=== PATIENT | male | born 1960 | race Caucasian/White ===

== ENCOUNTER 2016-06-30 19:16 | Inpatient (IN) | payer OTHER ==
[~2016-06-30] VITALS: Ht 172.7 cm; Wt 70.5 kg
[~2016-06-30 19:16] MED LIST: FRS/40 PO; HYDR4TAB78 PO; OMEP20TA PO; OXYC-59 PO; SPIR100T PO; [UNRECOGNIZED DRUG - OTHER]
[2016-06-30] MEDS ORDERED: ONDANSETRON INJ 2 MG/ML 2 ML VIAL IV PRN (20:30)
[2016-06-30] MEDS ORDERED: ACETAMINOPHEN 325 MG TAB PO PRN (20:30)
[2016-06-30] MEDS ORDERED: OXYCODONE/ACETAMINOPHEN 10/325MG TAB PO PRN (21:15)
[2016-06-30] MEDS ORDERED: ALBUTEROL HFA 8 GM INHALER INH PRN (21:15)
[2016-06-30] MEDS ORDERED: CYCLOBENZAPRINE HCL 10 MG TAB PO PRN (21:15)
[2016-06-30] MEDS ORDERED: CYCL10TA6 PO (21:21)
[2016-06-30] MEDS ORDERED: SPIR50TA2 PO (21:21)
[2016-06-30] MEDS ORDERED: LSX20 PO (21:21)
[2016-06-30 21:39] LABS: HEMATOCRIT 22.8 % (42-52); MEAN CELL VOLUME 97.9 fL (80-100); MEAN CORPUSCULAR HEMOGLOBIN 36.5 pg (25-34); MEAN CORPUSCULAR HGB CONC 37.3 g/dl (32-36); RED BLOOD COUNT 2.33 M/uL (4.7-6.1); WHITE BLOOD COUNT 8.13 K/uL (4.8-10.8)
[2016-06-30 21:53] LABS: MEAN PLATELET VOLUME 9.7 fL (7.4-10.4); PLATELET COUNT 86 K/uL (130-400)
[2016-06-30 21:57] LABS: BLOOD UREA NITROGEN 28 mg/dl (7-18); BUN/CREATININE RATIO 17.4 (10-20); CALCIUM 8.5 mg/dl (8.5-10.1); CARBON DIOXIDE 28 mmol/L (21-32); CHLORIDE 90 mmol/L (98-107); GLUCOSE 131 mg/dl (70-99); MAGNESIUM 1.8 mg/dl (1.8-2.4); POTASSIUM 4.7 mmol/L (3.5-5.1); SODIUM 127 mmol/L (136-145)
[2016-06-30 22:08] VITALS: Ht 172.7 cm; Wt 70.5 kg
[2016-06-30] MEDS ORDERED: NICOTINE 21 MG/24 HR TDSY TD ONE (22:31)
[2016-07-01] VITALS (15 sets, daily range): BP systolic 111–154; BP diastolic 64–82; PULSE 86–97; TEMP 36.3–36.8; O2SAT 94–100
--- NOTE | 2016-07-01 00:24 | History and Physical ---
History & Physical Date & Time of Service: Jun 30, 2016 at 21:21 Chief Complaint: Acute Renal Failure, Hyponatremia Primary Care Physician: Yazan Ayala M.D. History of Present Illness Source: patient, clinic records This is a 55 year old male with PMH of cirrhosis due to alcohol abuse and HCV complicated by ascites, portal HTN, varices, who presents as a direct admission from [facility] for hyponatremia, anemia, and ANJEL. Patient recently had paracentsis on 07/25/15 and states he had severe abd pain that night and the next day. Pain is now less severe. His home pain regimen (which he takes for his neck) controls the abd pain. He c/o distension and weight increase from 145 lb after paracentesis to 153 today. HHe has intermittent nausea but has been eating normally on low sodium diet. He reports drinking 7 or more cups of liquid per day. He c/o dry mouth. He reports chronically feeling cold. He admits to jaundice for past 1 mo. He is also c/o cramping of the hands and feet. Denies fevers, chest pain, SOB, LE edema, vomiting, diarrhea, hematemesis , coffee ground emesis, hematochezia, melena, dysuria. Pt's nadolol recently held and furosemide and spironolactone decreased. Past Medical/Surgical History Medical Problems: (1) Ascites Status: Chronic (2) Chronic pain syndrome Permanent Comment: cervical spine Status: Chronic (3) Cirrhosis of liver Status: Chronic (4) GERD (gastroesophageal reflux disease) Status: Chronic (5) Hepatitis C, chronic Status: Chronic (6) Intermittent asthma Status: Chronic (7) Portal hypertension Permanent Comment: esophageal varices noted on EGD Feb 2016 Status: Chronic (8) Thrombocytopenia Status: Chronic Surgical Problems: (1) History of tonsillectomy Status: Chronic (2) S/P cervical spinal fusion Permanent Comment: 2004 and 2007 Status: Chronic (3) Status post insertion of intrathecal pump Permanent Comment: [facility] hydromorphone Status: Chronic Family History Unobtainable family history due to adoption Social History Smoking Status: Current Every Day Smoker (1 ppd) Alcohol Use: none (last drink 6 mo ago) Drug Use: marijuana Marital Status: in relationship Housing status: lives with family (with son) Immunizations History of Influenza Vaccine: Yes History of Tetanus Vaccine?: YES,< 10 YRS History of Pneumococcal: No History of Hepatitis B Vaccine: Unknown Multi-Drug Resistant Organisms History of MDRO: No Allergies Coded Allergies: Morphine (Verified Adverse Reaction, Unknown, INABILITY TO URINATE, ) Home Medications Scheduled Ascorbic Acid (Vitamin C Gummie 120 mg), 1 TAB PO DAILY Furosemide (Furosemide), 20 MG PO BID Multiple Vitamin (Multivitamin), 1 TAB PO QAM Omeprazole (Omeprazole), 20 TAB PO DAILY Spironolactone (Aldactone), 50 MG PO BID Scheduled PRN Albuterol (Proair Hfa), 2 PUFFS INH Q4 PRN for SOB/Wheezing Cyclobenzaprine Hcl (Flexeril), 1 TAB PO HS PRN for Muscle Spasms Hydromorphone Hcl (Dilaudid), 4 MG PO Q6H PRN for Pain Oxycodone/Acetaminophen 10MG/325MG (Percocet 10MG/325MG), 1 TAB PO Q4H PRN for Pain Miscellaneous Medications [Dilaudid intrathecal], 0 Review of Systems Ten point review of systems performed with pertinent positive and negatives per HPI. All other systems negative. Physical Exam General Appearance: WD/WN, no apparent distress Head: normocephalic, atraumatic Eyes: + pertinent finding (scleral icterus) ENT: hearing grossly normal, pharynx normal Neck: supple, trachea midline Respiratory/Chest: lungs clear, normal breath sounds, no respiratory distress Cardiovascular: regular rate, rhythm, no murmur Abdomen/GI: normal bowel sounds, non tender, + pertinent finding (mildly distended but soft, pain pump present) Extremities/Musculoskelatal: normal inspection, no calf tenderness, normal capillary refill, no pedal edema Neurologic/Psych: alert, normal mood/affect, oriented x 3, + pertinent finding (grossly nonfocal) Skin: warm/dry, + jaundice Diagnostics Laboratory Results Results Past 24 Hours Test 06/30/16 20:36 Range/Units Impression Assessment and Plan ANJEL Cr increased from 1.2-> 1.5 earlier today -> 1.6 tonight, was running 0.9 before that May have hepatorenal syndrome Hold diuretics Consult nephrology HYPONATREMIA Na 124 earlier today -> 127 Hold diuretics Regular diet and fluid restriction 1500 mL Consult nephrology ANEMIA Hg 8.9 earlier today -> 8.5 ( was 10's in May 2016) Denies overt GI bleeding symptoms Prior EGD 02/2016 showed esophageal varices, portal hypertensive gastropathy, duodenal ulcer Has declined colonoscopy in the past Not indicated for transfusion Monitor H/H CIRRHOSIS Due to alcohol abuse and HCV Complicated by ascites, varices, portal hypertensive gastropathy S/p paracentesis on 06/24/16 Continue to hold nadolol Consult GI for further recommendations CHRONIC NECK PAIN Continue home pain regimen TOBACCO ABUSE nicotine patch ordered DVT PROPHYLAXIS SCD's due to anemia Patient seen in collaboration with Dr. Craig. Please see his addendum. ADDENDUM: This is a 55 year old male with PMH of alcohol use/HCV leading to ascites secondary to liver cirrhosis - likely hepatorenal syndrome - was sent over by GI due to elevation in creat, decreased sodium no acute distress +distention of abdomen no edema of LE AAO x3 Plan is for nephro consultation for further evaluation of hepatorenal syndrome - will likely need albumin - hold diuretics and continue with fluid restriction. Consult GI for worsening anemia, with Hgb down to 8.9 - possibly related to fluid overload VTE Prophylaxis VTE Risk Assessment Done? Y/N: Yes Risk Level: Moderate
[2016-07-01] MEDS: HYDROmorphone HCL 2 MG TAB PO PRN (00:49)
[2016-07-01] MEDS: MULTIVITAMIN TAB PO SCH (07:44)
[2016-07-01] MEDS: PANTOprazole SOD 40 MG TAB PO SCH (07:44)
[2016-07-01] MEDS: ASCORBIC ACID 500 MG TAB PO SCH (07:44)
[2016-07-01] MEDS: NICOTINE 21 MG/24 HR TDSY TD SCH (07:45)
[2016-07-01 08:16] LABS: HEMATOCRIT 22.4 % (42-52); MEAN CELL VOLUME 96.6 fL (80-100); MEAN CORPUSCULAR HEMOGLOBIN 36.6 pg (25-34); MEAN CORPUSCULAR HGB CONC 37.9 g/dl (32-36); RED BLOOD COUNT 2.32 M/uL (4.7-6.1); WHITE BLOOD COUNT 6.16 K/uL (4.8-10.8)
[2016-07-01 08:17] LABS: MEAN PLATELET VOLUME 9.7 fL (7.4-10.4); PLATELET COUNT 81 K/uL (130-400)
[2016-07-01 09:25] LABS: BUN/CREATININE RATIO 19.1 (10-20); CALCIUM 8.8 mg/dl (8.5-10.1); CREATININE 1.3 mg/dl (0.60-1.40); MAGNESIUM 1.9 mg/dl (1.8-2.4); POTASSIUM 4.8 mmol/L (3.5-5.1)
--- NOTE | 2016-07-01 10:32 | Gastrointestinal Consultation ---
Gastrointestinal Consultation Date of Consultation: Jul 01, 2016 Consulting Physician: Dr. Hernandez Reason for Consultation: HRS History of Present Illness Patient is a 55 year old male with PMH significant for ETOH abuse, prior IV drug abuse, HCV, portal HTN, varices, asthma and chronic neck/back pain who was directly admitted for suspicion of HRS with worsening renal function, anemia, hyponatremia following a followup appointment with María Murphy.Today he is reporting abdominal distention and discomfort. He states his previous paracentesis was on 06/24/16 and they got about 4L of fluid off. He said he felt ok following the procedure then began experiencing abdominal pain throughout the night. He states that he feels like he needs a repeat paracentesis at this time. He reports weight gain of about 10 lbs following his paracentesis on 06/14/16. He reports he has been following a strict reduced sodium diet, and that he calculates the amount of salt that is in his diet. He also reports two episodes of emesis early AM and into the morning. He reports he felt nauseated and full of fluid. He reports throwing up at that time. The bile was clear/yellow in color without any blood or coffee ground appearance. He denies any more episodes of vomiting. He states he has been nauseous for months now and that this feeling is unchanged from his baseline nausea. The nausea comes in waves, this is the first time he had an episode of vomiting. He denies chest pain, SOB, black/bloody stools/emesis. EGD 03/17/16 : Non-bleeding grade I esophageal varices. Z-line regular, 40 cm from the incisors. Portal hypertensive gastropathy. One healing duodenal ulcer with no stigmata of bleeding. Normal 2nd part of the duodenum. Recommended to use omeprazole 20 mg PO daily and repeat the upper endoscopy in 1 year NA 127 -> 124 -> creat 0.8 -> 1.2 -> 1.5 HGB 8.5 INR 1.4 PT 15.7 Past Medical/Surgical History Medical Problems: (1) Cervical radiculopathy Status: Acute (2) Cholecystitis Status: Acute (3) Cirrhosis Status: Acute (4) Diffuse abdominal pain Status: Acute (5) Dog bite Status: Acute (6) Edema Status: Acute (7) Epigastric abdominal pain Status: Acute (8) Hematoma Status: Acute (9) Hyperbilirubinemia Status: Acute (10) Neck pain Status: Acute (11) Tension headache Status: Acute Family History Unobtainable family history due to adoption Social History Smoking Status: Current Every Day Smoker (1 ppd) Alcohol Use: none Drug Use: marijuana Marital Status: in relationship Housing Status: lives with significant other Allergies Coded Allergies: Morphine (Verified Adverse Reaction, Unknown, INABILITY TO URINATE, ) Current Medications Home Meds and Scripts Medications Dose Route/Sig Max Daily Dose Days Date Category Dose Instructions Aldactone (Spironolactone) 50 Mg Tab 50 Mg PO BID 06/30/16 Reported Flexeril (Cyclobenzaprine Hcl) 10 Mg Tab 1 Tab PO HS PRN 30 06/30/16 Reported Furosemide 20 Mg Tab 20 Mg PO BID 06/30/16 Reported Vitamin C Gummie 120 mg (Ascorbic Acid) 1 Chw Chw 1 Tab PO DAILY 06/30/16 Reported [Dilaudid intrathecal] 0 04/11/16 Reported hydromorphone intrathecal pump UP Percocet 10MG/325MG (Oxycodone/Acetaminophen 10MG/325MG) 1 Tab Tab 1 Tab PO Q4H PRN 04/11/16 Reported Omeprazole 20 Mg Tab 20 Tab PO DAILY 04/11/16 Reported Dilaudid (Hydromorphone Hcl) 4 Mg Tab 4 Mg PO Q6H PRN 04/06/16 Reported Proair Hfa (Albuterol) Aers 2 Puffs INH Q4 PRN 03/16/16 Reported Multivitamin (Multiple Vitamin) 1 Tab Tab 1 Tab PO QAM 03/16/16 Reported Skelaxin (Metaxalone) 800 Mg Tab 800 Mg PO QID 10/14/09 Reported Fentanyl Patch (Fentanyl) 25 Mcg Tdsy 25 Mcg TOP 10/14/09 Reported Lioresal (Baclofen) 10 Mg Tab 10 Mg PO 10/14/09 Reported Percocet 5MG/325MG (Oxycodone/Acetaminophen) Tab 1 Tablet PO Q6HR PRN 10/14/09 Reported PAIN Review of Systems Constitutional: No chills, No fever ENT: No hearing loss Respiratory: No shortness of breath Cardiac: No chest pain Abdomen: + nausea (states this is his baseline nausea that has been persistent for about the past few months, has not taken any medications for nasuea yet), + pain (generalized abd tenderness, states his abd feels distended and full), + vomiting (one episdoe of vomitting over night, emesis was all fluid without blood or coffee ground appearance), No GI bleeding, No constipation, No diarrhea Skin: + jaundice, No itch, No rash Physical Exam Date Time Temp Pulse Resp B/P Pulse Ox O2 Delivery O2 Flow Rate FiO2 07/01/16 08:19 36.4 90 18 149/70 95 Room Air 07/01/16 08:00 Room Air 07/01/16 00:43 36.7 92 20 140/71 94 Room Air 07/01/16 00:00 Room Air 06/30/16 22:08 Room Air General Appearance: no apparent distress Eyes: PERRL ENT: hearing grossly normal Neck: supple, trachea midline Respiratory/Chest: chest non-tender, lungs clear, normal breath sounds, no respiratory distress, no accessory muscle use Cardiovascular: regular rate, rhythm, no edema, no gallop, no JVD, no murmur Abdomen: normal bowel sounds, no organomegaly, no pulsatile mass, + distended, + tenderness, + pertinent finding (pain pump located LLQ) Neurologic/Psych: alert, normal mood/affect, oriented x 3 Skin: warm/dry, no rash, + jaundice Laboratory Results Last 24 Hours Test 06/30/16 21:17 07/01/16 07:49 White Blood Count 8.13 K/uL 6.16 K/uL Red Blood Count 2.33 M/uL 2.32 M/uL Hemoglobin 8.5 g/dL 8.5 g/dL Hematocrit 22.8 % 22.4 % Mean Corpuscular Volume 97.9 fL 96.6 fL Mean Corpuscular Hemoglobin 36.5 pg 36.6 pg Mean Corpuscular Hemoglobin Concent 37.3 g/dl 37.9 g/dl RDW Standard Deviation 53.1 fL 52.5 fL RDW Coefficient of Variation 15.0 % 15.1 % Platelet Count 86 K/uL 81 K/uL Mean Platelet Volume 9.7 fL 9.7 fL Sodium Level 127 mmol/L 128 mmol/L Potassium Level 4.7 mmol/L 4.8 mmol/L Chloride Level 90 mmol/L 92 mmol/L Carbon Dioxide Level 28 mmol/L 27 mmol/L Anion Gap 9.0 mmol/L 9.0 mmol/L Blood Urea Nitrogen 28 mg/dl 25 mg/dl Creatinine 1.60 mg/dl 1.30 mg/dl Estimated GFR () 56.2 72.2 Estimated GFR (Non- 48.5 62.3 BUN/Creatinine Ratio 17.4 19.1 Random Glucose 131 mg/dl 106 mg/dl Calcium Level 8.5 mg/dl 8.8 mg/dl Magnesium Level 1.8 mg/dl 1.9 mg/dl Est Creatinine Clear Calc Drug Dose 63.6 ml/min Total Bilirubin 5.4 mg/dl Direct Bilirubin 2.9 mg/dl Aspartate Amino Transf (AST/SGOT) 117 U/L Alanine Aminotransferase (ALT/SGPT) 57 U/L Alkaline Phosphatase 120 U/L Total Protein 5.7 gm/dl Albumin 3.0 gm/dl Impression Patient is a 55 year old male with ETOH/HEPC cirrhosis with worsening renal function. Differentials include HRS, ANJEL Plan albumin 25gm TID IV ABD US for evaluation of ascites continue with salt restriction diet will hold on lasix/spironolactone dosing until seen by coach tour driver will defer treatment with octreotide/midodrine until seen by coach tour driver MELD score: 10 Maddrey score: 17.3 GI will follow and evaluate for need of paracentesis pending US Attg addendum: I interviewed and examined pt, reviewed chart and labs. Pt with HCV alcohol cirrhosis, admit with ascites, hypoNA, and renal insuff. On exam, he appears comfortable. Abd is distended with fluid wave. Will plan paracentesis and albumin infusion; r/o SBP; uls for HCC and r/o PVT.
[2016-07-01 11:36] LABS: INR 1.4 (0.9-1.1); PROTHROMBIN TIME (PATIENT) 15.7 SECONDS (9.0-12.0)
--- NOTE | 2016-07-01 11:38 | DIAGNOSTIC IMAGING REPORT ---
ASCITES-ABDOMEN LIMITED ULTRASOUND CLINICAL HISTORY: Abdominal distention, ascites COMPARISON STUDY: Abdominal ultrasound 04/11/2016. FINDINGS: Moderate ascites seen throughout the abdomen. This is similar to the prior study. IMPRESSION: Moderate abdominal/pelvic ascites which appears similar to the prior study. Electronically signed by: Dangelo Morales M.D. 07/01/2016 11:36 AM
[2016-07-01] MEDS: ALBUMIN HUMAN 25% 12.5 GM/50 ML VIAL IV SCH ×4 (12:10→21:20)
[2016-07-01] MEDS: HYDROmorphone INJ 1 MG/ML SYR IV PRN ×2 (12:25→18:49)
--- NOTE | 2016-07-01 12:25 | Progress Note ---
Medicine Progress Note Date & Time of Visit: Jul 01, 2016 at 12:09. (Elham Bashir PA-C) Subjective Patient seen and examined. 55 year old male with PMHx of cirrhosis secondary to alcohol abuse and HCV admitted yesterday for anemia, ARF, and hyponatremia is seen and examined in room 275-2. Patient reports he has been feeling nauseated since around 2:00am. He denies associated vomiting, but states some liquid comes into his mouth. States abdominal pain is slightly worse as well. State his pain meds for chronic back pain are not controlling this. Reports he was seen by GI this AM and had US. He is still waiting to see nephrology. He denies fevers, chills, chest pain, SOB, diarrhea, dysuria, calf pain and edema. (Elham Bashir PA-C) Objective Last 8 Hrs Date Time Temp Pulse Resp B/P Pulse Ox O2 Delivery O2 Flow Rate FiO2 07/01/16 12:09 36.5 92 16 149/78 100 07/01/16 08:19 36.4 90 18 149/70 95 Room Air 07/01/16 08:00 Room Air Physical Exam: General-WD/WN 55 year old male lying in bed in NAD Eyes-slight scleral icterus ENT-mucosa moist Neck-supple no JVD Lungs-CTA BL, no wheezes, rhonchi or rales Heart-RRR no murmurs gallops or rubs Abdomen-normactive BS, distended but soft, mild diffuse tenderness to palpation , pain pump in place Extremities-distal pulses intact, no edema, no calf tenderess Neuro-A&Ox3, no focal deficits noted on gross exam Skin- Jaundice Laboratory Results: Last 24 Hours Test 06/30/16 21:17 07/01/16 07:49 07/01/16 10:35 07/01/16 11:00 White Blood Count 8.13 K/uL 6.16 K/uL Red Blood Count 2.33 M/uL 2.32 M/uL Hemoglobin 8.5 g/dL 8.5 g/dL Hematocrit 22.8 % 22.4 % Mean Corpuscular Volume 97.9 fL 96.6 fL Mean Corpuscular Hemoglobin 36.5 pg 36.6 pg Mean Corpuscular Hemoglobin Concent 37.3 g/dl 37.9 g/dl RDW Standard Deviation 53.1 fL 52.5 fL RDW Coefficient of Variation 15.0 % 15.1 % Platelet Count 86 K/uL 81 K/uL Mean Platelet Volume 9.7 fL 9.7 fL Sodium Level 127 mmol/L 128 mmol/L Potassium Level 4.7 mmol/L 4.8 mmol/L Chloride Level 90 mmol/L 92 mmol/L Carbon Dioxide Level 28 mmol/L 27 mmol/L Anion Gap 9.0 mmol/L 9.0 mmol/L Blood Urea Nitrogen 28 mg/dl 25 mg/dl Creatinine 1.60 mg/dl 1.30 mg/dl Estimated GFR () 56.2 72.2 Estimated GFR (Non- 48.5 62.3 BUN/Creatinine Ratio 17.4 19.1 Random Glucose 131 mg/dl 106 mg/dl Calcium Level 8.5 mg/dl 8.8 mg/dl Magnesium Level 1.8 mg/dl 1.9 mg/dl Est Creatinine Clear Calc Drug Dose 63.6 ml/min Total Bilirubin 5.4 mg/dl Direct Bilirubin 2.9 mg/dl Aspartate Amino Transf (AST/SGOT) 117 U/L Alanine Aminotransferase (ALT/SGPT) 57 U/L Alkaline Phosphatase 120 U/L Total Protein 5.7 gm/dl Albumin 3.0 gm/dl Urine Osmolality 565 mOms/kg Prothrombin Time 15.7 SECONDS Prothromb Time International Ratio 1.4 (Elham Bashir, PA-C) Assessment & Plan ACUTE RENAL FAILURE -Cr increased from 1.2-> 1.5 -> 1.6 ->1.3 today -baseline 0.9 -possibly hepatorenal syndrome -hold diuretics, nephrotoxins -nephrology consulted awaiting recommendations -follow PRP HYPONATREMIA Na 124 -> 127 -> 128 -diuretics on hold -fluid restriction of 1500mL -nephrology consult placed -serial PRP ANEMIA -8.5 yesterday and today -no signs of active bleeding -Prior EGD 02/2016 showed esophageal varices, portal hypertensive gastropathy, duodenal ulcer -previously declined colonoscopy -continue to monitor H/H, no indication for transfusion at this time THROMBOCYTOPENIA -platelet count 81 -no signs of active bleeding -avoid anticoagulation/antiplatelets as able -follow daily CIRRHOSIS -Due to alcohol abuse and HCV -Complicated by ascites, varices, portal hypertensive gastropathy -S/p paracentesis on 06/24/16 -Continue to hold nadolol -GI consulted, input appreciated - Abdominal US ordered, Albumin 25mg IV TID -follow up US results -add Dilaudid IV prn abdominal pain -Zofran prn nausea CHRONIC NECK PAIN -Continue home pain regimen TOBACCO ABUSE -continue nicotine patch DVT PROPHYLAXIS: SCDs RE: Anemia, thrombocytopenia Patient seen in collaboration with Dr. Coronel Current Inpatient Medications: Current Inpatient Medications Medications (Trade) Dose Ordered Sig/Perla Route Start Time Stop Time Status Last Admin Dose Admin Acetaminophen (Tylenol Tab) 650 mg Q4H PRN PO 06/30/16 20:30 07/30/16 20:29 Ondansetron HCl (Zofran Inj) 4 mg Q6H PRN IV 06/30/16 20:30 07/30/16 20:29 07/01/16 10:26 4 MG Nicotine (Nicoderm Cq 21MG Patch) 1 patch QAM TD 07/01/16 09:00 07/31/16 08:59 07/01/16 07:45 1 PATCH Miscellaneous (Remove Nicoderm Patch) 1 ea HS N/A 07/01/16 21:00 07/31/16 20:59 Albuterol (Ventolin Hfa Inhaler) 2 puffs Q4 PRN INH 06/30/16 21:15 07/30/16 21:14 Cyclobenzaprine HCl (Flexeril Tab) 10 mg HS PRN PO 06/30/16 21:15 07/30/16 21:14 Hydromorphone HCl (Dilaudid Tab) 4 mg Q6H PRN PO 06/30/16 21:15 07/14/16 21:14 07/01/16 00:49 4 MG Multivitamins (Multivitamin Tab) 1 tab QAM PO 07/01/16 09:00 07/31/16 08:59 07/01/16 07:44 1 TAB Oxycodone/ Acetaminophen (Percocet 10-325MG Tab) 1 tab Q4H PRN PO 06/30/16 21:15 07/14/16 21:14 Ascorbic Acid (Vitamin C Tab) 125 mg DAILY PO 07/01/16 09:00 07/31/16 08:59 07/01/16 07:44 125 MG Pantoprazole Sodium (Protonix Tab) 40 mg QAM PO 07/01/16 09:00 07/31/16 08:59 07/01/16 07:44 40 MG Albumin Human (Albumin 25%) 12.5 gm Q8H IV 07/01/16 12:00 07/04/16 11:59 Albumin Human (Albumin 25%) 12.5 gm Q8H IV 07/01/16 12:30 07/04/16 12:29 Hydromorphone HCl (Dilaudid Inj) 0.5 mg Q6H PRN IV 07/01/16 12:15 07/15/16 12:14 UNV (Elham Bashir, ELKIN) ATTENDING ADDENDUM care coordinated with BERNADINE Bashir please refer to her notes for full details, I agree with her notes patient seen and examined, records reviewed by myself as well on exam, patient reports moderate lower abdominal pain, no nausea no dyspnea, chest pain, dizziness sitting up in bed, alert, conversant no other symptoms VS noted and reviewed oriented x 3, not in distress, speaks in sentences with no effort nor accessory muscle use normal rate, regular rhythm, no murmurs clear breath sounds bilaterally mildly distended, soft, nontender trace bipedal edema, erythema, warmth no neuro deficits Na 128 crea 1.3 ASSESSMENT/PLAN> POSSIBLE HEPATORENAL SYNDROME fluid restriction, diuretics held albumin IV ordered monitor crea HYPONATREMIA 128 today management of fluids as noted above ANEMIA hg still at ~8 other diagnoses and plan of care as per BERNADINE Bashir's notes Jose Coronel MD (Jose Coronel MD)
--- NOTE | 2016-07-01 15:50 | DIAGNOSTIC IMAGING REPORT ---
ULTRASOUND GUIDED DIAGNOSTIC AND THERAPEUTIC PARACENTESIS CLINICAL HISTORY: Ascites. PROCEDURE: The risks, benefits, and alternatives to the procedure were discussed with the patient including the risk of bleeding, infection and injury to adjacent structures. The patient agreed to the procedure and informed written consent was obtained. Following real-time ultrasound localization, the skin of the right lower quadrant was prepped and draped. Following local anesthesia with Xylocaine, the sheath paracentesis needle was inserted and approximately 3 liters of serosanguineous fluid was removed by vacuum suction. One bottle was sent to the laboratory for analysis. The patient tolerated the procedure well and no immediate complications were evident. IMPRESSION: Ultrasound-guided diagnostic and therapeutic paracentesis with removal of 3 liters of serosanguineous ascites. Electronically signed by: Alvaro Bond M.D. 07/01/2016 3:48 PM Dictated Date/Time: 07/01/2016 3:46 PM
--- NOTE | 2016-07-01 15:53 | DIAGNOSTIC IMAGING REPORT ---
Right upper quadrant ultrasound (LIVER) ABDOMEN LIMITED CLINICAL HISTORY: HCC screening, ETOH/HEP C cirrhosis hepatitis C TECHNIQUE: Real-time ultrasound Findings: Mild hepatic heterogeneity. Several gallstones and sludge within the gallbladder lumen. Common bile duct 7 mm. Poor visualization of pancreas. Right kidney is negative for hydronephrosis. Minimal to mild ascites. IMPRESSION: Nonspecific hepatic in homogeneity. Otherwise negative study. Electronically signed by: Arthur Arellano M.D. 07/01/2016 3:51 PM Dictated Date/Time: 07/01/2016 3:46 PM
--- NOTE | 2016-07-01 15:54 | DIAGNOSTIC IMAGING REPORT ---
Abdominal Doppler DUPLEX PORTAL HEPATIC VEINS CLINICAL HISTORY: ETOH cirrhosis, hept cirrhosis, nausea cirrhosis TECHNIQUE: Doppler ultrasound COMPARISON STUDY: 07/01/2016 FINDINGS: Normal vascular flow throughout the hepatic and portal venous structures. Splenic veins are patent. IMPRESSION: Normal study Electronically signed by: Arthur Arellano M.D. 07/01/2016 3:53 PM Dictated Date/Time: 07/01/2016 3:52 PM
[2016-07-01 16:38] LABS: PERIT FL WBC 306 /uL (0-300); PERITONEAL FLUID RBC 160000 /uL
[2016-07-01] MEDS ORDERED: NURSING VERBAL MED ORDER ONE (21:00)
[2016-07-02] VITALS (21 sets, daily range): BP systolic 107–147; BP diastolic 55–87; PULSE 79–98; TEMP 36.5–37.2; O2SAT 91–100
--- NOTE | 2016-07-02 02:10 | NEPHROLOGY CONSULTATION ---
DATE OF CONSULTATION: 07/01/2016 REASON FOR CONSULTATION: ANJEL and hyponatremia. HISTORY OF PRESENT ILLNESS: This is a 55-year-old male with history of alcoholic cirrhosis as well as hepatitis C, who has ascites and portal hypertension, who gets periodic paracenteses and recently had one last week and developed abdominal pain for the next 2 days which has improved. The patient does state that he has a significant dry mouth and does not restrict his fluids and his abdominal distention did worsen quite quickly after the paracentesis. The patient has not restarted any alcohol drinking, comes in with a creatinine of 1.6 with a sodium level of 127 and this morning creatinine is down to 1.3 with a sodium level of 128 and albumin of 3, urine osmolality of 565 with a urine random sodium of 9. The patient is undergoing paracentesis at this time with albumin administration. PAST MEDICAL HISTORY: Alcoholic cirrhosis with hepatitis C, portal hypertension, thrombocytopenia. PAST SURGICAL HISTORY: C-spine fusion, intrathecal pump, tonsillectomy. FAMILY HISTORY: The patient is adopted. SOCIAL HISTORY: Positive smoker, a pack per day. No alcohol for the past 6 months. Does smoke marijuana. Lives with son. CURRENT MEDICATIONS: Nicoderm patch, albumin 25 grams IV q. 8, multivitamin daily, vitamin C 125 mg daily, Protonix 40 mg daily. REVIEW OF SYSTEMS: Positive abdominal pain which is improving. No fevers or chills. No chest pain or shortness of breath. Appetite is good. Does have dry mouth and does not restrict his fluids. No rash or itching. All other review of systems otherwise negative. PHYSICAL EXAMINATION: VITAL SIGNS: Temperature 36.3, pulse 97, respiratory rate is 20, blood pressure 154/78, satting 97% on room air. GENERAL: Awake, alert, oriented x3. EYES: No scleral icterus. NECK: Supple. PULMONARY: Clear to auscultation. CARDIAC: Regular rate and rhythm. ABDOMEN: Distended with some mild tenderness. EXTREMITIES: Mild edema. NEUROLOGICALLY: Nonfocal. DERMATOLOGIC: Does have jaundice appearance. LABORATORIES: Sodium level is 128, potassium is 4.8, chloride 92, bicarbonate is 27, BUN is 25, creatinine is 1.3, glucose is 106, calcium is 8.8, mag is 1.9. T-bili is 5.4, albumin is 3. Urine random sodium is 9. Urinalysis osmolality is 565. White count 6.1, H\T\H 8.5 and 22.4, platelet count is 81. Peritoneal fluid is pending. IMPRESSION AND PLAN: 1. Hyponatremia in the setting of liver cirrhosis with a patient who does not restrict his fluids. I agree with fluid restriction and holding of diuretics at this time. We will follow sodium levels periodically. No role for 3% saline at this time. Difficult to ascertain. Patient is fluid overloaded given his significant ascites, but may have an element of intravascular volume depletion given the fact that his kidney function was worse on presentation. For now, we would not give normal saline and tentatively hold diuretics for another 24 hours while we screen for spontaneous bacterial peritonitis and make sure creatinine continues to improve, and hopefully sodium levels improve through restriction of free water. 2. Acute kidney injury. Creatinine was 1.6 and we do have a urine sodium of less than 10; however, creatinine is improving and was down to 1.3 this morning. I feel that patient may not necessarily be hepatorenal at this time and may benefit from albumin alone, patient is on albumin q. 8 hours, and we would like to hold on octreotide and midodrine for now and just give the albumin to see if the albumin will help mobilize the third spacing of fluid and improve perfusion to the kidneys, while the free water restriction may help raise the total body sodium. Once the sodium levels have improved and the creatinine has improved back down to baseline, we would recommend reinitiation of diuretics. For now hold octreotide and midodrine unless creatinine starts to worsen, treat with albumin and continue the free water restriction. Discussed case with Shannen Hernandez of GI who is in agreement with plan. MTDD
[2016-07-02] MEDS: ALBUMIN HUMAN 25% 12.5 GM/50 ML VIAL IV SCH ×6 (03:27→21:42)
--- NOTE | 2016-07-02 07:11 | Nephrology Progress Note ---
Nephrology Progress Note Date of Service: Jul 02, 2016. Subjective 55 yo male with liver cirrhosis who gets intermittent paracentesis and presented with abdominal pain and hyponatremia and anjel. creatinine improved from 1.6 to 1.3 yesterday and is on a free water restriction and albumin. pt underwent paracentesis yesterday and continues to have bilateral lower quadrant abdominal pain. Objective Date Time Temp Pulse Resp B/P Pulse Ox O2 Delivery O2 Flow Rate FiO2 07/02/16 05:07 36.9 95 16 107/58 94 Room Air 07/02/16 04:55 36.9 95 16 135/74 96 Room Air 07/02/16 03:52 37.0 93 16 112/55 94 Room Air 07/02/16 03:30 37.0 98 16 135/60 91 Room Air 07/02/16 00:15 36.7 96 18 119/56 93 Room Air 07/02/16 00:00 Room Air 07/01/16 21:35 36.6 94 20 146/82 96 Room Air 07/01/16 21:19 36.6 88 20 111/64 96 Room Air 07/01/16 20:35 36.8 86 20 118/68 97 Room Air 07/01/16 20:14 36.6 91 20 116/71 94 Room Air 07/01/16 17:40 36.8 90 20 150/79 98 Room Air 07/01/16 17:10 36.7 95 20 116/68 94 Room Air 07/01/16 16:40 36.8 90 20 119/68 98 Room Air 07/01/16 16:11 36.6 90 20 126/68 99 Room Air 07/01/16 16:00 97 Room Air 07/01/16 13:32 36.3 97 20 154/78 07/01/16 12:59 36.5 93 16 122/73 97 07/01/16 12:28 36.7 89 16 124/80 97 07/01/16 12:09 36.5 92 16 149/78 100 07/01/16 08:19 36.4 90 18 149/70 95 Room Air 07/01/16 08:00 Room Air Physical Exam: General-aaox3, jaundiced Eyes-no scleral icterus ENT-mmm Neck-supple Lungs-+end expiratory wheeze Heart-rrr Abdomen-bs+, tender lower quadrant, distended with ascites but improved compared to yesterday Extremities-no c/c/e Neuro-nonfocal Current Inpatient Medications Medications (Trade) Dose Ordered Sig/Perla Route Start Time Stop Time Status Last Admin Dose Admin Ondansetron HCl (Zofran Inj) 4 mg Q6H PRN IV 06/30/16 20:30 07/30/16 20:29 07/01/16 10:26 4 MG Nicotine (Nicoderm Cq 21MG Patch) 1 patch QAM TD 07/01/16 09:00 07/31/16 08:59 07/01/16 07:45 1 PATCH Albuterol (Ventolin Hfa Inhaler) 2 puffs Q4 PRN INH 06/30/16 21:15 07/30/16 21:14 Cyclobenzaprine HCl (Flexeril Tab) 10 mg HS PRN PO 06/30/16 21:15 07/30/16 21:14 Hydromorphone HCl (Dilaudid Tab) 4 mg Q6H PRN PO 06/30/16 21:15 07/14/16 21:14 07/01/16 00:49 4 MG Multivitamins (Multivitamin Tab) 1 tab QAM PO 07/01/16 09:00 07/31/16 08:59 07/01/16 07:44 1 TAB Oxycodone/ Acetaminophen (Percocet 10-325MG Tab) 1 tab Q4H PRN PO 06/30/16 21:15 07/14/16 21:14 Ascorbic Acid (Vitamin C Tab) 125 mg DAILY PO 07/01/16 09:00 07/31/16 08:59 07/01/16 07:44 125 MG Pantoprazole Sodium (Protonix Tab) 40 mg QAM PO 07/01/16 09:00 07/31/16 08:59 07/01/16 07:44 40 MG Albumin Human (Albumin 25%) 12.5 gm Q8H IV 07/01/16 12:00 07/04/16 11:59 07/02/16 03:27 12.5 GM Albumin Human (Albumin 25%) 12.5 gm Q8H IV 07/01/16 12:30 07/04/16 12:29 07/02/16 04:48 12.5 GM Hydromorphone HCl (Dilaudid Inj) 0.5 mg Q6H PRN IV 07/01/16 12:15 07/15/16 12:14 07/01/16 18:49 0.5 MG Miscellaneous (Remove Nicoderm Patch) 1 ea DAILY@0859 N/A 07/02/16 08:59 08/01/16 08:58 Last 24 Hours Test 07/01/16 07:49 07/01/16 10:35 07/01/16 11:00 07/02/16 04:44 White Blood Count 6.16 K/uL Red Blood Count 2.32 M/uL Hemoglobin 8.5 g/dL Hematocrit 22.4 % Mean Corpuscular Volume 96.6 fL Mean Corpuscular Hemoglobin 36.6 pg Mean Corpuscular Hemoglobin Concent 37.9 g/dl RDW Standard Deviation 52.5 fL RDW Coefficient of Variation 15.1 % Platelet Count 81 K/uL Mean Platelet Volume 9.7 fL Sodium Level 128 mmol/L Potassium Level 4.8 mmol/L Chloride Level 92 mmol/L Carbon Dioxide Level 27 mmol/L Anion Gap 9.0 mmol/L Blood Urea Nitrogen 25 mg/dl Creatinine 1.30 mg/dl Est Creatinine Clear Calc Drug Dose 63.6 ml/min Estimated GFR () 72.2 Estimated GFR (Non- 62.3 BUN/Creatinine Ratio 19.1 Random Glucose 106 mg/dl Calcium Level 8.8 mg/dl Magnesium Level 1.9 mg/dl Total Bilirubin 5.4 mg/dl Direct Bilirubin 2.9 mg/dl Aspartate Amino Transf (AST/SGOT) 117 U/L Alanine Aminotransferase (ALT/SGPT) 57 U/L Alkaline Phosphatase 120 U/L Total Protein 5.7 gm/dl Albumin 3.0 gm/dl Urine Osmolality 565 mOms/kg Prothrombin Time 15.7 SECONDS Prothromb Time International Ratio 1.4 Assessment & Plan ANJEL-creatinine went from 1.6 to 1.3. currently on albumin. urine sodium was less than 10 but held on octreotide and midodrine for now since pt appeared to be clinically improving. today's labs pending. for now treating with albumin only. hyponatremia-sodium levels are low but should improve with continued fluid restriction. no role for 3% normal saline. will await today's labs.
[2016-07-02 07:43] LABS: HEMATOCRIT 19.6 % (42-52); MEAN CORPUSCULAR HEMOGLOBIN 35.6 pg (25-34); MEAN CORPUSCULAR HGB CONC 36.7 g/dl (32-36); MEAN PLATELET VOLUME 9.3 fL (7.4-10.4); PLATELET COUNT 70 K/uL (130-400); RED BLOOD COUNT 2.02 M/uL (4.7-6.1); WHITE BLOOD COUNT 6.27 K/uL (4.8-10.8)
[2016-07-02 08:06] LABS: BUN/CREATININE RATIO 17.8 (10-20); CALCIUM 8.4 mg/dl (8.5-10.1); MAGNESIUM 1.9 mg/dl (1.8-2.4); POTASSIUM 4.5 mmol/L (3.5-5.1)
[2016-07-02 08:22] LABS: ALB/GLOB RATIO 1.6 (0.9-2); THYROID STIMULATING HORMONE 3.01 uIu/ml (0.300-4.500)
[2016-07-02] MEDS: ASCORBIC ACID 500 MG TAB PO SCH (08:29)
[2016-07-02] MEDS: MULTIVITAMIN TAB PO SCH (08:30)
[2016-07-02] MEDS: NICOTINE 21 MG/24 HR TDSY TD SCH (08:30)
[2016-07-02] MEDS: PANTOprazole SOD 40 MG TAB PO SCH (08:30)
[2016-07-02] MEDS: HYDROmorphone INJ 1 MG/ML SYR IV PRN (08:36)
--- NOTE | 2016-07-02 11:12 | Gastroenterology Progress Note ---
Progress Note Date of Service: Jul 02, 2016 Subjective Pt evaluation today including: conversation w/ patient, physical exam, chart review Patient is seen ambulating in his room. He states he feels well but that his abdominal pain is still unchanged. He got a paracentesis yesterday with 1000 CC removed without any malignant cells seen. Peritoneal WBC are 306. Polynuclear WBC 12.8% PNM is 36. SBP not likely. He reports that abdominal pain is constant , cramping and present in all four quadrants. The pain is neither relieved nor aggravated by BM. The pain does not radiate. He denies any chest pain, SOB, black/bloody stools or emesis. He states that he has not a BM. He is getting Dilaudid q6 PRN for pain without any medications for bowel movements. He denies using miralax at home. Will try miralax today, can reassess need for a dose Relistor. BUN 18, Creatinine 1 RUQ US 07/02/16: Mild hepatic heterogeneity. Several gallstones and sludge within the gallbladder lumen. Common bile duct 7 mm. Poor visualization of pancreas. Right kidney is negative for hydronephrosis. Minimal to mild ascites. Liver Duplex 07/02/16: Normal vascular flow throughout the hepatic and portal venous structures. Splenic veins are patent. Review of Systems Constitutional: No chills, No fever Respiratory: No cough, No shortness of breath Cardiac: No chest pain, No edema Abdomen: + constipation, + pain (generalized, worse in epigastric and bilateral lower quadrants. cramping and constant ), No GI bleeding, No diarrhea , No nausea, No vomiting Skin: No itch, No rash Medications Current Inpatient Medications Medications (Trade) Dose Ordered Sig/Perla Route Start Time Stop Time Status Last Admin Dose Admin Ondansetron HCl (Zofran Inj) 4 mg Q6H PRN IV 06/30/16 20:30 07/30/16 20:29 07/01/16 10:26 4 MG Nicotine (Nicoderm Cq 21MG Patch) 1 patch QAM TD 07/01/16 09:00 07/31/16 08:59 07/02/16 08:30 1 PATCH Albuterol (Ventolin Hfa Inhaler) 2 puffs Q4 PRN INH 06/30/16 21:15 07/30/16 21:14 Cyclobenzaprine HCl (Flexeril Tab) 10 mg HS PRN PO 06/30/16 21:15 07/30/16 21:14 Hydromorphone HCl (Dilaudid Tab) 4 mg Q6H PRN PO 06/30/16 21:15 07/14/16 21:14 07/01/16 00:49 4 MG Multivitamins (Multivitamin Tab) 1 tab QAM PO 07/01/16 09:00 07/31/16 08:59 07/02/16 08:30 1 TAB Oxycodone/ Acetaminophen (Percocet 10-325MG Tab) 1 tab Q4H PRN PO 06/30/16 21:15 07/14/16 21:14 Ascorbic Acid (Vitamin C Tab) 125 mg DAILY PO 07/01/16 09:00 07/31/16 08:59 07/02/16 08:29 125 MG Pantoprazole Sodium (Protonix Tab) 40 mg QAM PO 07/01/16 09:00 07/31/16 08:59 07/02/16 08:30 40 MG Albumin Human (Albumin 25%) 12.5 gm Q8H IV 07/01/16 12:00 07/04/16 11:59 07/02/16 03:27 12.5 GM Albumin Human (Albumin 25%) 12.5 gm Q8H IV 07/01/16 12:30 07/04/16 12:29 07/02/16 04:48 12.5 GM Hydromorphone HCl (Dilaudid Inj) 0.5 mg Q6H PRN IV 07/01/16 12:15 07/15/16 12:14 07/02/16 08:36 0.5 MG Miscellaneous (Remove Nicoderm Patch) 1 ea DAILY@0859 N/A 07/02/16 08:59 08/01/16 08:58 07/02/16 08:37 1 EA Objective Vital Signs Date Time Temp Pulse Resp B/P Pulse Ox O2 Delivery O2 Flow Rate FiO2 07/02/16 08:00 Room Air 07/02/16 07:26 37.2 94 18 129/66 93 Room Air 07/02/16 05:07 36.9 95 16 107/58 94 Room Air 07/02/16 04:55 36.9 95 16 135/74 96 Room Air 07/02/16 03:52 37.0 93 16 112/55 94 Room Air 07/02/16 03:30 37.0 98 16 135/60 91 Room Air 07/02/16 00:15 36.7 96 18 119/56 93 Room Air 07/02/16 00:00 Room Air 07/01/16 21:35 36.6 94 20 146/82 96 Room Air 07/01/16 21:19 36.6 88 20 111/64 96 Room Air 07/01/16 20:35 36.8 86 20 118/68 97 Room Air 07/01/16 20:14 36.6 91 20 116/71 94 Room Air 07/01/16 17:40 36.8 90 20 150/79 98 Room Air 07/01/16 17:10 36.7 95 20 116/68 94 Room Air 07/01/16 16:40 36.8 90 20 119/68 98 Room Air 07/01/16 16:11 36.6 90 20 126/68 99 Room Air 07/01/16 16:00 97 Room Air 07/01/16 13:32 36.3 97 20 154/78 07/01/16 12:59 36.5 93 16 122/73 97 07/01/16 12:28 36.7 89 16 124/80 97 07/01/16 12:09 36.5 92 16 149/78 100 Physical Exam General Appearance: no apparent distress (patient is standing at bedside, states he is going to ambulate the halls in a few minutes) Eyes: PERRL ENT: hearing grossly normal Neck: supple, trachea midline Respiratory/Chest: lungs clear, normal breath sounds, no respiratory distress, no accessory muscle use Cardiovascular: regular rate, rhythm, no edema, no gallop, no JVD, no murmur Abdomen: normal bowel sounds, soft, no organomegaly, no pulsatile mass, + tenderness (epigastric and bilateral lower quadrant) Neurologic/Psych: alert, normal mood/affect, oriented x 3 Skin: normal color, warm/dry, no rash Laboratory Results Last 24 Hours Test 07/01/16 11:00 07/02/16 06:56 Prothrombin Time 15.7 SECONDS Prothromb Time International Ratio 1.4 White Blood Count 6.27 K/uL Red Blood Count 2.02 M/uL Hemoglobin 7.2 g/dL Hematocrit 19.6 % Mean Corpuscular Volume 97.0 fL Mean Corpuscular Hemoglobin 35.6 pg Mean Corpuscular Hemoglobin Concent 36.7 g/dl RDW Standard Deviation 54.6 fL RDW Coefficient of Variation 15.5 % Platelet Count 70 K/uL Mean Platelet Volume 9.3 fL Sodium Level 132 mmol/L Potassium Level 4.5 mmol/L Chloride Level 95 mmol/L Carbon Dioxide Level 29 mmol/L Anion Gap 8.0 mmol/L Blood Urea Nitrogen 18 mg/dl Creatinine 1.00 mg/dl Est Creatinine Clear Calc Drug Dose 82.6 ml/min Estimated GFR () 99.2 Estimated GFR (Non- 85.5 BUN/Creatinine Ratio 17.8 Random Glucose 86 mg/dl Calcium Level 8.4 mg/dl Magnesium Level 1.9 mg/dl Total Bilirubin 5.5 mg/dl Aspartate Amino Transf (AST/SGOT) 88 U/L Alanine Aminotransferase (ALT/SGPT) 44 U/L Alkaline Phosphatase 90 U/L Total Protein 5.0 gm/dl Albumin 3.1 gm/dl Globulin 1.9 gm/dl Albumin/Globulin Ratio 1.6 Thyroid Stimulating Hormone (TSH) 3.010 uIu/ml Assessment and Plan Patient is a 55 year old male with ETOH/HEPC cirrhosis with worsening renal function, ascites and hyponatremia. Plan albumin 25gm TID IV continue with salt restriction diet encourage ambulation MELD score: 10 Maddrey score: 17.3 PMN < 200, no SBP will not treat US abd + duplex unremarkable miralax Attg addendum: I interviewed and examined pt, reviewed chart and labs. He reports mild abd pain, that is improved after 3 liter tap. He does not have SBP. His creat is improving. He is receiving blood. He is ok for d/c tomorrow. Please d/c on aldactone 200 and lasix 40 BID; he will need labs and GI clin f/u in 1 week.
[2016-07-02] MEDS ORDERED: POLYETHYLENE (MIRALAX) 17 GM PACK PO PRN (11:15)
--- NOTE | 2016-07-02 14:55 | Progress Note ---
Medicine Progress Note Date & Time of Visit: Jul 02, 2016 at 14:55. Subjective seen resting in bed, sitting up comfortable abdominal pain improving no nausea no dizziness, chest pain, dyspnea denies other symptoms Objective Last 8 Hrs Date Time Temp Pulse Resp B/P Pulse Ox O2 Delivery O2 Flow Rate FiO2 07/02/16 13:20 36.9 86 20 131/71 07/02/16 13:05 86 117/67 07/02/16 08:00 Room Air 07/02/16 07:26 37.2 94 18 129/66 93 Room Air Physical Exam: General-oriented x 3, not in distress, speaks in sentences with no effort Eyes- anicteric ENT- oropharynx clear Neck- supple, no JVD Lungs- clear to auscultation bilaterally Heart- regular rhythm; no murmurs Abdomen- mild distention, normal bowel sounds, soft, nontender Extremities- no pretibial edema, no calf tenderness Neuro- alert, oriented x 3; no gross focal deficits Skin- warm & dry Laboratory Results: Last 24 Hours Test 07/02/16 06:56 White Blood Count 6.27 K/uL Red Blood Count 2.02 M/uL Hemoglobin 7.2 g/dL Hematocrit 19.6 % Mean Corpuscular Volume 97.0 fL Mean Corpuscular Hemoglobin 35.6 pg Mean Corpuscular Hemoglobin Concent 36.7 g/dl RDW Standard Deviation 54.6 fL RDW Coefficient of Variation 15.5 % Platelet Count 70 K/uL Mean Platelet Volume 9.3 fL Sodium Level 132 mmol/L Potassium Level 4.5 mmol/L Chloride Level 95 mmol/L Carbon Dioxide Level 29 mmol/L Anion Gap 8.0 mmol/L Blood Urea Nitrogen 18 mg/dl Creatinine 1.00 mg/dl Est Creatinine Clear Calc Drug Dose 82.6 ml/min Estimated GFR () 99.2 Estimated GFR (Non- 85.5 BUN/Creatinine Ratio 17.8 Random Glucose 86 mg/dl Calcium Level 8.4 mg/dl Magnesium Level 1.9 mg/dl Total Bilirubin 5.5 mg/dl Aspartate Amino Transf (AST/SGOT) 88 U/L Alanine Aminotransferase (ALT/SGPT) 44 U/L Alkaline Phosphatase 90 U/L Total Protein 5.0 gm/dl Albumin 3.1 gm/dl Globulin 1.9 gm/dl Albumin/Globulin Ratio 1.6 Thyroid Stimulating Hormone (TSH) 3.010 uIu/ml Assessment & Plan ACUTE RENAL FAILURE -Cr improved to 1.00 -baseline 0.9 -possibly hepatorenal syndrome -hold diuretics, nephrotoxins -- continue albumin HYPONATREMIA Na 124 to 132 -diuretics on hold -fluid restriction of 1500mL ANEMIA Hg decreased to 7.2 -no signs of active bleeding -Prior EGD 02/2016 showed esophageal varices, portal hypertensive gastropathy, duodenal ulcer -previously declined colonoscopy -- 1 unit pRBC ordered THROMBOCYTOPENIA -platelet count 81--> 70 -no signs of active bleeding -avoid anticoagulation/antiplatelets as able -follow daily CIRRHOSIS -Due to alcohol abuse and HCV -Complicated by ascites, varices, portal hypertensive gastropathy -S/p paracentesis on 06/24/16 -Continue to hold nadolol -- s/p paracentesis 3L 07/01/16 CHRONIC NECK PAIN -Continue home pain regimen TOBACCO ABUSE -continue nicotine patch DVT PROPHYLAXIS: SCDs RE: Anemia, thrombocytopenia Disposition pending Current Inpatient Medications: Current Inpatient Medications Medications (Trade) Dose Ordered Sig/Perla Route Start Time Stop Time Status Last Admin Dose Admin Ondansetron HCl (Zofran Inj) 4 mg Q6H PRN IV 06/30/16 20:30 07/30/16 20:29 07/01/16 10:26 4 MG Nicotine (Nicoderm Cq 21MG Patch) 1 patch QAM TD 07/01/16 09:00 07/31/16 08:59 07/02/16 08:30 1 PATCH Albuterol (Ventolin Hfa Inhaler) 2 puffs Q4 PRN INH 06/30/16 21:15 07/30/16 21:14 Cyclobenzaprine HCl (Flexeril Tab) 10 mg HS PRN PO 06/30/16 21:15 07/30/16 21:14 Hydromorphone HCl (Dilaudid Tab) 4 mg Q6H PRN PO 06/30/16 21:15 07/14/16 21:14 07/01/16 00:49 4 MG Multivitamins (Multivitamin Tab) 1 tab QAM PO 07/01/16 09:00 07/31/16 08:59 07/02/16 08:30 1 TAB Oxycodone/ Acetaminophen (Percocet 10-325MG Tab) 1 tab Q4H PRN PO 06/30/16 21:15 07/14/16 21:14 Ascorbic Acid (Vitamin C Tab) 125 mg DAILY PO 07/01/16 09:00 07/31/16 08:59 07/02/16 08:29 125 MG Pantoprazole Sodium (Protonix Tab) 40 mg QAM PO 07/01/16 09:00 07/31/16 08:59 07/02/16 08:30 40 MG Albumin Human (Albumin 25%) 12.5 gm Q8H IV 07/01/16 12:00 07/04/16 11:59 07/02/16 12:59 12.5 GM Albumin Human (Albumin 25%) 12.5 gm Q8H IV 07/01/16 12:30 07/04/16 12:29 07/02/16 13:43 12.5 GM Hydromorphone HCl (Dilaudid Inj) 0.5 mg Q6H PRN IV 07/01/16 12:15 07/15/16 12:14 07/02/16 08:36 0.5 MG Miscellaneous (Remove Nicoderm Patch) 1 ea DAILY@0859 N/A 07/02/16 08:59 08/01/16 08:58 07/02/16 08:37 1 EA Polyethylene (Miralax Powder Packet) 17 gm DAILY PRN PO 07/02/16 11:15 08/01/16 11:14
[2016-07-02] MEDS: HYDROmorphone HCL 2 MG TAB PO PRN (19:33)
[2016-07-02] MEDS ORDERED: TRAMADOL HCL 50 MG TAB PO STA (22:54)
[2016-07-03 01:07] VITALS: BP 136/74; PULSE 87; TEMP 36.9; O2SAT 96
[2016-07-03] MEDS: ALBUMIN HUMAN 25% 12.5 GM/50 ML VIAL IV SCH ×4 (05:23→12:30)
[2016-07-03] MEDS: HYDROmorphone INJ 1 MG/ML SYR IV PRN (06:06)
[2016-07-03 06:12] LABS: HEMATOCRIT 22.3 % (42-52); MEAN CELL VOLUME 95.3 fL (80-100); MEAN CORPUSCULAR HEMOGLOBIN 34.6 pg (25-34); MEAN CORPUSCULAR HGB CONC 36.3 g/dl (32-36); RED BLOOD COUNT 2.34 M/uL (4.7-6.1); WHITE BLOOD COUNT 5.57 K/uL (4.8-10.8)
[2016-07-03 06:17] LABS: MEAN PLATELET VOLUME 9.5 fL (7.4-10.4); PLATELET COUNT 63 K/uL (130-400)
[2016-07-03 06:22] LABS: INR 1.6 (0.9-1.1); PROTHROMBIN TIME (PATIENT) 16.9 SECONDS (9.0-12.0)
[2016-07-03 06:41] LABS: ANISOCYTOSIS PRESENT; BASO % 0.4 %; BASO ABS # 0.02 K/uL (0-0.2); COMPLETE YES; EOS % 2.9 %; IG% 0.5 %; LYMPH % 38.4 %; LYMPH ABS # 2.14 K/uL (1.2-3.4); MONO % 13.8 %
[2016-07-03 07:42] VITALS: BP 125/76; PULSE 90; TEMP 36.8; O2SAT 94
[2016-07-03] MEDS: MULTIVITAMIN TAB PO SCH (09:00)
[2016-07-03] MEDS: NICOTINE 21 MG/24 HR TDSY TD SCH (09:15)
[2016-07-03] MEDS: ASCORBIC ACID 500 MG TAB PO SCH (09:17)
[2016-07-03] MEDS: PANTOprazole SOD 40 MG TAB PO SCH (09:18)
[2016-07-03 11:55] LABS: BLOOD UREA NITROGEN 13 mg/dl (7-18); CALCIUM 8.3 mg/dl (8.5-10.1); CHLORIDE 96 mmol/L (98-107); CREATININE 0.93 mg/dl (0.60-1.40); GLUCOSE 133 mg/dl (70-99); POTASSIUM 4.2 mmol/L (3.5-5.1); SODIUM 131 mmol/L (136-145)
--- NOTE | 2016-07-03 12:47 | Progress Note ---
Medicine Progress Note Date & Time of Visit: Jul 03, 2016 at 12:41. Subjective states he feels better overall denies abdominal pain, nausea no dyspnea, chest pain,cough umbilicus somewhat swollen, but no pain/redness no other symptoms states he is ready and would like to be discharged today Objective Last 8 Hrs Date Time Temp Pulse Resp B/P Pulse Ox O2 Delivery O2 Flow Rate FiO2 07/03/16 07:42 36.8 90 16 125/76 94 Room Air 07/03/16 07:30 Room Air Physical Exam: General-oriented x 3, not in distress, speaks in sentences with no effort Eyes- anicteric Neck- no JVD Lungs- clear to auscultation bilaterally Heart- regular rhythm; no murmurs Abdomen- mild distention, normal bowel sounds, soft, nontender; small umbilical hernia, reducible, no pain/discoloration Extremities- no pretibial edema, no calf tenderness Neuro- alert, oriented x 3; no gross focal deficits Skin- warm & dry Laboratory Results: Last 24 Hours Test 07/03/16 05:51 White Blood Count 5.57 K/uL Red Blood Count 2.34 M/uL Hemoglobin 8.1 g/dL Hematocrit 22.3 % Mean Corpuscular Volume 95.3 fL Mean Corpuscular Hemoglobin 34.6 pg Mean Corpuscular Hemoglobin Concent 36.3 g/dl Platelet Count 63 K/uL Mean Platelet Volume 9.5 fL Neutrophils (%) (Auto) 44.0 % Lymphocytes (%) (Auto) 38.4 % Monocytes (%) (Auto) 13.8 % Eosinophils (%) (Auto) 2.9 % Basophils (%) (Auto) 0.4 % Neutrophils # (Auto) 2.45 K/uL Lymphocytes # (Auto) 2.14 K/uL Monocytes # (Auto) 0.77 K/uL Eosinophils # (Auto) 0.16 K/uL Basophils # (Auto) 0.02 K/uL RDW Standard Deviation 62.4 fL RDW Coefficient of Variation 18.0 % Immature Granulocyte % (Auto) 0.5 % Immature Granulocyte # (Auto) 0.03 K/uL Anisocytosis PRESENT Prothrombin Time 16.9 SECONDS Prothromb Time International Ratio 1.6 Sodium Level 131 mmol/L Potassium Level 4.2 mmol/L Chloride Level 96 mmol/L Carbon Dioxide Level mmol/L Anion Gap mmol/L Blood Urea Nitrogen 13 mg/dl Creatinine 0.93 mg/dl Est Creatinine Clear Calc Drug Dose 88.8 ml/min Estimated GFR () 108.2 Estimated GFR (Non- 93.4 BUN/Creatinine Ratio 14.0 Random Glucose 133 mg/dl Calcium Level 8.3 mg/dl Total Bilirubin 6.1 mg/dl Direct Bilirubin 2.3 mg/dl Aspartate Amino Transf (AST/SGOT) 75 U/L Alanine Aminotransferase (ALT/SGPT) 42 U/L Alkaline Phosphatase 86 U/L Total Protein 5.1 gm/dl Albumin 3.4 gm/dl Assessment & Plan ACUTE RENAL FAILURE LIKE HEPATORENAL SYNDROME - received IV albumin diuretics held, fluid restricted -Cr improved from 1.6 to 0.9 - GI recommending to increase Aldactone to 200mg daily and Lasix 40mg BID repeat labs next week ff up with GI in 1 week HYPONATREMIA improved with above management Na 124 to 132 CIRRHOSIS -- Due to alcohol abuse and HCV -Complicated by ascites, varices, portal hypertensive gastropathy -- s/p paracentesis 3L 07/01/16 diuretic dose increased, received IV albumin ANEMIA Hg decreased to 7.2 -no signs of active bleeding -Prior EGD 02/2016 showed esophageal varices, portal hypertensive gastropathy, duodenal ulcer -previously declined colonoscopy -- 1 unit pRBC given 07/02/16 -- Hg improved to 8.1 asymptomatic monitor CBC THROMBOCYTOPENIA -platelet count 81--> 70 -no signs of active bleeding -avoid anticoagulation/antiplatelets as able - monitor CHRONIC NECK PAIN -Continue home pain regimen TOBACCO ABUSE -nicotine patch Disposition d/c home today ff up with PCP in 3-5 days ff up with GI in 1 week Current Inpatient Medications: Current Inpatient Medications Medications (Trade) Dose Ordered Sig/Perla Route Start Time Stop Time Status Last Admin Dose Admin Ondansetron HCl (Zofran Inj) 4 mg Q6H PRN IV 06/30/16 20:30 07/30/16 20:29 07/01/16 10:26 4 MG Nicotine (Nicoderm Cq 21MG Patch) 1 patch QAM TD 07/01/16 09:00 07/31/16 08:59 07/03/16 09:15 1 PATCH Albuterol (Ventolin Hfa Inhaler) 2 puffs Q4 PRN INH 06/30/16 21:15 2/3/17 21:14 Cyclobenzaprine HCl (Flexeril Tab) 10 mg HS PRN PO 06/30/16 21:15 07/30/16 21:14 Hydromorphone HCl (Dilaudid Tab) 4 mg Q6H PRN PO 06/30/16 21:15 07/14/16 21:14 07/02/16 19:33 4 MG Multivitamins (Multivitamin Tab) 1 tab QAM PO 07/01/16 09:00 07/31/16 08:59 07/02/16 08:30 1 TAB Oxycodone/ Acetaminophen (Percocet 10-325MG Tab) 1 tab Q4H PRN PO 06/30/16 21:15 07/14/16 21:14 Ascorbic Acid (Vitamin C Tab) 125 mg DAILY PO 07/01/16 09:00 07/31/16 08:59 07/03/16 09:17 125 MG Pantoprazole Sodium (Protonix Tab) 40 mg QAM PO 07/01/16 09:00 07/31/16 08:59 07/03/16 09:18 40 MG Albumin Human (Albumin 25%) 12.5 gm Q8H IV 07/01/16 12:00 07/04/16 11:59 07/03/16 05:23 12.5 GM Albumin Human (Albumin 25%) 12.5 gm Q8H IV 07/01/16 12:30 07/04/16 12:29 07/03/16 06:05 12.5 GM Hydromorphone HCl (Dilaudid Inj) 0.5 mg Q6H PRN IV 07/01/16 12:15 07/15/16 12:14 07/03/16 06:06 0.5 MG Miscellaneous (Remove Nicoderm Patch) 1 ea DAILY@0859 N/A 07/02/16 08:59 08/01/16 08:58 07/03/16 09:15 1 EA Polyethylene (Miralax Powder Packet) 17 gm DAILY PRN PO 07/02/16 11:15 08/01/16 11:14
[2016-07-03] MEDS ORDERED: FRS/40 PO (12:53)
[2016-07-03] MEDS ORDERED: SPR/100 PO (12:53)
[2016-07-03] MEDS ORDERED: PRT40 PO (12:53)
--- NOTE | 2016-07-03 13:06 | Discharge Instructions ---
Discharge Instructions Admission Reason for Admission: Acute Renal Failure, Hyponatremia Discharge Discharge Diagnosis / Problem: Acute Renal Failure, Hepatorenal Syndrome Discharge Goals Goal(s): Diagnostic testing, Therapeutic intervention Activity Recommendations Activity Limitations: as noted below (no heavy exertion until seen by Primary Care Physician) . Instructions / Follow-Up Instructions / Follow-Up PLEASE FOLLOW FLUID AND DIETARY RESTRICTIONS. REVIEW YOUR NEW MEDICATION LIST AND FOLLOW INSTRUCTIONS CAREFULLY. CALL PRIMARY CARE PHYSICIAN OR RETURN TO ER IMMEDIATELY IF WITH RECURRENCE OF SYMPTOMS, INCREASING ABDOMINAL PAIN OR GIRTH. NAUSEA, FEVER/CHILLS, BLACK OR BLOODY STOOLS. FOLLOW UP WITH PRIMARY CARE PHYSICIAN IN 3-5 DAYS (CLINIC TO CALL PATIENT WITH APPOINTMENT). FOLLOW UP WITH WOOD MILLING MACHINE OPERATOR IN 1 WEEK. Current Hospital Diet Patient's current hospital diet: Regular Diet Discharge Diet Recommended Diet: AHA Diet (Heart Healthy) Fluid Restriction: 2000 ml (8 cups) Procedures Procedures Performed: PARACENTESIS, 1 UNIT PRBC TRANSFUSION Pending Studies Studies pending at discharge: yes (CBC,) List of pending studies: CBC, PRP Medical Emergencies . Who to Call and When: Medical Emergencies: If at any time you feel your situation is an emergency, please call 911 immediately. . Non-Emergent Contact Non-Emergency issues call your: Primary Care Provider Call Non-Emergent contact if: you have a fever, your pain is not controlled, your pain is worsening, your pain is unusual for you . Past History Medical & Surgical History: (1) Anemia (2) Ascites (3) Hyponatremia (4) Cirrhosis of liver (5) GERD (gastroesophageal reflux disease) (6) Intermittent asthma (7) Thrombocytopenia (8) Portal hypertension (9) Chronic pain syndrome (10) Hepatitis C, chronic (11) Liver failure (12) S/P cervical spinal fusion (13) History of tonsillectomy (14) Status post insertion of intrathecal pump . "Provider Documentation" section prepared by Jose Coornel. VTE Core Measure Inpt VTE Proph given/why not?: Contraindicated
[2016-07-03 13:10] VITALS: BP 125/76; PULSE 90; TEMP 36.8; O2SAT 94
--- NOTE | 2016-07-03 13:13 | Discharge Summary ---
Discharge Summary Admission Date: Jun 30, 2016 at 19:43 Discharge Date: Jul 03, 2016 Discharge Disposition: Home Principal Diagnosis: ACUTE RENAL FAILURE LIKELY HEPATORENAL SYNDROME Secondary Diagnoses/Problems: PLEASE REFER TO HOSPITAL COURSE BELOW. Procedures: S/P PARACENTESIS, 1 UNIT PRBC TRANSFUSION Consultations: GI- DR. EVANGELISTA Pending Studies/Follow-Up: Please repeat CBC and PRP; Further details as noted below. Medication Reconciliation New Medications: Furosemide (Lasix) 40 Mg Tab 40 MG PO BID for 30 Days, #60 TAB 2 Refills Spironolactone (Aldactone) 100 Mg Tab 2 TABS PO DAILY for 30 Days, #60 TAB 2 Refills Pantoprazole (Pantoprazole Sodium) 40 Mg Tab 40 MG PO QAM for 30 Days, #30 TAB 2 Refills Continued Medications: Albuterol (Proair Hfa) Aers 2 PUFFS INH Q4 PRN for SOB/Wheezing Ascorbic Acid (Vitamin C Gummie 120 mg) 1 Chw Chw 1 TAB PO DAILY Cyclobenzaprine Hcl (Flexeril) 10 Mg Tab 1 TAB PO HS PRN for Muscle Spasms for 30 Days, #30 TAB Hydromorphone Hcl (Dilaudid) 4 Mg Tab 4 MG PO Q6H PRN for Pain, TAB Multiple Vitamin (Multivitamin) 1 Tab Tab 1 TAB PO QAM [Dilaudid intrathecal] () 0 hydromorphone intrathecal pump [facility] Discontinued Medications: Furosemide (Furosemide) 20 Mg Tab 20 MG PO BID Omeprazole (Omeprazole) 20 Mg Tab 20 TAB PO DAILY, TAB Oxycodone/Acetaminophen 10MG/325MG (Percocet 10MG/325MG) 1 Tab Tab 1 TAB PO Q4H PRN for Pain, TAB Spironolactone (Aldactone) 50 Mg Tab 50 MG PO BID, TAB Admission Information HPI (per Admitting provider): This is a 55 year old male with PMH of cirrhosis due to alcohol abuse and HCV complicated by ascites, portal HTN, varices, who presents as a direct admission from [facility] for hyponatremia, anemia, and ANJEL. Patient recently had paracentsis on 07/25/15 and states he had severe abd pain that night and the next day. Pain is now less severe. His home pain regimen (which he takes for his neck) controls the abd pain. He c/o distension and weight increase from 145 lb after paracentesis to 153 today. HHherbert has intermittent nausea but has been eating normally on low sodium diet. He reports drinking 7 or more cups of liquid per day. He c/o dry mouth. He reports chronically feeling cold. He admits to jaundice for past 1 mo. He is also c/o cramping of the hands and feet. Denies fevers, chest pain, SOB, LE edema, vomiting, diarrhea, hematemesis , coffee ground emesis, hematochezia, melena, dysuria. Pt's nadolol recently held and furosemide and spironolactone decreased. Physical Exam (per Admitting): General Appearance: WD/WN, no apparent distress Head: normocephalic, atraumatic Eyes: + pertinent finding (scleral icterus) ENT: hearing grossly normal, pharynx normal Neck: supple, trachea midline Respiratory/Chest: lungs clear, normal breath sounds, no respiratory distress Cardiovascular: regular rate, rhythm, no murmur Abdomen/GI: normal bowel sounds, non tender, + pertinent finding (mildly distended but soft, pain pump present) Extremities/Musculoskelatal: normal inspection, no calf tenderness, normal capillary refill, no pedal edema Neurologic/Psych: alert, normal mood/affect, oriented x 3, + pertinent finding (grossly nonfocal) Skin: warm/dry, + jaundice Hospital Course ACUTE RENAL FAILURE LIKELY HEPATORENAL SYNDROME - received IV albumin diuretics held, fluid restricted -Cr improved from 1.6 to 0.9 - GI recommending to increase Aldactone to 200mg daily and Lasix 40mg BID repeat labs next week ff up with GI in 1 week HYPONATREMIA improved with above management Na 124 to 132 CIRRHOSIS -- Due to alcohol abuse and HCV -Complicated by ascites, varices, portal hypertensive gastropathy -- s/p paracentesis 3L 07/01/16 diuretic dose increased, received IV albumin ANEMIA Hg decreased to 7.2 -no signs of active bleeding -Prior EGD 02/2016 showed esophageal varices, portal hypertensive gastropathy, duodenal ulcer -previously declined colonoscopy -- 1 unit pRBC given 07/02/16 -- Hg improved to 8.1 asymptomatic monitor CBC THROMBOCYTOPENIA -platelet count 81--> 70 -no signs of active bleeding -avoid anticoagulation/antiplatelets as able - monitor CHRONIC NECK PAIN -Continue home pain regimen TOBACCO ABUSE -nicotine patch Disposition d/c home today ff up with PCP in 3-5 days ff up with GI in 1 week Total time spent on discharge = 35 minutes This includes examination of the patient, discharge planning, medication reconciliation, and communication with other providers. Discharge Instructions Discharge Instructions Admission Reason for Admission: Acute Renal Failure, Hyponatremia Discharge Discharge Diagnosis / Problem: Acute Renal Failure, Hepatorenal Syndrome Discharge Goals Goal(s): Diagnostic testing, Therapeutic intervention Activity Recommendations Activity Limitations: as noted below (no heavy exertion until seen by Primary Care Physician) . Instructions / Follow-Up Instructions / Follow-Up PLEASE FOLLOW FLUID AND DIETARY RESTRICTIONS. REVIEW YOUR NEW MEDICATION LIST AND FOLLOW INSTRUCTIONS CAREFULLY. CALL PRIMARY CARE PHYSICIAN OR RETURN TO ER IMMEDIATELY IF WITH RECURRENCE OF SYMPTOMS, INCREASING ABDOMINAL PAIN OR GIRTH. NAUSEA, FEVER/CHILLS, BLACK OR BLOODY STOOLS. FOLLOW UP WITH PRIMARY CARE PHYSICIAN IN 3-5 DAYS (CLINIC TO CALL PATIENT WITH APPOINTMENT). FOLLOW UP WITH DUSTER TENDER IN 1 WEEK. Current Hospital Diet Patient's current hospital diet: Regular Diet Discharge Diet Recommended Diet: AHA Diet (Heart Healthy) Fluid Restriction: 2000 ml (8 cups) Procedures Procedures Performed: PARACENTESIS, 1 UNIT PRBC TRANSFUSION Pending Studies Studies pending at discharge: yes (CBC,) List of pending studies: CBC, PRP Medical Emergencies . Who to Call and When: Medical Emergencies: If at any time you feel your situation is an emergency, please call 911 immediately. . Non-Emergent Contact Non-Emergency issues call your: Primary Care Provider Call Non-Emergent contact if: you have a fever, your pain is not controlled, your pain is worsening, your pain is unusual for you . Past History Medical & Surgical History: (1) Anemia (2) Ascites (3) Hyponatremia (4) Cirrhosis of liver (5) GERD (gastroesophageal reflux disease) (6) Intermittent asthma (7) Thrombocytopenia (8) Portal hypertension (9) Chronic pain syndrome (10) Hepatitis C, chronic (11) Liver failure (12) S/P cervical spinal fusion (13) History of tonsillectomy (14) Status post insertion of intrathecal pump . "Provider Documentation" section prepared by Jose Coronel. VTE Core Measure Inpt VTE Proph given/why not?: Contraindicated
[2016-07-06] MEDS ORDERED: ALBU1AER9 INH (08:05)
[2016-07-10] MEDS ORDERED: LSX20 PO (12:43)
[2016-07-10] MEDS ORDERED: LCTL45 PO (12:43)
[2016-07-10] MEDS ORDERED: LEVO-18 PO (12:43)
[2016-07-10] MEDS ORDERED: SPR25 PO (12:43)
[2016-07-10] MEDS ORDERED: VLT500 PO (12:43)
[2016-08-09] MEDS ORDERED: MULTTAB58 PO (08:02)
[2016-08-09] MEDS ORDERED: OXYC-106 PO (16:25)
[2016-08-09] MEDS ORDERED: CYCL10TA7 PO (16:25)
[2016-08-09] MEDS ORDERED: HYDR4TAB2 PO (16:25)
[2016-08-09] MEDS ORDERED: PRT/40 PO (16:25)
[2016-08-09] MEDS ORDERED: CRG/20 PO (16:25)
[2016-08-09] MEDS ORDERED: Dilaudid Pain Pump INJ (16:29)
[2016-08-17] MEDS ORDERED: CPR500 PO (10:23)
[2016-08-17] MEDS ORDERED: MRLP17X PO (10:23)
[2016-08-17] MEDS ORDERED: LSX20 PO (10:23)
[2016-08-17] MEDS ORDERED: XFX550 PO (10:23)
[2016-08-17] MEDS ORDERED: SPR25 PO (10:23)
== END 2016-07-03 13:24 | disposition home or self-care (01) | DRG 442 ==
LOC: C.MS2W 19:43 → C.MED 07-01 05:14
PROVIDERS: ADMIT Internal Medicine; ATTEND Internal Medicine
PROC: 0W9G3ZX Drainage of Peritoneal Cavity, Percutaneous Approach, Diagnostic (ICD-10-PCS; principal; 2016-07-01)
DX: K76.7 Hepatorenal syndrome (principal); N17.9 Acute kidney failure, unspecified; E87.1 Hypo-osmolality and hyponatremia; I85.10 Secondary esophageal varices without bleeding; D64.9 Anemia, unspecified; D69.6 Thrombocytopenia, unspecified; K70.31 Alcoholic cirrhosis of liver with ascites; B18.2 Chronic viral hepatitis C; K31.89 Other diseases of stomach and duodenum; G89.29 Other chronic pain; M54.2 Cervicalgia; J45.909 Unspecified asthma, uncomplicated; F17.200 Nicotine dependence, unspecified, uncomplicated; Z98.1 Arthrodesis status; Z79.899 Other long term (current) drug therapy; Z88.5 Allergy status to narcotic agent

== ENCOUNTER 2016-07-06 15:49 | Inpatient (IN) | payer OTHER ==
[~2016-07-06] VITALS: Ht 172.7 cm; Wt 69.9 kg
[~2016-07-06 15:49] MED LIST changes: +ALBU1AER9 INH; +CYCL10TA6 PO; -OMEP20TA PO; -OXYC-59 PO; +PRT40 PO; -SPIR100T PO; +SPR/100 PO
[2016-07-06] MEDS ORDERED: HYDROmorphone INJ 0.5 MG/0.5 ML SYR IV STA (16:12)
[2016-07-06] MEDS ORDERED: ONDANSETRON INJ 2 MG/ML 2 ML VIAL IV STA (16:12)
[2016-07-06] MEDS ORDERED: SODIUM CHLORIDE 0.9% 1000ML 1,000 ML IV STA (16:12)
[2016-07-06] MEDS ORDERED: LSX40 PO (16:25)
[2016-07-06] MEDS ORDERED: SPRN100 PO (16:25)
[2016-07-06 16:53] LABS: MEAN CELL VOLUME 97.2 fL (80-100); MEAN CORPUSCULAR HEMOGLOBIN 35.5 pg (25-34); MEAN CORPUSCULAR HGB CONC 36.5 g/dl (32-36); MEAN PLATELET VOLUME 10.8 fL (7.4-10.4); PLATELET COUNT 94 K/uL (130-400); RED BLOOD COUNT 2.14 M/uL (4.7-6.1)
[2016-07-06 16:54] LABS: HEMATOCRIT 20.8 % (42-52)
[2016-07-06 17:06] LABS: INR 1.6 (0.9-1.1); PARTIAL THROMBOPLASTIN RATIO 1.2
[2016-07-06 17:07] LABS: ALT/SGPT 49 U/L (12-78); BLOOD UREA NITROGEN 36 mg/dl (7-18); BUN/CREATININE RATIO 16.1 (10-20); CALCIUM 9.9 mg/dl (8.5-10.1); CARBON DIOXIDE 20 mmol/L (21-32); CHLORIDE 89 mmol/L (98-107); GLUCOSE 156 mg/dl (70-99); POTASSIUM 4.6 mmol/L (3.5-5.1); SODIUM 126 mmol/L (136-145)
[2016-07-06 17:10] LABS: ALKALINE PHOSPHATASE 84 U/L (45-117); AST/SGOT 82 U/L (15-37)
[2016-07-06 17:19] LABS: ACANTHOCYTES 1+; BASO % 0.1 %; BASO ABS # 0.01 K/uL (0-0.2); COMPLETE YES; EOS % 0.4 %; IG% 0.7 %; LYMPH % 13.3 %; LYMPH ABS # 1.13 K/uL (1.2-3.4); MONO % 11.8 %; NEUT % 73.7 %; POLYCHROMASIA 1+
--- NOTE | 2016-07-06 17:38 | DIAGNOSTIC IMAGING REPORT ---
PA CHEST RADIOGRAPH AND UPRIGHT AND SUPINE AP RADIOGRAPHS OF THE ABDOMEN CLINICAL HISTORY: Abdominal pain. Left shoulder pain. COMPARISON STUDY: Chest radiograph April 11, 2016 and abdominal series April 06, 2016. FINDINGS: Lung volumes are normal. No pneumothorax or pleural effusion is present. There is no evidence of pulmonary edema. Cardiac size is normal. Mediastinal contours are normal. An anterior cervical spine fusion is incidentally noted. An intrathecal catheter is present. There is no free air. Bowel gas pattern is normal. There is suspected avascular necrosis of both femoral heads. IMPRESSION: 1. No free air or evidence of bowel obstruction. 2. No acute cardiomegaly findings. 3. Avascular necrosis of both femoral heads. Electronically signed by: Alvaro Bond M.D. 07/06/2016 5:36 PM Dictated Date/Time: 07/06/2016 5:34 PM
--- NOTE | 2016-07-06 17:40 | EMERGENCY ROOM VISIT NOTE ---
ED Visit Note First contact with patient: 15:58 Patient was seen by our PA/LINE PATROLMAN. I was involved in the patient's care and did evaluate the patient myself. I was involved in the care throughout the ER stay. The patient is in acute renal failure, he is dehydrated. He appears jaundiced. He just left the hospital. Admission/observation is warranted. He will receive IV fluids, pain control. He may require something to control his heart rate if the fluids are not making headway.
[2016-07-06 17:44] LABS: MAGNESIUM 1.8 mg/dl (1.8-2.4); PHOSPHORUS 2.3 mg/dl (2.5-4.9)
--- NOTE | 2016-07-06 18:07 | DIAGNOSTIC IMAGING REPORT ---
LEFT SHOULDER MIN 2 VIEWS ROUTINE CLINICAL HISTORY: Left shoulder pain. COMPARISON: Left shoulder radiographs October 24, 2008 and MRI of the left shoulder October 28, 2008 FINDINGS: Alignment of left shoulder is anatomic. A 6 mm calcific density along the greater tuberosity suggest calcific tendinitis. There is mild AC joint arthritis. There is mild glenohumeral joint arthritis. There is no acute fracture. IMPRESSION: 1. No acute fracture or dislocation of the left shoulder. 2. Findings suggestive of calcific tendinitis of the left rotator cuff. 3. Mild arthritis of the left shoulder. Electronically signed by: Alvaro Bond M.D. 07/06/2016 6:05 PM Dictated Date/Time: 07/06/2016 6:04 PM
[2016-07-06] MEDS ORDERED: ONDANSETRON INJ 2 MG/ML 2 ML VIAL IV PRN (18:30)
[2016-07-06] MEDS ORDERED: OXYCODONE/ACETAMINOPHEN 10/325MG TAB PO PRN (18:45)
[2016-07-06] MEDS ORDERED: HYDROMORPHONE FOR PAIN PUMP ITR SCH (18:45)
--- NOTE | 2016-07-06 19:32 | History and Physical ---
History & Physical Date & Time of Service: Jul 06, 2016 at 18:41 Chief Complaint: Left Shoulder Pain, Constipation Primary Care Physician: Yazan Ayala M.D. History of Present Illness 55 year old male who presents to the ER with left shoulder pain and constipation. 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 He was recently admitted to [facility] 06/30 - 07/03 for ANJEL, hyponatremia, anemia and worsening ascites. During that admission, patient underwent a 3L paracentesis. Initially patient's diuretics were held, he was placed on a fluid restriction, and he was given albumin. He also received PRBC transfusion. At the time of discharge, patient's Aldactone and furosemide were increased. Patient reports feeling poorly since being home. He reports he feels generally weak. He has not had a bowel movement since being home. He reports abdominal fullness and gaining one pound per day. He denies abdominal pain, nausea, or vomiting. This morning he woke up with severe left shoulder pain that radiates down his arm. Pain is made worse with movement. Last night he had episode of left lower chest stabbing pain. He reports this pain lasted for a few hours and resolved on its own. No shortness of breath. He denies lightheadedness, dizziness, diaphoresis, and syncope. He reports chills but denies fever. He feels like his urine output is down. He denies dysuria. In the ER, patient's creat is found to be 2.2 (was 0.9 on discharge), Na+ 126 (131 on discharge), hgb 7.6 (8.1 on discharge). Left shoulder XR is showing calcified tendonitis of the left rotator cuff. HR was in the 140s on arrival and improved to the low 100s after IVF. Past Medical/Surgical History Medical Problems: (1) Ascites Status: Chronic (2) Chronic pain syndrome Permanent Comment: cervical spine Status: Chronic (3) Cirrhosis of liver Status: Chronic (4) GERD (gastroesophageal reflux disease) Status: Chronic (5) Hepatitis C, chronic Status: Chronic (6) Intermittent asthma Status: Chronic (7) Portal hypertension Permanent Comment: esophageal varices noted on EGD Feb 2016 Status: Chronic (8) Thrombocytopenia Status: Chronic Surgical Problems: (1) History of tonsillectomy Status: Chronic (2) S/P cervical spinal fusion Permanent Comment: 2004 and 2007 Status: Chronic (3) Status post insertion of intrathecal pump Permanent Comment: [facility] hydromorphone Status: Chronic Family History Unobtainable family history due to adoption Social History Smoking Status: Current Every Day Smoker Alcohol Use: former ETOH abuse Immunizations History of Influenza Vaccine: Yes Influenza Vaccine Date: Apr 23, 2016 History of Tetanus Vaccine?: Yes (YES,< 10 YRS) Tetanus Immunization Date: Feb 19, 2015 History of Pneumococcal: Yes Pneumococcal Date: Apr 14, 2010 History of Hepatitis B Vaccine: Yes Hepatitis Immunization Date: Apr 16, 2016 Multi-Drug Resistant Organisms History of MDRO: No Allergies Coded Allergies: Morphine (Verified Adverse Reaction, Unknown, INABILITY TO URINATE, ) Home Medications Scheduled Ascorbic Acid (Vitamin C Gummie 120 mg), 240 MG PO DAILY Furosemide (Furosemide), 40 MG PO BID Multiple Vitamin (Multivitamin), 1 TAB PO QAM Nadolol (Corgard), 20 MG PO DAILY Pantoprazole (Pantoprazole Sodium), 40 MG PO DAILY Spironolactone (Spironolactone), 100 MG PO BID [Dilaudid Pain Pump], 1 DOSE XXX UD Scheduled PRN Albuterol (Proair Hfa), 2 PUFFS INH Q4H PRN for SOB/Wheezing Cyclobenzaprine HCl (Cyclobenzaprine HCl), 10 MG PO DAILY PRN for Muscle Spasm Hydromorphone Hcl (Dilaudid), 4 MG PO Q6H PRN for Pain Oxycodone/Acetaminophen 10MG/325MG (Percocet 10MG/325MG), 1 TAB PO UD PRN for Pain Review of Systems 10 point review of systems was completed with the pertinent positives and negatives noted per the HPI Physical Exam Vital Signs Date Time Temp Pulse Resp B/P Pulse Ox O2 Delivery O2 Flow Rate FiO2 07/06/16 18:01 112 07/06/16 17:45 117 20 122/65 95 07/06/16 15:50 37.0 142 22 160/91 97 Room Air General Appearance: + mild distress (weak appearing, appears to be in pain) Head: normocephalic Eyes: + abnormal sclerae exam (icteric) ENT: hearing grossly normal Neck: supple, no JVD Respiratory/Chest: lungs clear, normal breath sounds, no respiratory distress Cardiovascular: no edema, + tachycardia (regular rhythm) Abdomen/GI: non tender, + distended (firm), + pertinent finding (ascites) Extremities/Musculoskelatal: normal inspection, no calf tenderness Neurologic/Psych: no motor/sensory deficits, alert, normal mood/affect, oriented x 3 Skin: warm/dry, + jaundice Diagnostics Laboratory Results Results Past 24 Hours Test 07/06/16 16:30 Range/Units White Blood Count 8.50 4.8-10.8 K/uL Red Blood Count 2.14 4.7-6.1 M/uL Hemoglobin 7.6 14.0-18.0 g/dL Hematocrit 20.8 42-52 % Mean Corpuscular Volume 97.2 80-100 fL Mean Corpuscular Hemoglobin 35.5 25-34 pg Mean Corpuscular Hemoglobin Concent 36.5 32-36 g/dl Platelet Count 94 130-400 K/uL Mean Platelet Volume 10.8 7.4-10.4 fL Neutrophils (%) (Auto) 73.7 % Lymphocytes (%) (Auto) 13.3 % Monocytes (%) (Auto) 11.8 % Eosinophils (%) (Auto) 0.4 % Basophils (%) (Auto) 0.1 % Neutrophils # (Auto) 6.27 1.4-6.5 K/uL Lymphocytes # (Auto) 1.13 1.2-3.4 K/uL Monocytes # (Auto) 1.00 0.11-0.59 K/uL Eosinophils # (Auto) 0.03 0-0.5 K/uL Basophils # (Auto) 0.01 0-0.2 K/uL RDW Standard Deviation 64.3 36.4-46.3 fL RDW Coefficient of Variation 18.3 11.5-14.5 % Immature Granulocyte % (Auto) 0.7 % Immature Granulocyte # (Auto) 0.06 0.00-0.02 K/uL Polychromasia 1+ Macrocytosis PRESENT Acanthocytes 1+ Prothrombin Time 18.0 9.0-12.0 SECONDS Prothromb Time International Ratio 1.6 0.9-1.1 Activated Partial Thromboplast Time 32.1 21.0-31.0 SECONDS Partial Thromboplastin Ratio 1.2 D-Dimer 39314 0-500 ug/L FEU Sodium Level 126 136-145 mmol/L Potassium Level 4.6 3.5-5.1 mmol/L Chloride Level 89 98-107 mmol/L Carbon Dioxide Level 20 21-32 mmol/L Anion Gap 17.0 3-11 mmol/L Blood Urea Nitrogen 36 7-18 mg/dl Creatinine 2.20 0.60-1.40 mg/dl Est Creatinine Clear Calc Drug Dose 37.4 ml/min Estimated GFR () 38.2 Estimated GFR (Non- 33.0 BUN/Creatinine Ratio 16.1 10-20 Random Glucose 156 70-99 mg/dl Calcium Level 9.9 8.5-10.1 mg/dl Phosphorus Level 2.3 2.5-4.9 mg/dl Magnesium Level 1.8 1.8-2.4 mg/dl Total Bilirubin 7.9 0.2-1 mg/dl Direct Bilirubin 3.8 0-0.2 mg/dl Aspartate Amino Transf (AST/SGOT) 82 15-37 U/L Alanine Aminotransferase (ALT/SGPT) 49 12-78 U/L Alkaline Phosphatase 84 45-117 U/L Ammonia 34.0 11-32 umol/L Total Creatine Kinase 68 39-308 U/L Troponin I < 0.015 0-0.045 ng/ml Total Protein 6.2 6.4-8.2 gm/dl Albumin 4.0 3.4-5.0 gm/dl Lipase 388 73-393 U/L Diagnostic Radiology CHEST/ABD XR IMPRESSION: 1. No free air or evidence of bowel obstruction. 2. No acute cardiomegaly findings. 3. Avascular necrosis of both femoral heads. LEFT SHOULDER XR IMPRESSION: 1. No acute fracture or dislocation of the left shoulder. 2. Findings suggestive of calcific tendinitis of the left rotator cuff. 3. Mild arthritis of the left shoulder. Impression Assessment and Plan ANJEL, HYPONATREMIA, HX CIRRHOSIS DUE TO HCV AND ETOH ABUSE - admit to tele - recent admission for ANJEL, likely hepatorenal syndrome - s/p 3L paracentesis on 07/01, initially diuretics were held and patient was given IV albumin and placed on fluid restriction - creat at discharge 0.9 - > 2.2 today, Na+ at discharge 131 -> 126 today - at discharge Aldactone and Lasix doses were increased - likely cause of ANJEL currently - s/p 500ML NSS bolus in ED with improvement in HR - will continue with gentle fluids - NSS @ 80mls/hr; need to monitor volume status closely - case discussed with Dr. Sarah Grajeda, nephrology - GI consult ANEMIA, THROMBOCYTOPENIA - due to underlying liver disease - no signs of bleeding - s/p 1 unit PRBC transfusion 07/02 - hgb 8.1 at discharge -> 7.6 today - hold on transfusion at this time, however hgb may drop further once patient is hydrated TACHYCARDIA - likely due to volume depletion - improving with IVF - however due to elevated D. Dimer and episode of chest pain, need to rule out PE - unable to do CTA due to renal function, will check BLLE dopplers for now and get CTA in AM if renal function improves EPISODE OF CHEST PAIN - low suspicion for cardiac source - EKG without acute ST changes, initial troponin negative - continue to cycle cardiac enzymes - PE work up as above LEFT SHOULDER PAIN - XR showing calcified tendonitis - unable to use NSAIDs due to renal function - will apply heat - ortho consult for possible injection CONSTIPATION - abd XR without signs of obstruction or free air - likely due to chronic narcotic use - will start bowel regimen DVT PROPHYLAXIS - SCDs due to anemia/thrombocytopenia DISPO - In my clinical judgment this beneficiary meets acute admission criteria, established by [facility], that includes being hospitalized through two midnights. ATTENDING NOTE Patient seen & examined at bedside. Reviewed the History /Physical and confirmed all the findings in person. Patient has known history of Liver cirrhosis which is gradually worsening. He is c/o intermittent chest discomfort and left shoulder pain for the past 1-2 days. Denies any trauma/injury. Reviewed the work up. He has Hyponatremia and ANJEL with some drop in H/H as compared to his baseline. Admit to Telemetry. Reluctant to give any NSAID and if needed, will give intra-articular steroid which will be the safest option. DVT Prophylaxis: SCDs. Patient will be followed by Dr. Bautista in AM. Noé Garcia MD Level of Care Telemetry VTE Prophylaxis VTE Risk Assessment Done? Y/N: Yes Risk Level: Moderate Given or contraindicated: SCD's
[2016-07-06 19:43] LABS: URINE APPEARANCE CLOUDY (CLEAR); URINE BILIRUBIN NEG (NEG); URINE COLOR DK YELLOW; URINE NITRITE NEG (NEG); URINE SPECIFIC GRAVITY 1.009 (1.000-1.030); UROBILINOGEN NEG (NEG)
[2016-07-06 19:47] LABS: MANUAL MICROSCOPIC REQUIRED? NO; REVIEW REQ? YES
[2016-07-06 19:54] LABS: URINE PATH CASTS 0-3 GRANULAR CASTS /lpf (0)
--- NOTE | 2016-07-06 20:07 | DIAGNOSTIC IMAGING REPORT ---
BILATERAL LOWER EXTREMITY VENOUS DOPPLER CLINICAL HISTORY: Elevated d-dimer. COMPARISON STUDY: Bilateral lower extremity venous Doppler February 18, 2016. TECHNIQUE: Sonography of the deep venous system of the bilateral lower extremities was performed. Compression and augmentation were evaluated. FINDINGS: The bilateral common femoral, superficial femoral and popliteal veins were compressible. Augmentation was normal. Flow was shown within the deep calf vessels. IMPRESSION: No evidence of deep venous thrombus within the bilateral lower extremities. Electronically signed by: Alavro Bond M.D. 07/06/2016 8:06 PM Dictated Date/Time: 07/06/2016 8:05 PM
[2016-07-06] MEDS ORDERED: PATIENT'S ALLERGY INFO NEEDS ENTERED SCH (20:45)
[2016-07-06] MEDS ORDERED: SODIUM CHLORIDE 0.9% 1000ML 1,000 ML IV SCH (21:00)
[2016-07-06] MEDS ORDERED: NURSING VERBAL MED ORDER ONE ×2 (21:00→21:45)
[2016-07-06 21:01] VITALS: BP 108/72; PULSE 116; TEMP 37.7; O2SAT 98; Ht 172.7 cm; Wt 69.9 kg
[2016-07-06] MEDS: DOCUSATE SODIUM 100 MG CAP PO SCH (21:28)
[2016-07-06] MEDS: POLYETHYLENE (MIRALAX) 17 GM PACK PO SCH (21:28)
[2016-07-06] MEDS ORDERED: COUGH DROP (SUGAR FREE) LOZ 24 LOZ/1 BOX PO PRN (21:30)
[2016-07-06] MEDS ORDERED: CHLORASEPTIC 1.4% SOLN 180 ML BTL MT PRN (22:00)
[2016-07-06] MEDS: HYDROmorphone INJ 1 MG/ML SYR IV PRN (22:01)
[2016-07-07] VITALS (22 sets, daily range): BP systolic 91–139; BP diastolic 40–89; PULSE 65–109; TEMP 36.5–36.9; O2SAT 90–96
--- NOTE | 2016-07-07 00:20 | EMERGENCY ROOM VISIT NOTE ---
History First contact with patient: 15:58 Chief Complaint: ARM PAIN Stated Complaint: LEFT ARM WON'T MOVE, RECENT DCR FROM HOSPITAL History of Present Illness The patient is a 55 year old male who presents to the Emergency Room with complaints of left shoulder pain and left upper abdominal pain. The patient reports that he was just discharged from the hospital for renal failure and anemia. The patient reports a prior history of chronic neck pain, but does not feel that his shoulder pain is radiating from his neck. He usually has pain in the right upper extremity with his neck pain. He denies any known injury to the left shoulder. He denies any chest pain or shortness of breath. He rates his discomfort a 10 out of 10. Review of Systems HEENT: Denies dizziness, visual problems, hearing loss, tinnitus. Denies difficulty swallowing or oral lesions. PULMONARY: Denies cough, shortness of breath, sputum production or hemoptysis. CARDIOVASCULAR: Denies chest pain, palpitations, dyspnea on exertion, orthopnea or peripheral edema. GASTROINTESTINAL: Denies diarrhea, constipation, nausea or vomiting. The patient otherwise complains of abdominal pain and distention. GENITOURINARY: Denies dysuria, frequency, urgency or nocturia. NEUROLOGIC: Denies history of epilepsy, CVA, TIA or chronic headaches. MUSCULOSKELETAL: Denies history of joint tenderness/swelling. SKIN: Denies rashes or lesions. PSYCHIATRIC: Denies history of depression or mental illness. ENDOCRINE: Denies history of diabetes or thyroid disorders. Past Medical/Surgical History Medical Problems: (1) ANJEL (acute kidney injury) (2) Anemia (3) Ascites (4) Chronic pain syndrome (5) Cirrhosis of liver (6) GERD (gastroesophageal reflux disease) (7) Hepatitis C, chronic (8) Hyponatremia (9) Intermittent asthma (10) Portal hypertension (11) Thrombocytopenia Surgical Problems: (1) History of tonsillectomy (2) S/P cervical spinal fusion (3) Status post insertion of intrathecal pump Family History Unobtainable family history due to adoption Social History Smoking Status: Current Every Day Smoker Alcohol Use: none Drug Use: heroin, marijuana, other Marital Status: in relationship Housing Status: lives with significant other Occupation Status: unemployed Current/Historical Medications Scheduled Ascorbic Acid (Vitamin C Gummie 120 mg), 240 MG PO DAILY Furosemide (Furosemide), 40 MG PO BID Multiple Vitamin (Multivitamin), 1 TAB PO QAM Nadolol (Corgard), 20 MG PO DAILY Pantoprazole (Pantoprazole Sodium), 40 MG PO DAILY Spironolactone (Spironolactone), 100 MG PO BID [Dilaudid Pain Pump], 1 DOSE XXX UD Scheduled PRN Albuterol (Proair Hfa), 2 PUFFS INH Q4H PRN for SOB/Wheezing Cyclobenzaprine HCl (Cyclobenzaprine HCl), 10 MG PO DAILY PRN for Muscle Spasm Hydromorphone Hcl (Dilaudid), 4 MG PO Q6H PRN for Pain Oxycodone/Acetaminophen 10MG/325MG (Percocet 10MG/325MG), 1 TAB PO UD PRN for Pain Allergies Coded Allergies: Morphine (Verified Adverse Reaction, Unknown, INABILITY TO URINATE, ) Physical Exam Vital Signs Date Time Temp Pulse Resp B/P Pulse Ox O2 Delivery O2 Flow Rate FiO2 07/06/16 18:01 112 07/06/16 17:45 117 20 122/65 95 07/06/16 15:50 37.0 142 22 160/91 97 Room Air Physical Exam CONSTITUTIONAL: Healthy and well nourished. Alert and oriented X 3 with positive affect. Patient appears in moderate severe discomfort from pain. HEENT: Normocephalic, atraumatic. Pupils equal, round and reactive. Ears and nares are clear. OROPHARYNX: Minimal posterior pharyngeal erythema without tonsillar hypertrophy or exudates. No evidence for Gautam's angina or retropharyngeal abscess. Mucous membranes are dry. NECK: Full active range of motion without discomfort. No nuchal rigidity, JVD or carotid bruits. RESPIRATORY: Clear to auscultation bilaterally with no wheezing, crackles, rhonchi or stridor. CARDIOVASCULAR: Regular rate and rhythm of 96 bpm on my exam. No murmurs, rubs or gallops. GASTROINTESTINAL: Bowel sounds present in all quadrants. Abdomen is protuberant with ballottement and fluid wave. Negative McBurney's point tenderness. Negative CVA tenderness. MUSCULOSKELETAL: Examination shows discomfort with range of motion of the left shoulder. No soft tissue edema or erythema noted. Distal pulses are intact. INTEGUMENTARY: The patient has profound jaundice with scleral icterus. HEMATOLOGIC: No ecchymosis or petechiae noted. NEUROLOGIC: Cranial nerves II-XII grossly intact. No focal neurologic deficits noted. Medical Decision & Procedures ER Provider Diagnostic Interpretation: My interpretation of an ECG shows a sinus tachycardia of [address] elevation or ischemic changes noted. My interpretation of an abdomen x-ray with a PA chest x-ray does not show any obstructive pattern or lung consolidations. Radiologist report is as follows: PA CHEST RADIOGRAPH AND UPRIGHT AND SUPINE AP RADIOGRAPHS OF THE ABDOMEN CLINICAL HISTORY: Abdominal pain. Left shoulder pain. COMPARISON STUDY: Chest radiograph April 11, 2016 and abdominal series April 06, 2016. FINDINGS: Lung volumes are normal. No pneumothorax or pleural effusion is present. There is no evidence of pulmonary edema. Cardiac size is normal. Mediastinal contours are normal. An anterior cervical spine fusion is incidentally noted. An intrathecal catheter is present. There is no free air. Bowel gas pattern is normal. There is suspected avascular necrosis of both femoral heads. IMPRESSION: 1. No free air or evidence of bowel obstruction. 2. No acute cardiomegaly findings. 3. Avascular necrosis of both femoral heads. My interpretation of left shoulder x-rays does not show any acute fractures or dislocations. Calcific tendinitis is noted. Radiologist report is as follows: LEFT SHOULDER MIN 2 VIEWS ROUTINE CLINICAL HISTORY: Left shoulder pain. COMPARISON: Left shoulder radiographs October 24, 2008 and MRI of the left shoulder October 28, 2008 FINDINGS: Alignment of left shoulder is anatomic. A 6 mm calcific density along the greater tuberosity suggest calcific tendinitis. There is mild AC joint arthritis. There is mild glenohumeral joint arthritis. There is no acute fracture. IMPRESSION: 1. No acute fracture or dislocation of the left shoulder. 2. Findings suggestive of calcific tendinitis of the left rotator cuff. 3. Mild arthritis of the left shoulder. Laboratory Results 07/06/16 16:30 Red Blood Count 2.14, Mean Corpuscular Volume 97.2, Mean Corpuscular Hemoglobin 35.5, Mean Corpuscular Hemoglobin Concent 36.5, Mean Platelet Volume 10.8, Neutrophils (%) (Auto) 73.7, Lymphocytes (%) (Auto) 13.3, Monocytes (%) (Auto) 11.8, Eosinophils (%) (Auto) 0.4, Basophils (%) (Auto) 0.1, Neutrophils # (Auto ) 6.27, Lymphocytes # (Auto) 1.13, Monocytes # (Auto) 1.00, Eosinophils # (Auto ) 0.03, Basophils # (Auto) 0.01 07/06/16 16:30 Test 07/06/16 00:00 07/06/16 16:30 Urine Color DK YELLOW Urine Appearance CLOUDY (CLEAR) Urine pH 5.0 (4.5-7.5) Urine Specific Kite 1.009 (1.000-1.030) Urine Protein NEG (NEG) Urine Glucose (UA) NEG (NEG) Urine Ketones NEG (NEG) Urine Occult Blood NEG (NEG) Urine Nitrite NEG (NEG) Urine Bilirubin NEG (NEG) Urine Urobilinogen NEG (NEG) Urine Leukocyte Esterase TRACE (NEG) Urine WBC (Auto) 1-5 /hpf (0-5) Urine RBC (Auto) 0-4 /hpf (0-4) Urine Hyaline Casts (Auto) 10-30 /lpf (0-5) Urine Epithelial Cells (Auto) 5-10 /lpf (0-5) Urine Bacteria (Auto) NEG (NEG) Urine Pathogenic Casts 0-3 GRANULAR CASTS /lpf (0) White Blood Count 8.50 K/uL (4.8-10.8) Red Blood Count 2.14 M/uL (4.7-6.1) Hemoglobin 7.6 g/dL (14.0-18.0) Hematocrit 20.8 % (42-52) Mean Corpuscular Volume 97.2 fL (80-100) Mean Corpuscular Hemoglobin 35.5 pg (25-34) Mean Corpuscular Hemoglobin Concent 36.5 g/dl (32-36) Platelet Count 94 K/uL (130-400) Mean Platelet Volume 10.8 fL (7.4-10.4) Neutrophils (%) (Auto) 73.7 % Lymphocytes (%) (Auto) 13.3 % Monocytes (%) (Auto) 11.8 % Eosinophils (%) (Auto) 0.4 % Basophils (%) (Auto) 0.1 % Neutrophils # (Auto) 6.27 K/uL (1.4-6.5) Lymphocytes # (Auto) 1.13 K/uL (1.2-3.4) Monocytes # (Auto) 1.00 K/uL (0.11-0.59) Eosinophils # (Auto) 0.03 K/uL (0-0.5) Basophils # (Auto) 0.01 K/uL (0-0.2) RDW Standard Deviation 64.3 fL (36.4-46.3) RDW Coefficient of Variation 18.3 % (11.5-14.5) Immature Granulocyte % (Auto) 0.7 % Immature Granulocyte # (Auto) 0.06 K/uL (0.00-0.02) Polychromasia 1+ Macrocytosis PRESENT Acanthocytes 1+ Prothrombin Time 18.0 SECONDS (9.0-12.0) Prothromb Time International Ratio 1.6 (0.9-1.1) Activated Partial Thromboplast Time 32.1 SECONDS (21.0-31.0) Partial Thromboplastin Ratio 1.2 D-Dimer 63646 ug/L FEU (0-500) Anion Gap 17.0 mmol/L (3-11) Est Creatinine Clear Calc Drug Dose 37.4 ml/min Estimated GFR () 38.2 Estimated GFR (Non- 33.0 BUN/Creatinine Ratio 16.1 (10-20) Calcium Level 9.9 mg/dl (8.5-10.1) Phosphorus Level 2.3 mg/dl (2.5-4.9) Magnesium Level 1.8 mg/dl (1.8-2.4) Total Bilirubin 7.9 mg/dl (0.2-1) Direct Bilirubin 3.8 mg/dl (0-0.2) Aspartate Amino Transf (AST/SGOT) 82 U/L (15-37) Alanine Aminotransferase (ALT/SGPT) 49 U/L (12-78) Alkaline Phosphatase 84 U/L (45-117) Ammonia 34.0 umol/L (11-32) Total Creatine Kinase 68 U/L (39-308) Total Protein 6.2 gm/dl (6.4-8.2) Albumin 4.0 gm/dl (3.4-5.0) Lipase 388 U/L (73-393) The above labs were reviewed. The patient has no leukocytosis. Partial renal profile shows significant changes including hyponatremia and elevated creatinine. Hemoglobin is 7.6 with a hematocrit of 20.8. Phosphorus is 2.3 with a normal magnesium. Total and direct bilirubin are 7.9 and 3.8, respectively. Ammonia is 34. Lipase is normal. D-dimer is markedly elevated at over 34,000. Medications Administered Medications (Trade) Dose Ordered Sig/Perla Route Start Time Stop Time Status Last Admin Dose Admin Sodium Chloride (Nss 1000ml) 1,000 ml @ 999 mls/hr Q1H1M STAT IV 07/06/16 16:12 07/06/16 17:12 DC 07/06/16 16:47 999 MLS/HR Ondansetron HCl (Zofran Inj) 4 mg NOW STAT IV 07/06/16 16:12 07/06/16 16:17 DC 07/06/16 16:47 4 MG Hydromorphone HCl (Dilaudid Inj) 0.5 mg NOW STAT IV 07/06/16 16:12 07/06/16 16:17 DC 07/06/16 16:47 0.5 MG ED Course Patient history and physical exam were performed. Nurse's notes were reviewed. Vital signs were reviewed. The patient's pulse rate was 142 in triage, with a blood pressure 160/91. The patient is afebrile, and O2 saturation is 97% on room air. I did review the patient's last admission records. The patient was admitted on 06/30/16, and discharged 3 days later. The patient was admitted for acute renal failure, likely hepatorenal syndrome. The patient was hyponatremic and thrombocytopenic on admission. He was also anemic with a hemoglobin of 7.2 while in the hospital, and given a unit of packed red blood cells on 07/02/16. The patient has a known history of chronic hepatitis C with liver failure and cirrhosis with ascites. I also reviewed the [place] Prescription Drug Monitoring Program, showing that the patient receives monthly prescriptions for Dilaudid 4 mg and Endocet 10/[address] Phipps in [place]. The patient appears in significant discomfort, and is significantly jaundiced. The patient does not know if he appears more jaundiced than when he was discharged from our facility. IV access was established, and labs were drawn. The patient was hydrated with a liter normal saline, and received IV Dilaudid and Zofran for pain. An ECG showed a sinus tachycardia of 122 bpm. Review of labs shows significant abnormalities, including acute renal failure, hyponatremia, hypophosphatemia, an elevated d-dimer of unknown etiology. Abdomen x-ray with a PA chest x-ray did not show any obstructive pattern or lung consolidations. Left shoulder x-ray was normal except for possible calcific tendinitis. It is noted that the patient has bilateral femoral head avascular necrosis. The patient received a 500 mL saline bolus without any change in his heart rate. The patient was also seen and examined by Dr. Fine, who suggested an additional 500 mL bolus. The patient also was administered additional Dilaudid for pain. At this point, consultation was placed with the [facility] service for further admission and management. Please see their dictation for further treatment and final disposition. Medical Decision Patient presents to the emergency Department with primary complaint of left shoulder and left upper quadrant abdominal pain. The patient was discharged from our facility 3 days ago with similar findings, including acute renal failure, hyponatremia and anemia requiring blood transfusion. He also had a 3 L paracentesis performed. The patient's diuretics were increased at the time of discharge. I suspect that the patient is over diuresed and dehydrated at this point. He does have acute renal failure with a creatinine of 2.2. His hemoglobin is also low and may require a blood transfusion once rehydrated. The patient will likely require further workup for possible pulmonary embolus, however CT studies cannot be perform right now because of his creatinine level. His tachycardia in the emergency department was likely from dehydration. His troponin is normal, an ECG does not show evidence for myocardial infarction. Impression Primary Impression: Acute renal failure Additional Impressions: Anemia Hepatorenal syndrome Dehydration Tachycardia Calcific tendinitis of left shoulder Thrombocytopenia Departure Information Referrals Yazan Ayala M.D. (PCP) Patient Instructions A Signature Page, My [facility] Problem Qualifiers Primary Impression: Acute renal failure Acute renal failure type: unspecified Qualified Codes: N17.9 - Acute kidney failure, unspecified Additional Impressions: Anemia Anemia type: other cause Other causes of anemia: other cause, not classified Qualified Codes: D64.89 - Other specified anemias
[2016-07-07] MEDS: HYDROmorphone INJ 1 MG/ML SYR IV PRN ×3 (04:35→19:55)
[2016-07-07 04:45] LABS: HEMATOCRIT 16.6 % (42-52); MEAN CELL VOLUME 97.6 fL (80-100); MEAN CORPUSCULAR HEMOGLOBIN 35.3 pg (25-34); MEAN CORPUSCULAR HGB CONC 36.1 g/dl (32-36); MEAN PLATELET VOLUME 9.2 fL (7.4-10.4); PLATELET COUNT 56 K/uL (130-400); WHITE BLOOD COUNT 9.72 K/uL (4.8-10.8)
[2016-07-07 05:04] LABS: ALT/SGPT 37 U/L (12-78); AST/SGOT 62 U/L (15-37); BLOOD UREA NITROGEN 32 mg/dl (7-18); BUN/CREATININE RATIO 18.8 (10-20); CALCIUM 8.4 mg/dl (8.5-10.1); CARBON DIOXIDE 25 mmol/L (21-32); CHLORIDE 94 mmol/L (98-107); GLUCOSE 113 mg/dl (70-99); POTASSIUM 4.8 mmol/L (3.5-5.1); SODIUM 128 mmol/L (136-145)
[2016-07-07 05:11] LABS: ALKALINE PHOSPHATASE 63 U/L (45-117)
--- NOTE | 2016-07-07 07:17 | Clinical Documentation Query ---
CLINICAL DOCUMENTATION QUERY Dr. MESA, In your clinical opinion is this patient being managed for: ( ) Hepatorenal syndrome ( x ) Other explanation of clinical findings -ANJEL 2/2 prerenal azotemia, responsive to IVF ( ) Unable to determine (Please Define) ( ) Need to Discuss ( ) Not Agree The medical record reflects the following clinical findings, treatment, and risk factors. Clinical Indicators: 55 yo male presenting with acute renal failure. Pt presented with ascites-gaining 1 lb per day per report, jaundice, dark yellow urine and reported decreased urine output. Ammonia level 34 Treatment:IV fluids, pending nephrology consult, avoid NSAIDS, repeat PRP Risk Factors: cirrhosis Hepatorenal Syndrome is a condition in which there is progressive kidney failure in a person with cirrhosis of the liver. It is a serious and often life-threatening complication of cirrhosis. Causes: Hepatorenal syndrome occurs when there is a decrease in kidney function in a person with severe liver disease. Because less urine is removed from the body, nitrogen containing waste products build up in the blood. The disorder occurs in 1:10 patients who are hospitalized with liver failure; hepatorenal syndrome leads to acute renal failure. Symptoms of hepatorenal syndrome include: ascites, confusion/delirium, course muscle movement, dark colored urine, oliguria, N/V, weight gain, jaundice, abnormal PT, increased ammonia levels, low albumin level. Treatment is generally focused at correcting any associated renal failure and may include: discontinuation of some medications, such as NSAIDS and diuretics, emergent HD. Complications concomitant to hepatorenal syndrome: DIC, ERSD, acute congestive heart failure, pulmonary edema, hepatic coma. Please clarify and document your clinical opinion in the progress notes and discharge summary. Terms such as "probable", "suspected", "likely", "questionable", "possible", or "still to be ruled out" are acceptable. IF IN AGREEMENT, YOU MUST DOCUMENT ABOVE DIAGNOSTIC STATEMENT IN DAILY PROGRESS NOTES AND DISCHARGE SUMMARY. This document is not part of the patient's record. Thank You, Arlene Vieira, RN [phone]
[2016-07-07] MEDS: DOCUSATE SODIUM 100 MG CAP PO SCH ×2 (08:46→19:55)
[2016-07-07] MEDS: PANTOprazole SOD 40 MG TAB PO SCH (08:46)
[2016-07-07] MEDS: MULTIVITAMIN TAB PO SCH (08:47)
[2016-07-07] MEDS: NADOLOL 40 MG TAB PO SCH (08:47)
[2016-07-07] MEDS: POLYETHYLENE (MIRALAX) 17 GM PACK PO SCH (08:47)
[2016-07-07] MEDS ORDERED: ASCORBIC ACID PO SCH (09:00)
[2016-07-07] MEDS ORDERED: NICOTINE 14 MG/24 HR TDSY TD SCH (09:00)
--- NOTE | 2016-07-07 09:16 | Gastrointestinal Consultation ---
Gastrointestinal Consultation Date of Consultation: Jul 07, 2016 Consulting Physician: Dr. Patrick Reason for Consultation: anemia, ETOH/HEPC cirrhosis History of Present Illness Patient is a 55 year old male with PMH significant for ETOH abuse, prior IV drug abuse, HCV, portal HTN, varices, asthma and chronic neck/back pain who sought medical attention for new onset left arm pain and neck pain. GI is consulted for anemia, worsening renal function and end stage liver disease. He was recently admitted with suspected HRS - he was worked up and treated appropriately and discharged last week. Today he is reporting worsening abdominal distention and discomfort. He reports that since discharge he has been gaining a lb a day. He states that he was not following any fluid restriction or low-salt diet after discharge. His most recent paracentesis was during previous admission on 07/03/15 when they got about 3L of fluid off, no SBP. He states that he feels like he needs a repeat paracentesis at this time. He states he has been nauseous for months if not years - this is not changed from his "baseline". He reports not having a BM in a few days. He states that he has not ate or drank much since previous discharge to produce much stool. He has had a BM since previous discharge. He denies chest pain, SOB, black/bloody stools/emesis, lightheadedness, dizziness. He denies any easy bruising or bleeding. Denies bleeding gums. Patient is adamant that he has not consumed any alcohol since previous discharge and he is unsure of the last time he consumed any alcohol at all. EGD 03/17/16 : Non-bleeding grade I esophageal varices. Z-line regular, 40 cm from the incisors. Portal hypertensive gastropathy. One healing duodenal ulcer with no stigmata of bleeding. Normal 2nd part of the duodenum. Recommended to use omeprazole 20 mg PO daily and repeat the upper endoscopy in 1 year BUN 32 creat 1.7 HGB 6 - blood was hanging during assessment INR 1.6 PT 18 AST 62 ALT 37 alk p 63 d-dimer >30,000 Past Medical/Surgical History Medical Problems: (1) Acute renal failure Status: Acute (2) Calcific tendinitis of left shoulder Status: Acute (3) Cervical radiculopathy Status: Acute (4) Cholecystitis Status: Acute (5) Cirrhosis Status: Acute (6) Dehydration Status: Acute (7) Diffuse abdominal pain Status: Acute (8) Dog bite Status: Acute (9) Edema Status: Acute (10) Epigastric abdominal pain Status: Acute (11) Hematoma Status: Acute (12) Hepatorenal syndrome Status: Acute (13) Hyperbilirubinemia Status: Acute (14) Neck pain Status: Acute (15) Tachycardia Status: Acute (16) Tension headache Status: Acute (17) Thrombocytopenia Status: Chronic Family History Unobtainable family history due to adoption Social History Smoking Status: Current Every Day Smoker Alcohol Use: none Drug Use: heroin, marijuana, other Marital Status: in relationship Housing Status: lives with significant other Occupation Status: unemployed Allergies Coded Allergies: Morphine (Verified Adverse Reaction, Unknown, INABILITY TO URINATE, ) Current Medications Home Meds and Scripts Medications Dose Route/Sig Max Daily Dose Days Date Category Dose Instructions [Dilaudid Pain Pump] 1 Dose XXX UD 07/06/16 Reported Corgard (Nadolol) 20 Mg Tab 20 Mg PO DAILY 07/06/16 Reported Cyclobenzaprine HCl 10 Mg Tab 10 Mg PO DAILY PRN 07/06/16 Reported Percocet 10MG/325MG (Oxycodone/Acetaminophen) Tab 1 Tab PO UD PRN 07/06/16 Reported Dilaudid (Hydromorphone Hcl) 4 Mg Tab 4 Mg PO Q6H PRN 07/06/16 Reported Pantoprazole Sodium (Pantoprazole) 40 Mg Tab 40 Mg PO DAILY 07/06/16 Reported Spironolactone 100 Mg Tab 100 Mg PO BID 07/06/16 Reported Furosemide 40 Mg Tab 40 Mg PO BID 07/06/16 Reported Vitamin C Gummie 120 mg (Ascorbic Acid) 1 Chw Chw 240 Mg PO DAILY 06/30/16 Reported Proair Hfa (Albuterol) Aers 2 Puffs INH Q4H PRN 03/16/16 Reported Multivitamin (Multiple Vitamin) 1 Tab Tab 1 Tab PO QAM 03/16/16 Reported Skelaxin (Metaxalone) 800 Mg Tab 800 Mg PO QID 10/14/09 Reported Fentanyl Patch (Fentanyl) 25 Mcg Tdsy 25 Mcg TOP 10/14/09 Reported Lioresal (Baclofen) 10 Mg Tab 10 Mg PO 10/14/09 Reported Percocet 5MG/325MG (Oxycodone/Acetaminophen) Tab 1 Tablet PO Q6HR PRN 10/14/09 Reported PAIN Review of Systems Constitutional: No chills, No fever Respiratory: No cough, No shortness of breath Cardiac: No chest pain, No edema Abdomen: + nausea, + pain, No GI bleeding, No diarrhea, No vomiting Skin: + jaundice, No rash Physical Exam Date Time Temp Pulse Resp B/P Pulse Ox O2 Delivery O2 Flow Rate FiO2 07/07/16 08:55 36.5 92 18 123/70 07/07/16 08:35 36.5 94 18 96/59 07/07/16 07:53 Room Air 07/07/16 07:22 36.6 93 20 93/46 90 Room Air 07/07/16 04:57 36.8 109 20 113/64 94 Room Air 07/07/16 04:00 Room Air 07/07/16 00:08 36.8 105 20 105/60 96 Room Air 07/07/16 00:00 Room Air 07/06/16 21:01 37.7 116 20 108/72 98 Room Air 07/06/16 18:52 113 20 121/68 97 Room Air 07/06/16 18:01 112 07/06/16 17:45 117 20 122/65 95 07/06/16 15:50 37.0 142 22 160/91 97 Room Air General Appearance: no apparent distress Eyes: PERRL ENT: hearing grossly normal Neck: supple, trachea midline Respiratory/Chest: lungs clear, normal breath sounds, no respiratory distress, no accessory muscle use Cardiovascular: regular rate, rhythm, no edema, no gallop, no JVD, no murmur Abdomen: normal bowel sounds, no pulsatile mass, + distended, + tenderness, + pertinent finding (pain pump present left quadrant, prominent as abdomin is very distended) Neurologic/Psych: alert, normal mood/affect, oriented x 3 Skin: warm/dry, no rash, + jaundice Laboratory Results Last 24 Hours Test 07/06/16 16:30 07/06/16 22:00 07/06/16 22:07 07/07/16 04:00 White Blood Count 8.50 K/uL Red Blood Count 2.14 M/uL Hemoglobin 7.6 g/dL Hematocrit 20.8 % Mean Corpuscular Volume 97.2 fL Mean Corpuscular Hemoglobin 35.5 pg Mean Corpuscular Hemoglobin Concent 36.5 g/dl Platelet Count 94 K/uL Mean Platelet Volume 10.8 fL Neutrophils (%) (Auto) 73.7 % Lymphocytes (%) (Auto) 13.3 % Monocytes (%) (Auto) 11.8 % Eosinophils (%) (Auto) 0.4 % Basophils (%) (Auto) 0.1 % Neutrophils # (Auto) 6.27 K/uL Lymphocytes # (Auto) 1.13 K/uL Monocytes # (Auto) 1.00 K/uL Eosinophils # (Auto) 0.03 K/uL Basophils # (Auto) 0.01 K/uL RDW Standard Deviation 64.3 fL RDW Coefficient of Variation 18.3 % Immature Granulocyte % (Auto) 0.7 % Immature Granulocyte # (Auto) 0.06 K/uL Polychromasia 1+ Macrocytosis PRESENT Acanthocytes 1+ Prothrombin Time 18.0 SECONDS Prothromb Time International Ratio 1.6 Activated Partial Thromboplast Time 32.1 SECONDS Partial Thromboplastin Ratio 1.2 D-Dimer 74890 ug/L FEU Sodium Level 126 mmol/L Potassium Level 4.6 mmol/L Chloride Level 89 mmol/L Carbon Dioxide Level 20 mmol/L Anion Gap 17.0 mmol/L Blood Urea Nitrogen 36 mg/dl Creatinine 2.20 mg/dl Est Creatinine Clear Calc Drug Dose 37.4 ml/min Estimated GFR () 38.2 Estimated GFR (Non- 33.0 BUN/Creatinine Ratio 16.1 Random Glucose 156 mg/dl Calcium Level 9.9 mg/dl Phosphorus Level 2.3 mg/dl Magnesium Level 1.8 mg/dl Total Bilirubin 7.9 mg/dl Direct Bilirubin 3.8 mg/dl Aspartate Amino Transf (AST/SGOT) 82 U/L Alanine Aminotransferase (ALT/SGPT) 49 U/L Alkaline Phosphatase 84 U/L Ammonia 34.0 umol/L Total Creatine Kinase 68 U/L Troponin I < 0.015 ng/ml 0.035 ng/ml Total Protein 6.2 gm/dl Albumin 4.0 gm/dl Lipase 388 U/L Creatine Kinase MB Ratio Creatine Kinase MB 2.0 ng/ml Test 07/07/16 04:15 White Blood Count 9.72 K/uL Red Blood Count 1.70 M/uL Hemoglobin 6.0 g/dL Hematocrit 16.6 % Mean Corpuscular Volume 97.6 fL Mean Corpuscular Hemoglobin 35.3 pg Mean Corpuscular Hemoglobin Concent 36.1 g/dl RDW Standard Deviation 65.2 fL RDW Coefficient of Variation 18.6 % Platelet Count 56 K/uL Mean Platelet Volume 9.2 fL Sodium Level 128 mmol/L Potassium Level 4.8 mmol/L Chloride Level 94 mmol/L Carbon Dioxide Level 25 mmol/L Anion Gap 9.0 mmol/L Blood Urea Nitrogen 32 mg/dl Creatinine 1.70 mg/dl Est Creatinine Clear Calc Drug Dose 16.2 ml/min Estimated GFR () 52.2 Estimated GFR (Non- 45.0 BUN/Creatinine Ratio 18.8 Random Glucose 113 mg/dl Calcium Level 8.4 mg/dl Total Bilirubin 7.1 mg/dl Direct Bilirubin 3.5 mg/dl Aspartate Amino Transf (AST/SGOT) 62 U/L Alanine Aminotransferase (ALT/SGPT) 37 U/L Alkaline Phosphatase 63 U/L Creatine Kinase MB 1.5 ng/ml Troponin I 0.026 ng/ml Total Protein 4.7 gm/dl Albumin 3.0 gm/dl Impression Patient is a 55 year old male with anemia, end-stage liver disease and acute kidney injury. Differentials include HRS, acute kidney injury, dehydration, end- stage liver disease Plan monitor for signs/symptoms of GI bleed transfuse PRN miralax daily urine sodium/urine potassium albumin 25gm TID IV ABD US for evaluation of ascites - US canceled US guided diagnostic paracentesis ordered in replacement fluid restriction diet consult nephrology - appreciate input will hold on lasix/spironolactone dosing until seen by coke handling supervisor will defer treatment with octreotide/midodrine until seen by coke handling supervisor complete abstain from ETOH, liver toxic medications Current Admission: MELD score: 20 Maddrey score: 28 Previous Admission: MELD score: 10 Maddrey score: 17.3 ATTESTATION: I have performed a history and physical examination of this patient and reviewed the electronic record. Specifically, on physical examination there is abdominal distention with tenderness. I have discussed the case with LONI Murphy. The above note reflects my findings, conclusions, and recommendations. Sawyer Patrick MD
--- NOTE | 2016-07-07 09:26 | Nephrology Consultation ---
Nephrology Consultation Date of Consultation: Jul 07, 2016. Attending Physician: Dr. Bautista Requesting Physician: Dr. Garcia Reason for Consultation: acute renal failure History of Present Illness 55 year old male readmitted yesterday acute renal failure and tachycardia after presenting to ED for eval of L shoulder pain. He was admitted here 06/30-07/03 for ANJEL, hyponatremia, vol OL in the setting of alcholic/ HCV (prior IVDU) liver cirrhosis. His admission creatinine at that stay was 1.6; d/c home was 0.9; some hyponatremia w/ sNa in high 120s that admission as well and 131 at d/c. he did have 3L paracentesis on 07/01. His oral diuretics were intensified at hospital d/c from lasix 20 bid to 40 bid and spironolactone 50mg bid to 200 mg daily. On presentation yesterday, creatinine was 2.2, K 4.6, Na 126. Other PMH includes C spine fusion, intrathecal pump, chronic pain, active tobacco abuse, tonsillectomy; liver failure c/b varices, portal HTN, duodenal ulcer, chronic thrombocytopenia. Past Medical/Surgical History Medical Problems: (1) Acute renal failure Status: Acute (2) Calcific tendinitis of left shoulder Status: Acute (3) Cervical radiculopathy Status: Acute (4) Cholecystitis Status: Acute (5) Cirrhosis Status: Acute (6) Dehydration Status: Acute (7) Diffuse abdominal pain Status: Acute (8) Dog bite Status: Acute (9) Edema Status: Acute (10) Epigastric abdominal pain Status: Acute (11) Hematoma Status: Acute (12) Hepatorenal syndrome Status: Acute (13) Hyperbilirubinemia Status: Acute (14) Neck pain Status: Acute (15) Tachycardia Status: Acute (16) Tension headache Status: Acute (17) Thrombocytopenia Status: Chronic Family History Unobtainable family history due to adoption Social History Smoking Status: Current Every Day Smoker Alcohol Use: none Drug Use: heroin, marijuana, other Marital Status: in relationship Housing Status: lives with significant other Occupation Status: unemployed Allergies Coded Allergies: Morphine (Verified Adverse Reaction, Unknown, INABILITY TO URINATE, ) Medications Current Inpatient Medications Medications (Trade) Dose Ordered Sig/Perla Route Start Time Stop Time Status Last Admin Dose Admin Ondansetron HCl 4 mg 4 mg Q6H PRN IV 07/06/16 18:30 08/05/16 18:29 Sodium Chloride (Nss 1000ml) 1,000 ml @ 80 mls/hr [id number] IV 07/06/16 21:00 08/05/16 20:59 07/06/16 21:28 80 MLS/HR Multivitamins (Multivitamin Tab) 1 tab QAM PO 07/07/16 09:00 08/06/16 08:59 07/07/16 08:47 1 TAB Nadolol (Corgard Tab) 20 mg DAILY PO 07/07/16 09:00 08/06/16 08:59 07/07/16 08:47 20 MG Oxycodone/ Acetaminophen (Percocet 10-325MG Tab) 1 tab DAILY PRN PO 07/06/16 18:45 07/20/16 18:44 Pantoprazole Sodium (Protonix Tab) 40 mg DAILY PO 07/07/16 09:00 08/06/16 08:59 07/07/16 08:46 40 MG Hydromorphone HCl (Dilaudid Pain Pump) 1 mg UD ITR 07/06/16 18:45 08/05/16 18:44 Hydromorphone HCl (Dilaudid Inj) 0.25 mg Q6H PRN IV 07/06/16 18:45 07/20/16 18:44 07/07/16 04:35 0.25 MG Polyethylene (Miralax Powder Packet) 17 gm DAILY PO 07/06/16 21:30 08/05/16 21:29 07/07/16 08:47 17 GM Docusate Sodium (coLACE CAP) 100 mg BID PO 07/06/16 21:00 08/05/16 20:59 07/07/16 08:46 100 MG Menthol (Nice Juanis) 1 juanis PRN PRN PO 07/06/16 21:30 08/05/16 21:29 07/06/16 21:24 1 JUANIS Nicotine (Nicoderm Cq 14MG Patch) 1 patch QAM TD 07/07/16 09:00 08/06/16 08:59 07/06/16 23:36 1 PATCH Miscellaneous (Remove Nicoderm Patch) 1 ea HS N/A 07/07/16 21:00 08/06/16 20:59 Phenol (Chloraseptic 1.4% Okay) 1 sprays PRN PRN MT 07/06/16 22:00 08/05/16 21:59 07/06/16 23:37 1 SPRAYS Home Meds and Scripts Medications Dose Route/Sig Max Daily Dose Days Date Category Dose Instructions [Dilaudid Pain Pump] 1 Dose XXX UD 07/06/16 Reported Corgard (Nadolol) 20 Mg Tab 20 Mg PO DAILY 07/06/16 Reported Cyclobenzaprine HCl 10 Mg Tab 10 Mg PO DAILY PRN 07/06/16 Reported Percocet 10MG/325MG (Oxycodone/Acetaminophen) Tab 1 Tab PO UD PRN 07/06/16 Reported Dilaudid (Hydromorphone Hcl) 4 Mg Tab 4 Mg PO Q6H PRN 07/06/16 Reported Pantoprazole Sodium (Pantoprazole) 40 Mg Tab 40 Mg PO DAILY 07/06/16 Reported Spironolactone 100 Mg Tab 100 Mg PO BID 07/06/16 Reported Furosemide 40 Mg Tab 40 Mg PO BID 07/06/16 Reported Vitamin C Gummie 120 mg (Ascorbic Acid) 1 Chw Chw 240 Mg PO DAILY 06/30/16 Reported Proair Hfa (Albuterol) Aers 2 Puffs INH Q4H PRN 03/16/16 Reported Multivitamin (Multiple Vitamin) 1 Tab Tab 1 Tab PO QAM 03/16/16 Reported Skelaxin (Metaxalone) 800 Mg Tab 800 Mg PO QID 10/14/09 Reported Fentanyl Patch (Fentanyl) 25 Mcg Tdsy 25 Mcg TOP 10/14/09 Reported Lioresal (Baclofen) 10 Mg Tab 10 Mg PO 10/14/09 Reported Percocet 5MG/325MG (Oxycodone/Acetaminophen) Tab 1 Tablet PO Q6HR PRN 10/14/09 Reported PAIN Review of Systems Constitutional: + fatigue, + weakness, No chills, No fever Eyes: No worsening of vision ENT: No hearing loss Respiratory: + dyspnea on exertion (prior to admission; no sob now), No cough Cardiac: + chest pain (endorses exertional cp prior to admission), + palpitations (prior to admission; none currently), No edema Abdomen: + constipation, No nausea, No pain, No vomiting Musculoskeletal: + joint pain, + see HPI, No muscle pain Male : + problem reported (endorses "orange" urine), No dysuria, No incontinence, No urinary frequency Psych: No anxiety, No depression symptoms Heme: No abnormal bleeding/bruising Endo: + fatigue Skin: No rash Physical Exam Date Time Temp Pulse Resp B/P Pulse Ox O2 Delivery O2 Flow Rate FiO2 07/07/16 08:55 36.5 92 18 123/70 07/07/16 08:35 36.5 94 18 96/59 07/07/16 07:53 Room Air 07/07/16 07:22 36.6 93 20 93/46 90 Room Air 07/07/16 04:57 36.8 109 20 113/64 94 Room Air 07/07/16 04:00 Room Air 07/07/16 00:08 36.8 105 20 105/60 96 Room Air 07/07/16 00:00 Room Air 07/06/16 21:01 37.7 116 20 108/72 98 Room Air 07/06/16 18:52 113 20 121/68 97 Room Air 07/06/16 18:01 112 07/06/16 17:45 117 20 122/65 95 07/06/16 15:50 37.0 142 22 160/91 97 Room Air 24-Hour Column 07/07/16 08:00 Intake Total 863 ml Output Total 450 ml Balance 413 ml General Appearance: no apparent distress, + cachetic, + pertinent finding ( lying flat on RA) Eyes: PERRL (sclerae icteric), EOMI ENT: hearing grossly normal Neck: supple Respiratory/Chest: no respiratory distress, no accessory muscle use, + decreased breath sounds Cardiovascular: + tachycardia (90s, regular) Abdomen: soft, + distended (epigastric tenderness w/o guarding/ rebound), + tenderness Extremities: non-tender, normal inspection, no pedal edema Neurologic/Psych: alert, normal mood/affect, oriented x 3 Skin: warm/dry, no rash, + jaundice Diagnostics Last 24 Hours Test 07/06/16 16:30 07/06/16 22:00 07/06/16 22:07 07/07/16 04:00 White Blood Count 8.50 K/uL Red Blood Count 2.14 M/uL Hemoglobin 7.6 g/dL Hematocrit 20.8 % Mean Corpuscular Volume 97.2 fL Mean Corpuscular Hemoglobin 35.5 pg Mean Corpuscular Hemoglobin Concent 36.5 g/dl Platelet Count 94 K/uL Mean Platelet Volume 10.8 fL Neutrophils (%) (Auto) 73.7 % Lymphocytes (%) (Auto) 13.3 % Monocytes (%) (Auto) 11.8 % Eosinophils (%) (Auto) 0.4 % Basophils (%) (Auto) 0.1 % Neutrophils # (Auto) 6.27 K/uL Lymphocytes # (Auto) 1.13 K/uL Monocytes # (Auto) 1.00 K/uL Eosinophils # (Auto) 0.03 K/uL Basophils # (Auto) 0.01 K/uL RDW Standard Deviation 64.3 fL RDW Coefficient of Variation 18.3 % Immature Granulocyte % (Auto) 0.7 % Immature Granulocyte # (Auto) 0.06 K/uL Polychromasia 1+ Macrocytosis PRESENT Acanthocytes 1+ Prothrombin Time 18.0 SECONDS Prothromb Time International Ratio 1.6 Activated Partial Thromboplast Time 32.1 SECONDS Partial Thromboplastin Ratio 1.2 D-Dimer 13859 ug/L FEU Sodium Level 126 mmol/L Potassium Level 4.6 mmol/L Chloride Level 89 mmol/L Carbon Dioxide Level 20 mmol/L Anion Gap 17.0 mmol/L Blood Urea Nitrogen 36 mg/dl Creatinine 2.20 mg/dl Est Creatinine Clear Calc Drug Dose 37.4 ml/min Estimated GFR () 38.2 Estimated GFR (Non- 33.0 BUN/Creatinine Ratio 16.1 Random Glucose 156 mg/dl Calcium Level 9.9 mg/dl Phosphorus Level 2.3 mg/dl Magnesium Level 1.8 mg/dl Total Bilirubin 7.9 mg/dl Direct Bilirubin 3.8 mg/dl Aspartate Amino Transf (AST/SGOT) 82 U/L Alanine Aminotransferase (ALT/SGPT) 49 U/L Alkaline Phosphatase 84 U/L Ammonia 34.0 umol/L Total Creatine Kinase 68 U/L Troponin I < 0.015 ng/ml 0.035 ng/ml Total Protein 6.2 gm/dl Albumin 4.0 gm/dl Lipase 388 U/L Creatine Kinase MB Ratio Creatine Kinase MB 2.0 ng/ml Test 07/07/16 04:15 White Blood Count 9.72 K/uL Red Blood Count 1.70 M/uL Hemoglobin 6.0 g/dL Hematocrit 16.6 % Mean Corpuscular Volume 97.6 fL Mean Corpuscular Hemoglobin 35.3 pg Mean Corpuscular Hemoglobin Concent 36.1 g/dl RDW Standard Deviation 65.2 fL RDW Coefficient of Variation 18.6 % Platelet Count 56 K/uL Mean Platelet Volume 9.2 fL Sodium Level 128 mmol/L Potassium Level 4.8 mmol/L Chloride Level 94 mmol/L Carbon Dioxide Level 25 mmol/L Anion Gap 9.0 mmol/L Blood Urea Nitrogen 32 mg/dl Creatinine 1.70 mg/dl Est Creatinine Clear Calc Drug Dose 16.2 ml/min Estimated GFR () 52.2 Estimated GFR (Non- 45.0 BUN/Creatinine Ratio 18.8 Random Glucose 113 mg/dl Calcium Level 8.4 mg/dl Total Bilirubin 7.1 mg/dl Direct Bilirubin 3.5 mg/dl Aspartate Amino Transf (AST/SGOT) 62 U/L Alanine Aminotransferase (ALT/SGPT) 37 U/L Alkaline Phosphatase 63 U/L Creatine Kinase MB 1.5 ng/ml Troponin I 0.026 ng/ml Total Protein 4.7 gm/dl Albumin 3.0 gm/dl Diagnostic Radiology: AAS -no bowel obstruction or acute cardiopulm process -BL femoral head AVN L shoulder XR -calcific rotator cuff tendinitis; no acute fracture/dislocation EKG: ecg > ST 122 bpm EGD 03/17/16 : Non-bleeding grade I esophageal varices. Portal hypertensive gastropathy. One healing duodenal ulcer with no stigmata of bleeding. Assessment & Plan 55 y/o M w/ advanced liver disease EtOH/HCV, chronic pain, chronic hyponatremia readmitted after recent hosp d/c recurrent ANJEL (presenting creatinine 2.2 and recent d/c creat 0.9) with tachycardia and L shoulder pain. This AM his hgb is 6.0. No evidence of cardiac etiology for shoulder pain. Prerenal ANJEL > progressing to early ATN in the setting of advanced liver disease , recent intensification of diuretics urine sediment dilute; reflects early ATN w/ granular casts; HR improving, BP acceptable in liver pt. This is not hepatorenal syndrome as he is responding to gentle fluid resuscitation >> no indication for octreotide/midodrine -had NS at 80 mL hourly overnight on my advice; for pRBC today and will stop NS ; recommend lasix between pRBC units if more than one given -changed limit po fluids to 1.2 L daily > despite effective intravascular dehydration which is improving his underlying disease process promotes fluid overload -continue 2 gm/day Na limit -continue to hold diuretics for now -electrolytes apart from Na acceptable Hyponatremia -on presentation reflects dehydration based on hx/response to therapy; no further work up needed at this time as it is improving -no need to recheck before AM Acute on chronic anemia -for pRBC Appreciate consult; will follow with you. Care coordinated w/ Dr. Bautista.
[2016-07-07] MEDS ORDERED: ETHYL CHLORIDE AER SPR 100 ML CAN EXT ONE (09:40)
[2016-07-07] MEDS ORDERED: BUPIVACAINE/EPINEPHRINE 0.5% MPF 1:200,000 30 ML VIAL INFIL ONE (09:45)
[2016-07-07] MEDS ORDERED: METHYLPREDNISOLONE ACETATE 80 MG/ML VIAL IA ONE (09:45)
[2016-07-07] MEDS ORDERED: FUROSEMIDE INJ 40 MG in SYRINGE 0 ML IV ONE (10:15)
--- NOTE | 2016-07-07 13:58 | Psychiatric Consultation ---
Consultation Identifying Data 55y/o male with history of alcohol and IV heroin abuse, hep C and cirrhosis who was admitted medically with left shoulder pain and constipation. Psychiatry consulted for depression. Chief Complaint "I'm not really depressed, just frustrated". History of Present Illness Patient has a history of cirrhosis due to HCV and alcohol abuse, has a remote history of IV heroin use, and was recently admitted to [facility] 06/30 - 07/03 for ANJEL, hyponatremia, anemia and worsening ascites. During that admission, patient underwent paracentesis and PRBC transfusion. He re-presented several days after discharge, reporting feeling poorly since returning home, with generalized weakness, constipation, abdominal fullness and weight gain. He woke up with severe left shoulder pain, and in the ER, his creatinine was 2.2 (was 0.9 on discharge), Na+ 126 (131 on discharge), hgb 7.6 (8.1 on discharge), and HR was in the 140s on arrival. He is being seen by nephrology and GI and is receiving transfusion. He denies feeling depressed, and says he is "frustrated" with his poor health and having to be hospitalized, and regrets his previous decisions that led to his current state. He says he had a bad drug habit," but has been clean for over 20 years, which he is proud of. He says he has "overcome worse than this" ( his medical problems), as he grew up in [place] and "did a lot of bad things to people." He now has motivation to take care of his health, as he has sole custody of his 13 year old son, whom he is very proud of. He says he has good support from his girlfriend of 22 years, and is not interested in psychiatric treatment or therapy. He denies feeling depressed, tearfulness, problems with concentration or sleep, irritability, anhedonia, and SI. He says he would never hurt himself due to his son, "he needs me." He admits to decreased appetite and weight gain which he attributes to liver disease and constipation. He denies symptoms of helene, psychosis, SI and HI. Past Psychiatric History Current OP Treatment: no current treatment Prior OP Treatment: no prior treatment No h/o suicidal attempts or hospitalizations. No previous psychiatric treatment. Past Medical/Surgical History History of Obesity: No Problem List: (1) Ascites (2) Hyponatremia (3) Cirrhosis of liver (4) ANJEL (acute kidney injury) (5) Dehydration (6) Acute renal failure (7) Anemia (8) GERD (gastroesophageal reflux disease) (9) Hepatitis C, chronic (10) Liver failure Allergies Allergies: Coded Allergies: Morphine (Verified Adverse Reaction, Unknown, INABILITY TO URINATE, ) Home Medications Scheduled Ascorbic Acid (Vitamin C Gummie 120 mg), 240 MG PO DAILY Furosemide (Furosemide), 40 MG PO BID Multiple Vitamin (Multivitamin), 1 TAB PO QAM Nadolol (Corgard), 20 MG PO DAILY Pantoprazole (Pantoprazole Sodium), 40 MG PO DAILY Spironolactone (Spironolactone), 100 MG PO BID [Dilaudid Pain Pump], 1 DOSE XXX UD Scheduled PRN Albuterol (Proair Hfa), 2 PUFFS INH Q4H PRN for SOB/Wheezing Cyclobenzaprine HCl (Cyclobenzaprine HCl), 10 MG PO DAILY PRN for Muscle Spasm Hydromorphone Hcl (Dilaudid), 4 MG PO Q6H PRN for Pain Oxycodone/Acetaminophen 10MG/325MG (Percocet 10MG/325MG), 1 TAB PO UD PRN for Pain Family History Unobtainable family history due to adoption Alcohol Use Alcohol Use In Past 12 Months: No Remote history of alcohol abuse Substance History Remote history of IV heroin use; clean > 20 years Personal History Children: 13 y/o son Additional Comments: Lives in [place] with termination clerk girlfriend and 13 year old son. Originally from [place], but came here >20 years ago to work at the [employer]. Now unemployed on disability. Review of Systems Negative for SI, HI, AVH, PTSD, panic, OCD Examination Vital Signs Vital Signs Past 12 Hours Date Time Temp Pulse Resp B/P Pulse Ox O2 Delivery O2 Flow Rate FiO2 07/07/16 13:00 36.5 76 18 101/56 07/07/16 12:30 36.9 101 16 139/82 07/07/16 12:15 36.6 81 18 115/63 07/07/16 12:00 36.6 79 18 103/54 07/07/16 11:14 36.6 79 18 91/51 07/07/16 10:51 36.5 79 16 108/53 92 Room Air 07/07/16 09:50 36.5 79 16 97/58 95 Room Air 07/07/16 09:10 36.8 97 16 122/70 07/07/16 08:55 36.5 92 18 123/70 07/07/16 08:35 36.5 94 18 96/59 07/07/16 07:53 Room Air 07/07/16 07:22 36.6 93 20 93/46 90 Room Air 07/07/16 04:57 36.8 109 20 113/64 94 Room Air 07/07/16 04:00 Room Air Laboratory Results Last 24 Hours Test 07/06/16 16:30 07/06/16 22:00 07/06/16 22:07 07/07/16 04:00 White Blood Count 8.50 K/uL Red Blood Count 2.14 M/uL Hemoglobin 7.6 g/dL Hematocrit 20.8 % Mean Corpuscular Volume 97.2 fL Mean Corpuscular Hemoglobin 35.5 pg Mean Corpuscular Hemoglobin Concent 36.5 g/dl Platelet Count 94 K/uL Mean Platelet Volume 10.8 fL Neutrophils (%) (Auto) 73.7 % Lymphocytes (%) (Auto) 13.3 % Monocytes (%) (Auto) 11.8 % Eosinophils (%) (Auto) 0.4 % Basophils (%) (Auto) 0.1 % Neutrophils # (Auto) 6.27 K/uL Lymphocytes # (Auto) 1.13 K/uL Monocytes # (Auto) 1.00 K/uL Eosinophils # (Auto) 0.03 K/uL Basophils # (Auto) 0.01 K/uL RDW Standard Deviation 64.3 fL RDW Coefficient of Variation 18.3 % Immature Granulocyte % (Auto) 0.7 % Immature Granulocyte # (Auto) 0.06 K/uL Polychromasia 1+ Macrocytosis PRESENT Acanthocytes 1+ Prothrombin Time 18.0 SECONDS Prothromb Time International Ratio 1.6 Activated Partial Thromboplast Time 32.1 SECONDS Partial Thromboplastin Ratio 1.2 D-Dimer 89618 ug/L FEU Sodium Level 126 mmol/L Potassium Level 4.6 mmol/L Chloride Level 89 mmol/L Carbon Dioxide Level 20 mmol/L Anion Gap 17.0 mmol/L Blood Urea Nitrogen 36 mg/dl Creatinine 2.20 mg/dl Est Creatinine Clear Calc Drug Dose 37.4 ml/min Estimated GFR () 38.2 Estimated GFR (Non- 33.0 BUN/Creatinine Ratio 16.1 Random Glucose 156 mg/dl Calcium Level 9.9 mg/dl Phosphorus Level 2.3 mg/dl Magnesium Level 1.8 mg/dl Total Bilirubin 7.9 mg/dl Direct Bilirubin 3.8 mg/dl Aspartate Amino Transf (AST/SGOT) 82 U/L Alanine Aminotransferase (ALT/SGPT) 49 U/L Alkaline Phosphatase 84 U/L Ammonia 34.0 umol/L Total Creatine Kinase 68 U/L Troponin I < 0.015 ng/ml 0.035 ng/ml Total Protein 6.2 gm/dl Albumin 4.0 gm/dl Lipase 388 U/L Creatine Kinase MB Ratio Creatine Kinase MB 2.0 ng/ml Test 07/07/16 04:15 07/07/16 10:45 White Blood Count 9.72 K/uL Red Blood Count 1.70 M/uL Hemoglobin 6.0 g/dL Hematocrit 16.6 % Mean Corpuscular Volume 97.6 fL Mean Corpuscular Hemoglobin 35.3 pg Mean Corpuscular Hemoglobin Concent 36.1 g/dl RDW Standard Deviation 65.2 fL RDW Coefficient of Variation 18.6 % Platelet Count 56 K/uL Mean Platelet Volume 9.2 fL Sodium Level 128 mmol/L Potassium Level 4.8 mmol/L Chloride Level 94 mmol/L Carbon Dioxide Level 25 mmol/L Anion Gap 9.0 mmol/L Blood Urea Nitrogen 32 mg/dl Creatinine 1.70 mg/dl Est Creatinine Clear Calc Drug Dose 16.2 ml/min Estimated GFR () 52.2 Estimated GFR (Non- 45.0 BUN/Creatinine Ratio 18.8 Random Glucose 113 mg/dl Calcium Level 8.4 mg/dl Total Bilirubin 7.1 mg/dl Direct Bilirubin 3.5 mg/dl Aspartate Amino Transf (AST/SGOT) 62 U/L Alanine Aminotransferase (ALT/SGPT) 37 U/L Alkaline Phosphatase 63 U/L Creatine Kinase MB 1.5 ng/ml Troponin I 0.026 ng/ml Total Protein 4.7 gm/dl Albumin 3.0 gm/dl Urine Random Sodium 8 mEq/L Urine Random Potassium 31.7 mEq/L Mental Examination During interview pt is: alert and oriented, cooperative Appearance: other (jaundiced) Eye contact is: poor Motor behavior is: no abnormal motor movements Speech: normal in rate, rhythm & volume Affect: mood congruent, other (appropriate, reactive) Mood is: other ("frustrated") Thought process: goal directed Thought content: reality based without delusions Suicidal thought are: denied Homicidal thoughts are: denied Hallucinations: denies auditory, denies visual Cognition: memory grossly intact, attention grossly intact, language grossly intact Intelligence estimated to be: average Insight: fair Judgement: fair Impression / Recommendations Impression Patient denies feeling depressed, but does report frustration with his health problems and multiple recent hospitalizations. He does not wish to pursue mental health treatment including medications or therapy. He reports good support from his girlfriend and denies SI. Risk Factors Assessment Male: Yes : Yes /single/: No Higher / Fall in social status: No Health problems: Yes Mental Health Diagnoses: No Substance use disorders: Yes Previous attempt: No Previous psychiatric stay: No Hopelessness: No Protective Factors Assessment Responsible for young children: Yes Employed: No Stable relationships: Yes Supportive family: Yes Recommendations Patient denies symptoms of clinical depression, and is not interested in medication or therapy. He states awareness of how to find local providers if he changes his mind and would like treatment. He does not appear severely depressed , denies SI, and reports good support and coping skills, and doesn't meet criteria for psychiatric hospitalization or commitment.
[2016-07-07] MEDS: ALBUMIN HUMAN 25% 12.5 GM/50 ML VIAL IV SCH ×2 (14:26→21:23)
--- NOTE | 2016-07-07 15:48 | DIAGNOSTIC IMAGING REPORT ---
ULTRASOUND GUIDED DIAGNOSTIC PARACENTESIS CLINICAL HISTORY: Ascites COMPARISON STUDY: No previous studies for comparison. PROCEDURE: The risks, benefits, and alternatives to the procedure were discussed with the patient including the risk of bleeding, infection and injury to adjacent structures. The patient agreed to the procedure and informed written consent was obtained. Following real-time ultrasound localization, the skin of the right lower quadrant was prepped and draped. Following local anesthesia with Xylocaine, the sheath paracentesis needle was inserted and 100 cc of serosanguineous ascites was removed by vacuum suction. This fluid was sent to laboratory as ordered. The patient tolerated the procedure well and no immediate complications were evident. IMPRESSION: Ultrasound-guided diagnostic paracentesis with removal of 100 cc of serosanguineous ascites which was sent to laboratory as ordered. Electronically signed by: Alvaro Bond M.D. 07/07/2016 3:46 PM Dictated Date/Time: 07/07/2016 3:45 PM
[2016-07-07 16:22] LABS: HEMATOCRIT 23.5 % (42-52)
[2016-07-07 17:46] LABS: PERIT FL WBC 733 /uL (0-300); PERITONEAL FLUID RBC 537000 /uL
--- NOTE | 2016-07-07 19:13 | Progress Note ---
Medicine Progress Note Date & Time of Visit: Jul 07, 2016 at 0930. 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 There was some concern on admission with possible PE, however, there is currently no chest pain, no shortness of breath and his tachycardia improved with IVF administration. His L shoulder pain has somewhat improved overnight, and he takes Dilaudid Po at home for pain as needed. Xray reveals OA in the shoulder joint as well as calcific tendonitis of the rotator cuff. Ortho was consulted and is considering a steroid injection , which the patient has undergone multiple times in the past for other joints. I spoke with Nephrology who stopped his IVF as he is getting blood this morning. This is not HRS in her opinion, as the patient is IVF-responsive at this time and appears clinically dry. Will reassess fluid status again after blood products given. He is on Albumin 25% TID. Discussed his case with GI who is evaluating him for ascites. Recent paracentesis was within the last 2 weeks and 2 L of fluid was pulled off. Diuretics were also increased at recent discharge approx 1 week ago. Pt also admits to some upper abdominal pain that is sharp and radiating down over his abdomen. This has been a chronic problem for him. He denies fevers. Objective Last 8 Hrs Date Time Temp Pulse Resp B/P Pulse Ox O2 Delivery O2 Flow Rate FiO2 07/07/16 15:59 Room Air 07/07/16 15:39 36.6 65 16 110/63 95 Room Air 07/07/16 14:42 82 96/40 07/07/16 14:28 74 18 99/46 07/07/16 14:02 36.7 74 16 101/59 92 07/07/16 14:00 36.7 72 101/59 07/07/16 13:00 36.5 76 18 101/56 07/07/16 12:30 36.9 101 16 139/82 07/07/16 12:15 36.6 81 18 115/63 07/07/16 12:00 36.6 79 18 103/54 07/07/16 11:14 36.6 79 18 91/51 07/07/16 10:51 36.5 79 16 108/53 92 Room Air Physical Exam: GEN: WNWD, in no acute distress, alert and appropriate HEENT: NC/AT, +icteric sclerae CARDIO: reg rate, S1/2 heard without m/g/r LUNGS: CTA bilaterally, no crackles, rales or wheezes, good diaphragmatic excursion ABD: soft, non-tender, protuberant, +BS EXTREMITY: RP and DP palpable 2+ bilat, no LE swelling or edema, extremities are warm and well-perfused NEURO: CN 2-12 grossly intact, sensation intact throughout MUSC: 5/5 strength throughout, no gross focal deficits SKIN: warm and dry, jaundiced Laboratory Results: Last 24 Hours Test 07/06/16 22:00 07/06/16 22:07 07/07/16 04:00 07/07/16 04:15 Creatine Kinase MB Ratio Creatine Kinase MB 2.0 ng/ml 1.5 ng/ml Troponin I 0.035 ng/ml 0.026 ng/ml White Blood Count 9.72 K/uL Red Blood Count 1.70 M/uL Hemoglobin 6.0 g/dL Hematocrit 16.6 % Mean Corpuscular Volume 97.6 fL Mean Corpuscular Hemoglobin 35.3 pg Mean Corpuscular Hemoglobin Concent 36.1 g/dl RDW Standard Deviation 65.2 fL RDW Coefficient of Variation 18.6 % Platelet Count 56 K/uL Mean Platelet Volume 9.2 fL Sodium Level 128 mmol/L Potassium Level 4.8 mmol/L Chloride Level 94 mmol/L Carbon Dioxide Level 25 mmol/L Anion Gap 9.0 mmol/L Blood Urea Nitrogen 32 mg/dl Creatinine 1.70 mg/dl Est Creatinine Clear Calc Drug Dose 16.2 ml/min Estimated GFR () 52.2 Estimated GFR (Non- 45.0 BUN/Creatinine Ratio 18.8 Random Glucose 113 mg/dl Calcium Level 8.4 mg/dl Total Bilirubin 7.1 mg/dl Direct Bilirubin 3.5 mg/dl Aspartate Amino Transf (AST/SGOT) 62 U/L Alanine Aminotransferase (ALT/SGPT) 37 U/L Alkaline Phosphatase 63 U/L Total Protein 4.7 gm/dl Albumin 3.0 gm/dl Test 07/07/16 10:45 07/07/16 13:43 07/07/16 16:10 Urine Random Sodium 8 mEq/L Urine Random Potassium 31.7 mEq/L Peritoneal Fluid Color RED Peritoneal Fluid Appearance BLOODY Peritoneal Fluid WBC 733 /uL Peritoneal Fluid RBC [id number] /uL Peritoneal Fld Mononuclear WBCs (%) 64.5 % Peritoneal Fld Polynuclear WBCs (%) 35.5 % Peritoneal Fluid Albumin 1.0 g/dl Hemoglobin 8.4 g/dL Hematocrit 23.5 % Date/Time Source Procedure Growth Status 07/07/16 13:43 Ascities Fluid Acid Fast Stain Pending Received 07/07/16 13:43 Ascities Fluid Mycobacterial Culture Pending Received 07/07/16 13:43 Ascities Fluid Gram Stain Pending Received 07/07/16 13:43 Ascities Fluid Bacterial Culture Pending Received Assessment & Plan ANJEL 2/2 prerenal azotemia-s/p 3L paracentesis on 07/01, creat at discharge (07/03) was 0.9, admitted (07/06) after increase in diuretics at discharge and creat jumped to 2.2. Overnight IVF were helpful to improve the tachycardia and creat to 1.7. Holding IVF at this time as he is getting two units of blood. Will reassess vol status in am and work with GI team with diuretics. Hyponatremia-presumed hypotonic, hypovolemic consistent with dry intravascularly. Responded somewhat to IVF administration. Similar to values during recent admission in last two weeks. Poor PO intake. Trend in am. 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 Appreciate GI recs and assistance with ascites management. Abdominal pain 2/2 distension, less likely peritonitis with no guarding on exam. Poss 2/2 constipation. AXR without signs of bowel obstruction or free air. Anemia-receiving 2 Units pRBCs this morning. H/H post-transfusion was appropriate. INR 1.6. Pt denies any bleeding anywhere. CBC in am. Thrombocytopenia-2/2 cirrhosis Tachycardia-resolved Atypical chest pain-denies, serial cardiac enzymes were negative overnight. EKG on admission revealed [address] changes. Pt was tachycardic initially with an elevated D-dimer and atypical chest pain reported. He states that he didn't have chest pain, it was just in his shoulder and radiating down his arm. He denies any shortness of breath, and tachycardia resolved with IVF administration. His D-dimer can be explained by his underlying chronic inflammation and his doppler ultrasounds of the legs were negative. No PE study needed at this time. L shoulder pain 2/2 calcific tendonitis and OA-consulted Ortho, appreciate recs and consideration of steroid injection for comfort. Constipation-2/2 chronic narcotic use. Pt is not on consistent Lactulose. Miralax this am, enema offerred but patient declined. Concern for prolonged constipation and buildup of ammonia. Pt says he doesn't feel "sharp." Defer to GI to start Lactulose AVN of both femoral heads-asymptomatic DVT PROPHYLAXIS - SCDs due to anemia/thrombocytopenia Diya Bautista DO [facility] Hospitalist Current Inpatient Medications: Current Inpatient Medications Medications (Trade) Dose Ordered Sig/Perla Route Start Time Stop Time Status Last Admin Dose Admin Ondansetron HCl (Zofran Inj) 4 mg Q6H PRN IV 07/06/16 18:30 08/05/16 18:29 Multivitamins (Multivitamin Tab) 1 tab QAM PO 07/07/16 09:00 08/06/16 08:59 07/07/16 08:47 1 TAB Nadolol (Corgard Tab) 20 mg DAILY PO 07/07/16 09:00 08/06/16 08:59 07/07/16 08:47 20 MG Oxycodone/ Acetaminophen (Percocet 10-325MG Tab) 1 tab DAILY PRN PO 07/06/16 18:45 07/20/16 18:44 Pantoprazole Sodium (Protonix Tab) 40 mg DAILY PO 07/07/16 09:00 08/06/16 08:59 07/07/16 08:46 40 MG Hydromorphone HCl (Dilaudid Pain Pump) 1 mg UD ITR 07/06/16 18:45 08/05/16 18:44 Hydromorphone HCl (Dilaudid Inj) 0.25 mg Q6H PRN IV 07/06/16 18:45 07/20/16 18:44 07/07/16 10:28 0.25 MG Polyethylene (Miralax Powder Packet) 17 gm DAILY PO 07/06/16 21:30 08/05/16 21:29 07/07/16 08:47 17 GM Docusate Sodium (coLACE CAP) 100 mg BID PO 07/06/16 21:00 08/05/16 20:59 07/07/16 08:46 100 MG Menthol (Nice Juanis) 1 juanis PRN PRN PO 07/06/16 21:30 08/05/16 21:29 07/06/16 21:24 1 JUANIS Nicotine (Nicoderm Cq 14MG Patch) 1 patch QAM TD 07/07/16 09:00 08/06/16 08:59 07/06/16 23:36 1 PATCH Miscellaneous (Remove Nicoderm Patch) 1 ea HS N/A 07/07/16 21:00 08/06/16 20:59 Phenol (Chloraseptic 1.4% [place]) 1 sprays PRN PRN MT 07/06/16 22:00 08/05/16 21:59 07/06/16 23:37 1 SPRAYS Albumin Human (Albumin 25%) 25 gm TID IV 07/07/16 14:00 07/10/16 13:59 07/07/16 14:26 25 GM
--- NOTE | 2016-07-07 19:26 | ORTHOPEDIC CONSULTATION ---
DATE OF CONSULTATION: 07/07/2016 HISTORY OF PRESENT ILLNESS: The patient is a 55-year-old male who presents with left shoulder pain. He has had some history of shoulder pain in the past. He has also had tennis elbow pain. 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 He has developed cirrhosis of liver, GERD. He has had some hepatitis C history and has a history of asthma and thrombocytopenia. He does have chronic pain syndrome, has a pain pump with Dilaudid. OTHER MEDICATIONS: Include Protonix, nadolol, multivitamin, Lasix, vitamin C, spironolactone. PAST SURGICAL HISTORY: He also had surgeries including tonsillectomy, C-spine fusion. No shoulder surgery. His main problem is left shoulder pain. PHYSICAL EXAMINATION: GENERAL: Demonstrates a thin individual. EXTREMITIES: His right shoulder is pain free with some ligamentous laxity. His left shoulder, he has about 170 degrees of forward elevation and 140 of abduction, external rotation about 70, internal rotation about 80. He has smooth range of motion. He has just a little bit of ligamentous laxity, but no major instability. He has pain with passive and active range of motion. There is no swelling. There are no signs of any bruising or injury. There is no evidence of any infection. His radiographs demonstrate that he has a slightly downsloping acromion process, does not have an outlet view to look at. He does have a well-defined calcium deposit in the rotator cuff, consistent with calcific tendinitis. ASSESSMENT: Left shoulder calcific tendinitis. He did relate to me he did have a history of some dislocations in both the shoulders. So he could have some other pathology as well. At this point, I am pursuing nonoperative management. His subacromial space was injected today with 3 mL of bupivacaine and 1 mL of Depo-Medrol. He tolerated the procedure satisfactorily.
[2016-07-07] MEDS ORDERED: NURSING VERBAL MED ORDER ONE (20:00)
[2016-07-07] MEDS: NICOTINE 14 MG/24 HR TDSY TD SCH (21:23)
[2016-07-08] VITALS (7 sets, daily range): BP systolic 94–118; BP diastolic 49–74; PULSE 72–79; TEMP 36.4–36.7; O2SAT 91–95
[2016-07-08 07:52] LABS: HEMATOCRIT 24.9 % (42-52); MEAN CELL VOLUME 94.7 fL (80-100); MEAN CORPUSCULAR HEMOGLOBIN 34.6 pg (25-34); MEAN CORPUSCULAR HGB CONC 36.5 g/dl (32-36); RED BLOOD COUNT 2.63 M/uL (4.7-6.1); WHITE BLOOD COUNT 6.18 K/uL (4.8-10.8)
[2016-07-08 08:04] LABS: INR 1.7 (0.9-1.1); PROTHROMBIN TIME (PATIENT) 18.7 SECONDS (9.0-12.0)
[2016-07-08 08:14] LABS: MEAN PLATELET VOLUME 9.3 fL (7.4-10.4); PLATELET COUNT 61 K/uL (130-400)
[2016-07-08] MEDS: HYDROmorphone INJ 1 MG/ML SYR IV PRN ×3 (08:26→22:02)
[2016-07-08] MEDS: POLYETHYLENE (MIRALAX) 17 GM PACK PO SCH (08:27)
[2016-07-08 08:30] LABS: BUN/CREATININE RATIO 22.8 (10-20); CALCIUM 9.3 mg/dl (8.5-10.1); CREATININE 1.2 mg/dl (0.60-1.40); POTASSIUM 4.4 mmol/L (3.5-5.1)
[2016-07-08] MEDS: NADOLOL 40 MG TAB PO SCH (08:35)
[2016-07-08] MEDS: PANTOprazole SOD 40 MG TAB PO SCH (08:35)
[2016-07-08] MEDS: MULTIVITAMIN TAB PO SCH (08:35)
[2016-07-08] MEDS: DOCUSATE SODIUM 100 MG CAP PO SCH ×2 (08:35→19:27)
[2016-07-08] MEDS: ALBUMIN HUMAN 25% 12.5 GM/50 ML VIAL IV SCH ×2 (08:51→09:56)
[2016-07-08] MEDS ORDERED: HYDROmorphone INJ 1 MG/ML SYR IV ONE (09:15)
--- NOTE | 2016-07-08 09:20 | Gastroenterology Progress Note ---
Progress Note Date of Service: Jul 08, 2016 Subjective Pt evaluation today including: conversation w/ patient, physical exam, chart review, lab review Patient was seen and examined this morning. He states that he is very frustrated at his medical condition. He states that all he wants to do is go home and be with his son. Despite feeling frustrated he is denying any anxiety, depression, or wishes to self harm. He states that he met with Dr. Askew yesterday to discuss his mental health. He states that he is very thirsty and he is unsure how he is going to stay hydrated with the recommended decrease in fluid consumption from nephrology. He denies any chest pain, SOB, fever, chills , N/V/D. He reports that his abdominal pain is unchanged. He reports that it is intermittent, sharp stabbing and radiates from the right upper quadrant down to the right lower quadrant. He has been worked up for this abdominal pain in the past from María Murphy his GI provider. He received two units of blood yesterday for a HGB of 6. Today HGB is 9. Peritoneal WBC 733 polynuclear 35.5% PMN 260 Review of Systems Constitutional: No chills, No fever Respiratory: No cough, No shortness of breath Cardiac: No chest pain, No edema Abdomen: + pain (as noted in HPI), No GI bleeding, No constipation, No diarrhea , No nausea, No vomiting Medications Current Inpatient Medications Medications (Trade) Dose Ordered Sig/Perla Route Start Time Stop Time Status Last Admin Dose Admin Ondansetron HCl (Zofran Inj) 4 mg Q6H PRN IV 07/06/16 18:30 08/05/16 18:29 Multivitamins (Multivitamin Tab) 1 tab QAM PO 07/07/16 09:00 08/06/16 08:59 07/08/16 08:35 1 TAB Nadolol (Corgard Tab) 20 mg DAILY PO 07/07/16 09:00 08/06/16 08:59 07/08/16 08:35 20 MG Oxycodone/ Acetaminophen (Percocet 10-325MG Tab) 1 tab DAILY PRN PO 07/06/16 18:45 07/20/16 18:44 Pantoprazole Sodium (Protonix Tab) 40 mg DAILY PO 07/07/16 09:00 08/06/16 08:59 07/08/16 08:35 40 MG Hydromorphone HCl (Dilaudid Pain Pump) 1 mg UD ITR 07/06/16 18:45 08/05/16 18:44 Hydromorphone HCl (Dilaudid Inj) 0.25 mg Q6H PRN IV 07/06/16 18:45 07/20/16 18:44 07/08/16 08:26 0.25 MG Polyethylene (Miralax Powder Packet) 17 gm DAILY PO 07/06/16 21:30 08/05/16 21:29 07/08/16 08:27 17 GM Docusate Sodium (coLACE CAP) 100 mg BID PO 07/06/16 21:00 08/05/16 20:59 07/08/16 08:35 100 MG Menthol (Nice Juanis) 1 juanis PRN PRN PO 07/06/16 21:30 08/05/16 21:29 07/06/16 21:24 1 JUANIS Miscellaneous (Remove Nicoderm Patch) 1 ea HS N/A 07/07/16 21:00 08/06/16 20:59 Future hold 07/07/16 19:55 1 EA Phenol (Chloraseptic 1.4% [place]) 1 sprays PRN PRN MT 07/06/16 22:00 08/05/16 21:59 07/06/16 23:37 1 SPRAYS Albumin Human (Albumin 25%) 25 gm TID IV 07/07/16 14:00 07/10/16 13:59 07/08/16 08:51 12.5 GM Nicotine (Nicoderm Cq 14MG Patch) 1 patch HS TD 07/07/16 21:00 08/06/16 20:59 07/07/16 21:23 1 PATCH Hydromorphone HCl (Dilaudid Inj) 0.25 mg NOW ONCE IV 07/08/16 09:15 07/08/16 09:16 07/08/16 09:13 0.25 MG Objective Vital Signs Date Time Temp Pulse Resp B/P Pulse Ox O2 Delivery O2 Flow Rate FiO2 07/08/16 07:52 Room Air 07/08/16 07:23 36.6 72 16 94/49 93 Room Air 07/08/16 05:26 36.7 76 18 108/55 91 Room Air 07/08/16 00:05 Room Air 07/07/16 22:30 36.7 84 18 102/40 91 Room Air 07/07/16 22:11 36.9 81 18 109/58 95 Room Air 07/07/16 21:51 36.6 86 16 102/89 93 Room Air 07/07/16 20:00 Room Air 07/07/16 19:45 36.7 78 19 112/64 93 Room Air 07/07/16 15:59 Room Air 07/07/16 15:39 36.6 65 16 110/63 95 Room Air 07/07/16 14:42 82 96/40 07/07/16 14:28 74 18 99/46 07/07/16 14:02 36.7 74 16 101/59 92 07/07/16 14:00 36.7 72 101/59 07/07/16 13:00 36.5 76 18 101/56 07/07/16 12:30 36.9 101 16 139/82 07/07/16 12:15 36.6 81 18 115/63 07/07/16 12:00 36.6 79 18 103/54 07/07/16 11:14 36.6 79 18 91/51 07/07/16 10:51 36.5 79 16 108/53 92 Room Air 07/07/16 09:50 36.5 79 16 97/58 95 Room Air Physical Exam General Appearance: no apparent distress Eyes: PERRL ENT: hearing grossly normal Neck: supple, trachea midline Respiratory/Chest: chest non-tender, no respiratory distress, no accessory muscle use, + wheezing (bilateral expiratory wheeze) Cardiovascular: regular rate, rhythm, no edema, no gallop, no JVD, no murmur Abdomen: normal bowel sounds Neurologic/Psych: alert, normal mood/affect, oriented x 3 Skin: normal color, no jaundice, warm/dry, no rash Laboratory Results Last 24 Hours Test 07/07/16 10:45 07/07/16 13:43 07/07/16 16:10 07/08/16 07:35 Urine Random Sodium 8 mEq/L Urine Random Potassium 31.7 mEq/L Peritoneal Fluid Color RED Peritoneal Fluid Appearance BLOODY Peritoneal Fluid WBC 733 /uL Peritoneal Fluid RBC 787398 /uL Peritoneal Fld Mononuclear WBCs (%) 64.5 % Peritoneal Fld Polynuclear WBCs (%) 35.5 % Peritoneal Fluid Albumin 1.0 g/dl Hemoglobin 8.4 g/dL 9.1 g/dL Hematocrit 23.5 % 24.9 % White Blood Count 6.18 K/uL Red Blood Count 2.63 M/uL Mean Corpuscular Volume 94.7 fL Mean Corpuscular Hemoglobin 34.6 pg Mean Corpuscular Hemoglobin Concent 36.5 g/dl RDW Standard Deviation 63.5 fL RDW Coefficient of Variation 19.3 % Platelet Count 61 K/uL Mean Platelet Volume 9.3 fL Prothrombin Time 18.7 SECONDS Prothromb Time International Ratio 1.7 Sodium Level 133 mmol/L Potassium Level 4.4 mmol/L Chloride Level 98 mmol/L Carbon Dioxide Level 24 mmol/L Anion Gap 11.0 mmol/L Blood Urea Nitrogen 27 mg/dl Creatinine 1.20 mg/dl Est Creatinine Clear Calc Drug Dose 68.9 ml/min Estimated GFR () 79.5 Estimated GFR (Non- 68.6 BUN/Creatinine Ratio 22.8 Random Glucose 110 mg/dl Calcium Level 9.3 mg/dl Total Bilirubin 8.2 mg/dl Direct Bilirubin 4.2 mg/dl Aspartate Amino Transf (AST/SGOT) 59 U/L Alanine Aminotransferase (ALT/SGPT) 34 U/L Alkaline Phosphatase 66 U/L Total Protein 5.0 gm/dl Albumin 3.4 gm/dl Assessment and Plan Patient is a 55 year old male with anemia, end-stage liver disease and acute kidney injury. PMN of 260 differentials include SBP PMN 260 - 1 gram IV ceftriaxone daily x 5 days (or until patient is discharged ) continue outpatient treatment for SBP with 500mg cipro BID x 5 days monitor for signs/symptoms of GI bleed transfuse PRN miralax daily d/c albumin 25gm TID IV fluid restriction diet - 1200 cc low sodium 2g diet will hold on lasix/spironolactone - appreciate nephrology input on suggested dosage after discharge defer treatment with octreotide/midodrine - not HRS per Dr. Powell's note, patient is responding to IVF completely abstain from ETOH, liver toxic medications soap suds enema 30gm lactulose BID 07/09/16: MELD score: 16 Maddrey score: 32.7 07/08/16: MELD score: 20 Maddrey score: 28 Previous Admission: MELD score: 10 Maddrey score: 17.3 ATTESTATION: I have performed a history and physical examination of this patient and reviewed the electronic record. Specifically, on physical examination abdomen is without significant tenderness. I have discussed the case with LONI Murphy. The above note reflects my findings, conclusions, and recommendations. Sawyer Patrick MD
--- NOTE | 2016-07-08 10:07 | Nephrology Progress Note ---
Nephrology Progress Note Date of Service: Jul 08, 2016. Subjective tolerated transfusion well; no bleeding source and hgb steady; has not moved bowels since admission but + flatus; had pRBC 2 unts yesterday and started on albumin; had low volume /dx paracentesis w/ fluid studies concerning for possible sbp - GI contemplating empiric abtx Objective Date Time Temp Pulse Resp B/P Pulse Ox O2 Delivery O2 Flow Rate FiO2 07/08/16 07:52 Room Air 07/08/16 07:23 36.6 72 16 94/49 93 Room Air 07/08/16 05:26 36.7 76 18 108/55 91 Room Air 07/08/16 00:05 Room Air 07/07/16 22:30 36.7 84 18 102/40 91 Room Air 07/07/16 22:11 36.9 81 18 109/58 95 Room Air 07/07/16 21:51 36.6 86 16 102/89 93 Room Air 07/07/16 20:00 Room Air 07/07/16 19:45 36.7 78 19 112/64 93 Room Air 07/07/16 15:59 Room Air 07/07/16 15:39 36.6 65 16 110/63 95 Room Air 07/07/16 14:42 82 96/40 07/07/16 14:28 74 18 99/46 07/07/16 14:02 36.7 74 16 101/59 92 07/07/16 14:00 36.7 72 101/59 07/07/16 13:00 36.5 76 18 101/56 07/07/16 12:30 36.9 101 16 139/82 07/07/16 12:15 36.6 81 18 115/63 07/07/16 12:00 36.6 79 18 103/54 07/07/16 11:14 36.6 79 18 91/51 07/07/16 10:51 36.5 79 16 108/53 92 Room Air 07/07/16 09:50 36.5 79 16 97/58 95 Room Air Physical Exam: General Appearance: no apparent distress, + cachetic, + pertinent finding ( lying flat on RA) but maneuvers readily / independently for exam Eyes: PERRL (sclerae icteric), EOMI ENT: hearing grossly normal Neck: supple Respiratory/Chest: no respiratory distress, no accessory muscle use, inspiratory rhonchi bilaterally and occasional cough Cardiovascular: RRR II/ SM Abdomen: soft, + distended (epigastric tenderness w/o guarding/ rebound, more distension today), + tenderness Extremities: non-tender, normal inspection, 1+ BL ankle edema Neurologic/Psych: alert, normal mood/affect, oriented x 3 Skin: warm/dry, no rash, + jaundice Current Inpatient Medications Medications (Trade) Dose Ordered Sig/Perla Route Start Time Stop Time Status Last Admin Dose Admin Ondansetron HCl (Zofran Inj) 4 mg Q6H PRN IV 07/06/16 18:30 08/05/16 18:29 Multivitamins (Multivitamin Tab) 1 tab QAM PO 07/07/16 09:00 08/06/16 08:59 07/08/16 08:35 1 TAB Nadolol (Corgard Tab) 20 mg DAILY PO 07/07/16 09:00 08/06/16 08:59 07/08/16 08:35 20 MG Oxycodone/ Acetaminophen (Percocet 10-325MG Tab) 1 tab DAILY PRN PO 07/06/16 18:45 07/20/16 18:44 Pantoprazole Sodium (Protonix Tab) 40 mg DAILY PO 07/07/16 09:00 08/06/16 08:59 07/08/16 08:35 40 MG Hydromorphone HCl (Dilaudid Pain Pump) 1 mg UD ITR 07/06/16 18:45 08/05/16 18:44 Hydromorphone HCl (Dilaudid Inj) 0.25 mg Q6H PRN IV 07/06/16 18:45 07/20/16 18:44 07/08/16 08:26 0.25 MG Polyethylene (Miralax Powder Packet) 17 gm DAILY PO 07/06/16 21:30 08/05/16 21:29 07/08/16 08:27 17 GM Docusate Sodium (coLACE CAP) 100 mg BID PO 07/06/16 21:00 08/05/16 20:59 07/08/16 08:35 100 MG Menthol (Nice Juanis) 1 juanis PRN PRN PO 07/06/16 21:30 08/05/16 21:29 07/06/16 21:24 1 JUANIS Miscellaneous (Remove Nicoderm Patch) 1 ea HS N/A 07/07/16 21:00 08/06/16 20:59 Future hold 07/07/16 19:55 1 EA Phenol (Chloraseptic 1.4% [place]) 1 sprays PRN PRN MT 07/06/16 22:00 08/05/16 21:59 07/06/16 23:37 1 SPRAYS Albumin Human (Albumin 25%) 25 gm TID IV 07/07/16 14:00 07/10/16 13:59 07/08/16 08:51 12.5 GM Nicotine (Nicoderm Cq 14MG Patch) 1 patch HS TD 07/07/16 21:00 08/06/16 20:59 07/07/16 21:23 1 PATCH Last 24 Hours Test 07/07/16 10:45 07/07/16 13:43 07/07/16 16:10 07/08/16 07:35 Urine Random Sodium 8 mEq/L Urine Random Potassium 31.7 mEq/L Peritoneal Fluid Color RED Peritoneal Fluid Appearance BLOODY Peritoneal Fluid WBC 733 /uL Peritoneal Fluid RBC 625420 /uL Peritoneal Fld Mononuclear WBCs (%) 64.5 % Peritoneal Fld Polynuclear WBCs (%) 35.5 % Peritoneal Fluid Albumin 1.0 g/dl Hemoglobin 8.4 g/dL 9.1 g/dL Hematocrit 23.5 % 24.9 % White Blood Count 6.18 K/uL Red Blood Count 2.63 M/uL Mean Corpuscular Volume 94.7 fL Mean Corpuscular Hemoglobin 34.6 pg Mean Corpuscular Hemoglobin Concent 36.5 g/dl RDW Standard Deviation 63.5 fL RDW Coefficient of Variation 19.3 % Platelet Count 61 K/uL Mean Platelet Volume 9.3 fL Prothrombin Time 18.7 SECONDS Prothromb Time International Ratio 1.7 Sodium Level 133 mmol/L Potassium Level 4.4 mmol/L Chloride Level 98 mmol/L Carbon Dioxide Level 24 mmol/L Anion Gap 11.0 mmol/L Blood Urea Nitrogen 27 mg/dl Creatinine 1.20 mg/dl Est Creatinine Clear Calc Drug Dose 68.9 ml/min Estimated GFR () 79.5 Estimated GFR (Non- 68.6 BUN/Creatinine Ratio 22.8 Random Glucose 110 mg/dl Calcium Level 9.3 mg/dl Total Bilirubin 8.2 mg/dl Direct Bilirubin 4.2 mg/dl Aspartate Amino Transf (AST/SGOT) 59 U/L Alanine Aminotransferase (ALT/SGPT) 34 U/L Alkaline Phosphatase 66 U/L Total Protein 5.0 gm/dl Albumin 3.4 gm/dl Date/Time Source Procedure Growth Status 07/07/16 13:43 Ascities Fluid Acid Fast Stain Pending Received 07/07/16 13:43 Ascities Fluid Mycobacterial Culture Pending Received 07/07/16 13:43 Ascities Fluid Gram Stain - Final Resulted 07/07/16 13:43 Ascities Fluid Bacterial Culture Pending Resulted Assessment & Plan 55 y/o M w/ advanced liver disease EtOH/HCV, chronic pain, chronic hyponatremia readmitted after recent hosp d/c recurrent ANJEL (presenting creatinine 2.2 and recent d/c creat 0.9) with tachycardia and L shoulder pain. This AM his hgb is 6.0. No evidence of cardiac etiology for shoulder pain. Prerenal ANJEL > progressing to early ATN in the setting of advanced liver disease , recent intensification of diuretics >> acceptable improvement and more overloaded from volume standpoint today urine sediment dilute; reflects early ATN w/ granular casts; HR improving, BP acceptable in liver pt. This is not hepatorenal syndrome as he is responding to gentle fluid resuscitation >> no indication for octreotide/midodrine -would stop albumin > his total body overload is worse today -consider CXR given new rhonchi, edema, increased distension >> if concern for volume overload, recommend lasix IV 20 mg twice daily to start -cont to limit po fluids to 1.2 L daily > despite effective intravascular dehydration which is improving his underlying disease process promotes fluid overload -continue 2 gm/day Na limit -continue to hold diuretics for now unless XR concerning as above > look to resume possibly in am tomorrow or day after -electrolytes apart from Na acceptable Hyponatremia, hypovolemic, improving -on presentation reflects dehydration based on hx/response to therapy; no further work up needed at this time as it is improving -daily chem panel >at risk to tip over to hypervolemic hyponatremia soon>low threshold to d/c albumin possible sbp given abd pain and fluid study profile>recommend po abtx if clinically appropriate to lower fluid intake Acute on chronic anemia -improved/stable; had 07/07 pRBC Appreciate consult; will follow with you. Care coordinated w/ Dr. Bautista and BERNADINE Hester.
[2016-07-08] MEDS ORDERED: SOAP SUDS ENEMA PR ONE (11:30)
--- NOTE | 2016-07-08 11:37 | DIAGNOSTIC IMAGING REPORT ---
CHEST ONE VIEW PORTABLE HISTORY: shortness of breath in cirrhotic edematous patient COMPARISON: Chest 07/06/2016. FINDINGS: There is a new patchy airspace opacity seen within the base of the right lower lobe. The left lung is essentially clear. No evidence for pulmonary edema. The heart is normal in size. There is a trace right pleural effusion. No pneumothorax. An intrathecal catheter is again noted. IMPRESSION: A new patchy airspace opacity within the right lower lobe and a trace right pleural effusion. This likely represents a pneumonia, possibly secondary to aspiration. Electronically signed by: Dangelo Morales M.D. 07/08/2016 11:35 AM Dictated Date/Time: 07/08/2016 11:34 AM
[2016-07-08] MEDS ORDERED: PIPERACILL/TAZOBAC CONSULT ACTIVE PRN (13:30)
[2016-07-08] MEDS ORDERED: PIPERACILL/TAZOBAC IV 4.5 GM in DEXTROSE 5% 100ML 100 ML IV SCH (14:00)
[2016-07-08] MEDS: CEFTRIAXONE SOD INJ 1,000 MG in DEXTROSE 5% 50ML 50 ML IV SCH (14:54)
[2016-07-08] MEDS: LACTULOSE SYRUP 30 GM/45 ML UDP PO SCH (19:25)
[2016-07-08] MEDS: NICOTINE 14 MG/24 HR TDSY TD SCH (19:25)
[2016-07-08] MEDS: PIPERACILL/TAZOBAC IV 4.5 GM in DEXTROSE 5% 100ML 100 ML IV SCH (22:02)
--- NOTE | 2016-07-08 22:44 | Progress Note ---
Medicine Progress Note Date & Time of Visit: Jul 08, 2016 at 12:48. Subjective Abdominal pain has improved Denies fevers or chills overnight Tolerating Po without difficulty -NEprho reduced fluid restriction -GI ordered abx for SBP -CXR reveals new RLL pneumonia -patient is no ill appearing, up and walking around the room after his shower -Blood cultures drawn -Beau corona completed Objective Last 8 Hrs Date Time Temp Pulse Resp B/P Pulse Ox O2 Delivery O2 Flow Rate FiO2 07/08/16 11:21 36.6 75 16 113/63 92 Room Air 07/08/16 11:16 Room Air 07/08/16 07:52 Room Air 07/08/16 07:23 36.6 72 16 94/49 93 Room Air 07/08/16 05:26 36.7 76 18 108/55 91 Room Air Physical Exam: GEN: WNWD, in no acute distress, alert and appropriate HEENT: NC/AT, +icteric sclerae CARDIO: reg rate, S1/2 heard without m/g/r LUNGS: CTA bilaterally, no crackles, rales or wheezes, good diaphragmatic excursion ABD: soft, non-tender, protuberant, +BS EXTREMITY: RP and DP palpable 2+ bilat, no LE swelling or edema, extremities are warm and well-perfused NEURO: CN 2-12 grossly intact, sensation intact throughout MUSC: 5/5 strength throughout, no gross focal deficits SKIN: warm and dry, jaundiced Laboratory Results: Last 24 Hours Test 07/07/16 13:43 07/07/16 16:10 07/08/16 07:35 Peritoneal Fluid Color RED Peritoneal Fluid Appearance BLOODY Peritoneal Fluid WBC 733 /uL Peritoneal Fluid RBC 450222 /uL Peritoneal Fld Mononuclear WBCs (%) 64.5 % Peritoneal Fld Polynuclear WBCs (%) 35.5 % Peritoneal Fluid Albumin 1.0 g/dl Hemoglobin 8.4 g/dL 9.1 g/dL Hematocrit 23.5 % 24.9 % White Blood Count 6.18 K/uL Red Blood Count 2.63 M/uL Mean Corpuscular Volume 94.7 fL Mean Corpuscular Hemoglobin 34.6 pg Mean Corpuscular Hemoglobin Concent 36.5 g/dl RDW Standard Deviation 63.5 fL RDW Coefficient of Variation 19.3 % Platelet Count 61 K/uL Mean Platelet Volume 9.3 fL Prothrombin Time 18.7 SECONDS Prothromb Time International Ratio 1.7 Sodium Level 133 mmol/L Potassium Level 4.4 mmol/L Chloride Level 98 mmol/L Carbon Dioxide Level 24 mmol/L Anion Gap 11.0 mmol/L Blood Urea Nitrogen 27 mg/dl Creatinine 1.20 mg/dl Est Creatinine Clear Calc Drug Dose 68.9 ml/min Estimated GFR () 79.5 Estimated GFR (Non- 68.6 BUN/Creatinine Ratio 22.8 Random Glucose 110 mg/dl Calcium Level 9.3 mg/dl Total Bilirubin 8.2 mg/dl Direct Bilirubin 4.2 mg/dl Aspartate Amino Transf (AST/SGOT) 59 U/L Alanine Aminotransferase (ALT/SGPT) 34 U/L Alkaline Phosphatase 66 U/L Total Protein 5.0 gm/dl Albumin 3.4 gm/dl Date/Time Source Procedure Growth Status 07/07/16 13:43 Ascities Fluid Acid Fast Stain Pending Received 07/07/16 13:43 Ascities Fluid Mycobacterial Culture Pending Received 07/07/16 13:43 Ascities Fluid Gram Stain - Final Resulted 07/07/16 13:43 Ascities Fluid Bacterial Culture - Preliminary NO GROWTH TO DATE. Resulted Assessment & Plan aspiration pneumonia-->started Zosyn, bloodu and sputum cultures, Speech eval ordered per GI, SBP trt started. Abdominal pain 2/2 SBP, started Rocephin per GI team HAP- began Zosyn for broad coverage while awaiting cultures and monitoring clinical progress. Blood cultures are pending. ANJEL 2/2 prerenal azotemia-s/p 3L paracentesis on 07/01, creat at discharge (07/03) was 0.9, admitted (07/06) after increase in diuretics at discharge and creat jumped to 2.2. Overnight IVF were helpful to improve the tachycardia and creat to 1.7. Held IV as he received two units of blood on 07/07. Appropriate response, appears less pekid today. Hold diuretics until tomorrow and cont strict fluid and sodium restriction per Nephro. Cret was down to 1.2 today. Hyponatremia-presumed hypotonic, hypovolemic consistent with dry intravascularly. Responded somewhat to IVF administration. Poor PO intake. Comt to improve to 133 today. 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 Appreciate GI recs and assistance with ascites management. Abdominal pain 2/2 distension, less likely peritonitis with no guarding on exam. Poss 2/2 constipation. AXR without signs of bowel obstruction or free air. Anemia-s/p 2 Units on 07/07. H/H post-transfusion was appropriate. INR 1.6. Pt denies any bleeding anywhere. CBC in am. Thrombocytopenia-2/2 cirrhosis Atypical chest pain-denies, serial cardiac enzymes were negative overnight. EKG on admission revealed [address] changes. Pt was tachycardic initially with an elevated D-dimer and atypical chest pain reported. He states that he didn't have chest pain, it was just in his shoulder and radiating down his arm. He denies any shortness of breath, and tachycardia resolved with IVF administration. His D-dimer can be explained by his underlying chronic inflammation and his doppler ultrasounds of the legs were negative. No PE study needed at this time. Denies chest pain issues today. L shoulder pain 2/2 calcific tendonitis and OA-consulted Ortho, s/p steroid injection for comfort with good result today. Constipation-2/2 chronic narcotic use. Pt is not on consistent Lactulose. Cont Mirlax, enema PRN. Concern for prolonged constipation and buildup of ammonia. Defer to GI to start Lactulose AVN of both femoral heads-asymptomatic DVT PROPHYLAXIS - SCDs due to anemia/thrombocytopenia Diya Bautista DO [facility] Hospitalist Current Inpatient Medications: Current Inpatient Medications Medications (Trade) Dose Ordered Sig/Perla Route Start Time Stop Time Status Last Admin Dose Admin Ondansetron HCl (Zofran Inj) 4 mg Q6H PRN IV 07/06/16 18:30 08/05/16 18:29 Multivitamins (Multivitamin Tab) 1 tab QAM PO 07/07/16 09:00 08/06/16 08:59 07/08/16 08:35 1 TAB Nadolol (Corgard Tab) 20 mg DAILY PO 07/07/16 09:00 08/06/16 08:59 07/08/16 08:35 20 MG Oxycodone/ Acetaminophen (Percocet 10-325MG Tab) 1 tab DAILY PRN PO 07/06/16 18:45 07/20/16 18:44 Pantoprazole Sodium (Protonix Tab) 40 mg DAILY PO 07/07/16 09:00 08/06/16 08:59 07/08/16 08:35 40 MG Hydromorphone HCl (Dilaudid Pain Pump) 1 mg UD ITR 07/06/16 18:45 08/05/16 18:44 Hydromorphone HCl (Dilaudid Inj) 0.25 mg Q6H PRN IV 07/06/16 18:45 07/20/16 18:44 07/08/16 08:26 0.25 MG Polyethylene (Miralax Powder Packet) 17 gm DAILY PO 07/06/16 21:30 08/05/16 21:29 07/08/16 08:27 17 GM Docusate Sodium (coLACE CAP) 100 mg BID PO 07/06/16 21:00 08/05/16 20:59 07/08/16 08:35 100 MG Menthol (Nice Juanis) 1 juanis PRN PRN PO 07/06/16 21:30 08/05/16 21:29 07/06/16 21:24 1 JUANIS Miscellaneous (Remove Nicoderm Patch) 1 ea HS N/A 07/07/16 21:00 08/06/16 20:59 Future hold 07/07/16 19:55 1 EA Phenol (Chloraseptic 1.4% [place]) 1 sprays PRN PRN MT 07/06/16 22:00 08/05/16 21:59 07/06/16 23:37 1 SPRAYS Nicotine (Nicoderm Cq 14MG Patch) 1 patch HS TD 07/07/16 21:00 08/06/16 20:59 07/07/16 21:23 1 PATCH Lactulose 30 gm 30 gm BID PO 07/08/16 21:00 08/07/16 20:59 Ceftriaxone Sodium 1000 mg/ Dextrose 60 ml @ 100 mls/hr Q24H IV 07/08/16 15:00 07/13/16 14:59 Piperacillin Sod/ Tazobactam Sod/ Dextrose (Zosyn Iv/D5 100ml) 120 ml @ 200 mls/hr Q6H IV 07/08/16 12:45 07/15/16 12:44 UNV
[2016-07-09] VITALS (11 sets, daily range): BP systolic 106–117; BP diastolic 49–69; PULSE 61–76; TEMP 36.4–36.8; O2SAT 92–97
[2016-07-09] MEDS: PIPERACILL/TAZOBAC IV 4.5 GM in DEXTROSE 5% 100ML 100 ML IV SCH ×2 (06:02→14:26)
[2016-07-09] MEDS: HYDROmorphone INJ 1 MG/ML SYR IV PRN ×3 (06:09→19:57)
[2016-07-09 06:34] LABS: HEMATOCRIT 24.3 % (42-52); MEAN CORPUSCULAR HEMOGLOBIN 35.2 pg (25-34); MEAN CORPUSCULAR HGB CONC 36.6 g/dl (32-36); RED BLOOD COUNT 2.53 M/uL (4.7-6.1); WHITE BLOOD COUNT 6.56 K/uL (4.8-10.8)
[2016-07-09 06:38] LABS: MEAN PLATELET VOLUME 9.4 fL (7.4-10.4); PLATELET COUNT 58 K/uL (130-400)
[2016-07-09 06:44] LABS: INR 1.7 (0.9-1.1); PROTHROMBIN TIME (PATIENT) 18.1 SECONDS (9.0-12.0)
[2016-07-09 07:21] LABS: BUN/CREATININE RATIO 20.4 (10-20); CALCIUM 8.8 mg/dl (8.5-10.1); CREATININE 1.1 mg/dl (0.60-1.40); POTASSIUM 4.3 mmol/L (3.5-5.1)
[2016-07-09] MEDS: LACTULOSE SYRUP 30 GM/45 ML UDP PO SCH ×2 (07:59→20:02)
[2016-07-09] MEDS: DOCUSATE SODIUM 100 MG CAP PO SCH ×2 (08:01→20:01)
[2016-07-09] MEDS: NADOLOL 40 MG TAB PO SCH (08:02)
[2016-07-09] MEDS: POLYETHYLENE (MIRALAX) 17 GM PACK PO SCH (08:02)
[2016-07-09] MEDS: PANTOprazole SOD 40 MG TAB PO SCH (08:03)
[2016-07-09] MEDS: MULTIVITAMIN TAB PO SCH (08:37)
--- NOTE | 2016-07-09 10:11 | Gastroenterology Progress Note ---
Progress Note Date of Service: Jul 09, 2016 Subjective Pt evaluation today including: conversation w/ patient, physical exam, chart review Patient was seen and examined this morning. He was ambulating the halls this morning. He states that he feels well. He was able to have 2 BMs since lactulose was added to his therapy. He reports that he is tolerating this dosing of lactulose and would consider taking the medication as an outpatient to make his bowels more regular. He was seen by HYDRAULIC ROCKBREAKER OPERATOR yesterday for evaluation of swallowing as the patient yesterday had diminished breath sounds with rhonci/ wheeze. This appears to be secondary to aspiration. HYDRAULIC ROCKBREAKER OPERATOR exam was unremarkable. He states he recalls waking up and having to clear his throat during sleep last night. He denies any other episodes of choking, difficulty swallowing or feeling as if food is getting stuck while he swallows He denies any chest pain, SOB, new abdominal pain, new ascites, black/bloody stools/emesis Review of Systems Constitutional: No chills, No fever Respiratory: No cough, No shortness of breath Cardiac: No chest pain, No edema Abdomen: No constipation, No diarrhea, No nausea, No pain, No vomiting Medications Current Inpatient Medications Medications (Trade) Dose Ordered Sig/Perla Route Start Time Stop Time Status Last Admin Dose Admin Ondansetron HCl (Zofran Inj) 4 mg Q6H PRN IV 07/06/16 18:30 08/05/16 18:29 Multivitamins (Multivitamin Tab) 1 tab QAM PO 07/07/16 09:00 08/06/16 08:59 07/09/16 08:37 1 TAB Nadolol (Corgard Tab) 20 mg DAILY PO 07/07/16 09:00 08/06/16 08:59 07/09/16 08:02 20 MG Oxycodone/ Acetaminophen (Percocet 10-325MG Tab) 1 tab DAILY PRN PO 07/06/16 18:45 07/20/16 18:44 Pantoprazole Sodium (Protonix Tab) 40 mg DAILY PO 07/07/16 09:00 08/06/16 08:59 07/09/16 08:03 40 MG Hydromorphone HCl (Dilaudid Pain Pump) 1 mg UD ITR 07/06/16 18:45 08/05/16 18:44 Hydromorphone HCl (Dilaudid Inj) 0.25 mg Q6H PRN IV 07/06/16 18:45 07/20/16 18:44 07/09/16 06:09 0.25 MG Polyethylene (Miralax Powder Packet) 17 gm DAILY PO 07/06/16 21:30 08/05/16 21:29 07/09/16 08:02 17 GM Docusate Sodium (coLACE CAP) 100 mg BID PO 07/06/16 21:00 08/05/16 20:59 07/09/16 08:01 100 MG Menthol (Nice Juanis) 1 juanis PRN PRN PO 07/06/16 21:30 08/05/16 21:29 07/06/16 21:24 1 JUANIS Miscellaneous (Remove Nicoderm Patch) 1 ea HS N/A 07/07/16 21:00 08/06/16 20:59 Future hold 07/08/16 19:25 1 EA Phenol (Chloraseptic 1.4% [place]) 1 sprays PRN PRN MT 07/06/16 22:00 08/05/16 21:59 07/06/16 23:37 1 SPRAYS Nicotine (Nicoderm Cq 14MG Patch) 1 patch HS TD 07/07/16 21:00 08/06/16 20:59 07/08/16 19:25 1 PATCH Lactulose 30 gm 30 gm BID PO 07/08/16 21:00 08/07/16 20:59 07/09/16 07:59 30 GM Ceftriaxone Sodium 1000 mg/ Dextrose 60 ml @ 100 mls/hr Q24H IV 07/08/16 15:00 07/13/16 14:59 07/08/16 14:54 100 MLS/HR Piperacillin Sod/ Tazobactam Sod/ Dextrose (Zosyn Iv/D5 100ml) 120 ml @ 30 mls/hr Q8H IV 07/08/16 22:00 07/15/16 21:59 07/09/16 06:02 30 MLS/HR Piperacillin Sod/ Tazobactam Sod (Consult) 1 ea UD PRN N/A 07/08/16 13:30 08/07/16 13:29 Objective Vital Signs Date Time Temp Pulse Resp B/P Pulse Ox O2 Delivery O2 Flow Rate FiO2 07/09/16 08:00 95 Room Air 1/13/17 07:30 36.6 61 18 106/49 95 Room Air 07/09/16 04:29 36.8 67 18 107/55 92 Room Air 07/09/16 04:00 95 Room Air 07/09/16 00:06 36.6 72 18 114/58 93 Room Air 07/09/16 00:02 95 Room Air 07/08/16 20:00 95 Room Air 07/08/16 19:43 36.6 79 18 118/74 94 Room Air 07/08/16 16:00 95 Room Air 07/08/16 15:27 36.4 74 18 97/60 95 Room Air 07/08/16 11:21 36.6 75 16 113/63 92 Room Air 07/08/16 11:16 Room Air Physical Exam General Appearance: no apparent distress Eyes: PERRL ENT: hearing grossly normal Neck: supple, trachea midline Respiratory/Chest: chest non-tender, no respiratory distress, no accessory muscle use, + decreased breath sounds, + rhonchi Cardiovascular: regular rate, rhythm, no edema, no gallop, no JVD, no murmur Abdomen: normal bowel sounds, non tender, no organomegaly, no pulsatile mass, + distended Neurologic/Psych: alert, normal mood/affect, oriented x 3 Skin: warm/dry, no rash, + jaundice Laboratory Results Last 24 Hours Test 07/09/16 06:23 White Blood Count 6.56 K/uL Red Blood Count 2.53 M/uL Hemoglobin 8.9 g/dL Hematocrit 24.3 % Mean Corpuscular Volume 96.0 fL Mean Corpuscular Hemoglobin 35.2 pg Mean Corpuscular Hemoglobin Concent 36.6 g/dl RDW Standard Deviation 65.4 fL RDW Coefficient of Variation 19.3 % Platelet Count 58 K/uL Mean Platelet Volume 9.4 fL Prothrombin Time 18.1 SECONDS Prothromb Time International Ratio 1.7 Sodium Level 134 mmol/L Potassium Level 4.3 mmol/L Chloride Level 100 mmol/L Carbon Dioxide Level 24 mmol/L Anion Gap 10.0 mmol/L Blood Urea Nitrogen 22 mg/dl Creatinine 1.10 mg/dl Est Creatinine Clear Calc Drug Dose 75.1 ml/min Estimated GFR () 88.4 Estimated GFR (Non- 76.2 BUN/Creatinine Ratio 20.4 Random Glucose 112 mg/dl Calcium Level 8.8 mg/dl Total Bilirubin 6.3 mg/dl Direct Bilirubin 3.7 mg/dl Aspartate Amino Transf (AST/SGOT) 49 U/L Alanine Aminotransferase (ALT/SGPT) 33 U/L Alkaline Phosphatase 84 U/L Total Protein 5.1 gm/dl Albumin 3.4 gm/dl Assessment and Plan Patient is a 55 year old male with anemia, end-stage liver disease and acute kidney injury. PMN of 260 differentials include SBP Continue 1 gram IV ceftriaxone daily x5 days, or until patient is discharged. Once discharged, continue treatment for SBP with 500mg cipro BID. Total course of treatment to be 5 days monitor for signs/symptoms of GI bleed, transfuse PRN miralax daily, lactulose 30gm BID fluid restriction diet - 1200 cc low sodium 2g diet will hold on lasix/spironolactone - appreciate outpatient dose suggestion from nephrology completely abstain from ETOH, liver toxic medications 07/09/16: MELD score: 16 Maddrey score: 32.7 07/08/16: MELD score: 20 Maddrey score: 28 Previous Admission: MELD score: 10 Maddrey score: 17.3 Keep current dosing of medication: Lasix 20mg, Spironolactone 50mg, lactulose 30gm BID at discharge, cipro 500mg BID x completion of 5 days, nadolol 20mg. GI to sign off. Please keep your follow-up appointment as scheduled, or call with any conflicts. ATTESTATION: I have performed a history and physical examination of this patient and reviewed the electronic record. Specifically, on physical examination there is moderated abdominal distention. I have discussed the case with LONI Murphy. The above note reflects my findings, conclusions, and recommendations. Sawyer Patrick MD
[2016-07-09] MEDS ORDERED: FUROSEMIDE 20 MG TAB PO ONE (10:25)
[2016-07-09] MEDS ORDERED: SPIRONOLACTONE 25 MG TAB PO ONE (10:25)
--- NOTE | 2016-07-09 10:32 | Nephrology Progress Note ---
Nephrology Progress Note Date of Service: Jul 09, 2016. Subjective +BM; breathing better; paracentesis cxs remain negative but on empiric abtx; still some epigastric discomfort Objective Date Time Temp Pulse Resp B/P Pulse Ox O2 Delivery O2 Flow Rate FiO2 07/09/16 08:00 95 Room Air 07/09/16 07:30 36.6 61 18 106/49 95 Room Air 07/09/16 04:29 36.8 67 18 107/55 92 Room Air 07/09/16 04:00 95 Room Air 07/09/16 00:06 36.6 72 18 114/58 93 Room Air 07/09/16 00:02 95 Room Air 07/08/16 20:00 95 Room Air 07/08/16 19:43 36.6 79 18 118/74 94 Room Air 07/08/16 16:00 95 Room Air 07/08/16 15:27 36.4 74 18 97/60 95 Room Air 07/08/16 11:21 36.6 75 16 113/63 92 Room Air 07/08/16 11:16 Room Air Physical Exam: General Appearance: no apparent distress, + cachetic, + pertinent finding ( lying flat on RA) but maneuvers readily / independently for exam Eyes: PERRL (sclerae icteric), EOMI ENT: hearing grossly normal Neck: supple Respiratory/Chest: no respiratory distress, no accessory muscle use, diminished air entry but clear and occasional cough Cardiovascular: RRR II/ SM Abdomen: soft, + distended (epigastric tenderness w/o guarding/ rebound, ? less distension today) Extremities: non-tender, normal inspection, 1-2+ BL ankle edema Neurologic/Psych: alert, normal mood/affect, oriented x 3 Skin: warm/dry, no rash, + jaundice Current Inpatient Medications Medications (Trade) Dose Ordered Sig/Perla Route Start Time Stop Time Status Last Admin Dose Admin Ondansetron HCl (Zofran Inj) 4 mg Q6H PRN IV 07/06/16 18:30 08/05/16 18:29 Multivitamins (Multivitamin Tab) 1 tab QAM PO 07/07/16 09:00 08/06/16 08:59 07/09/16 08:37 1 TAB Nadolol (Corgard Tab) 20 mg DAILY PO 07/07/16 09:00 08/06/16 08:59 07/09/16 08:02 20 MG Oxycodone/ Acetaminophen (Percocet 10-325MG Tab) 1 tab DAILY PRN PO 07/06/16 18:45 07/20/16 18:44 Pantoprazole Sodium (Protonix Tab) 40 mg DAILY PO 07/07/16 09:00 08/06/16 08:59 07/09/16 08:03 40 MG Hydromorphone HCl (Dilaudid Pain Pump) 1 mg UD ITR 07/06/16 18:45 08/05/16 18:44 Hydromorphone HCl (Dilaudid Inj) 0.25 mg Q6H PRN IV 07/06/16 18:45 07/20/16 18:44 07/09/16 06:09 0.25 MG Polyethylene (Miralax Powder Packet) 17 gm DAILY PO 07/06/16 21:30 08/05/16 21:29 07/09/16 08:02 17 GM Docusate Sodium (coLACE CAP) 100 mg BID PO 07/06/16 21:00 08/05/16 20:59 07/09/16 08:01 100 MG Menthol (Nice Juanis) 1 juanis PRN PRN PO 07/06/16 21:30 08/05/16 21:29 07/06/16 21:24 1 JUANIS Miscellaneous (Remove Nicoderm Patch) 1 ea HS N/A 07/07/16 21:00 08/06/16 20:59 Future hold 07/08/16 19:25 1 EA Phenol (Chloraseptic 1.4% [place]) 1 sprays PRN PRN MT 07/06/16 22:00 08/05/16 21:59 07/06/16 23:37 1 SPRAYS Nicotine (Nicoderm Cq 14MG Patch) 1 patch HS TD 07/07/16 21:00 08/06/16 20:59 07/08/16 19:25 1 PATCH Lactulose 30 gm 30 gm BID PO 07/08/16 21:00 08/07/16 20:59 07/09/16 07:59 30 GM Ceftriaxone Sodium 1000 mg/ Dextrose 60 ml @ 100 mls/hr Q24H IV 07/08/16 15:00 07/13/16 14:59 07/08/16 14:54 100 MLS/HR Piperacillin Sod/ Tazobactam Sod/ Dextrose (Zosyn Iv/D5 100ml) 120 ml @ 30 mls/hr Q8H IV 07/08/16 22:00 07/15/16 21:59 07/09/16 06:02 30 MLS/HR Piperacillin Sod/ Tazobactam Sod (Consult) 1 ea UD PRN N/A 07/08/16 13:30 08/07/16 13:29 Last 24 Hours Test 07/09/16 06:23 White Blood Count 6.56 K/uL Red Blood Count 2.53 M/uL Hemoglobin 8.9 g/dL Hematocrit 24.3 % Mean Corpuscular Volume 96.0 fL Mean Corpuscular Hemoglobin 35.2 pg Mean Corpuscular Hemoglobin Concent 36.6 g/dl RDW Standard Deviation 65.4 fL RDW Coefficient of Variation 19.3 % Platelet Count 58 K/uL Mean Platelet Volume 9.4 fL Prothrombin Time 18.1 SECONDS Prothromb Time International Ratio 1.7 Sodium Level 134 mmol/L Potassium Level 4.3 mmol/L Chloride Level 100 mmol/L Carbon Dioxide Level 24 mmol/L Anion Gap 10.0 mmol/L Blood Urea Nitrogen 22 mg/dl Creatinine 1.10 mg/dl Est Creatinine Clear Calc Drug Dose 75.1 ml/min Estimated GFR () 88.4 Estimated GFR (Non- 76.2 BUN/Creatinine Ratio 20.4 Random Glucose 112 mg/dl Calcium Level 8.8 mg/dl Total Bilirubin 6.3 mg/dl Direct Bilirubin 3.7 mg/dl Aspartate Amino Transf (AST/SGOT) 49 U/L Alanine Aminotransferase (ALT/SGPT) 33 U/L Alkaline Phosphatase 84 U/L Total Protein 5.1 gm/dl Albumin 3.4 gm/dl Date/Time Source Procedure Growth Status 07/08/16 13:20 Blood Blood Culture Pending Received 07/08/16 13:12 Blood Blood Culture Pending Received Assessment & Plan 55 y/o M w/ advanced liver disease EtOH/HCV, chronic pain, chronic hyponatremia readmitted after recent hosp d/c recurrent ANJEL (presenting creatinine 2.2 and recent d/c creat 0.9) with tachycardia and L shoulder pain. No evidence of cardiac etiology for shoulder pain. CXR w/ ? PNA Prerenal ANJEL > progressing to early ATN in the setting of advanced liver disease , recent intensification of diuretics >> ANJEL acceptably resolved now volume overloaded >>>started lasix 20 mg po bid and spironolactone 50 mg daily this AM >> monitor daily bmp w/ this urine sediment dilute; reflects early ATN w/ granular casts; HR improving, BP acceptable in liver pt. This is not hepatorenal syndrome as he is responding to gentle fluid resuscitation -cont to limit po fluids to 1.2 L daily > despite effective intravascular dehydration which is improving his underlying disease process promotes fluid overload -continue 2 gm/day Na limit ->>>daily chem panel possible sbp given abd pain and fluid study profile>recommend po abtx if clinically appropriate to lower fluid intake possible PNA -on ceftriaxone + zosyn >> ? indication for both and will d/w hospitalist Acute on chronic anemia -improved/stable; had 07/07 pRBC Appreciate consult; will follow with you. will coordinated w/ dr yates
[2016-07-09] MEDS: CEFTRIAXONE SOD INJ 1,000 MG in DEXTROSE 5% 50ML 50 ML IV SCH (15:44)
[2016-07-09] MEDS: FUROSEMIDE 20 MG TAB PO SCH (16:32)
[2016-07-09] MEDS: AMOXICILLIN/CLAVULANATE TAB 875 MG TAB PO SCH (16:53)
--- NOTE | 2016-07-09 18:39 | Progress Note ---
Medicine Progress Note Date & Time of Visit: Jul 09, 2016 at 1400. Subjective Pt feels fine today States that his abdominal pain has improved. Has not had any fevers or chills, nausea or vomiting. No BM, so GI ordered lactulose BID. Pt tells me that he gets genital herpes outbreaks any time he is on antibiotics. No recent outbreaks. States that he wants to do home tomorrow. Objective Last 8 Hrs Date Time Temp Pulse Resp B/P Pulse Ox O2 Delivery O2 Flow Rate FiO2 07/09/16 16:00 97 Room Air 07/09/16 15:04 36.4 65 20 107/66 97 Room Air 07/09/16 12:00 95 Room Air 07/09/16 11:48 36.5 64 16 117/63 97 Room Air Physical Exam: GEN: WNWD, in no acute distress, alert and appropriate, ambulatory HEENT: NC/AT, +icteric sclerae CARDIO: reg rate, S1/2 heard without m/g/r LUNGS: CTA bilaterally, no crackles, rales or wheezes, good diaphragmatic excursion ABD: soft, non-tender, protuberant, +BS, appears unchanged from yesterday. There is a pain stimulator that is under a skin pocket on the abdomen EXTREMITY: RP and DP palpable 2+ bilat, no LE swelling or edema, extremities are warm and well-perfused NEURO: CN 2-12 grossly intact, sensation intact throughout MUSC: 5/5 strength throughout, no gross focal deficits, ambulatory SKIN: warm and dry, jaundiced Laboratory Results: Last 24 Hours Test 07/09/16 06:23 White Blood Count 6.56 K/uL Red Blood Count 2.53 M/uL Hemoglobin 8.9 g/dL Hematocrit 24.3 % Mean Corpuscular Volume 96.0 fL Mean Corpuscular Hemoglobin 35.2 pg Mean Corpuscular Hemoglobin Concent 36.6 g/dl RDW Standard Deviation 65.4 fL RDW Coefficient of Variation 19.3 % Platelet Count 58 K/uL Mean Platelet Volume 9.4 fL Prothrombin Time 18.1 SECONDS Prothromb Time International Ratio 1.7 Sodium Level 134 mmol/L Potassium Level 4.3 mmol/L Chloride Level 100 mmol/L Carbon Dioxide Level 24 mmol/L Anion Gap 10.0 mmol/L Blood Urea Nitrogen 22 mg/dl Creatinine 1.10 mg/dl Est Creatinine Clear Calc Drug Dose 75.1 ml/min Estimated GFR () 88.4 Estimated GFR (Non- 76.2 BUN/Creatinine Ratio 20.4 Random Glucose 112 mg/dl Calcium Level 8.8 mg/dl Total Bilirubin 6.3 mg/dl Direct Bilirubin 3.7 mg/dl Aspartate Amino Transf (AST/SGOT) 49 U/L Alanine Aminotransferase (ALT/SGPT) 33 U/L Alkaline Phosphatase 84 U/L Total Protein 5.1 gm/dl Albumin 3.4 gm/dl Assessment & Plan 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 -55 yo cirrhotic with end-stage liver disease presented with worsening abdominal pain with swelling. IVF were given and patient was found to be anemic requiring a blood transfusion of 2 units. Diagnostic paracentesis on revealed borderline evidence of SBP and Rocephin was started. CXR was performed out of concern for volume overload, and revealed a RLL infiltrate, Zosyn was started for anaerobe coverage for a new possible aspiration pneumonia that was hospital-acquired. He remained without coughs, fevers, chills, or shortness of breath and this was switched to Augmentin BID on 07/09. His diuretics were restarted cautiously by Nephrology on 07/09 and after one more night to determine stability on these, he will likely be dc in am on Augmentin and Cipro. 1. 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 Restarting diuretics today. furosemide 20 BID/spironolactone 50 QD per nephro 2. Abdominal pain 2/2 SBP-cont Rocephin per GI for total 5 days. 3. HAP- sputum culture negative and clinically stable for the last 24 hours. Zosyn switched to Augmentin, per Speech no swallow study needed at this time. 4. ANJEL 2/2 prerenal azotemia-s/p 3L paracentesis on 07/01, creat at discharge (07/03) was 0.9, admitted (07/06) after increase in diuretics at discharge and creat jumped to 2.2. Overnight IVF were helpful to improve the tachycardia and creat to 1.7. Held IV as he received two units of blood on 07/07. Appropriate response to blood. Continued to hold diuretics, which were restarted today per Nephro. Cont fluid and sodium restriction. Creat this morning was 1.10. 5. Hyponatremia-resolved, 134 today. 6. Anemia-s/p 2 Units on 07/07. H/H post-transfusion was appropriate. INR 1.7. Pt denies any bleeding anywhere. H/H stable at 9/24. CBC in am. 7. Thrombocytopenia-2/2 cirrhosis 8. L shoulder pain 2/2 calcific tendonitis and OA-consulted Ortho, s/p steroid injection for comfort with good result on 07/07. 9. Constipation-2/2 chronic narcotic use. Pt is not on consistent Lactulose at home. Cont Mirlax, enema PRN. Lactulose BID per GI team. Concern for prolonged constipation and buildup of ammonia. 10. AVN of both femoral heads-asymptomatic 11. HSV2 (genital): started Valtrax 1000mg PO daily while on antibiotics for suppression DVT PROPHYLAXIS - SCDs due to anemia/thrombocytopenia Diya Bautista DO [facility] Hospitalist Current Inpatient Medications: Current Inpatient Medications Medications (Trade) Dose Ordered Sig/Perla Route Start Time Stop Time Status Last Admin Dose Admin Ondansetron HCl (Zofran Inj) 4 mg Q6H PRN IV 07/06/16 18:30 08/05/16 18:29 Multivitamins (Multivitamin Tab) 1 tab QAM PO 07/07/16 09:00 08/06/16 08:59 07/09/16 08:37 1 TAB Nadolol (Corgard Tab) 20 mg DAILY PO 07/07/16 09:00 08/06/16 08:59 07/09/16 08:02 20 MG Oxycodone/ Acetaminophen (Percocet 10-325MG Tab) 1 tab DAILY PRN PO 07/06/16 18:45 07/20/16 18:44 Pantoprazole Sodium (Protonix Tab) 40 mg DAILY PO 07/07/16 09:00 08/06/16 08:59 07/09/16 08:03 40 MG Hydromorphone HCl (Dilaudid Pain Pump) 1 mg UD ITR 07/06/16 18:45 08/05/16 18:44 Hydromorphone HCl (Dilaudid Inj) 0.25 mg Q6H PRN IV 07/06/16 18:45 07/20/16 18:44 07/09/16 12:19 0.25 MG Polyethylene (Miralax Powder Packet) 17 gm DAILY PO 07/06/16 21:30 08/05/16 21:29 07/09/16 08:02 17 GM Docusate Sodium (coLACE CAP) 100 mg BID PO 07/06/16 21:00 08/05/16 20:59 07/09/16 08:01 100 MG Menthol (Nice Juanis) 1 juanis PRN PRN PO 07/06/16 21:30 08/05/16 21:29 07/06/16 21:24 1 JUANIS Miscellaneous (Remove Nicoderm Patch) 1 ea HS N/A 07/07/16 21:00 08/06/16 20:59 Future hold 07/08/16 19:25 1 EA Phenol (Chloraseptic 1.4% [place]) 1 sprays PRN PRN MT 07/06/16 22:00 08/05/16 21:59 07/06/16 23:37 1 SPRAYS Nicotine (Nicoderm Cq 14MG Patch) 1 patch HS TD 07/07/16 21:00 08/06/16 20:59 07/08/16 19:25 1 PATCH Lactulose (Chronulac Syrup) 30 gm BID PO 07/08/16 21:00 08/07/16 20:59 07/09/16 07:59 30 GM Furosemide (Lasix tab) 20 mg BID17 PO 07/09/16 17:00 08/08/16 16:59 07/09/16 16:32 20 MG Spironolactone (Aldactone Tab) 50 mg QAM PO 07/10/16 09:00 08/09/16 08:59 Valacyclovir HCl (Valtrex Tab) 1,000 mg DAILY PO 07/10/16 09:00 08/09/16 08:59 Amoxicillin/ Clavulanate Potassium 875 mg 875 mg BIDM PO 07/09/16 17:00 07/16/16 16:59 07/09/16 16:53 875 MG Ceftriaxone Sodium/Dextrose (Rocephin Inj/D5 50ml) 60 ml @ 100 mls/hr DAILY@1600 IV 07/10/16 16:00 07/13/16 15:59
[2016-07-09] MEDS: NICOTINE 14 MG/24 HR TDSY TD SCH (20:02)
[2016-07-10] VITALS: O2SAT 95
[2016-07-10] MEDS: HYDROmorphone INJ 1 MG/ML SYR IV PRN ×2 (03:54→09:52)
[2016-07-10 07:11] LABS: HEMATOCRIT 27.8 % (42-52); MEAN CELL VOLUME 96.9 fL (80-100); MEAN CORPUSCULAR HEMOGLOBIN 34.8 pg (25-34); RED BLOOD COUNT 2.87 M/uL (4.7-6.1); WHITE BLOOD COUNT 7.97 K/uL (4.8-10.8)
[2016-07-10 07:14] LABS: MEAN PLATELET VOLUME 9.5 fL (7.4-10.4); PLATELET COUNT 71 K/uL (130-400)
[2016-07-10 07:20] LABS: INR 1.6 (0.9-1.1)
[2016-07-10 07:21] VITALS: BP 115/71; PULSE 42; TEMP 36.8; O2SAT 97
[2016-07-10 08:00] VITALS: O2SAT 97
[2016-07-10 08:07] LABS: BUN/CREATININE RATIO 17.8 (10-20); CALCIUM 8.8 mg/dl (8.5-10.1); CREATININE 1.1 mg/dl (0.60-1.40)
[2016-07-10] MEDS: DOCUSATE SODIUM 100 MG CAP PO SCH (08:18)
[2016-07-10] MEDS: POLYETHYLENE (MIRALAX) 17 GM PACK PO SCH (08:18)
[2016-07-10] MEDS: LACTULOSE SYRUP 30 GM/45 ML UDP PO SCH (08:18)
[2016-07-10 08:19] VITALS: PULSE 70
[2016-07-10] MEDS: AMOXICILLIN/CLAVULANATE TAB 875 MG TAB PO SCH (08:22)
[2016-07-10] MEDS: PANTOprazole SOD 40 MG TAB PO SCH (08:22)
[2016-07-10] MEDS: FUROSEMIDE 20 MG TAB PO SCH (08:23)
[2016-07-10] MEDS: MULTIVITAMIN TAB PO SCH (08:23)
[2016-07-10] MEDS: NADOLOL 40 MG TAB PO SCH (08:24)
[2016-07-10] MEDS ORDERED: SPIRONOLACTONE 25 MG TAB PO SCH (09:00)
[2016-07-10] MEDS ORDERED: VLT500 PO (12:43)
[2016-07-10] MEDS ORDERED: SPR25 PO (12:43)
[2016-07-10] MEDS ORDERED: LEVO-18 PO (12:43)
[2016-07-10] MEDS ORDERED: LSX20 PO (12:43)
[2016-07-10] MEDS ORDERED: LCTL45 PO (12:43)
--- NOTE | 2016-07-10 13:01 | Discharge Instructions ---
Discharge Instructions Admission Reason for Admission: Acute Kidney Injury Discharge Discharge Diagnosis / Problem: HAP, ANJEL, Decompensated cirrhosis with SBP Discharge Goals Goal(s): Prevent Disease Progression Activity Recommendations Activity Limitations: resume your previous activity . Instructions / Follow-Up Instructions / Follow-Up Please take all medications as instructed. Please continue taking the Lactulose twice daily to ensure you have at least one bowel movement daily. Please continue on the strict sodium and fluid restrictions as follows: -no more than 1200mL of fluids daily -no more than 2 grams of sodium daily (including salt in food) Please weight yourself daily and keep a record of this to bring with you to appointments. For interest in getting Hepatitis C Virus (HCV) treatment at this point, you will need a referral to [facility]. Your primary care physician (PCP) should be able to place this referral for you. Please ensure follow-up with your primary leadite heater within the next 2- 4 weeks. I recommend a follow-up chest xray in 4-6 weeks to ensure complete resolution of your pneumonia. You have been scheduled with Dr. Ayala for follow-up of this hospitalization. That appointment is for 07/14 @ 4593. Please bring all paperwork from this hospitalization. It was a pleasure taking care of you! Call if you have any questions or problems. You can reach a [facility] hospitalist on duty at [facility] 24 hours a day by calling [phone]. Take care of yourself. Diya Bautista DO [facility] Hospitalist Current Hospital Diet Patient's current hospital diet: Low Sodium Diet (2gm Na) Discharge Diet Recommended Diet: Low Sodium Diet (2gm Na) (MOIST FOODS FOR EASE OF SWALLOWING) Fluid Restriction: 1200 ml (5 cups) Procedures Procedures Performed: L shoudler injection Pending Studies Studies pending at discharge: yes List of pending studies: Finalized Blood culture results Finalized gram stain and culture results from ascitic fluid including mycobacterium culture Fiinalized sputum culture Medical Emergencies . Who to Call and When: Medical Emergencies: If at any time you feel your situation is an emergency, please call 911 immediately. . Non-Emergent Contact Non-Emergency issues call your: Primary Care Provider, Room Service Manager . . "Provider Documentation" section prepared by Diya Bautista. VTE Core Measure Inpt VTE Proph given/why not?: SCD's
[2016-07-10 13:08] VITALS: BP 115/71; PULSE 70; TEMP 36.8; O2SAT 97
[2016-07-10] MEDS ORDERED: CEFTRIAXONE SOD INJ 1,000 MG in DEXTROSE 5% 50ML 50 ML IV SCH (16:00)
--- NOTE | 2016-07-14 11:49 | Discharge Summary ---
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 Consultations: Gastro, Ortho Medication Reconciliation New Medications: Levofloxacin (Levaquin) 750 Mg Tab 750 MG PO DAILY for 5 Days, #5 TAB Furosemide (Furosemide) 20 Mg Tab 20 MG PO BID for 30 Days, #60 TAB Lactulose (Lactulose) 30 Gm/45 Ml Syrp 30 GM PO BID PRN for Constipation for 30 Days, #500 ML 2 Refills Spironolactone (Spironolactone) 25 Mg Tab 50 MG PO QAM for 30 Days, #60 TAB Valacyclovir HCl (Valacyclovir HCl) 500 Mg Tab 1000 MG PO DAILY for 10 Days, #20 TAB Continued Medications: Albuterol (Proair Hfa) Aers 2 PUFFS INH Q4H PRN for SOB/Wheezing Ascorbic Acid (Vitamin C Gummie 120 mg) 1 Chw Chw 240 MG PO DAILY Cyclobenzaprine HCl (Cyclobenzaprine HCl) 10 Mg Tab 10 MG PO DAILY PRN for Muscle Spasm Hydromorphone Hcl (Dilaudid) 4 Mg Tab 4 MG PO Q6H PRN for Pain Multiple Vitamin (Multivitamin) 1 Tab Tab 1 TAB PO QAM Nadolol (Corgard) 20 Mg Tab 20 MG PO DAILY Oxycodone/Acetaminophen 10MG/325MG (Percocet 10MG/325MG) Tab 1 TAB PO UD PRN for Pain, TAB Pantoprazole (Pantoprazole Sodium) 40 Mg Tab 40 MG PO DAILY [Dilaudid Pain Pump] () 1 DOSE XXX UD Discontinued Medications: Furosemide (Furosemide) 40 Mg Tab 40 MG PO BID Spironolactone (Spironolactone) 100 Mg Tab 100 MG PO BID Admission Information HPI (per Admitting provider): 55 year old male who presents to the ER with left shoulder pain and constipation. 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 He was recently admitted to [facility] 06/30 - 07/03 for ANJEL, hyponatremia, anemia and worsening ascites. During that admission, patient underwent a 3L paracentesis. Initially patient's diuretics were held, he was placed on a fluid restriction, and he was given albumin. He also received PRBC transfusion. At the time of discharge, patient's Aldactone and furosemide were increased. Patient reports feeling poorly since being home. He reports he feels generally weak. He has not had a bowel movement since being home. He reports abdominal fullness and gaining one pound per day. He denies abdominal pain, nausea, or vomiting. This morning he woke up with severe left shoulder pain that radiates down his arm. Pain is made worse with movement. Last night he had episode of left lower chest stabbing pain. He reports this pain lasted for a few hours and resolved on its own. No shortness of breath. He denies lightheadedness, dizziness, diaphoresis, and syncope. He reports chills but denies fever. He feels like his urine output is down. He denies dysuria. In the ER, patient's creat is found to be 2.2 (was 0.9 on discharge), Na+ 126 (131 on discharge), hgb 7.6 (8.1 on discharge). Left shoulder XR is showing calcified tendonitis of the left rotator cuff. HR was in the 140s on arrival and improved to the low 100s after IVF. Physical Exam (per Admitting): General Appearance: + mild distress (weak appearing, appears to be in pain) Head: normocephalic Eyes: + abnormal sclerae exam (icteric) ENT: hearing grossly normal Neck: supple, no JVD Respiratory/Chest: lungs clear, normal breath sounds, no respiratory distress Cardiovascular: no edema, + tachycardia (regular rhythm) Abdomen/GI: non tender, + distended (firm), + pertinent finding (ascites) Extremities/Musculoskelatal: normal inspection, no calf tenderness Neurologic/Psych: no motor/sensory deficits, alert, normal mood/affect, oriented x 3 Skin: warm/dry, + jaundice Hospital Course -55 yo cirrhotic with end-stage liver disease presented with worsening abdominal pain with swelling. IVF were given and patient was found to be anemic the following morning (HD2) with H/H 6/16 requiring a blood transfusion of 2 units. Appropriate response was seen on H/H the following morning which was 8.4/23.5. Diagnostic paracentesis on 07/07 revealed borderline evidence of SBP and Rocephin was started. CXR was performed out of concern for volume overload, and revealed a RLL infiltrate, Zosyn was started for anaerobe coverage for a new possible aspiration pneumonia that was hospital-acquired. He remained without coughs, fevers, chills, or shortness of breath and this was switched to Augmentin BID on 07/09. His diuretics were restarted cautiously by Nephrology on 07/09 and after one more night to determine stability on these. A sputum culture returned with Strep pneumo sensitive to FQs and he was discharged on Levaquin with blessing from GI (Dr. Olivares) that this was OK from an SBP standpoint. 1. 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 Restarting diuretics today. furosemide 20 BID/spironolactone 50 QD per nephro 2. Abdominal pain 2/2 SBP-greatly improved with weight loss on albumin IV and abx; cont Rocephin per GI for total 5 days. 3. HAP- sputum culture negative and clinically stable for the last 24 hours. Zosyn switched to Augmentin, per Speech no swallow study needed at this time. 4. ANJEL 2/2 prerenal azotemia-s/p 3L paracentesis on 07/01, creat at discharge (07/03) was 0.9, admitted (07/06) after increase in diuretics at discharge and creat jumped to 2.2. Overnight IVF were helpful to improve the tachycardia and creat to 1.7. Held IV as he received two units of blood on 07/07. Appropriate response to blood. Continued to hold diuretics, which were restarted today per Nephro. Cont fluid and sodium restriction. Creat this morning was 1.10. Creat at discharge (07/10) was 1.10. 5. Hyponatremia-resolved 6. Anemia-s/p 2 Units on 07/07. H/H post-transfusion was appropriate. INR 1.7. Pt denies any bleeding anywhere. H/H stable at 9/24. CBC in am. 7. Thrombocytopenia-2/2 cirrhosis 8. L shoulder pain 2/2 calcific tendonitis and OA-consulted Ortho, s/p steroid injection for comfort with good result on 1/11. 9. Constipation-2/2 chronic narcotic use. Pt is not on consistent Lactulose at home. Cont Mirlax, enema PRN. Lactulose BID per GI team. Concern for prolonged constipation and buildup of ammonia. 10. AVN of both femoral heads-asymptomatic 11. HSV2 (genital): started Valtrax 1000mg PO daily while on antibiotics for suppression, no current outbreak per patient but he reports this has happened on abx in the past. On day of discharge he was ambulating, feeling well, tolerating regular food and afebrile and hemodynamically stable. He is interested in pursuing treatment for HCV and was told to get a referral to [facility] in [place] per guidance from Dr. Olivares for this. He verbalized understanding. He will have close followup with PCP in one week and will need follow-up with primary inshore undersea warfare officer to ensure things are going well. Total time spent on discharge = 60 minutes This includes examination of the patient, discharge planning, medication reconciliation, and communication with other providers. Discharge Instructions Discharge Instructions Admission Reason for Admission: Acute Kidney Injury Discharge Discharge Diagnosis / Problem: HAP, ANJEL, Decompensated cirrhosis with SBP Discharge Goals Goal(s): Prevent Disease Progression Activity Recommendations Activity Limitations: resume your previous activity . Instructions / Follow-Up Instructions / Follow-Up Please take all medications as instructed. Please continue taking the Lactulose twice daily to ensure you have at least one bowel movement daily. Please continue on the strict sodium and fluid restrictions as follows: -no more than 1200mL of fluids daily -no more than 2 grams of sodium daily (including salt in food) Please weight yourself daily and keep a record of this to bring with you to appointments. For interest in getting Hepatitis C Virus (HCV) treatment at this point, you will need a referral to [facility]. Your primary care physician (PCP) should be able to place this referral for you. Please ensure follow-up with your primary inshore undersea warfare officer within the next 2- 4 weeks. I recommend a follow-up chest xray in 4-6 weeks to ensure complete resolution of your pneumonia. You have been scheduled with Dr. Ayala for follow-up of this hospitalization. That appointment is for 07/14 @ 0730. Please bring all paperwork from this hospitalization. It was a pleasure taking care of you! Call if you have any questions or problems. You can reach a [facility] hospitalist on duty at [facility] 24 hours a day by calling [phone]. Take care of yourself. Diya Bautista, DO [facility] Additional Copies To Yazan Ayala M.D.
[2016-08-09] MEDS ORDERED: MULTTAB58 PO (08:02)
[2016-08-09] MEDS ORDERED: HYDR4TAB2 PO (16:25)
[2016-08-09] MEDS ORDERED: CRG/20 PO (16:25)
[2016-08-09] MEDS ORDERED: PRT/40 PO (16:25)
[2016-08-09] MEDS ORDERED: CYCL10TA7 PO (16:25)
[2016-08-09] MEDS ORDERED: OXYC-106 PO (16:25)
[2016-08-09] MEDS ORDERED: Dilaudid Pain Pump INJ (16:29)
[2016-08-17] MEDS ORDERED: LSX20 PO (10:23)
[2016-08-17] MEDS ORDERED: SPR25 PO (10:23)
[2016-08-17] MEDS ORDERED: XFX550 PO (10:23)
[2016-08-17] MEDS ORDERED: MRLP17X PO (10:23)
[2016-08-17] MEDS ORDERED: CPR500 PO (10:23)
== END 2016-07-10 13:26 | disposition home or self-care (01) | DRG 682 ==
LOC: ENRESERVDT → ENRESERVTM → C.EDB 15:50 → C.MED 18:25
PROVIDERS: ADMIT Emergency Medicine; ATTEND Hospitalist
DX: N17.9 Acute kidney failure, unspecified (principal); J69.0 Pneumonitis due to inhalation of food and vomit; E87.1 Hypo-osmolality and hyponatremia; B19.20 Unspecified viral hepatitis C without hepatic coma; D64.9 Anemia, unspecified; D69.6 Thrombocytopenia, unspecified; E66.9 Obesity, unspecified; F10.10 Alcohol abuse, uncomplicated; F11.10 Opioid abuse, uncomplicated; F17.210 Nicotine dependence, cigarettes, uncomplicated; K21.9 Gastro-esophageal reflux disease without esophagitis; K59.00 Constipation, unspecified; M75.32 Calcific tendinitis of left shoulder; R07.89 Other chest pain; K70.31 Alcoholic cirrhosis of liver with ascites

== ENCOUNTER → 2016-07-16 | Day surgery (SDC) | payer OTHER ==
[~2016-07-16] VITALS: Ht 172.7 cm; Wt 71.2 kg
[~2016-07-16] MED LIST changes: +ALBU18002 INH; +ASCO1CHW13 PO; +CEPH500C PO; +CPR500 PO; +CRG/20 PO; -CYCL10TA6 PO; +CYCL10TA7 PO; +Dilaudid Pain Pump INJ; -FRS/40 PO; +FURO-85 PO; +HYDR4TAB2 PO; -HYDR4TAB78 PO; +IBUPROFEN 200 MG TAB PO ONE; +LCTL45 PO; +LCTS240 PO; +LEDI1TAB PO; +LEVO-18 PO; +LSX20 PO; +METH16TA PO; +MRLP17X PO; +MULTTAB58 PO; +NURSING VERBAL MED ORDER ONE; +NYSS/ PO; +OMEP20TA40 PO; +OXYC-106 PO; +PRT/40 PO; -PRT40 PO; +RIBA200C13 PO; -SPR/100 PO; +SPR25 PO; +VALA500T60 PO; +VALG1TAB PO; +VLT500 PO; +XFX550 PO; -[UNRECOGNIZED DRUG - OTHER]
[2016-07-16 11:32] VITALS: BP 116/60; PULSE 64; TEMP 36.6; O2SAT 96; Ht 172.7 cm; Wt 71.2 kg
[2016-07-16] MEDS: ALBUMIN HUMAN 25% 12.5 GM/50 ML VIAL IV SCH ×6 (12:51→16:35)
--- NOTE | 2016-07-16 15:36 | Discharge Instructions ---
Discharge Instructions Procedure Procedure Date: Jul 16, 2016. Reason for visit: Alcoholic Cirrhosis Of Liver W/ Ascites *Pre/Post. Discharge Discharge Date: Jul 16, 2016. Discharge Diagnosis: cirrhosis and ascites Instructions Activity Recommendations: 1 Day-May resume regular activity, 48 Hours of decreased exertion, 1 Day with no driving/machine use Return to School/Work: limitations (light activity x 48 hours) Recommended Home Diet: Resume Previous Diet Provider Instructions: Ultrasound guided paracentesis is performed in the right lower quadrant. Approximately 6 liters of dark fluid was removed by vacuum suction. There were no immediate complications and the patient left the department in satisfactory condition. Allergies Coded Allergies: Morphine (Verified Adverse Reaction, Unknown, INABILITY TO URINATE, ) Amol Samaniego Recommendations: Call your doctor if: * Temperature above 101 degrees * Pain not relieved by pain medicine ordered * There is increased drainage or redness from any incision * You have any unanswered questions or concerns. Your Doctors Instructions noted above were prepared by provider Gary Rodrigues. Patient Signature Section: Patient Instructions Signature Page Everton Bailon Patient (or Guardian) Signature/Date: I have read and understand the instructions given to me by my caregivers. Caregiver/RN/Doctor Signature/Date: The above-named patient and/or guardian has received patient instructions on this date. + Original Patient Signature Page (only) stays with chart. Please make copy for patient.
[2016-07-16 15:40] VITALS: BP 115/54; TEMP 36.8; O2SAT 99
--- NOTE | 2016-07-16 15:47 | DIAGNOSTIC IMAGING REPORT ---
PARACENTESIS UNDER ULTRASOUND GUIDANCE CLINICAL HISTORY: Cirrhosis and ascites. PROCEDURE: The risks, benefits, and alternatives to the procedure were discussed with the patient who voiced understanding. Written informed consent was obtained. Following real-time ultrasound localization of a suitable pocket of fluid in the right lower quadrant, the abdomen was prepped and draped in the usual sterile fashion. The skin and soft tissues were anesthetized with 1% lidocaine. The sheathed paracentesis was inserted and approximately 6 liters of dark ascitic fluid was removed by vacuum suction. The procedure was well tolerated and without immediate complication. The patient left the department in satisfactory condition. IMPRESSION: Successful ultrasound-guided paracentesis with removal of approximately 6 liters of ascitic fluid. Electronically signed by: Gary Rodrigues M.D. 07/16/2016 3:45 PM Dictated Date/Time: 07/16/2016 3:45 PM
[2016-07-16 16:15] VITALS: BP 97/51; PULSE 67; O2SAT 96
[2016-07-16 16:33] VITALS: BP 105/49; PULSE 66; O2SAT 95
== END | disposition home or self-care (01) ==
LOC: C.ACU 10:45
PROVIDERS: ATTEND Internal Medicine Gastroenterology
DX: R18.8 Other ascites (principal)

== ENCOUNTER 2016-08-09 19:21 | Inpatient (IN) | payer OTHER ==
[~2016-08-09] VITALS: Ht 172.7 cm; Wt 62.4 kg
[~2016-08-09 19:21] MED LIST changes: -ALBU18002 INH; -ASCO1CHW13 PO; -CEPH500C PO; -CPR500 PO; -FURO-85 PO; -IBUPROFEN 200 MG TAB PO ONE; -LCTS240 PO; -LEDI1TAB PO; -LEVO-18 PO; -METH16TA PO; -MRLP17X PO; -NURSING VERBAL MED ORDER ONE; -NYSS/ PO; -OMEP20TA40 PO; -RIBA200C13 PO; -SPR25 PO; -VALA500T60 PO; -VALG1TAB PO; -XFX550 PO
[2016-08-09] MEDS ORDERED: SODIUM CHLORIDE 0.9% 1000ML 250 ML IV STA (20:27)
[2016-08-09] MEDS ORDERED: NYSS/ PO (20:46)
[2016-08-09] MEDS ORDERED: FURO-85 PO (20:46)
[2016-08-09] MEDS ORDERED: LCTS240 PO (20:46)
[2016-08-09] MEDS ORDERED: VALA500T60 PO (20:48)
[2016-08-09] MEDS ORDERED: METH16TA PO (20:48)
[2016-08-09] MEDS ORDERED: ALBU18002 INH (20:49)
--- NOTE | 2016-08-09 20:58 | DIAGNOSTIC IMAGING REPORT ---
SINGLE VIEW CHEST CLINICAL HISTORY: Weakness. Change in mental status. FINDINGS: An AP, portable, upright chest radiograph is compared to study dated 07/08/2016. The cardiomediastinal silhouette is unremarkable. Emphysema and chronic interstitial thickening are similar to previous. No airspace consolidation or pleural effusion is identified. No pneumothorax is seen. The skeletal structures appear osteopenic. Mild thoracic scoliosis is observed. IMPRESSION: Emphysematous change with no acute cardiopulmonary abnormality. Electronically signed by: Gary Rodrigues M.D. 08/09/2016 8:57 PM Dictated Date/Time: 08/09/2016 8:55 PM
[2016-08-09] MEDS ORDERED: ASCO1CHW13 PO (21:21)
--- NOTE | 2016-08-09 21:21 | EMERGENCY ROOM VISIT NOTE ---
History Report prepared by Harman: Cristela Johnson Under the Supervision of: Dr. Gary Fine M.D. First contact with patient: 20:22 Chief Complaint: SWELLING TO EXTREMITY Stated Complaint: FLUID IN LEGS,SORE THROAT,THRUSH History of Present Illness The patient is a 55 year old male who presents to the Emergency Room with complaints of worsening weakness over the past few days. He also complains of increased swelling in his bilateral lower extremities and decreased urination. The patient has a history of hepatitis C and alcoholic cirrhosis. Per patient's , his skin yellowing is currently baseline. The patient notes that he has had thrush over the past 2 weeks and started using a swish and swallow medication 4 days ago which has been helping some, as the white sores in his mouth have disappeared. The patient notes that he has paracentesis about weekly and is scheduled for a tap on Tuesday. Today the patient contacted his PCP's office and he was referred to the ER. He denies any recent falls or head injuries. Denies fever, vomiting, or other complaints. Source of History: patient Onset: a few days ago Position: other (global) Quality: other (weak) Timing: worsening Associated Symptoms: No fevers, No vomiting Note: Other symptoms: thrush, bilateral lower extremity swelling Review of Systems See HPI for pertinent positives & negatives. A total of 10 systems reviewed and were otherwise negative. Past Medical & Surgical Medical Problems: (1) ANJEL (acute kidney injury) (2) Anemia (3) Ascites (4) Chronic pain syndrome (5) Cirrhosis of liver (6) GERD (gastroesophageal reflux disease) (7) Hepatitis C, chronic (8) Hyponatremia (9) Intermittent asthma (10) Portal hypertension (11) Thrombocytopenia Surgical Problems: (1) History of tonsillectomy (2) S/P cervical spinal fusion (3) Status post insertion of intrathecal pump Family History Unobtainable family history due to adoption Social History Smoking Status: Current Every Day Smoker Alcohol Use: none Drug Use: heroin, marijuana, other Marital Status: in relationship Housing Status: lives with significant other Occupation Status: unemployed Current/Historical Medications Scheduled Ascorbic Acid (Vitamin C Gummie 120 mg), 240 MG PO DAILY Furosemide (Lasix), 20 MG PO BID Lactulose (Chronulac), 30 GM PO BID Methylprednisolone (Methylprednisolone), 32 MG PO QAM Multiple Vitamin (Multivitamin), 1 TAB PO QAM Nadolol (Corgard), 20 MG PO DAILY Nystatin (Nystatin Suspension), 5 ML PO QID Pantoprazole (Pantoprazole Sodium), 40 MG PO DAILY Valacyclovir (Valtrex), 500 MG PO DAILY [Dilaudid Pain Pump], 1 DOSE INJ UD Scheduled PRN Albuterol Sulfate (Proair Respiclick), 2 PUFFS INH Q4H PRN for SOB/Wheezing Cyclobenzaprine HCl (Cyclobenzaprine HCl), 10 MG PO DAILY PRN for Muscle Spasm Hydromorphone Hcl (Dilaudid), 4 MG PO Q6H PRN for Pain Oxycodone/Acetaminophen 10MG/325MG (Percocet 10MG/325MG), 1 TAB PO UD PRN for Pain Allergies Coded Allergies: Morphine (Verified Adverse Reaction, Unknown, INABILITY TO URINATE, ) Physical Exam Vital Signs Date Time Temp Pulse Resp B/P Pulse Ox O2 Delivery O2 Flow Rate FiO2 08/09/16 22:52 68 16 112/54 97 Room Air 08/09/16 21:43 67 08/09/16 19:34 36.7 73 16 125/70 99 Room Air Physical Exam GENERAL: Patient is in no acute distress. HEENT: No acute trauma, normocephalic atraumatic, mucous membranes dry, no nasal congestion. NECK: No stridor, no adenopathy, no meningismus, trachea is midline. LUNGS: Scattered wheezing, breath sounds equal, no respiratory distress. HEART: Without murmurs gallops or rubs, regular rate and rhythm. ABDOMEN: Distension noted consistent with ascites, diffusely mildly tender, bowel sounds positive, no hernias, no peritonitis. EXTREMITIES: No cyanosis, bilateral pedal edema noted worse on the left, no cellulitis, full range of motion of all the joints without pain or difficulty, no signs for acute trauma. NEUROLOGIC: Oriented x 3, no acute motor or sensory deficits, no focal weakness. SKIN: No rash, moderate jaundice, no diaphoresis. Medical Decision & Procedures ER Provider Diagnostic Interpretation: Radiology results and stated below per my review and radiologist interpretation: SINGLE VIEW CHEST CLINICAL HISTORY: Weakness. Change in mental status. FINDINGS: An AP, portable, upright chest radiograph is compared to study dated 07/08/2016. The cardiomediastinal silhouette is unremarkable. Emphysema and chronic interstitial thickening are similar to previous. No airspace consolidation or pleural effusion is identified. No pneumothorax is seen. The skeletal structures appear osteopenic. Mild thoracic scoliosis is observed. IMPRESSION: Emphysematous change with no acute cardiopulmonary abnormality. Electronically signed by: Gary Rodrigues M.D. 08/09/2016 8:57 PM Dictated Date/Time: 08/09/2016 8:55 PM Laboratory Results Test 08/09/16 21:15 08/09/16 22:28 Urine Color ORANGE Urine Appearance CLEAR (CLEAR) Urine pH (4.5-7.5) Urine Specific [place] 1.018 (1.000-1.030) Urine Protein (NEG) Urine Glucose (UA) (NEG) Urine Ketones (NEG) Urine Occult Blood (NEG) Urine Nitrite (NEG) Urine Bilirubin (NEG) Urine Urobilinogen (NEG) Urine Leukocyte Esterase (NEG) Urine RBC 0-4 /hpf (0-4) Urine WBC 1-5 /hpf (0-5) Urine Epithelial Cells 10-20 /lpf (0-5) Urine Bacteria NEG (NEG) Urine Hyaline Casts 5-10 /lpf (0-5) Prothrombin Time 17.8 SECONDS (9.0-12.0) Prothromb Time International Ratio 1.6 (0.9-1.1) Activated Partial Thromboplast Time 40.3 SECONDS (21.0-31.0) Partial Thromboplastin Ratio 1.5 Laboratory results reviewed by me. Medications Administered Medications (Trade) Dose Ordered Sig/Perla Route Start Time Stop Time Status Last Admin Dose Admin Sodium Chloride (Nss 1000ml) 250 ml @ 999 mls/hr Q16M STAT IV 08/09/16 20:27 08/09/16 20:52 DC 08/09/16 22:43 999 MLS/HR ECG Indication: weakness Rate (beats per minute): 66 Rhythm: normal sinus Findings: no acute ischemic change, no ectopy ED Course 2024: The patient was evaluated in room B4B. A complete history and physical exam was performed. 2026: Ordered NSS 250 ml @ 999 mls/hr IV. Medical Decision Differentials include worsening liver failure, renal failure, electrolyte imbalance, anemia, infection, DVT, fluid overload, cellulitis, heart failure. His INR has returned and is somewhat elevated consistent with his liver disease. Urinalysis does not show infection. Chest x-ray does not show pneumonia or CHF. EKG shows a normal sinus rhythm, no acute ischemia. His lower extremity ultrasound for DVT, his general laboratory testing is still pending. Patient was given IV saline, this was given for hydration purposes. The patient presents with weakness. The cause is unclear. He has chronic liver disease and may just be somewhat dehydrated. Infection seems less likely but we are still waiting for the laboratory testing. The patient was concerned that he may have some renal failure as his urine outputs have decreased. The patient's case will be assumed by Dr. Lal, please see his notes. Impression Primary Impression: Weakness Additional Impressions: Pedal edema Liver failure Scribe Attestation The scribe's documentation has been prepared under my direction and personally reviewed by me in its entirety. I confirm that the note above accurately reflects all work, treatment, procedures, and medical decision making performed by me. Departure Information Dispostion Still a Patient Referrals Yazan Ayala M.D. (PCP) Patient Instructions [facility] Problem Qualifiers
[2016-08-09 22:09] LABS: MANUAL MICROSCOPIC REQUIRED? YES; REVIEW REQ? NO; SULFASALICYLIC ACID NEG (NEG); URINE APPEARANCE CLEAR (CLEAR); URINE COLOR ORANGE; URINE SPECIFIC GRAVITY 1.018 (1.000-1.030)
[2016-08-09 22:19] LABS: URINE BACTERIA NEG (NEG); URINE RBC 0-4 /hpf (0-4)
[2016-08-09 22:58] LABS: INR 1.6 (0.9-1.1); PARTIAL THROMBOPLASTIN RATIO 1.5; PROTHROMBIN TIME (PATIENT) 17.8 SECONDS (9.0-12.0)
[2016-08-09] MEDS ORDERED: SODIUM CHLORIDE 0.9% 500ML 500 ML IV STA (23:02)
[2016-08-09 23:06] LABS: BUN/CREATININE RATIO 35.5 (10-20); CALCIUM 9.5 mg/dl (8.5-10.1); CREATININE 1.2 mg/dl (0.60-1.40); MAGNESIUM 2.2 mg/dl (1.8-2.4); POTASSIUM 4.5 mmol/L (3.5-5.1)
[2016-08-09 23:16] LABS: THYROID STIMULATING HORMONE 0.497 uIu/ml (0.300-4.500)
[2016-08-10] VITALS (13 sets, daily range): BP systolic 95–116; BP diastolic 46–69; PULSE 61–93; TEMP 36.3–36.7; O2SAT 91–99; Ht 172.7 cm; Wt 62.4 kg
[2016-08-10 00:08] LABS: ANISOCYTOSIS PRESENT; BASO % 0.1 %; BASO ABS # 0.01 K/uL (0-0.2); COMPLETE YES; ECHINOCYTES 1+; EOS % 0.1 %; HEMATOCRIT 27.3 % (42-52); IG% 0.5 %; LYMPH % 6.8 %; MEAN CELL VOLUME 100.4 fL (80-100); MEAN CORPUSCULAR HEMOGLOBIN 35.3 pg (25-34); MEAN CORPUSCULAR HGB CONC 35.2 g/dl (32-36); MONO % 6.3 %; NEUT % 86.2 %; PLATELET COUNT 38 K/uL (130-400); PLT ESTIMATE DECREASED; RED BLOOD COUNT 2.72 M/uL (4.7-6.1); VACUOLIZATION 1+; WHITE BLOOD COUNT 11.78 K/uL (4.8-10.8)
[2016-08-10 00:35] LABS: ZZUR CULT IF INDIC CLEAN CATCH NO
[2016-08-10] MEDS ORDERED: FUROSEMIDE INJ 40 MG in SYRINGE 0 ML IV STA (01:02)
[2016-08-10] MEDS ORDERED: ALBUT/IPRATROP 3MG/0.5MG NEB 3 ML VIAL INH STA (01:02)
[2016-08-10] MEDS ORDERED: LORAZEPAM 2 MG/ML 1 ML VIAL IV STA (01:07)
[2016-08-10] MEDS ORDERED: LEVAQUIN 750MG / 150ML D5W IV STA (01:14)
[2016-08-10] MEDS ORDERED: NICOTINE 14 MG/24 HR TDSY TD STA (01:14)
[2016-08-10] MEDS ORDERED: ALBUT/IPRATROP 3MG/0.5MG NEB 3 ML VIAL INH PRN (01:15)
[2016-08-10] MEDS ORDERED: HYDROmorphone HCL 2 MG TAB PO PRN (01:15)
[2016-08-10] MEDS ORDERED: ACETAMINOPHEN 325 MG TAB PO PRN (01:15)
[2016-08-10] MEDS ORDERED: ONDANSETRON INJ 2 MG/ML 2 ML VIAL IV PRN (01:15)
[2016-08-10] MEDS ORDERED: LEVOFLOXACIN CONSULT ACTIVE PRN (01:15)
[2016-08-10] MEDS ORDERED: FUROSEMIDE 40 MG/4 ML VIAL IV STA (01:19)
[2016-08-10] MEDS ORDERED: ALBUMIN HUMAN 25% 12.5 GM/50 ML VIAL IV ONE (03:00)
--- NOTE | 2016-08-10 03:45 | HISTORY & PHYSICAL EXAMINATION ---
DATE OF ADMISSION: 08/10/2016 PRIMARY CARE PHYSICIAN: Dr. Jamie GRAY obtained from px and records. CHIEF COMPLAINT: Abdominal distention and leg swelling. HISTORY OF PRESENT ILLNESS: Medical history significant for cirrhosis secondary to HCV, chronic anemia (baseline hemoglobin 9), ongoing tobacco abuse, chronic thrombocytopenia, alcohol abuse as per records, history of hepatorenal syndrome. Recent confinement June last month for decompensated cirrhosis, SBP. Patient seen at [facility] GI office about 2 weeks ago for follow up for chronic liver disease. New ascites as per records. Patient started on prednisolone for alcoholic hepatitis; Lasix recommended daily, spironolactone held. Last week, the patient had a therapeutic outpx ultrasound-guided paracentesis. Four liters of ascitic fluid removed. A few days later, w days, patient developed oral thrush, sore throat symptoms. Nystatin prescribed, symptoms improving. The last few days, the patient noted increasing abdominal distention and achy abdominal pain oscar on walking. No fever, no chills, no chest pain, no shortness of breath. Bilateral leg swelling noted as well. Patient compliant with home meds. Denies black bloody stools. Denies alcohol intake. MEDICAL HISTORY: As above. EGD 2016 esophageal varices, portal hypertensive gastropathy. SURGERIES: Tonsillectomy. HOME MEDICATIONS: ProAir, vitamin C, cyclobenzaprine, Dilaudid pain pump, Lasix, Dilaudid, lactulose, methylprednisolone, multivitamins, nadolol, nystatin, Percocet, Protonix, Valtrex. ALLERGIES: MORPHINE. FAMILY HISTORY: Hypertension. PERSONAL AND SOCIAL HISTORY: 3/4 pack daily. Denies recent alcohol intake. Applying for disability. REVIEW OF SYSTEMS: As per HPI, all other ROS negative. PHYSICAL EXAMINATION: VITAL SIGNS: Blood pressure noted to be 112/54, pulse rate 68, RR 16, temperature 37 sats 98% on room air. GENERAL: Noted to be somewhat sleepy. No respiratory distress. SKIN : pallor, jaundice HEENT: Pale palp conjunctivae. Dry mucosa. NECK: No JVD. Supple. CHEST: Expiratory wheezes. HEART: Regular rate and rhythm. ABDOMEN: gen abd distention and tenderness on light palpation. EXTREMITIES: Bilateral lower extremity edema, no tenderness. NEUROLOGIC: No gross focality except for some sleepiness. LABS: Hemoglobin was 9.6, hematocrit 37.3, white blood cells 11.7, platelets 238. Sodium 140 BUN 40, creatinine 1.2, glucose 150 total bili 11.9, DB 6.4 IMAGING DATA: Chest x-ray showed emphysema. LE Venous Doppler initial read no acute DVT. ASSESSMENT: 1. Decompensated cirrhosis possible recurrent spontaneous bacterial peritonitis, no overt sepsis hx HCV ? alcohol abuse (patient denies) 2. Chronic anemia, hemoglobin at baseline 3. ongoing tobacco abuse 4. hx alcoholic hepatitis currently on steroid rx 5. thrush. likely 2 to home steroid rx some improvement w/ topical rx as per px PLAN: GMF Diuretic therapy. Cultures. Levaquin, albumin for possible SBP ruled out by diagnostic and tx paracentesis in AM GI consult. RE ascites, decompensated cirrhosis. DVT prophylaxis, SCDs RE chronic thrombocytopenia. Full code. MTDD
--- NOTE | 2016-08-10 05:44 | EMERGENCY ROOM VISIT NOTE ---
ED Visit Note First contact with patient: 23:12 55 yr old male with alcoholic cirrhosis and known liver failure leading to lower body anasarca and abdominal ascites. Rapidly worsening swelling in legs/ abdomen associated with generalized weakness over the last few days. Initially evaluated by Dr Fine who signed patient out to me awaiting lab/us findings. No findings of dvt on leg ultrasounds. Patient in no distress though is very weak. Lab reveal acute worsening of liver failure with doubling of his Bili, increased INR and low plts. Will bring in to medicine for further work-up and evaluation. Discussed with Dr Zheng.
[2016-08-10] MEDS: ALBUMIN HUMAN 25% 12.5 GM/50 ML VIAL IV SCH ×3 (06:32→16:35)
[2016-08-10 06:37] LABS: MEAN CORPUSCULAR HEMOGLOBIN 36.5 pg (25-34); MEAN CORPUSCULAR HGB CONC 36.5 g/dl (32-36); WHITE BLOOD COUNT 7.27 K/uL (4.8-10.8)
[2016-08-10 07:09] LABS: BUN/CREATININE RATIO 36.8 (10-20); CREATININE 1.1 mg/dl (0.60-1.40); POTASSIUM 4.2 mmol/L (3.5-5.1)
[2016-08-10 07:10] LABS: ACANTHOCYTES 1+; ANISOCYTOSIS PRESENT; COMPLETE YES; ECHINOCYTES 1+; IG% 0.1 %; LYMPH % 9.8 %; LYMPH ABS # 0.71 K/uL (1.2-3.4); MEAN PLATELET VOLUME 11.5 fL (7.4-10.4); MONO % 4.4 %; NEUT % 85.7 %; PLATELET COUNT 31 K/uL (130-400)
[2016-08-10 07:13] LABS: ALB/GLOB RATIO 1.4 (0.9-2)
--- NOTE | 2016-08-10 07:15 | DIAGNOSTIC IMAGING REPORT ---
BILATERAL LOWER EXTREMITY VENOUS DOPPLER HISTORY: Lower extremity edema, swelling COMPARISON STUDY: Venous Doppler 07/06/2016. FINDINGS: There is normal compressibility, flow, and augmentation within the bilateral lower extremity deep venous systems. IMPRESSION: No DVT within the right or left lower extremity. Electronically signed by: Dangelo Morales M.D. 08/10/2016 7:14 AM Dictated Date/Time: 08/10/2016 7:13 AM
[2016-08-10] MEDS: PANTOprazole SOD 40 MG TAB PO SCH (08:44)
[2016-08-10] MEDS: NYSTATIN SUSP 500,000 U/5 ML UDC PO SCH ×4 (08:44→21:30)
[2016-08-10] MEDS: NADOLOL 40 MG TAB PO SCH (08:44)
[2016-08-10] MEDS: MULTIVITAMIN TAB PO SCH (08:44)
[2016-08-10] MEDS: FUROSEMIDE 20 MG TAB PO SCH ×2 (08:44→16:28)
[2016-08-10] MEDS: LACTULOSE SYRUP 30 GM/45 ML UDP PO SCH ×2 (08:45→21:30)
[2016-08-10] MEDS ORDERED: METHYLPREDNISOLONE 16 MG TAB PO SCH (09:00)
--- NOTE | 2016-08-10 10:55 | DIAGNOSTIC IMAGING REPORT ---
PARACENTESIS UNDER ULTRASOUND GUIDANCE CLINICAL HISTORY: Cirrhosis and ascites. PROCEDURE: The risks, benefits, and alternatives to the procedure were discussed with the patient who voiced understanding. Written informed consent was obtained. Following real-time ultrasound localization of a suitable pocket of fluid in the right lower quadrant, the abdomen was prepped and draped in the usual sterile fashion. The skin and soft tissues were anesthetized with 1% lidocaine. The sheathed paracentesis was inserted and approximately 5.1 liters of straw colored ascitic fluid was removed by vacuum suction. A sample was sent for laboratory analysis. The procedure was well tolerated and without immediate complication. The patient left the department in satisfactory condition. IMPRESSION: Successful ultrasound-guided paracentesis with removal of approximately 5.1 liters of ascitic fluid. Electronically signed by: Gary Rodrigues M.D. 08/10/2016 10:54 AM Dictated Date/Time: 08/10/2016 10:53 AM
[2016-08-10 11:57] LABS: PERIT FL WBC 4366 /uL (0-300); PERITONEAL FLUID RBC 8000 /uL
--- NOTE | 2016-08-10 14:07 | Progress Note ---
Internal Med Progress Note Date of Service: Aug 10, 2016. Provider Documentation: SUBJECTIVE: Patient is seen and examined at bedside. " I feel groggy and tired" Patient had paracentesis today. One BM today. Denies any nausea, vomiting, abd pain. Had paracentesis today. OBJECTIVE: Vital Signs-as noted below Physical Exam: General Appearance:Thin, chronically ill appearing, no apparent distress Head: normocephalic, Atraumatic Eyes: normal inspection, EOMI, PERRLA, + icteric Neck: supple, no JVD, Trachea midline Respiratory/Chest: Decreased breath sounds, CTA, No accessory muscle use Cardiovascular: S1, S2, No murmur Abdomen/GI:Soft, Bowel sounds present, distended. Paracentesis site in bandage. Pain Infusion pump palpable. Extremities/Musculoskelatal:normal inspection, 2+ edema Neurologic/Psych:AAOX3, grossly no focal neurological deficits Skin: normal color, warm Lab data as noted below. ASSESSMENT & PLAN: Decompensated Cirrhosis and SBP: H/O HCV and ETOH use Has not been able to see hepatology in [place] to discuss TIPS/liver transplant issues due to recurrent hospitalizations S/P Abdominal paracentesis on 08/10/16 Recurrent hospitalizations secondary to decompensation Ceftriaxone 2g Q8H started 08/10/16 No alcohol use since 6 months Continue Lasix 20mg BID Will consider nephrology consult to assist with diuretics MELD score: 23, FU daily ETOH Hepatitis: bilirubin improved initially with prednisolone and later worsened again. D/C steroids per Dr. 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 CODE STATUS: Full code. Vital Signs: Date Time Temp Pulse Resp B/P Pulse Ox O2 Delivery O2 Flow Rate FiO2 08/10/16 16:00 98 Room Air 08/10/16 15:30 36.6 70 18 116/60 98 Room Air 08/10/16 12:26 36.5 77 16 109/69 96 Room Air 08/10/16 08:36 36.3 61 105/64 08/10/16 08:25 Room Air 08/10/16 08:14 36.3 61 16 108/66 08/10/16 07:53 36.4 82 18 104/51 92 Room Air 08/10/16 06:36 36.7 84 18 95/54 93 Room Air 08/10/16 04:53 36.3 83 16 95/56 91 Room Air 08/10/16 04:18 36.4 93 16 102/58 93 08/10/16 04:06 36.4 93 16 102/62 93 Room Air 08/10/16 03:48 36.4 93 16 102/62 94 Room Air 08/10/16 02:21 36.8 73 110/59 94 08/09/16 22:52 68 16 112/54 97 Room Air 08/09/16 21:43 67 08/09/16 19:34 36.7 73 16 125/70 99 Room Air Lab Results: Results Past 24 Hours Test 08/09/16 21:15 08/09/16 22:28 08/10/16 00:00 08/10/16 01:07 Range/Units Urine Color ORANGE Urine Appearance CLEAR CLEAR Urine pH 4.5-7.5 Urine Specific [place] 1.018 1.000-1.030 Urine Protein NEG Urine Glucose (UA) NEG Urine Ketones NEG Urine Occult Blood NEG Urine Nitrite NEG Urine Bilirubin NEG Urine Urobilinogen NEG Urine Leukocyte Esterase NEG Urine RBC 0-4 0-4 /hpf Urine WBC 1-5 0-5 /hpf Urine Epithelial Cells 10-20 0-5 /lpf Urine Bacteria NEG NEG Urine Hyaline Casts 5-10 0-5 /lpf White Blood Count 11.78 4.8-10.8 K/uL Red Blood Count 2.72 4.7-6.1 M/uL Hemoglobin 9.6 14.0-18.0 g/dL Hematocrit 27.3 42-52 % Mean Corpuscular Volume 100.4 80-100 fL Mean Corpuscular Hemoglobin 35.3 25-34 pg Mean Corpuscular Hemoglobin Concent 35.2 32-36 g/dl Platelet Count 38 130-400 K/uL Neutrophils (%) (Auto) 86.2 % Lymphocytes (%) (Auto) 6.8 % Monocytes (%) (Auto) 6.3 % Eosinophils (%) (Auto) 0.1 % Basophils (%) (Auto) 0.1 % Neutrophils # (Auto) 10.16 1.4-6.5 K/uL Lymphocytes # (Auto) 0.80 1.2-3.4 K/uL Monocytes # (Auto) 0.74 0.11-0.59 K/uL Eosinophils # (Auto) 0.01 0-0.5 K/uL Basophils # (Auto) 0.01 0-0.2 K/uL RDW Standard Deviation 74.8 36.4-46.3 fL RDW Coefficient of Variation 20.4 11.5-14.5 % Immature Granulocyte % (Auto) 0.5 % Immature Granulocyte # (Auto) 0.06 0.00-0.02 K/uL Toxic Vacuolation 1+ Platelet Estimate DECREASED Anisocytosis PRESENT Echinocytes 1+ Prothrombin Time 17.8 9.0-12.0 SECONDS Prothromb Time International Ratio 1.6 0.9-1.1 Activated Partial Thromboplast Time 40.3 21.0-31.0 SECONDS Partial Thromboplastin Ratio 1.5 Sodium Level 135 136-145 mmol/L Potassium Level 4.5 3.5-5.1 mmol/L Chloride Level 95 98-107 mmol/L Carbon Dioxide Level 30 21-32 mmol/L Anion Gap 10.0 3-11 mmol/L Blood Urea Nitrogen 43 7-18 mg/dl Creatinine 1.20 0.60-1.40 mg/dl Est Creatinine Clear Calc Drug Dose 67.6 ml/min Estimated GFR () 79.5 Estimated GFR (Non- 68.6 BUN/Creatinine Ratio 35.5 10-20 Random Glucose 149 70-99 mg/dl Calcium Level 9.5 8.5-10.1 mg/dl Magnesium Level 2.2 1.8-2.4 mg/dl Total Bilirubin 11.9 0.2-1 mg/dl Direct Bilirubin 6.4 0-0.2 mg/dl Aspartate Amino Transf (AST/SGOT) 118 15-37 U/L Alanine Aminotransferase (ALT/SGPT) 90 12-78 U/L Alkaline Phosphatase 85 45-117 U/L Total Creatine Kinase 66 39-308 U/L Troponin I 0.016 0-0.045 ng/ml Total Protein 5.1 6.4-8.2 gm/dl Albumin 2.9 3.4-5.0 gm/dl Thyroid Stimulating Hormone (TSH) 0.497 0.300-4.500 uIu/ml Peritoneal Fluid Color JENNIFER Peritoneal Fluid Appearance CLOUDY Peritoneal Fluid WBC 4366 0-300 /uL Peritoneal Fluid RBC 8000 /uL Peritoneal Fld Mononuclear WBCs (%) 25.6 % Peritoneal Fld Polynuclear WBCs (%) 74.4 % Peritoneal Fluid Total Protein 0.7 g/dl Peritoneal Fluid Albumin < 0.6 g/dl Peritoneal Fluid Glucose 149 mg/dl Ammonia 17.0 11-32 umol/L Test 08/10/16 01:15 08/10/16 06:08 Range/Units Ethyl Alcohol mg/dL < 3.0 0-3 mg/dl White Blood Count 7.27 4.8-10.8 K/uL Red Blood Count 2.30 4.7-6.1 M/uL Hemoglobin 8.4 14.0-18.0 g/dL Hematocrit 23.0 42-52 % Mean Corpuscular Volume 100.0 80-100 fL Mean Corpuscular Hemoglobin 36.5 25-34 pg Mean Corpuscular Hemoglobin Concent 36.5 32-36 g/dl Platelet Count 31 130-400 K/uL Mean Platelet Volume 11.5 7.4-10.4 fL Neutrophils (%) (Auto) 85.7 % Lymphocytes (%) (Auto) 9.8 % Monocytes (%) (Auto) 4.4 % Eosinophils (%) (Auto) 0.0 % Basophils (%) (Auto) 0.0 % Neutrophils # (Auto) 6.23 1.4-6.5 K/uL Lymphocytes # (Auto) 0.71 1.2-3.4 K/uL Monocytes # (Auto) 0.32 0.11-0.59 K/uL Eosinophils # (Auto) 0.00 0-0.5 K/uL Basophils # (Auto) 0.00 0-0.2 K/uL RDW Standard Deviation 75.6 36.4-46.3 fL RDW Coefficient of Variation 20.5 11.5-14.5 % Immature Granulocyte % (Auto) 0.1 % Immature Granulocyte # (Auto) 0.01 0.00-0.02 K/uL Anisocytosis PRESENT Echinocytes 1+ Acanthocytes 1+ Sodium Level 136 136-145 mmol/L Potassium Level 4.2 3.5-5.1 mmol/L Chloride Level 97 98-107 mmol/L Carbon Dioxide Level 33 21-32 mmol/L Anion Gap 6.0 3-11 mmol/L Blood Urea Nitrogen 40 7-18 mg/dl Creatinine 1.10 0.60-1.40 mg/dl Est Creatinine Clear Calc Drug Dose 72.2 ml/min Estimated GFR () 88.4 Estimated GFR (Non- 76.2 BUN/Creatinine Ratio 36.8 10-20 Random Glucose 170 70-99 mg/dl Calcium Level 9.0 8.5-10.1 mg/dl Total Bilirubin 9.6 0.2-1 mg/dl Aspartate Amino Transf (AST/SGOT) 91 15-37 U/L Alanine Aminotransferase (ALT/SGPT) 74 12-78 U/L Alkaline Phosphatase 68 45-117 U/L Total Protein 4.4 6.4-8.2 gm/dl Albumin 2.6 3.4-5.0 gm/dl Globulin 1.8 2.5-4.0 gm/dl Albumin/Globulin Ratio 1.4 0.9-2 Microbiology Results 08/10/16 Blood Culture, Received Pending 08/10/16 Blood Culture, Received Pending 08/09/16 Urine Culture, Received Pending 08/10/16 Gram Stain, Received Pending 08/10/16 Bacterial Culture, Received Pending
--- NOTE | 2016-08-10 17:44 | Gastrointestinal Consultation ---
Gastrointestinal Consultation Date of Consultation: Aug 10, 2016 Attending Physician: Dr. Hu Consulting Physician: Dr. Patrick Reason for Consultation: decompensated cirrhosis History of Present Illness Patient is a 55 year old male with hx of HCV and ETOH use (no ETOH in 6 mos) admitted with decompensated cirrhosis. Pt known to our service from prior admissions. Has has difficulty with recurrent edema and ascites as well as renal insufficiency. Diuretics have been difficulty to manage, aldactone has been stopped due to hyperkalemia. Currently on Lasix 20mg BID. Pt getting weekly paracentesis. Was treated for SBP during 06/2016 admission. Has not been able to see hepatology in [place] to discuss TIPS/liver transplant issues due to recurrent hospitalizations. Pt admitted this admission with worsening edema and progressive weakness and jaundice. States he's following fluid and sodium restrictions. Has been taking all meds as directed. Being treated for alcoholic hepatitis and was started on prednisolone 32mg daily x 28 days (has only been on this one week) now had developed thrush secondary to steroids, on nystatin swish/swallow QID MELD was 16-20 on prior admissions - current MELD is 23, DF is 38 bili rising from 6 to nearly 12 PLT count decreased from 60K to 30K with evidence of scattered petechiae, hgb remains stable Pt denies N/V or abdominal pain, bowels remain at baseline for him has darker urine, denies dysuria Pt seen after paracentesis today, removed 5L - WBC# 4366 with 74% PMN's in peritoneal fluid today consistent with SBP Past Medical/Surgical History Medical Problems: (1) Acute renal failure Status: Acute (2) Calcific tendinitis of left shoulder Status: Acute (3) Cervical radiculopathy Status: Acute (4) Cholecystitis Status: Acute (5) Cirrhosis Status: Acute (6) Dehydration Status: Acute (7) Diffuse abdominal pain Status: Acute (8) Dog bite Status: Acute (9) Edema Status: Acute (10) Epigastric abdominal pain Status: Acute (11) Hematoma Status: Acute (12) Hepatorenal syndrome Status: Acute (13) Hyperbilirubinemia Status: Acute (14) Liver failure Status: Acute (15) Neck pain Status: Acute (16) Pedal edema Status: Acute (17) Tachycardia Status: Acute (18) Tension headache Status: Acute (19) Weakness Status: Acute Past Medical History: ANJEL Ascites Chronic pain syndrome - intrathecal pump Cirrhosis - decompensated, secondary to HCV and remote ETOH use Chronic HCV Past Surgical History: tonsillectomy cervical fusion insertion of intrathecal pump Family History Unobtainable family history due to adoption Social History Smoking Status: Current Every Day Smoker Alcohol Use: none Drug Use: heroin, marijuana, other Marital Status: in relationship Housing Status: lives with significant other Occupation Status: unemployed Allergies Coded Allergies: Morphine (Verified Adverse Reaction, Unknown, INABILITY TO URINATE, ) Current Medications Home Meds and Scripts Medications Dose Route/Sig Max Daily Dose Days Date Category Dose Instructions Proair Respiclick (Albuterol Sulfate) 108 Mcg/Act Aer 2 Puffs INH Q4H PRN 08/09/16 Reported Methylprednisolone 16 Mg Tab 32 Mg PO QAM 08/09/16 Reported Valtrex (Valacyclovir HCl) 500 Mg Tab 500 Mg PO DAILY 08/09/16 Reported Chronulac (Lactulose) 10 Gm/15 Ml Syrp 30 Gm PO BID 08/09/16 Reported Lasix (Furosemide) 20 Mg Tab 20 Mg PO BID 08/09/16 Reported Nystatin Suspension (Nystatin) 1 Ml Susp 5 Ml PO QID 08/09/16 Reported SWISH AND SWALLOW [Dilaudid Pain Pump] 1 Dose INJ UD 07/06/16 Reported Corgard (Nadolol) 20 Mg Tab 20 Mg PO DAILY 07/06/16 Reported Cyclobenzaprine HCl 10 Mg Tab 10 Mg PO DAILY PRN 07/06/16 Reported Percocet 10MG/325MG (Oxycodone/Acetaminophen) Tab 1 Tab PO UD PRN 07/06/16 Reported Dilaudid (Hydromorphone Hcl) 4 Mg Tab 4 Mg PO Q6H PRN 07/06/16 Reported Pantoprazole Sodium (Pantoprazole) 40 Mg Tab 40 Mg PO DAILY 07/06/16 Reported Vitamin C Gummie 120 mg (Ascorbic Acid) 1 Chw Chw 240 Mg PO DAILY 06/30/16 Reported Multivitamin (Multiple Vitamin) 1 Tab Tab 1 Tab PO QAM 03/16/16 Reported Skelaxin (Metaxalone) 800 Mg Tab 800 Mg PO QID 10/14/09 Reported Fentanyl Patch (Fentanyl) 25 Mcg Tdsy 25 Mcg TOP 10/14/09 Reported Lioresal (Baclofen) 10 Mg Tab 10 Mg PO 10/14/09 Reported Percocet 5MG/325MG (Oxycodone/Acetaminophen) Tab 1 Tablet PO Q6HR PRN 10/14/09 Reported PAIN Review of Systems Constitutional: No chills, No fever Eyes: No problem reported ENT: + problem reported (thrush on treatment, improving per pt), No hearing loss Respiratory: No cough, No shortness of breath Cardiac: No chest pain Abdomen: + see HPI, No GI bleeding Musculoskeletal: + problem reported (chronic pain) Male : No dysuria Neuro: No problem reported Psych: No problem reported Heme: No problem reported Endo: No problem reported Skin: + problem reported (scattered petechiae) Physical Exam Date Time Temp Pulse Resp B/P Pulse Ox O2 Delivery O2 Flow Rate FiO2 08/10/16 15:30 36.6 70 18 116/60 98 Room Air 08/10/16 12:26 36.5 77 16 109/69 96 Room Air 08/10/16 08:36 36.3 61 105/64 08/10/16 08:25 Room Air 08/10/16 08:14 36.3 61 16 108/66 08/10/16 07:53 36.4 82 18 104/51 92 Room Air 08/10/16 06:36 36.7 84 18 95/54 93 Room Air 08/10/16 04:53 36.3 83 16 95/56 91 Room Air 08/10/16 04:18 36.4 93 16 102/58 93 08/10/16 04:06 36.4 93 16 102/62 93 Room Air 08/10/16 03:48 36.4 93 16 102/62 94 Room Air 08/10/16 02:21 36.8 73 110/59 94 08/09/16 22:52 68 16 112/54 97 Room Air 08/09/16 21:43 67 08/09/16 19:34 36.7 73 16 125/70 99 Room Air General Appearance: + cachetic (appears jaundiced and chronically ill, NAD), + thin Eyes: + pertinent finding (icteric) ENT: + pertinent finding (no obvious thrush noted on oral mucosa, tongue slightly dry) Neck: supple Respiratory/Chest: lungs clear, normal breath sounds Cardiovascular: regular rate, rhythm Abdomen: normal bowel sounds (intrathecal pump palpated), non tender, soft Extremities: + pedal edema (3+ edema in ankles, 2+ mid calf, 1+ edema below knee bilaterally) Neurologic/Psych: alert, normal mood/affect, oriented x 3 Skin: + jaundice, + pertinent finding (scattered petechiae in LE's) Laboratory Results Last 24 Hours Test 08/09/16 21:15 08/09/16 22:28 08/10/16 00:00 08/10/16 01:07 Urine Color ORANGE Urine Appearance CLEAR Urine pH Urine Specific [place] 1.018 Urine Protein Urine Glucose (UA) Urine Ketones Urine Occult Blood Urine Nitrite Urine Bilirubin Urine Urobilinogen Urine Leukocyte Esterase Urine RBC 0-4 /hpf Urine WBC 1-5 /hpf Urine Epithelial Cells 10-20 /lpf Urine Bacteria NEG Urine Hyaline Casts 5-10 /lpf White Blood Count 11.78 K/uL Red Blood Count 2.72 M/uL Hemoglobin 9.6 g/dL Hematocrit 27.3 % Mean Corpuscular Volume 100.4 fL Mean Corpuscular Hemoglobin 35.3 pg Mean Corpuscular Hemoglobin Concent 35.2 g/dl Platelet Count 38 K/uL Neutrophils (%) (Auto) 86.2 % Lymphocytes (%) (Auto) 6.8 % Monocytes (%) (Auto) 6.3 % Eosinophils (%) (Auto) 0.1 % Basophils (%) (Auto) 0.1 % Neutrophils # (Auto) 10.16 K/uL Lymphocytes # (Auto) 0.80 K/uL Monocytes # (Auto) 0.74 K/uL Eosinophils # (Auto) 0.01 K/uL Basophils # (Auto) 0.01 K/uL RDW Standard Deviation 74.8 fL RDW Coefficient of Variation 20.4 % Immature Granulocyte % (Auto) 0.5 % Immature Granulocyte # (Auto) 0.06 K/uL Toxic Vacuolation 1+ Platelet Estimate DECREASED Anisocytosis PRESENT Echinocytes 1+ Prothrombin Time 17.8 SECONDS Prothromb Time International Ratio 1.6 Activated Partial Thromboplast Time 40.3 SECONDS Partial Thromboplastin Ratio 1.5 Sodium Level 135 mmol/L Potassium Level 4.5 mmol/L Chloride Level 95 mmol/L Carbon Dioxide Level 30 mmol/L Anion Gap 10.0 mmol/L Blood Urea Nitrogen 43 mg/dl Creatinine 1.20 mg/dl Est Creatinine Clear Calc Drug Dose 67.6 ml/min Estimated GFR () 79.5 Estimated GFR (Non- 68.6 BUN/Creatinine Ratio 35.5 Random Glucose 149 mg/dl Calcium Level 9.5 mg/dl Magnesium Level 2.2 mg/dl Total Bilirubin 11.9 mg/dl Direct Bilirubin 6.4 mg/dl Aspartate Amino Transf (AST/SGOT) 118 U/L Alanine Aminotransferase (ALT/SGPT) 90 U/L Alkaline Phosphatase 85 U/L Total Creatine Kinase 66 U/L Troponin I 0.016 ng/ml Total Protein 5.1 gm/dl Albumin 2.9 gm/dl Thyroid Stimulating Hormone (TSH) 0.497 uIu/ml Peritoneal Fluid Color JENNIFER Peritoneal Fluid Appearance CLOUDY Peritoneal Fluid WBC 4366 /uL Peritoneal Fluid RBC 8000 /uL Peritoneal Fld Mononuclear WBCs (%) 25.6 % Peritoneal Fld Polynuclear WBCs (%) 74.4 % Peritoneal Fluid Total Protein 0.7 g/dl Peritoneal Fluid Albumin < 0.6 g/dl Peritoneal Fluid Glucose 149 mg/dl Ammonia 17.0 umol/L Test 08/10/16 01:15 08/10/16 06:08 Ethyl Alcohol mg/dL < 3.0 mg/dl White Blood Count 7.27 K/uL Red Blood Count 2.30 M/uL Hemoglobin 8.4 g/dL Hematocrit 23.0 % Mean Corpuscular Volume 100.0 fL Mean Corpuscular Hemoglobin 36.5 pg Mean Corpuscular Hemoglobin Concent 36.5 g/dl Platelet Count 31 K/uL Mean Platelet Volume 11.5 fL Neutrophils (%) (Auto) 85.7 % Lymphocytes (%) (Auto) 9.8 % Monocytes (%) (Auto) 4.4 % Eosinophils (%) (Auto) 0.0 % Basophils (%) (Auto) 0.0 % Neutrophils # (Auto) 6.23 K/uL Lymphocytes # (Auto) 0.71 K/uL Monocytes # (Auto) 0.32 K/uL Eosinophils # (Auto) 0.00 K/uL Basophils # (Auto) 0.00 K/uL RDW Standard Deviation 75.6 fL RDW Coefficient of Variation 20.5 % Immature Granulocyte % (Auto) 0.1 % Immature Granulocyte # (Auto) 0.01 K/uL Anisocytosis PRESENT Echinocytes 1+ Acanthocytes 1+ Sodium Level 136 mmol/L Potassium Level 4.2 mmol/L Chloride Level 97 mmol/L Carbon Dioxide Level 33 mmol/L Anion Gap 6.0 mmol/L Blood Urea Nitrogen 40 mg/dl Creatinine 1.10 mg/dl Est Creatinine Clear Calc Drug Dose 72.2 ml/min Estimated GFR () 88.4 Estimated GFR (Non- 76.2 BUN/Creatinine Ratio 36.8 Random Glucose 170 mg/dl Calcium Level 9.0 mg/dl Total Bilirubin 9.6 mg/dl Aspartate Amino Transf (AST/SGOT) 91 U/L Alanine Aminotransferase (ALT/SGPT) 74 U/L Alkaline Phosphatase 68 U/L Total Protein 4.4 gm/dl Albumin 2.6 gm/dl Globulin 1.8 gm/dl Albumin/Globulin Ratio 1.4 Impression Patient is a 55 year old male with decompensated cirrhosis, progressive LE edema , ascites with SBP Plan SBP - will d/c Levaquin and add Ceftriaxone 2g q8 hours Continue Lasix 20mg BID, consider nephrology consult as they have assisted with diuretics in past and as an out patient follow daily MELD labs ETOH Hepatitis - discussed his out patient findings with Eugenia Jimenes - bili improved initially with prednisolone, now increased again. Will d/c steroids per Dr. Patrick as this does not appear to be ETOH Hepatitis - pt reports last ETOH over 6 mos ago 1200 cc fluid restriction/ 2g low sodium diet continue lactulose 30g BID continue Nadolol 20mg daily Will follow. ATTESTATION: I have performed a history and physical examination of this patient and reviewed the electronic record. Specifically, on physical examination he is not encephalopathic. In view of his distant history of alcohol intake (summer 2015) , we will discontinue steroids. I have discussed the case with COURTNEY Haro. The above note reflects my findings, conclusions, and recommendations. Sawyer Patrick MD
[2016-08-10] MEDS: CEFTRIAXONE SOD INJ 2,000 MG in DEXTROSE 5% 50ML 50 ML IV SCH (20:02)
[2016-08-10] MEDS: HYDROmorphone INJ 1 MG/ML SYR IV PRN (20:14)
[2016-08-11] VITALS (11 sets, daily range): BP systolic 103–134; BP diastolic 60–94; PULSE 61–80; TEMP 36.3–36.8; O2SAT 92–97
[2016-08-11] MEDS: ALBUMIN HUMAN 25% 12.5 GM/50 ML VIAL IV SCH ×4 (00:24→17:33)
[2016-08-11] MEDS: HYDROmorphone INJ 1 MG/ML SYR IV PRN ×2 (06:06→17:23)
[2016-08-11 06:59] LABS: HEMATOCRIT 24.9 % (42-52); MEAN CORPUSCULAR HEMOGLOBIN 35.3 pg (25-34); MEAN CORPUSCULAR HGB CONC 35.3 g/dl (32-36); MEAN PLATELET VOLUME 11.6 fL (7.4-10.4); PLATELET COUNT 59 K/uL (130-400); RED BLOOD COUNT 2.49 M/uL (4.7-6.1)
[2016-08-11 07:24] LABS: ACANTHOCYTES 2+; ANISOCYTOSIS PRESENT; COMPLETE YES; IG% 0.3 %; LYMPH % 5.8 %; LYMPH ABS # 0.64 K/uL (1.2-3.4); MONO % 5.8 %; NEUT % 88.1 %; TARGET CELLS 1+
[2016-08-11] MEDS: LACTULOSE SYRUP 30 GM/45 ML UDP PO SCH ×2 (07:34→21:08)
[2016-08-11] MEDS: MULTIVITAMIN TAB PO SCH (07:34)
[2016-08-11] MEDS: NADOLOL 40 MG TAB PO SCH (07:34)
[2016-08-11] MEDS: NICOTINE 14 MG/24 HR TDSY TD SCH (07:34)
[2016-08-11] MEDS: FUROSEMIDE 20 MG TAB PO SCH ×2 (07:34→17:22)
[2016-08-11] MEDS: PANTOprazole SOD 40 MG TAB PO SCH (07:34)
[2016-08-11] MEDS: NYSTATIN SUSP 500,000 U/5 ML UDC PO SCH ×4 (07:34→21:08)
[2016-08-11 07:35] LABS: ALB/GLOB RATIO 1.7 (0.9-2); BUN/CREATININE RATIO 35.2 (10-20); CALCIUM 9.8 mg/dl (8.5-10.1); CREATININE 1.1 mg/dl (0.60-1.40); POTASSIUM 4.5 mmol/L (3.5-5.1)
--- NOTE | 2016-08-11 08:18 | Clinical Documentation Query ---
CLINICAL DOCUMENTATION QUERY Dr. SALCEDO, In your clinical opinion is this patient being managed for: ( x ) Severe protein-calorie malnutrition ( ) Other explanation of clinical findings (Please Explain) ( ) Unable to determine (Please Define) ( ) Need to Discuss ( ) Not Agree The medical record reflects the following clinical findings, treatment, and risk factors. Clinical Indicators: 55 yo male presented with worsening weakness. Described as thin, cachectic. Wt loss of 10.5% (7.7 kg) over a 4 month period. Noted by filling operator that pt consumes only 50 % of his meals. Pt noted to have ascites and significant LE edema. Treatment: dietary consult, daily wts, I/O, snacks bid between meals Risk Factors: hepatitis C, alcoholic cirrhosis, hx of hepatorenal syndrome Chronic Severe Malnutrition Criteria: (2 criteria needed) Energy intake: <75% of estimated energy requirement for > 1 month Wt loss: >5% in 1 month, > 7.5% in 3 months, >10% in 6 months, >20% in 1 year Body fat: severe loss of SQ fat from the orbits, triceps or fat overlying the ribs Muscle mass: severe muscle wasting at the temples, clavicles, shoulders, interosseous spaces, scapula, thigh, calf Fluid accumulation: severe localized or generalized edema of the extremities, vulva, scrotum-wt loss may be masked by edema Please clarify and document your clinical opinion in the progress notes and discharge summary. Terms such as "probable", "suspected", "likely", "questionable", "possible", or "still to be ruled out" are acceptable. IF IN AGREEMENT, YOU MUST DOCUMENT ABOVE DIAGNOSTIC STATEMENT IN DAILY PROGRESS NOTES AND DISCHARGE SUMMARY. This document is not part of the patient's record. Thank You, Arlene Vieira, RN [phone]
[2016-08-11] MEDS ORDERED: LEVOFLOXACIN 750 MG TAB PO SCH (11:00)
--- NOTE | 2016-08-11 11:51 | NEPHROLOGY CONSULTATION ---
DATE OF CONSULTATION: 08/11/2016 DATE OF CONSULTATION: 08/11/2016. ATTENDING OF RECORD: Dr. Hu. REASON FOR CONSULTATION: Cirrhosis with volume overload, help in diuretic management. HISTORY OF PRESENT ILLNESS: This is a 55-year-old male who I saw in the office on July 26 as followup to his frequent hospitalizations. The patient was in the hospital from June 30 to July 03 and then again from July 06 to seen by both myself and my partner, Dr. Sarah Grajeda for ANJEL and hyponatremia as well as volume overload in the setting of alcohol/hepatitis C virus with prior IV drug use with underlying liver cirrhosis. The patient did have a creatinine of 1.6 at time of admission and discharged at 0.9. Did have hyponatremia with sodium levels 120s and improved to 131 at discharge and did have a paracentesis during that hospitalization. Creatinine was once again 2.2 and sodium level 126 at the second admission and patient was taking Lasix 20 mg p.o. b.i.d. and spironolactone 50 mg a day upon discharge after the second admission on 07/10/2016. The patient's sodium levels had remained stable in June; however on 07/21/2016 the patient's potassium was up to 5.7. Sodium level 130 and the patient's spironolactone was stopped. We reviewed high potassium foods to avoid. The patient was expressing his frustrations with the multiple admissions and admittedly getting depressed. The patient's weights was down to 149 pounds on 07/26/2016 when I saw the patient with creatinine of 1. The plan was to eventually restart the spironolactone once the potassium levels improved through dietary modifications. The patient's potassium was 4.9 with a creatinine of 1.1 on August 05 and patient did have abdominal paracentesis on August 02 as well as one on July 22 as well. The patient was brought in with worsening cirrhosis with difficulty with recurrent edema and ascites and spironolactone continued to be held secondary to hyperkalemia and is on Lasix 20 mg p.o. b.i.d. and getting weekly paracenteses. They were trying to get an appointment with hepatology in [place] to discuss possible TIPS liver transplant, but difficult with recurrent hospitalizations. The patient presented this time with worsening edema, progressive weakness and jaundice and is on fluid and sodium restrictions as well as avoiding high potassium foods. He is being treated for alcoholic hepatitis and was started on prednisolone 32 mg x28 days, has been on it for about a week. Also has developed thrush and is on Nystatin. Bili is elevated. The platelet count is dropping, notices dark urine. The patient underwent a paracentesis yesterday and removed 5 liters and peritoneal fluid was consistent with SBP. The patient is still on Lasix 20 mg twice a day and started on ceftriaxone 2 grams IV daily and albumin 12.5 grams IV q. 6. The patient complaining of left leg swelling and just generalized weakness with failure to thrive. REVIEW OF SYSTEMS: Positive jaundice. Positive lower extremity swelling. No significant diarrhea. Positive fatigue. Positive decreased appetite with no taste to foods. No nausea or vomiting, no chest pain, no shortness of breath. No rash. All other review of systems otherwise negative. PAST MEDICAL HISTORY: Alcoholic/hepatitis C virus, cirrhosis, chronic pain. PAST SURGICAL HISTORY: Tonsillectomy, insertion of intrathecal pump, C-spine fusion. FAMILY HISTORY: The patient is adopted. SOCIAL HISTORY: Smokes everyday. No alcohol and uses drugs, heroin and marijuana in the past. Lives with family. HOME MEDICATIONS: Nicoderm patch daily, ceftriaxone 2 grams daily, lactulose 30 grams p.o. b.i.d., multivitamin daily, nadolol 20 mg daily, Protonix 40 mg daily, Lasix 20 mg p.o. b.i.d., albumin 12.5 grams IV q. 6 hours. PHYSICAL EXAMINATION: VITAL SIGNS: Temperature 36.3, pulse 61, respiratory rate 16, blood pressure 116/71, satting 96% on room air. GENERAL: Awake, alert, oriented x3. Cachectic with failure to thrive. EYES: Eyes positive scleral icterus. EARS, NOSE, THROAT: Moist mucous membranes. NECK: Supple. PULMONARY: Clear to auscultation. CARDIAC: Regular rate and rhythm. ABDOMEN: Mildly distended with recent paracentesis yesterday. EXTREMITIES: Left leg with +2 edema. Neurologically, he does have some asterixis, but is alert. DERMATOLOGIC: Positive jaundice. No rash or ulcers. LABORATORY DATA: White count is 11, H\T\H 8.8 and 24.9, platelet count is 59. Sodium level 139, potassium 4.5, chloride is 98, bicarbonate is 35, BUN is 39, creatinine is 1.1, glucose is 122, calcium is 9.8. T-bili is down to 7.1 from 11.9 on the 13. AST trending down to 81 compared 118, ALT is down to 68 from 90, albumin is up to 3.2. TSH 0.497. INR is 1.6. Ethyl alcohol is negative. UA with specific gravity 1.018. WBCs 1-5, RBCs 0-4. Blood cultures negative. Chest x-ray shows emphysematous changes with no acute cardiopulmonary findings. Venous Doppler showed no DVT in either extremity. IMPRESSION: Volume overload, difficult to manage given patient's hyperkalemia upon second discharge resulting in us holding the spironolactone now having weekly paracenteses with difficult volume control issues. Only on Lasix 20 mg p.o. b.i.d. Given the fact that the patient's potassium levels have improved over the past several weeks feel comfortable restarting the spironolactone and titrating up the Lasix and spironolactone as tolerated to help try to minimize the volume overload issues. Has developed hyponatremia and ANJEL with hyperkalemia in the past. Currently on albumin and started on ceftriaxone for underlying SBP with liver enzymes improving. For now, start spironolactone 25 mg a day in addition to Lasix 20 b.i.d. and titrate up accordingly to help control the edema which is mostly in his abdomen requiring intermittent paracenteses as well as lower extremities. Lungs are clear to auscultation. Appreciate consultation.
--- NOTE | 2016-08-11 12:26 | Gastroenterology Progress Note ---
Progress Note Date of Service: Aug 11, 2016 Subjective Pt evaluation today including: conversation w/ patient, physical exam, chart review, lab review, review of studies Review of Systems Constitutional: + fatigue, + weakness, No fever Eyes: No problem reported ENT: + problem reported (thrush seems to be improving) Respiratory: No cough, No shortness of breath Cardiac: No chest pain Abdomen: + see HPI Musculoskeletal: + problem reported (chronic pain syndrome) Male : No dysuria Skin: + new/changing skin lesions (scattered petechiae in lower extremities) Medications Current Inpatient Medications Medications (Trade) Dose Ordered Sig/Perla Route Start Time Stop Time Status Last Admin Dose Admin Furosemide (Lasix Tab) 20 mg BIDM PO 08/10/16 08:00 09/09/16 07:59 08/11/16 07:34 20 MG Hydromorphone HCl (Dilaudid Tab) 4 mg Q6H PRN PO 08/10/16 01:15 08/24/16 01:14 Lactulose (Chronulac Syrup) 30 gm BID PO 08/10/16 09:00 09/09/16 08:59 08/11/16 07:34 30 GM Multivitamins (Multivitamin Tab) 1 tab QAM PO 08/10/16 09:00 09/09/16 08:59 08/11/16 07:34 1 TAB Nadolol (Corgard Tab) 20 mg DAILY PO 08/10/16 09:00 09/09/16 08:59 08/11/16 07:34 20 MG Nystatin (Mycostatin Susp) 5 ml QID PO 08/10/16 09:00 08/20/16 08:59 08/11/16 07:34 5 ML Pantoprazole Sodium (Protonix Tab) 40 mg DAILY PO 08/10/16 09:00 09/09/16 08:59 08/11/16 07:34 40 MG Albuterol/ Ipratropium (Duoneb) 3 ml Q2H PRN INH 08/10/16 01:15 09/09/16 01:14 Nicotine (Nicoderm Cq 14MG Patch) 1 patch QAM TD 08/11/16 09:00 09/10/16 08:59 08/11/16 07:34 1 PATCH Miscellaneous (Remove Nicoderm Patch) 1 ea HS N/A 08/10/16 21:00 3/16/17 20:59 Acetaminophen (Tylenol Tab) 325 mg Q6H PRN PO 08/10/16 01:15 09/09/16 01:14 Oxycodone HCl (Roxicodone Immediate Rel Tab) 5 mg Q6H PRN PO 08/10/16 01:15 08/24/16 01:14 Hydromorphone HCl (Dilaudid Inj) 0.5 mg Q6H PRN IV 08/10/16 01:15 08/24/16 01:14 08/11/16 06:06 0.5 MG Ondansetron HCl (Zofran Inj) 4 mg Q6H PRN IV 08/10/16 01:15 09/09/16 01:14 Albumin Human 12.5 gm 12.5 gm Q6H IV 08/10/16 06:00 08/13/16 05:59 08/11/16 05:39 12.5 GM Ceftriaxone Sodium/Dextrose (Rocephin Inj/D5 50ml) 70 ml @ 100 mls/hr Q24H IV 08/10/16 18:00 08/20/16 17:59 08/10/16 20:02 100 MLS/HR Spironolactone (Aldactone Tab) 25 mg QAM PO 08/11/16 10:45 09/10/16 10:44 Objective Vital Signs Date Time Temp Pulse Resp B/P Pulse Ox O2 Delivery O2 Flow Rate FiO2 08/11/16 08:00 Room Air 08/11/16 07:31 36.3 61 16 116/71 96 Room Air 08/11/16 05:35 36.4 72 16 125/79 96 Room Air 08/11/16 01:44 36.4 79 16 103/94 96 Room Air 08/11/16 00:20 36.4 78 16 115/60 93 Room Air 08/11/16 00:00 Room Air 08/10/16 23:53 36.5 77 20 96/46 99 Room Air 08/10/16 20:00 Room Air 08/10/16 16:00 98 Room Air 08/10/16 15:30 36.6 70 18 116/60 98 Room Air 08/10/16 12:26 36.5 77 16 109/69 96 Room Air Physical Exam General Appearance: no apparent distress, + cachetic, + thin Eyes: PERRL ENT: hearing grossly normal Neck: supple Respiratory/Chest: lungs clear, normal breath sounds, no respiratory distress Cardiovascular: regular rate, rhythm Abdomen: normal bowel sounds, non tender, soft Extremities: + pedal edema (edema 2+ in LLE > than right, seems somewhat improved from yesterday's exam) Neurologic/Psych: alert, normal mood/affect, oriented x 3 Skin: + jaundice Laboratory Results Last 24 Hours Test 08/11/16 06:05 White Blood Count 11.00 K/uL Red Blood Count 2.49 M/uL Hemoglobin 8.8 g/dL Hematocrit 24.9 % Mean Corpuscular Volume 100.0 fL Mean Corpuscular Hemoglobin 35.3 pg Mean Corpuscular Hemoglobin Concent 35.3 g/dl Platelet Count 59 K/uL Mean Platelet Volume 11.6 fL Neutrophils (%) (Auto) 88.1 % Lymphocytes (%) (Auto) 5.8 % Monocytes (%) (Auto) 5.8 % Eosinophils (%) (Auto) 0.0 % Basophils (%) (Auto) 0.0 % Neutrophils # (Auto) 9.69 K/uL Lymphocytes # (Auto) 0.64 K/uL Monocytes # (Auto) 0.64 K/uL Eosinophils # (Auto) 0.00 K/uL Basophils # (Auto) 0.00 K/uL RDW Standard Deviation 75.5 fL RDW Coefficient of Variation 20.3 % Immature Granulocyte % (Auto) 0.3 % Immature Granulocyte # (Auto) 0.03 K/uL Anisocytosis PRESENT Target Cells 1+ Acanthocytes 2+ Sodium Level 139 mmol/L Potassium Level 4.5 mmol/L Chloride Level 98 mmol/L Carbon Dioxide Level 35 mmol/L Anion Gap 6.0 mmol/L Blood Urea Nitrogen 39 mg/dl Creatinine 1.10 mg/dl Est Creatinine Clear Calc Drug Dose 72.2 ml/min Estimated GFR () 88.4 Estimated GFR (Non- 76.2 BUN/Creatinine Ratio 35.2 Random Glucose 122 mg/dl Calcium Level 9.8 mg/dl Total Bilirubin 7.1 mg/dl Aspartate Amino Transf (AST/SGOT) 81 U/L Alanine Aminotransferase (ALT/SGPT) 68 U/L Alkaline Phosphatase 74 U/L Total Protein 5.1 gm/dl Albumin 3.2 gm/dl Globulin 1.9 gm/dl Albumin/Globulin Ratio 1.7 Assessment and Plan decompensated cirrhosis secondary to HCV and ETOH - LFT's and bilirubin improving SBP - continue Rocephin 2g daily Ascites - paracentesis PRN Edema - appreciate nephrology consult. Aldactone 25mg daily being added to Lasix 20mg BID Steroids discontinued for ETOH hepatitis will need close out patient follow up Thrush - improving, continue nystatin fluid/Na+/K restricted diet ATTESTATION: I have performed a history and physical examination of this patient and reviewed the electronic record. Specifically, on physical examination abdomen is nontender. I have discussed the case with Daisha Hernandez PA-C. The above note reflects my findings, conclusions, and recommendations. Sawyer Patrick MD
[2016-08-11] MEDS: SPIRONOLACTONE 25 MG TAB PO SCH (12:42)
--- NOTE | 2016-08-11 18:30 | Progress Note ---
Internal Med Progress Note Date of Service: Aug 11, 2016. Provider Documentation: SUBJECTIVE: Patient is seen and examined at bedside. States not having a BM yet today. Reports having some abdominal discomfort. Denies any nausea, vomiting. OBJECTIVE: Vital Signs-as noted below Physical Exam: General Appearance:Thin, chronically ill appearing, no apparent distress Head: normocephalic, Atraumatic Eyes: normal inspection, EOMI, PERRLA, + icteric Neck: supple, no JVD, Trachea midline Respiratory/Chest: Decreased breath sounds, CTA, No accessory muscle use Cardiovascular: S1, S2, No murmur Abdomen/GI:Soft, Bowel sounds present, distended. Paracentesis site in bandage. Pain Infusion pump palpable. Extremities/Musculoskelatal:normal inspection, 2+ edema Neurologic/Psych:AAOX3, grossly no focal neurological deficits Skin: normal color, warm Lab data as noted below. ASSESSMENT & PLAN: Decompensated Cirrhosis and SBP: H/O HCV and ETOH use Volume Overload Has not been able to see hepatology in [place] to discuss TIPS/liver transplant issues due to recurrent hospitalizations S/P Abdominal paracentesis on 08/10/16 Recurrent hospitalizations secondary to decompensation Ceftriaxone 2g Q8H started 08/10/16 No alcohol use since 6 months: ETOH levels:Negative Continue Lasix 20mg BID, Spironolactone 25mg Daily per Nephrology recommendations Appreciate nephrology input MELD score: 23, FU daily ETOH Hepatitis: bilirubin improved initially with prednisolone and later worsened again. D/C steroids per Dr. 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 CODE STATUS: Full code. Vital Signs: Date Time Temp Pulse Resp B/P Pulse Ox O2 Delivery O2 Flow Rate FiO2 08/11/16 18:15 36.7 74 16 115/74 96 Room Air 08/11/16 17:38 36.8 66 16 121/81 97 Room Air 08/11/16 17:10 80 134/81 08/11/16 15:32 36.4 74 18 109/72 95 Room Air 08/11/16 13:30 36.4 77 16 115/68 95 Room Air 08/11/16 12:28 36.4 75 18 121/74 92 Room Air 08/11/16 08:00 Room Air 08/11/16 07:31 36.3 61 16 116/71 96 Room Air 08/11/16 05:35 36.4 72 16 125/79 96 Room Air 08/11/16 01:44 36.4 79 16 103/94 96 Room Air 08/11/16 00:20 36.4 78 16 115/60 93 Room Air 08/11/16 00:00 Room Air 08/10/16 23:53 36.5 77 20 96/46 99 Room Air 08/10/16 20:00 Room Air Lab Results: Results Past 24 Hours Test 08/11/16 06:05 Range/Units White Blood Count 11.00 4.8-10.8 K/uL Red Blood Count 2.49 4.7-6.1 M/uL Hemoglobin 8.8 14.0-18.0 g/dL Hematocrit 24.9 42-52 % Mean Corpuscular Volume 100.0 80-100 fL Mean Corpuscular Hemoglobin 35.3 25-34 pg Mean Corpuscular Hemoglobin Concent 35.3 32-36 g/dl Platelet Count 59 130-400 K/uL Mean Platelet Volume 11.6 7.4-10.4 fL Neutrophils (%) (Auto) 88.1 % Lymphocytes (%) (Auto) 5.8 % Monocytes (%) (Auto) 5.8 % Eosinophils (%) (Auto) 0.0 % Basophils (%) (Auto) 0.0 % Neutrophils # (Auto) 9.69 1.4-6.5 K/uL Lymphocytes # (Auto) 0.64 1.2-3.4 K/uL Monocytes # (Auto) 0.64 0.11-0.59 K/uL Eosinophils # (Auto) 0.00 0-0.5 K/uL Basophils # (Auto) 0.00 0-0.2 K/uL RDW Standard Deviation 75.5 36.4-46.3 fL RDW Coefficient of Variation 20.3 11.5-14.5 % Immature Granulocyte % (Auto) 0.3 % Immature Granulocyte # (Auto) 0.03 0.00-0.02 K/uL Anisocytosis PRESENT Target Cells 1+ Acanthocytes 2+ Sodium Level 139 136-145 mmol/L Potassium Level 4.5 3.5-5.1 mmol/L Chloride Level 98 98-107 mmol/L Carbon Dioxide Level 35 21-32 mmol/L Anion Gap 6.0 3-11 mmol/L Blood Urea Nitrogen 39 7-18 mg/dl Creatinine 1.10 0.60-1.40 mg/dl Est Creatinine Clear Calc Drug Dose 72.2 ml/min Estimated GFR () 88.4 Estimated GFR (Non- 76.2 BUN/Creatinine Ratio 35.2 10-20 Random Glucose 122 70-99 mg/dl Calcium Level 9.8 8.5-10.1 mg/dl Total Bilirubin 7.1 0.2-1 mg/dl Aspartate Amino Transf (AST/SGOT) 81 15-37 U/L Alanine Aminotransferase (ALT/SGPT) 68 12-78 U/L Alkaline Phosphatase 74 45-117 U/L Total Protein 5.1 6.4-8.2 gm/dl Albumin 3.2 3.4-5.0 gm/dl Globulin 1.9 2.5-4.0 gm/dl Albumin/Globulin Ratio 1.7 0.9-2
[2016-08-11] MEDS: CEFTRIAXONE SOD INJ 2,000 MG in DEXTROSE 5% 50ML 50 ML IV SCH (19:08)
[2016-08-12] VITALS (10 sets, daily range): BP systolic 100–131; BP diastolic 59–84; PULSE 69–82; TEMP 36.5–36.9; O2SAT 93–98
[2016-08-12] MEDS: ALBUMIN HUMAN 25% 12.5 GM/50 ML VIAL IV SCH ×4 (00:26→17:21)
[2016-08-12 07:12] LABS: BUN/CREATININE RATIO 31.1 (10-20); CALCIUM 9.4 mg/dl (8.5-10.1); CREATININE 1.1 mg/dl (0.60-1.40)
[2016-08-12 07:15] LABS: ALB/GLOB RATIO 1.8 (0.9-2)
[2016-08-12] MEDS: FUROSEMIDE 20 MG TAB PO SCH ×2 (08:11→20:13)
[2016-08-12] MEDS: NADOLOL 40 MG TAB PO SCH (08:11)
[2016-08-12] MEDS: SPIRONOLACTONE 25 MG TAB PO SCH (08:11)
[2016-08-12] MEDS: LACTULOSE SYRUP 30 GM/45 ML UDP PO SCH ×2 (08:11→20:12)
[2016-08-12] MEDS: MULTIVITAMIN TAB PO SCH (08:12)
[2016-08-12] MEDS: NICOTINE 14 MG/24 HR TDSY TD SCH (08:12)
[2016-08-12] MEDS: NYSTATIN SUSP 500,000 U/5 ML UDC PO SCH ×4 (08:12→20:13)
[2016-08-12] MEDS: PANTOprazole SOD 40 MG TAB PO SCH (08:12)
[2016-08-12] MEDS: HYDROmorphone INJ 1 MG/ML SYR IV PRN ×2 (08:59→20:19)
--- NOTE | 2016-08-12 12:27 | Gastroenterology Progress Note ---
Progress Note Date of Service: Aug 12, 2016 Subjective Pt evaluation today including: conversation w/ patient, physical exam, chart review, lab review Mr. Bailon was seen and examined this morning. He was ambulating the halls and reports that he is feeling ok, but still weak. He reports a good appetite and that his mouth is feeling much better. He has no GI complaints today. Review of Systems Constitutional: No chills, No fever Respiratory: No cough, No shortness of breath Cardiac: + edema, No chest pain Abdomen: No GI bleeding, No constipation, No diarrhea, No nausea, No pain, No vomiting Medications Current Inpatient Medications Medications (Trade) Dose Ordered Sig/Perla Route Start Time Stop Time Status Last Admin Dose Admin Furosemide (Lasix Tab) 20 mg BIDM PO 08/10/16 08:00 09/09/16 07:59 08/12/16 08:11 20 MG Hydromorphone HCl (Dilaudid Tab) 4 mg Q6H PRN PO 08/10/16 01:15 08/24/16 01:14 Lactulose (Chronulac Syrup) 30 gm BID PO 08/10/16 09:00 09/09/16 08:59 08/12/16 08:11 30 GM Multivitamins (Multivitamin Tab) 1 tab QAM PO 08/10/16 09:00 09/09/16 08:59 08/12/16 08:12 1 TAB Nadolol (Corgard Tab) 20 mg DAILY PO 08/10/16 09:00 09/09/16 08:59 08/12/16 08:11 20 MG Nystatin (Mycostatin Susp) 5 ml QID PO 08/10/16 09:00 08/20/16 08:59 08/12/16 11:33 5 ML Pantoprazole Sodium (Protonix Tab) 40 mg DAILY PO 08/10/16 09:00 09/09/16 08:59 08/12/16 08:12 40 MG Albuterol/ Ipratropium (Duoneb) 3 ml Q2H PRN INH 08/10/16 01:15 09/09/16 01:14 Nicotine (Nicoderm Cq 14MG Patch) 1 patch QAM TD 08/11/16 09:00 09/10/16 08:59 08/12/16 08:12 1 PATCH Miscellaneous (Remove Nicoderm Patch) 1 ea HS N/A 08/10/16 21:00 09/09/16 20:59 Acetaminophen (Tylenol Tab) 325 mg Q6H PRN PO 08/10/16 01:15 09/09/16 01:14 Oxycodone HCl (Roxicodone Immediate Rel Tab) 5 mg Q6H PRN PO 08/10/16 01:15 08/24/16 01:14 Hydromorphone HCl (Dilaudid Inj) 0.5 mg Q6H PRN IV 08/10/16 01:15 08/24/16 01:14 08/12/16 08:59 0.5 MG Ondansetron HCl (Zofran Inj) 4 mg Q6H PRN IV 08/10/16 01:15 09/09/16 01:14 Albumin Human 12.5 gm 12.5 gm Q6H IV 08/10/16 06:00 08/13/16 05:59 08/12/16 11:33 12.5 GM Ceftriaxone Sodium/Dextrose (Rocephin Inj/D5 50ml) 70 ml @ 100 mls/hr Q24H IV 08/10/16 18:00 08/20/16 17:59 08/11/16 19:08 100 MLS/HR Spironolactone (Aldactone Tab) 25 mg QAM PO 08/11/16 10:45 09/10/16 10:44 08/12/16 08:11 25 MG Docusate Sodium (coLACE CAP) 100 mg BID PRN PO 08/11/16 18:00 09/10/16 17:59 Objective Vital Signs Date Time Temp Pulse Resp B/P Pulse Ox O2 Delivery O2 Flow Rate FiO2 08/12/16 11:45 36.6 73 18 131/81 98 Room Air 08/12/16 11:32 36.8 77 18 128/84 96 Room Air 08/12/16 08:00 Room Air 08/12/16 07:48 36.8 76 18 115/75 93 Room Air 08/12/16 07:10 36.7 71 20 123/72 95 Room Air 08/12/16 06:08 36.5 69 16 100/59 94 Room Air 08/12/16 00:11 36.8 70 20 108/64 96 Room Air 08/12/16 00:00 Room Air 08/11/16 18:15 36.7 74 16 115/74 96 Room Air 08/11/16 17:38 36.8 66 16 121/81 97 Room Air 08/11/16 17:10 80 134/81 08/11/16 16:00 95 Room Air 08/11/16 15:32 36.4 74 18 109/72 95 Room Air 08/11/16 13:30 36.4 77 16 115/68 95 Room Air 08/11/16 12:28 36.4 75 18 121/74 92 Room Air Physical Exam General Appearance: no apparent distress Eyes: PERRL Neck: supple, trachea midline Respiratory/Chest: chest non-tender, lungs clear, normal breath sounds, no respiratory distress, no accessory muscle use Cardiovascular: regular rate, rhythm, no gallop, no JVD, no murmur Abdomen: normal bowel sounds, non tender, soft, no organomegaly, no pulsatile mass Extremities: + pedal edema, + swelling, + pertinent finding (pedal edema L>R. left lower extremity 2+ pitting from foot to ankle, non pitting edema present on left leg up to mid-[place]) Neurologic/Psych: alert, normal mood/affect, oriented x 3 Skin: warm/dry, no rash, + jaundice Laboratory Results Last 24 Hours Test 08/12/16 05:56 Sodium Level 139 mmol/L Potassium Level 4.0 mmol/L Chloride Level 100 mmol/L Carbon Dioxide Level 32 mmol/L Anion Gap 7.0 mmol/L Blood Urea Nitrogen 34 mg/dl Creatinine 1.10 mg/dl Est Creatinine Clear Calc Drug Dose 68.5 ml/min Estimated GFR () 88.4 Estimated GFR (Non- 76.2 BUN/Creatinine Ratio 31.1 Random Glucose 111 mg/dl Calcium Level 9.4 mg/dl Total Bilirubin 6.0 mg/dl Aspartate Amino Transf (AST/SGOT) 146 U/L Alanine Aminotransferase (ALT/SGPT) 92 U/L Alkaline Phosphatase 85 U/L Total Protein 5.1 gm/dl Albumin 3.3 gm/dl Globulin 1.8 gm/dl Albumin/Globulin Ratio 1.8 Assessment and Plan Mr. Bailon is a 55 year old male with decompensated cirrhosis secondary to HCV and ETOH (LFT's and bilirubin improving) with SBP. He reports that he is starting to feel a little better and that his legs hurt less now that some of the fluid is off. He is able to ambulate with less pain. He reports again that he is very frustrated that we cannot get his diuretics at an appropriate dose will maintaining kidney function and appropriate fluid status. He is agreeable to start preventative SBP therapy with daily ABX if needed as an outpatient. He is agreeable to follow in the GI office weekly with weekly labs - very concerned about his IV access as he has poor venous access. Consult for surgery was placed as an outpatient - will discuss with Dr. Patrick if it is appropriate to do this while he is admitted. SBP - continue Rocephin 2g daily - will discuss need for preventative therapy with daily cipro 500 mg Aldactone 25mg - watch K and titrate this dose up as tolerated Lasix 20mg BID Steroids discontinued Thrush - improving, continue nystatin fluid/Na+/K restricted diet continue lactulose - can increase to 30 gm TID if patient will take ATTESTATION: I have performed a history and physical examination of this patient and reviewed the electronic record. Specifically, on physical examination there is no abdominal tenderness. I have discussed the case with LONI Mruphy. The above note reflects my findings, conclusions, and recommendations. Sawyer Patrick MD
--- NOTE | 2016-08-12 16:04 | Nephrology Progress Note ---
Nephrology Progress Note Date of Service: Aug 12, 2016. Subjective 55 yo male with cirrhosis with weekly paracentesis and has worsening edema in legs. restarted spironolactone yesterday. k and creatinine are stable today. pt complaining of edema in legs. pt with level of anxiety and found pacing through hallways. pt wants to get better. Objective Date Time Temp Pulse Resp B/P Pulse Ox O2 Delivery O2 Flow Rate FiO2 08/12/16 12:37 36.7 82 18 120/83 95 Room Air 08/12/16 11:45 36.6 73 18 131/81 98 Room Air 08/12/16 11:32 36.8 77 18 128/84 96 Room Air 08/12/16 08:00 Room Air 08/12/16 07:48 36.8 76 18 115/75 93 Room Air 08/12/16 07:10 36.7 71 20 123/72 95 Room Air 08/12/16 06:08 36.5 69 16 100/59 94 Room Air 08/12/16 00:11 36.8 70 20 108/64 96 Room Air 08/12/16 00:00 Room Air 08/11/16 18:15 36.7 74 16 115/74 96 Room Air 08/11/16 17:38 36.8 66 16 121/81 97 Room Air 08/11/16 17:10 80 134/81 Physical Exam: General-aaox3 Eyes-+scleral icterus ENT-mmm Neck-supple Lungs-cta Heart-rrr Abdomen-bs+/+distention Extremities-+2 edema left>right Neuro-nonfocal Current Inpatient Medications Medications (Trade) Dose Ordered Sig/Perla Route Start Time Stop Time Status Last Admin Dose Admin Furosemide (Lasix Tab) 20 mg BIDM PO 08/10/16 08:00 09/09/16 07:59 08/12/16 08:11 20 MG Hydromorphone HCl (Dilaudid Tab) 4 mg Q6H PRN PO 08/10/16 01:15 08/24/16 01:14 Lactulose (Chronulac Syrup) 30 gm BID PO 08/10/16 09:00 09/09/16 08:59 08/12/16 08:11 30 GM Multivitamins (Multivitamin Tab) 1 tab QAM PO 08/10/16 09:00 09/09/16 08:59 08/12/16 08:12 1 TAB Nadolol (Corgard Tab) 20 mg DAILY PO 08/10/16 09:00 09/09/16 08:59 08/12/16 08:11 20 MG Nystatin (Mycostatin Susp) 5 ml QID PO 08/10/16 09:00 08/20/16 08:59 08/12/16 11:33 5 ML Pantoprazole Sodium (Protonix Tab) 40 mg DAILY PO 08/10/16 09:00 09/09/16 08:59 08/12/16 08:12 40 MG Albuterol/ Ipratropium (Duoneb) 3 ml Q2H PRN INH 08/10/16 01:15 09/09/16 01:14 Nicotine (Nicoderm Cq 14MG Patch) 1 patch QAM TD 08/11/16 09:00 09/10/16 08:59 08/12/16 08:12 1 PATCH Miscellaneous (Remove Nicoderm Patch) 1 ea HS N/A 08/10/16 21:00 09/09/16 20:59 Acetaminophen (Tylenol Tab) 325 mg Q6H PRN PO 08/10/16 01:15 09/09/16 01:14 Oxycodone HCl (Roxicodone Immediate Rel Tab) 5 mg Q6H PRN PO 08/10/16 01:15 08/24/16 01:14 Hydromorphone HCl (Dilaudid Inj) 0.5 mg Q6H PRN IV 08/10/16 01:15 08/24/16 01:14 08/12/16 08:59 0.5 MG Ondansetron HCl (Zofran Inj) 4 mg Q6H PRN IV 08/10/16 01:15 09/09/16 01:14 Albumin Human 12.5 gm 12.5 gm Q6H IV 08/10/16 06:00 08/13/16 05:59 08/12/16 11:33 12.5 GM Ceftriaxone Sodium/Dextrose (Rocephin Inj/D5 50ml) 70 ml @ 100 mls/hr Q24H IV 08/10/16 18:00 08/20/16 17:59 08/11/16 19:08 100 MLS/HR Spironolactone (Aldactone Tab) 25 mg QAM PO 08/11/16 10:45 09/10/16 10:44 08/12/16 08:11 25 MG Docusate Sodium (coLACE CAP) 100 mg BID PRN PO 08/11/16 18:00 09/10/16 17:59 Last 24 Hours Test 08/12/16 05:56 Sodium Level 139 mmol/L Potassium Level 4.0 mmol/L Chloride Level 100 mmol/L Carbon Dioxide Level 32 mmol/L Anion Gap 7.0 mmol/L Blood Urea Nitrogen 34 mg/dl Creatinine 1.10 mg/dl Est Creatinine Clear Calc Drug Dose 68.5 ml/min Estimated GFR () 88.4 Estimated GFR (Non- 76.2 BUN/Creatinine Ratio 31.1 Random Glucose 111 mg/dl Calcium Level 9.4 mg/dl Total Bilirubin 6.0 mg/dl Aspartate Amino Transf (AST/SGOT) 146 U/L Alanine Aminotransferase (ALT/SGPT) 92 U/L Alkaline Phosphatase 85 U/L Total Protein 5.1 gm/dl Albumin 3.3 gm/dl Globulin 1.8 gm/dl Albumin/Globulin Ratio 1.8 Assessment & Plan Cirrhosis with volume overload-pt has had several hospitilizations over the past two months and having more difficulty controlling fluids. developed imer and volume depletion on aggressive diuretics as outpt and then developed volume overload on the other admission. had to stop spironolactone as outpt secondary to high k. has restarted it yesterday. k is acceptable today. would like to increase dose of lasix today and monitor potassium and bp. titrate up the spironolactone tomorrow if labs are stable. goal of 80mg of lasix and 50mg of spironolactone with close follow up of labs.
[2016-08-12] MEDS: CEFTRIAXONE SOD INJ 2,000 MG in DEXTROSE 5% 50ML 50 ML IV SCH (17:22)
--- NOTE | 2016-08-12 17:57 | Progress Note ---
Internal Med Progress Note Date of Service: Aug 12, 2016. Provider Documentation: SUBJECTIVE: Patient is seen and examined at bedside. Patient leg swelling is improving. He is more alert, awake today. Denies any abdominal pain. He is seems walking in hallways. "I want to feel better" OBJECTIVE: Vital Signs-as noted below Physical Exam: General Appearance:Thin, chronically ill appearing, no apparent distress Head: normocephalic, Atraumatic Eyes: normal inspection, EOMI, PERRLA, + icteric Neck: supple, no JVD, Trachea midline Respiratory/Chest: Decreased breath sounds, CTA, No accessory muscle use Cardiovascular: S1, S2, No murmur Abdomen/GI:Soft, Bowel sounds present, distended. Paracentesis site in bandage. Pain Infusion pump palpable. Extremities/Musculoskelatal:normal inspection, 2+ edema Neurologic/Psych:AAOX3, grossly no focal neurological deficits Skin: normal color, warm Lab data as noted below. ASSESSMENT & PLAN: Decompensated Cirrhosis and SBP: H/O HCV and ETOH use Volume Overload Has not been able to see hepatology in [place] to discuss TIPS/liver transplant issues due to recurrent hospitalizations S/P Abdominal paracentesis on 08/10/16 Recurrent hospitalizations secondary to decompensation Continue Ceftriaxone 2g Q8H started 08/10/16 No alcohol use since 6 months: ETOH levels:Negative Continue Lasix 40mg BID, Spironolactone 25mg Daily per Nephrology recommendations (Target lasix 80mg daily and 50 mg Aldactone) Appreciate nephrology and GI help ETOH Hepatitis: bilirubin improved initially with prednisolone and later worsened again. D/C steroids per Dr. Patrick as this does not appear to be ETOH Hepatitis Continue 1200 cc fluid restriction/ 2g low sodium diet continue lactulose 30g BID >>> Can increase to TID if necessary per GI. 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 CODE STATUS: Full code. DISPOSITION: Needs for follow up GI as outpatient Vital Signs: Date Time Temp Pulse Resp B/P Pulse Ox O2 Delivery O2 Flow Rate FiO2 08/12/16 16:51 36.9 73 16 115/74 97 Room Air 08/12/16 12:37 36.7 82 18 120/83 95 Room Air 08/12/16 11:45 36.6 73 18 131/81 98 Room Air 08/12/16 11:32 36.8 77 18 128/84 96 Room Air 08/12/16 08:00 Room Air 08/12/16 07:48 36.8 76 18 115/75 93 Room Air 08/12/16 07:10 36.7 71 20 123/72 95 Room Air 08/12/16 06:08 36.5 69 16 100/59 94 Room Air 08/12/16 00:11 36.8 70 20 108/64 96 Room Air 08/12/16 00:00 Room Air 08/11/16 18:15 36.7 74 16 115/74 96 Room Air Lab Results: Results Past 24 Hours Test 08/12/16 05:56 Range/Units Sodium Level 139 136-145 mmol/L Potassium Level 4.0 3.5-5.1 mmol/L Chloride Level 100 98-107 mmol/L Carbon Dioxide Level 32 21-32 mmol/L Anion Gap 7.0 3-11 mmol/L Blood Urea Nitrogen 34 7-18 mg/dl Creatinine 1.10 0.60-1.40 mg/dl Est Creatinine Clear Calc Drug Dose 68.5 ml/min Estimated GFR () 88.4 Estimated GFR (Non- 76.2 BUN/Creatinine Ratio 31.1 10-20 Random Glucose 111 70-99 mg/dl Calcium Level 9.4 8.5-10.1 mg/dl Total Bilirubin 6.0 0.2-1 mg/dl Aspartate Amino Transf (AST/SGOT) 146 15-37 U/L Alanine Aminotransferase (ALT/SGPT) 92 12-78 U/L Alkaline Phosphatase 85 45-117 U/L Total Protein 5.1 6.4-8.2 gm/dl Albumin 3.3 3.4-5.0 gm/dl Globulin 1.8 2.5-4.0 gm/dl Albumin/Globulin Ratio 1.8 0.9-2
[2016-08-13] VITALS (7 sets, daily range): BP systolic 113–126; BP diastolic 65–86; PULSE 67–83; TEMP 36.5–36.9; O2SAT 92–98
[2016-08-13] MEDS: ALBUMIN HUMAN 25% 12.5 GM/50 ML VIAL IV SCH (01:33)
[2016-08-13] MEDS: HYDROmorphone INJ 1 MG/ML SYR IV PRN ×3 (04:09→20:44)
[2016-08-13 06:42] LABS: HEMATOCRIT 27.2 % (42-52); MEAN CELL VOLUME 101.5 fL (80-100); MEAN CORPUSCULAR HEMOGLOBIN 35.4 pg (25-34); MEAN CORPUSCULAR HGB CONC 34.9 g/dl (32-36); RED BLOOD COUNT 2.68 M/uL (4.7-6.1); WHITE BLOOD COUNT 8.17 K/uL (4.8-10.8)
[2016-08-13 06:49] LABS: INR 1.8 (0.9-1.1); PROTHROMBIN TIME (PATIENT) 19.9 SECONDS (9.0-12.0)
[2016-08-13 06:59] LABS: ACANTHOCYTES 2+; ANISOCYTOSIS PRESENT; BASO % 0.1 %; BASO ABS # 0.01 K/uL (0-0.2); COMPLETE YES; EOS % 1.2 %; LYMPH % 24.5 %; MEAN PLATELET VOLUME 10.8 fL (7.4-10.4); MONO % 6.2 %; PLATELET COUNT 47 K/uL (130-400)
[2016-08-13 07:20] LABS: BUN/CREATININE RATIO 27.5 (10-20); CALCIUM 8.7 mg/dl (8.5-10.1); POTASSIUM 3.7 mmol/L (3.5-5.1)
--- NOTE | 2016-08-13 07:23 | Nephrology Progress Note ---
Nephrology Progress Note Date of Service: Aug 13, 2016. Subjective 55 yo male with cirrhosis with weekly paracentesis and on antibiotics for sbp. has edema which is worse in left leg. reaccumulating fluid in his abdomen. pt though walking around well and feels good. no pain. pt concerned about the appropriate dose of diuretics. increased lasix dose yesterday. now on 40 bid of lasix and spironolactone 25mg a day. ammonia levels are trending up. pt still alert but unclear if he is having he appropriate amount of bowel movements. Objective Date Time Temp Pulse Resp B/P Pulse Ox O2 Delivery O2 Flow Rate FiO2 08/13/16 02:36 36.9 72 16 113/65 93 Room Air 08/13/16 01:33 36.8 76 16 113/76 95 Room Air 08/13/16 00:00 36.9 74 16 114/66 97 Room Air 08/13/16 00:00 Room Air 08/12/16 19:49 36.8 81 16 103/67 94 Room Air 08/12/16 16:51 36.9 73 16 115/74 97 Room Air 08/12/16 16:00 95 Room Air 08/12/16 12:37 36.7 82 18 120/83 95 Room Air 08/12/16 11:45 36.6 73 18 131/81 98 Room Air 08/12/16 11:32 36.8 77 18 128/84 96 Room Air 08/12/16 08:00 Room Air 08/12/16 07:48 36.8 76 18 115/75 93 Room Air Physical Exam: General-aaox3, jaundice Eyes-+scleral icterus ENT-mmm Neck-supple Lungs-clear Heart-regular Abdomen-bs+/+distention Extremities-+1 edema left>right Neuro-nonfocal Current Inpatient Medications Medications (Trade) Dose Ordered Sig/Perla Route Start Time Stop Time Status Last Admin Dose Admin Hydromorphone HCl (Dilaudid Tab) 4 mg Q6H PRN PO 08/10/16 01:15 08/24/16 01:14 Lactulose (Chronulac Syrup) 30 gm BID PO 08/10/16 09:00 09/09/16 08:59 08/12/16 20:12 30 GM Multivitamins (Multivitamin Tab) 1 tab QAM PO 08/10/16 09:00 09/09/16 08:59 08/12/16 08:12 1 TAB Nadolol (Corgard Tab) 20 mg DAILY PO 08/10/16 09:00 09/09/16 08:59 08/12/16 08:11 20 MG Nystatin (Mycostatin Susp) 5 ml QID PO 08/10/16 09:00 08/20/16 08:59 08/12/16 20:13 5 ML Pantoprazole Sodium (Protonix Tab) 40 mg DAILY PO 08/10/16 09:00 09/09/16 08:59 08/12/16 08:12 40 MG Albuterol/ Ipratropium (Duoneb) 3 ml Q2H PRN INH 08/10/16 01:15 09/09/16 01:14 Nicotine (Nicoderm Cq 14MG Patch) 1 patch QAM TD 08/11/16 09:00 09/10/16 08:59 08/12/16 08:12 1 PATCH Miscellaneous (Remove Nicoderm Patch) 1 ea HS N/A 08/10/16 21:00 09/09/16 20:59 Acetaminophen (Tylenol Tab) 325 mg Q6H PRN PO 08/10/16 01:15 09/09/16 01:14 Oxycodone HCl (Roxicodone Immediate Rel Tab) 5 mg Q6H PRN PO 08/10/16 01:15 08/24/16 01:14 Hydromorphone HCl (Dilaudid Inj) 0.5 mg Q6H PRN IV 08/10/16 01:15 08/24/16 01:14 08/13/16 04:09 0.5 MG Ondansetron HCl 4 mg 4 mg Q6H PRN IV 08/10/16 01:15 09/09/16 01:14 Ceftriaxone Sodium/Dextrose (Rocephin Inj/D5 50ml) 70 ml @ 100 mls/hr Q24H IV 08/10/16 18:00 08/20/16 17:59 08/12/16 17:22 100 MLS/HR Spironolactone (Aldactone Tab) 25 mg QAM PO 08/11/16 10:45 09/10/16 10:44 08/12/16 08:11 25 MG Docusate Sodium (coLACE CAP) 100 mg BID PRN PO 08/11/16 18:00 09/10/16 17:59 Furosemide (Lasix Tab) 40 mg BIDM PO 08/12/16 17:00 09/11/16 16:59 08/12/16 20:13 40 MG Last 24 Hours Test 08/13/16 06:24 White Blood Count 8.17 K/uL Red Blood Count 2.68 M/uL Hemoglobin 9.5 g/dL Hematocrit 27.2 % Mean Corpuscular Volume 101.5 fL Mean Corpuscular Hemoglobin 35.4 pg Mean Corpuscular Hemoglobin Concent 34.9 g/dl Platelet Count 47 K/uL Mean Platelet Volume 10.8 fL Neutrophils (%) (Auto) 67.0 % Lymphocytes (%) (Auto) 24.5 % Monocytes (%) (Auto) 6.2 % Eosinophils (%) (Auto) 1.2 % Basophils (%) (Auto) 0.1 % Neutrophils # (Auto) 5.47 K/uL Lymphocytes # (Auto) 2.00 K/uL Monocytes # (Auto) 0.51 K/uL Eosinophils # (Auto) 0.10 K/uL Basophils # (Auto) 0.01 K/uL RDW Standard Deviation 75.7 fL RDW Coefficient of Variation 20.3 % Immature Granulocyte % (Auto) 1.0 % Immature Granulocyte # (Auto) 0.08 K/uL Anisocytosis PRESENT Acanthocytes 2+ Prothrombin Time 19.9 SECONDS Prothromb Time International Ratio 1.8 Ammonia 60.0 umol/L Assessment & Plan Cirrhosis with volume overload-pt has had several hospitilizations over the past two months and having more difficulty controlling fluids. currently now on lasix 40 bid and spironolactone 25mg a day. would like to eventually get to 40 bid of lasix and 50 of spironolactone but want to monitor k and creatinine for several days and make sure labs remain stable before further titration up on the dose. no changes in my opinion today and would discharge on current doses for now with eventual goal of titrating up the spironolactone. greatly appreciate GI help.
[2016-08-13] MEDS: NICOTINE 14 MG/24 HR TDSY TD SCH (07:53)
[2016-08-13] MEDS: SPIRONOLACTONE 25 MG TAB PO SCH (07:53)
[2016-08-13] MEDS: FUROSEMIDE 20 MG TAB PO SCH ×2 (07:53→17:07)
[2016-08-13] MEDS: LACTULOSE SYRUP 30 GM/45 ML UDP PO SCH ×2 (07:53→20:40)
[2016-08-13] MEDS: NADOLOL 40 MG TAB PO SCH (07:53)
[2016-08-13] MEDS: NYSTATIN SUSP 500,000 U/5 ML UDC PO SCH ×4 (07:53→20:40)
[2016-08-13] MEDS: PANTOprazole SOD 40 MG TAB PO SCH (07:53)
[2016-08-13] MEDS: MULTIVITAMIN TAB PO SCH (08:43)
--- NOTE | 2016-08-13 11:52 | Gastroenterology Progress Note ---
Progress Note Date of Service: Aug 13, 2016 Subjective Pt evaluation today including: conversation w/ patient, physical exam, chart review, lab review Mr. Bailon was seen and examined today. He reports feeling weak and tired. He denies any worsening edema of lower extremities or abdominal. He reports a normal appetite. No s/s of GI bleed. NH3 was checked and was elevated today to 60 Review of Systems Constitutional: + weakness, No chills, No fever ENT: No hearing loss Respiratory: No cough, No shortness of breath Cardiac: No chest pain, No edema Abdomen: No GI bleeding, No constipation, No diarrhea, No nausea, No pain, No vomiting Medications Current Inpatient Medications Medications (Trade) Dose Ordered Sig/Perla Route Start Time Stop Time Status Last Admin Dose Admin Hydromorphone HCl (Dilaudid Tab) 4 mg Q6H PRN PO 08/10/16 01:15 08/24/16 01:14 Lactulose (Chronulac Syrup) 30 gm BID PO 08/10/16 09:00 09/09/16 08:59 08/13/16 07:53 30 GM Multivitamins (Multivitamin Tab) 1 tab QAM PO 08/10/16 09:00 09/09/16 08:59 08/13/16 08:43 1 TAB Nadolol (Corgard Tab) 20 mg DAILY PO 08/10/16 09:00 09/09/16 08:59 08/13/16 07:53 20 MG Nystatin (Mycostatin Susp) 5 ml QID PO 08/10/16 09:00 08/20/16 08:59 08/13/16 07:53 5 ML Pantoprazole Sodium (Protonix Tab) 40 mg DAILY PO 08/10/16 09:00 09/09/16 08:59 08/13/16 07:53 40 MG Albuterol/ Ipratropium (Duoneb) 3 ml Q2H PRN INH 08/10/16 01:15 09/09/16 01:14 Nicotine (Nicoderm Cq 14MG Patch) 1 patch QAM TD 08/11/16 09:00 09/10/16 08:59 08/13/16 07:53 1 PATCH Miscellaneous (Remove Nicoderm Patch) 1 ea HS N/A 08/10/16 21:00 3/16/17 20:59 Acetaminophen (Tylenol Tab) 325 mg Q6H PRN PO 08/10/16 01:15 09/09/16 01:14 Oxycodone HCl (Roxicodone Immediate Rel Tab) 5 mg Q6H PRN PO 08/10/16 01:15 08/24/16 01:14 Hydromorphone HCl (Dilaudid Inj) 0.5 mg Q6H PRN IV 08/10/16 01:15 08/24/16 01:14 08/13/16 04:09 0.5 MG Ondansetron HCl 4 mg 4 mg Q6H PRN IV 08/10/16 01:15 09/09/16 01:14 Ceftriaxone Sodium/Dextrose (Rocephin Inj/D5 50ml) 70 ml @ 100 mls/hr Q24H IV 08/10/16 18:00 08/20/16 17:59 08/12/16 17:22 100 MLS/HR Spironolactone (Aldactone Tab) 25 mg QAM PO 08/11/16 10:45 09/10/16 10:44 08/13/16 07:53 25 MG Docusate Sodium (coLACE CAP) 100 mg BID PRN PO 08/11/16 18:00 09/10/16 17:59 Furosemide (Lasix Tab) 40 mg BIDM PO 08/12/16 17:00 09/11/16 16:59 08/13/16 07:53 40 MG Objective Vital Signs Date Time Temp Pulse Resp B/P Pulse Ox O2 Delivery O2 Flow Rate FiO2 08/13/16 08:21 92 Room Air 08/13/16 08:00 Room Air 08/13/16 07:53 36.7 67 17 116/72 92 Room Air 08/13/16 02:36 36.9 72 16 113/65 93 Room Air 08/13/16 01:33 36.8 76 16 113/76 95 Room Air 08/13/16 00:00 36.9 74 16 114/66 97 Room Air 08/13/16 00:00 Room Air 08/12/16 19:49 36.8 81 16 103/67 94 Room Air 08/12/16 16:51 36.9 73 16 115/74 97 Room Air 08/12/16 16:00 95 Room Air 08/12/16 12:37 36.7 82 18 120/83 95 Room Air Physical Exam General Appearance: no apparent distress, + pertinent finding (patient appears weak and is sitting in bed) Eyes: PERRL ENT: hearing grossly normal Neck: supple, trachea midline Respiratory/Chest: lungs clear, normal breath sounds, no respiratory distress, no accessory muscle use Cardiovascular: regular rate, rhythm, no edema, no gallop, no JVD Abdomen: normal bowel sounds, non tender, no organomegaly, no pulsatile mass, + distended, + pertinent finding (ascites, similar to yesterday exam) Neurologic/Psych: alert, normal mood/affect, oriented x 3 Skin: warm/dry, no rash, + jaundice Laboratory Results Last 24 Hours Test 08/13/16 06:24 White Blood Count 8.17 K/uL Red Blood Count 2.68 M/uL Hemoglobin 9.5 g/dL Hematocrit 27.2 % Mean Corpuscular Volume 101.5 fL Mean Corpuscular Hemoglobin 35.4 pg Mean Corpuscular Hemoglobin Concent 34.9 g/dl Platelet Count 47 K/uL Mean Platelet Volume 10.8 fL Neutrophils (%) (Auto) 67.0 % Lymphocytes (%) (Auto) 24.5 % Monocytes (%) (Auto) 6.2 % Eosinophils (%) (Auto) 1.2 % Basophils (%) (Auto) 0.1 % Neutrophils # (Auto) 5.47 K/uL Lymphocytes # (Auto) 2.00 K/uL Monocytes # (Auto) 0.51 K/uL Eosinophils # (Auto) 0.10 K/uL Basophils # (Auto) 0.01 K/uL RDW Standard Deviation 75.7 fL RDW Coefficient of Variation 20.3 % Immature Granulocyte % (Auto) 1.0 % Immature Granulocyte # (Auto) 0.08 K/uL Anisocytosis PRESENT Acanthocytes 2+ Prothrombin Time 19.9 SECONDS Prothromb Time International Ratio 1.8 Sodium Level 141 mmol/L Potassium Level 3.7 mmol/L Chloride Level 102 mmol/L Carbon Dioxide Level 32 mmol/L Anion Gap 7.0 mmol/L Blood Urea Nitrogen 28 mg/dl Creatinine 1.00 mg/dl Est Creatinine Clear Calc Drug Dose 75.4 ml/min Estimated GFR () 99.2 Estimated GFR (Non- 85.5 BUN/Creatinine Ratio 27.5 Random Glucose 95 mg/dl Calcium Level 8.7 mg/dl Total Bilirubin 6.7 mg/dl Aspartate Amino Transf (AST/SGOT) 172 U/L Alanine Aminotransferase (ALT/SGPT) 102 U/L Alkaline Phosphatase 96 U/L Ammonia 60.0 umol/L Total Protein 5.1 gm/dl Albumin 3.4 gm/dl Globulin 1.7 gm/dl Albumin/Globulin Ratio 2.0 Assessment and Plan Mr. Bailon is a 55 year old male with decompensated cirrhosis secondary to HCV and ETOH (LFT's and bilirubin improving) with SBP. He reports that he is starting to feel a little better and that his legs hurt less now that some of the fluid is off. He is able to ambulate with less pain. He reports again that he is very frustrated that we cannot get his diuretics at an appropriate dose will maintaining kidney function and appropriate fluid status. He is agreeable to start preventative SBP therapy with daily ABX if needed as an outpatient. He is agreeable to follow in the GI office weekly with weekly labs - very concerned about his IV access as he has poor venous access. Today he reports that he feels weak and tired. Denies confusion. SBP - continue Rocephin 2g daily - will discuss need for preventative therapy with daily cipro 500 mg Aldactone 25mg - watch K and titrate this dose up as tolerated Lasix 20mg BID Steroids discontinued Thrush - improving, continue nystatin fluid/Na+/K restricted diet continue lactulose - can increase to 30 gm TID if patient will take xifaxin 550 BID ATTESTATION: I have performed a history and physical examination of this patient and reviewed the electronic record. Specifically, on physical examination there is no asterixis. I have discussed the case with LONI Murphy. The above note reflects my findings, conclusions, and recommendations. Sawyer Patrick MD
--- NOTE | 2016-08-13 17:15 | Progress Note ---
Internal Med Progress Note Date of Service: Aug 13, 2016. Provider Documentation: SUBJECTIVE: Patient is seen and examined at bedside. Had 2 BM today. States leg swelling has improved. Denies any abdominal pain. No other complaints. OBJECTIVE: Vital Signs-as noted below Physical Exam: General Appearance:Thin, chronically ill appearing, no apparent distress Head: normocephalic, Atraumatic Eyes: normal inspection, EOMI, PERRLA, + icteric Neck: supple, no JVD, Trachea midline Respiratory/Chest: Decreased breath sounds, CTA, No accessory muscle use Cardiovascular: S1, S2, No murmur Abdomen/GI:Soft, Bowel sounds present, distended. Paracentesis site in bandage. Pain Infusion pump palpable. Extremities/Musculoskelatal:normal inspection, 2+ edema Neurologic/Psych:AAOX3, grossly no focal neurological deficits Skin: normal color, warm Lab data as noted below. ASSESSMENT & PLAN: Decompensated Cirrhosis and SBP: H/O HCV and ETOH use Volume Overload Has not been able to see hepatology in [place] to discuss TIPS/liver transplant issues due to recurrent hospitalizations S/P Abdominal paracentesis on 08/10/16 Recurrent hospitalizations secondary to decompensation Continue Ceftriaxone 2g Q8H started 08/10/16: Target for 5 days No alcohol use since 6 months: ETOH levels:Negative Continue Lasix 40mg BID, Spironolactone 25mg Daily per Nephrology recommendations (Target lasix 80mg daily and 50 mg Aldactone) Appreciate nephrology and GI help ETOH Hepatitis: bilirubin improved initially with prednisolone and later worsened again. D/C steroids per Dr. Patrick as this does not appear to be ETOH Hepatitis Continue 1200 cc fluid restriction/ 2g low sodium diet continue lactulose 30g BID >>> Can increase to TID if necessary per GI. ( Patient prefers BID for now) Rifaximin 550 BID, added today: as ammonia levels increasing Ammonia levels:60 on continue Nadolol 20mg daily Continue sodium/potassium/fluid restriction Cultures-Blood/Ascitic fluid: Negative to date Needs preventative SBP therapy with daily cipro 500 mg after completion of IV Ceftriaxone IV albumin to complete on 08/13/16 Needs close monitoring of electrolytes Chronic anemia: hemoglobin at baseline Thrombocytopenia: Secondary to chronic liver disease Platelets decreased from 60K to 30K S/P one unit platelets transfused: 08/10/16 59K after platelet transfusion >> decreased to 47K Monitor Platelets Severe Protein Calorie Malnutrition: Secondary to comorbidities Tobacco 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 CODE STATUS: Full code. DISPOSITION: Needs for follow up GI as outpatient Vital Signs: Date Time Temp Pulse Resp B/P Pulse Ox O2 Delivery O2 Flow Rate FiO2 08/13/16 16:00 Room Air 08/13/16 14:48 36.5 75 18 126/86 98 08/13/16 08:21 92 Room Air 08/13/16 08:00 Room Air 08/13/16 07:53 36.7 67 17 116/72 92 Room Air 08/13/16 02:36 36.9 72 16 113/65 93 Room Air 08/13/16 01:33 36.8 76 16 113/76 95 Room Air 08/13/16 00:00 36.9 74 16 114/66 97 Room Air 08/13/16 00:00 Room Air 08/12/16 19:49 36.8 81 16 103/67 94 Room Air Lab Results: Results Past 24 Hours Test 08/13/16 06:24 Range/Units White Blood Count 8.17 4.8-10.8 K/uL Red Blood Count 2.68 4.7-6.1 M/uL Hemoglobin 9.5 14.0-18.0 g/dL Hematocrit 27.2 42-52 % Mean Corpuscular Volume 101.5 80-100 fL Mean Corpuscular Hemoglobin 35.4 25-34 pg Mean Corpuscular Hemoglobin Concent 34.9 32-36 g/dl Platelet Count 47 130-400 K/uL Mean Platelet Volume 10.8 7.4-10.4 fL Neutrophils (%) (Auto) 67.0 % Lymphocytes (%) (Auto) 24.5 % Monocytes (%) (Auto) 6.2 % Eosinophils (%) (Auto) 1.2 % Basophils (%) (Auto) 0.1 % Neutrophils # (Auto) 5.47 1.4-6.5 K/uL Lymphocytes # (Auto) 2.00 1.2-3.4 K/uL Monocytes # (Auto) 0.51 0.11-0.59 K/uL Eosinophils # (Auto) 0.10 0-0.5 K/uL Basophils # (Auto) 0.01 0-0.2 K/uL RDW Standard Deviation 75.7 36.4-46.3 fL RDW Coefficient of Variation 20.3 11.5-14.5 % Immature Granulocyte % (Auto) 1.0 % Immature Granulocyte # (Auto) 0.08 0.00-0.02 K/uL Anisocytosis PRESENT Acanthocytes 2+ Prothrombin Time 19.9 9.0-12.0 SECONDS Prothromb Time International Ratio 1.8 0.9-1.1 Sodium Level 141 136-145 mmol/L Potassium Level 3.7 3.5-5.1 mmol/L Chloride Level 102 98-107 mmol/L Carbon Dioxide Level 32 21-32 mmol/L Anion Gap 7.0 3-11 mmol/L Blood Urea Nitrogen 28 7-18 mg/dl Creatinine 1.00 0.60-1.40 mg/dl Est Creatinine Clear Calc Drug Dose 75.4 ml/min Estimated GFR () 99.2 Estimated GFR (Non- 85.5 BUN/Creatinine Ratio 27.5 10-20 Random Glucose 95 70-99 mg/dl Calcium Level 8.7 8.5-10.1 mg/dl Total Bilirubin 6.7 0.2-1 mg/dl Aspartate Amino Transf (AST/SGOT) 172 15-37 U/L Alanine Aminotransferase (ALT/SGPT) 102 12-78 U/L Alkaline Phosphatase 96 45-117 U/L Ammonia 60.0 11-32 umol/L Total Protein 5.1 6.4-8.2 gm/dl Albumin 3.4 3.4-5.0 gm/dl Globulin 1.7 2.5-4.0 gm/dl Albumin/Globulin Ratio 2.0 0.9-2
[2016-08-13] MEDS: CEFTRIAXONE SOD INJ 2,000 MG in DEXTROSE 5% 50ML 50 ML IV SCH (20:20)
[2016-08-13] MEDS: RIFAXIMIN TAB 550 MG TAB PO SCH (20:41)
[2016-08-14 06:49] LABS: ALB/GLOB RATIO 1.6 (0.9-2); BUN/CREATININE RATIO 27.2 (10-20); CALCIUM 8.7 mg/dl (8.5-10.1); CREATININE 0.97 mg/dl (0.60-1.40); POTASSIUM 3.6 mmol/L (3.5-5.1)
[2016-08-14 07:26] VITALS: BP 126/82; PULSE 90; TEMP 36.1; O2SAT 95
[2016-08-14] MEDS: NADOLOL 40 MG TAB PO SCH (08:20)
[2016-08-14] MEDS: NYSTATIN SUSP 500,000 U/5 ML UDC PO SCH ×4 (08:20→21:05)
[2016-08-14] MEDS: RIFAXIMIN TAB 550 MG TAB PO SCH ×2 (08:20→21:04)
[2016-08-14] MEDS: SPIRONOLACTONE 25 MG TAB PO SCH (08:21)
[2016-08-14] MEDS: MULTIVITAMIN TAB PO SCH (08:21)
[2016-08-14] MEDS: PANTOprazole SOD 40 MG TAB PO SCH (08:21)
[2016-08-14] MEDS: LACTULOSE SYRUP 30 GM/45 ML UDP PO SCH ×2 (08:21→21:05)
[2016-08-14] MEDS: FUROSEMIDE 20 MG TAB PO SCH ×2 (08:21→17:13)
[2016-08-14] MEDS: NICOTINE 14 MG/24 HR TDSY TD SCH (08:22)
[2016-08-14] MEDS: OXYCODONE HCL IR 5 MG TAB (IMMEDIATE RELEASE) PO PRN (09:26)
[2016-08-14 14:59] VITALS: BP 124/86; PULSE 83; TEMP 37.1; O2SAT 97
[2016-08-14] MEDS: CEFTRIAXONE SOD INJ 2,000 MG in DEXTROSE 5% 50ML 50 ML IV SCH (17:12)
--- NOTE | 2016-08-14 18:36 | Progress Note ---
Internal Med Progress Note Date of Service: Aug 14, 2016. Provider Documentation: SUBJECTIVE: Patient is seen and examined at bedside. Feels well. He was worried that he is developing ascites too frequently and may require paracentesis again. Family at bedside. Offers no other complaints. OBJECTIVE: Vital Signs-as noted below Physical Exam: General Appearance:Thin, chronically ill appearing, no apparent distress Head: normocephalic, Atraumatic Eyes: normal inspection, EOMI, PERRLA, + icteric Neck: supple, no JVD, Trachea midline Respiratory/Chest: Normal breath sounds, CTA, No accessory muscle use Cardiovascular: S1, S2, No murmur Abdomen/GI:Soft, Bowel sounds present, distended. Paracentesis site in bandage. Pain Infusion pump palpable. Extremities/Musculoskelatal:normal inspection, 2+ edema Neurologic/Psych:AAOX3, grossly no focal neurological deficits Skin: normal color, warm Lab data as noted below. ASSESSMENT & PLAN: Decompensated Cirrhosis and SBP: H/O HCV and ETOH use Volume Overload Has not been able to see hepatology in [place] to discuss TIPS/liver transplant issues due to recurrent hospitalizations S/P Abdominal paracentesis on 08/10/16 Recurrent hospitalizations secondary to decompensation Continue Ceftriaxone 2g Q8H Completed for 5 days No alcohol use since 6 months: ETOH levels:Negative Continue Lasix 40mg BID, Spironolactone 25mg Daily per Nephrology recommendations (Target lasix 80mg daily and 50 mg Aldactone) Appreciate nephrology and GI help ETOH Hepatitis: bilirubin improved initially with prednisolone and later worsened again. D/C steroids per Dr. Patrick as this does not appear to be ETOH Hepatitis Continue 1200 cc fluid restriction/ 2g low sodium diet continue lactulose 30g BID >>> Can increase to TID if necessary per GI. ( Patient prefers BID for now) Rifaximin 550 BID added as ammonia levels increasing Ammonia levels:60 on continue Nadolol 20mg daily Continue sodium/potassium/fluid restriction Cultures-Blood/Ascitic fluid: Negative to date Needs preventative SBP therapy with daily cipro 500 mg: will start from tomorrow S/P IV albumin completed on 08/13/16 Needs close monitoring of electrolytes Chronic anemia: hemoglobin at baseline Thrombocytopenia: Secondary to chronic liver disease Platelets decreased from 60K to 30K S/P one unit platelets transfused: 08/10/16 59K after platelet transfusion >> decreased to 47K Monitor Platelets Severe Protein Calorie Malnutrition: Secondary to comorbidities 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 CODE STATUS: Full code. DISPOSITION: Needs for follow up GI as outpatient Plan to discharge tomorrow if OK with GI. Vital Signs: Date Time Temp Pulse Resp B/P Pulse Ox O2 Delivery O2 Flow Rate FiO2 08/14/16 16:00 Room Air 08/14/16 14:59 37.1 83 18 124/86 97 08/14/16 08:00 Room Air 08/14/16 07:26 36.1 90 18 126/82 95 08/14/16 00:00 Room Air 08/13/16 23:43 36.9 83 20 116/80 94 Room Air 08/13/16 20:00 Room Air Lab Results: Results Past 24 Hours Test 08/14/16 05:13 Range/Units Sodium Level 139 136-145 mmol/L Potassium Level 3.6 3.5-5.1 mmol/L Chloride Level 99 98-107 mmol/L Carbon Dioxide Level 31 21-32 mmol/L Anion Gap 9.0 3-11 mmol/L Blood Urea Nitrogen 26 7-18 mg/dl Creatinine 0.97 0.60-1.40 mg/dl Est Creatinine Clear Calc Drug Dose 77.7 ml/min Estimated GFR () 102.9 Estimated GFR (Non- 88.8 BUN/Creatinine Ratio 27.2 10-20 Random Glucose 103 70-99 mg/dl Calcium Level 8.7 8.5-10.1 mg/dl Total Bilirubin 10.7 0.2-1 mg/dl Aspartate Amino Transf (AST/SGOT) 154 15-37 U/L Alanine Aminotransferase (ALT/SGPT) 98 12-78 U/L Alkaline Phosphatase 106 45-117 U/L Total Protein 5.1 6.4-8.2 gm/dl Albumin 3.1 3.4-5.0 gm/dl Globulin 2.0 2.5-4.0 gm/dl Albumin/Globulin Ratio 1.6 0.9-2
[2016-08-14 23:09] VITALS: BP 124/85; PULSE 81; TEMP 36.8; O2SAT 95
[2016-08-15 06:37] LABS: INR 1.9 (0.9-1.1); PROTHROMBIN TIME (PATIENT) 20.9 SECONDS (9.0-12.0)
[2016-08-15 06:53] LABS: BUN/CREATININE RATIO 24.5 (10-20); CALCIUM 8.6 mg/dl (8.5-10.1); CREATININE 1.1 mg/dl (0.60-1.40); POTASSIUM 3.2 mmol/L (3.5-5.1)
[2016-08-15 06:54] LABS: ALB/GLOB RATIO 1.7 (0.9-2)
[2016-08-15 07:25] VITALS: BP 126/79; PULSE 82; TEMP 36.7; O2SAT 93
[2016-08-15] MEDS: RIFAXIMIN TAB 550 MG TAB PO SCH ×2 (08:10→20:08)
[2016-08-15] MEDS: CIPROFLOXACIN 500 MG TAB PO SCH (08:12)
[2016-08-15] MEDS: NADOLOL 40 MG TAB PO SCH (08:12)
[2016-08-15] MEDS: PANTOprazole SOD 40 MG TAB PO SCH (08:13)
[2016-08-15] MEDS: LACTULOSE SYRUP 30 GM/45 ML UDP PO SCH ×3 (08:13→20:35)
[2016-08-15] MEDS: MULTIVITAMIN TAB PO SCH (08:13)
[2016-08-15] MEDS: NYSTATIN SUSP 500,000 U/5 ML UDC PO SCH ×4 (08:14→20:09)
[2016-08-15] MEDS: FUROSEMIDE 20 MG TAB PO SCH ×3 (08:15→16:31)
[2016-08-15] MEDS: NICOTINE 14 MG/24 HR TDSY TD SCH (08:20)
[2016-08-15] MEDS: SPIRONOLACTONE 25 MG TAB PO SCH (09:21)
[2016-08-15] MEDS: DOCUSATE SODIUM 100 MG CAP PO PRN (11:47)
--- NOTE | 2016-08-15 13:09 | Progress Note ---
Internal Med Progress Note Date of Service: Aug 15, 2016. Provider Documentation: SUBJECTIVE: Patient is seen and examined at bedside. States had no BM today and has abd discomfort. Also reports that his abdomen and leg swelling is worsening. Offers no other complaints. OBJECTIVE: Vital Signs-as noted below Physical Exam: General Appearance:Thin, chronically ill appearing, no apparent distress Head: normocephalic, Atraumatic Eyes: normal inspection, EOMI, PERRLA, + icteric Neck: supple, no JVD, Trachea midline Respiratory/Chest: Normal breath sounds, CTA, No accessory muscle use Cardiovascular: S1, S2, No murmur Abdomen/GI:Bowel sounds present, distended. Pain Infusion pump palpable. Extremities/Musculoskelatal:normal inspection, 2+ edema Neurologic/Psych:AAOX3, grossly no focal neurological deficits Skin: normal color, warm Lab data as noted below. ASSESSMENT & PLAN: Decompensated Cirrhosis and SBP: H/O HCV and ETOH use Volume Overload Has not been able to see hepatology in [place] to discuss TIPS/liver transplant issues due to recurrent hospitalizations S/P Abdominal paracentesis on 08/10/16 Recurrent hospitalizations secondary to decompensation Completed Ceftriaxone 2g Q8H for 5 days No alcohol use since 6 months: ETOH levels:Negative Continue Lasix 40mg BID, Spironolactone 25mg Daily per Nephrology recommendations (Target Lasix 80mg daily and 50 mg Aldactone) Appreciate nephrology and GI help ETOH Hepatitis: bilirubin improved initially with prednisolone and later worsened again. D/C steroids per Dr. Patrick as this does not appear to be ETOH Hepatitis Continue 1200 cc fluid restriction/ 2g low sodium diet continue lactulose 30g BID >>> Can increase to TID if necessary per GI. ( Patient prefers BID for now) Rifaximin 550 BID added as ammonia levels increasing Ammonia levels:60 on continue Nadolol 20mg daily Continue sodium/fluid restriction Cultures-Blood/Ascitic fluid: Negative to date Started on preventative SBP therapy with daily cipro 500 mg 08/15/16 S/P IV albumin completed on 08/13/16 Needs close monitoring of electrolytes Total bilirubin increased to 14.1 Will defer need for paracentesis to GI Hypokalemia: Secondary to diuretics Will replace and monitor Chronic anemia: hemoglobin at baseline Thrombocytopenia: Secondary to chronic liver disease Platelets decreased from 60K to 30K S/P one unit platelets transfused: 08/10/16 59K after platelet transfusion >> decreased to 47K Monitor Platelets Severe Protein Calorie Malnutrition: Secondary to comorbidities 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 CODE STATUS: Full code. DISPOSITION: Needs for follow up GI as outpatient Vital Signs: Date Time Temp Pulse Resp B/P Pulse Ox O2 Delivery O2 Flow Rate FiO2 08/15/16 08:00 Room Air 08/15/16 07:25 36.7 82 18 126/79 93 08/15/16 00:00 Room Air 08/14/16 23:09 36.8 81 18 124/85 95 Room Air 08/14/16 20:00 Room Air 08/14/16 16:00 Room Air 08/14/16 14:59 37.1 83 18 124/86 97 Lab Results: Results Past 24 Hours Test 08/15/16 05:08 Range/Units Prothrombin Time 20.9 9.0-12.0 SECONDS Prothromb Time International Ratio 1.9 0.9-1.1 Sodium Level 137 136-145 mmol/L Potassium Level 3.2 3.5-5.1 mmol/L Chloride Level 95 98-107 mmol/L Carbon Dioxide Level 31 21-32 mmol/L Anion Gap 11.0 3-11 mmol/L Blood Urea Nitrogen 27 7-18 mg/dl Creatinine 1.10 0.60-1.40 mg/dl Est Creatinine Clear Calc Drug Dose 68.5 ml/min Estimated GFR () 88.4 Estimated GFR (Non- 76.2 BUN/Creatinine Ratio 24.5 10-20 Random Glucose 107 70-99 mg/dl Calcium Level 8.6 8.5-10.1 mg/dl Total Bilirubin 14.1 0.2-1 mg/dl Aspartate Amino Transf (AST/SGOT) 127 15-37 U/L Alanine Aminotransferase (ALT/SGPT) 90 12-78 U/L Alkaline Phosphatase 103 45-117 U/L Total Protein 5.1 6.4-8.2 gm/dl Albumin 3.2 3.4-5.0 gm/dl Globulin 1.9 2.5-4.0 gm/dl Albumin/Globulin Ratio 1.7 0.9-2
[2016-08-15] MEDS ORDERED: POLYETHYLENE (MIRALAX) 17 GM PACK PO ONE (13:45)
[2016-08-15] MEDS ORDERED: POTASSIUM CHLORIDE 10 MEQ TABCR PO ONE (13:45)
[2016-08-15] MEDS ORDERED: POLYETHYLENE (MIRALAX) 17 GM PACK PO PRN (13:45)
[2016-08-15 14:55] VITALS: BP 114/73; PULSE 78; TEMP 36.9; O2SAT 96
[2016-08-15 16:30] VITALS: O2SAT 96
[2016-08-15 23:22] VITALS: BP 108/73; PULSE 89; TEMP 36.9; O2SAT 95
[2016-08-16] VITALS (7 sets, daily range): BP systolic 106–126; BP diastolic 73–84; PULSE 79–98; TEMP 36.7–37; O2SAT 95–100
[2016-08-16 05:46] LABS: HEMATOCRIT 25.7 % (42-52); MEAN CELL VOLUME 98.5 fL (80-100); MEAN CORPUSCULAR HEMOGLOBIN 36.4 pg (25-34); MEAN PLATELET VOLUME 10.5 fL (7.4-10.4); PLATELET COUNT 48 K/uL (130-400); RED BLOOD COUNT 2.61 M/uL (4.7-6.1); WHITE BLOOD COUNT 10.99 K/uL (4.8-10.8)
[2016-08-16 06:15] LABS: ACANTHOCYTES 1+; COMPLETE YES; EOSINOPHIL % 0.9 %; LYMPH ABS # 2.51 K/uL (1.2-3.4); LYMPHOCYTE % 22.8 %; METAMYELOCYTE % 0.9 %; NEUTROPHILS % 69.3 %
[2016-08-16 06:32] LABS: ALB/GLOB RATIO 1.8 (0.9-2); BUN/CREATININE RATIO 20.4 (10-20); CALCIUM 8.6 mg/dl (8.5-10.1); CREATININE 1.4 mg/dl (0.60-1.40); POTASSIUM 3.6 mmol/L (3.5-5.1)
[2016-08-16] MEDS: NYSTATIN SUSP 500,000 U/5 ML UDC PO SCH ×4 (07:31→20:17)
[2016-08-16] MEDS: RIFAXIMIN TAB 550 MG TAB PO SCH ×2 (07:32→20:17)
[2016-08-16] MEDS: NADOLOL 40 MG TAB PO SCH (07:32)
[2016-08-16] MEDS: FUROSEMIDE 20 MG TAB PO SCH ×2 (07:32→17:03)
[2016-08-16] MEDS: PANTOprazole SOD 40 MG TAB PO SCH (07:32)
[2016-08-16] MEDS: LACTULOSE SYRUP 30 GM/45 ML UDP PO SCH ×2 (07:33→20:17)
[2016-08-16] MEDS: SPIRONOLACTONE 25 MG TAB PO SCH (07:33)
[2016-08-16] MEDS: MULTIVITAMIN TAB PO SCH (07:34)
[2016-08-16] MEDS: CIPROFLOXACIN 500 MG TAB PO SCH (07:34)
[2016-08-16] MEDS: NICOTINE 14 MG/24 HR TDSY TD SCH (07:35)
--- NOTE | 2016-08-16 09:43 | Gastroenterology Progress Note ---
Progress Note Date of Service: Aug 16, 2016 Subjective Pt evaluation today including: conversation w/ patient, physical exam, chart review, lab review Mr. Bailon was seen and examined this morning. He is tearful during assessment and states "I am so scared." Denies thoughts of self harm or SI. He is agreeable to talk to someone about his feelings. He reports after GI rounded Tuesday, he began to have worsening abdominal and lower extremity edema. He reports he is no longer able to wear any of his shoes due to the fluid. He states he noticed that he started to get much more jaundiced Tuesday night. He is denying any other GI symptoms. TB 08/13: 6.7 TB 08/16: 16.4 Review of Systems Constitutional: No chills, No fever Respiratory: No cough, No shortness of breath Cardiac: + edema, No chest pain Abdomen: No GI bleeding, No constipation, No diarrhea, No nausea, No pain, No vomiting Skin: + jaundice Medications Current Inpatient Medications Medications (Trade) Dose Ordered Sig/Perla Route Start Time Stop Time Status Last Admin Dose Admin Hydromorphone HCl (Dilaudid Tab) 4 mg Q6H PRN PO 08/10/16 01:15 08/24/16 01:14 Lactulose (Chronulac Syrup) 30 gm BID PO 08/10/16 09:00 09/09/16 08:59 08/16/16 07:33 30 GM Multivitamins (Multivitamin Tab) 1 tab QAM PO 08/10/16 09:00 09/09/16 08:59 08/16/16 07:34 1 TAB Nadolol (Corgard Tab) 20 mg DAILY PO 08/10/16 09:00 09/09/16 08:59 08/16/16 07:32 20 MG Nystatin (Mycostatin Susp) 5 ml QID PO 08/10/16 09:00 08/20/16 08:59 08/16/16 07:31 5 ML Pantoprazole Sodium (Protonix Tab) 40 mg DAILY PO 08/10/16 09:00 09/09/16 08:59 08/16/16 07:32 40 MG Albuterol/ Ipratropium (Duoneb) 3 ml Q2H PRN INH 08/10/16 01:15 09/09/16 01:14 Nicotine (Nicoderm Cq 14MG Patch) 1 patch QAM TD 08/11/16 09:00 09/10/16 08:59 08/16/16 07:35 1 PATCH Miscellaneous (Remove Nicoderm Patch) 1 ea HS N/A 08/10/16 21:00 09/09/16 20:59 Acetaminophen (Tylenol Tab) 325 mg Q6H PRN PO 08/10/16 01:15 09/09/16 01:14 Oxycodone HCl (Roxicodone Immediate Rel Tab) 5 mg Q6H PRN PO 08/10/16 01:15 08/24/16 01:14 08/14/16 09:26 5 MG Hydromorphone HCl (Dilaudid Inj) 0.5 mg Q6H PRN IV 08/10/16 01:15 08/24/16 01:14 08/13/16 20:44 0.5 MG Ondansetron HCl (Zofran Inj) 4 mg Q6H PRN IV 08/10/16 01:15 09/09/16 01:14 Spironolactone (Aldactone Tab) 25 mg QAM PO 08/11/16 10:45 09/10/16 10:44 08/16/16 07:33 25 MG Docusate Sodium (coLACE CAP) 100 mg BID PRN PO 08/11/16 18:00 09/10/16 17:59 08/15/16 11:47 100 MG Furosemide (Lasix Tab) 40 mg BIDM PO 08/12/16 17:00 09/11/16 16:59 08/16/16 07:32 40 MG Rifaximin (Xifaxan Tab) 550 mg BID PO 08/13/16 20:00 09/12/16 20:59 08/16/16 07:32 550 MG Ciprofloxacin (Cipro Tab) 500 mg DAILY PO 08/15/16 08:00 08/25/16 07:59 08/16/16 07:34 500 MG Polyethylene (Miralax Powder Packet) 17 gm BID PRN PO 08/15/16 13:45 09/14/16 13:44 Objective Vital Signs Date Time Temp Pulse Resp B/P Pulse Ox O2 Delivery O2 Flow Rate FiO2 08/16/16 07:55 36.9 98 20 106/73 100 Room Air 08/16/16 00:00 Room Air 08/15/16 23:22 36.9 89 20 108/73 95 Room Air 08/15/16 16:30 96 Room Air 08/15/16 14:55 36.9 78 18 114/73 96 Physical Exam General Appearance: no apparent distress Neck: supple, trachea midline Respiratory/Chest: lungs clear, normal breath sounds, no respiratory distress, no accessory muscle use Cardiovascular: regular rate, rhythm, no gallop, no murmur Abdomen: normal bowel sounds, no pulsatile mass, + distended, + tenderness, + pertinent finding (worsening ascites since Tuesday exam) Neurologic/Psych: alert, normal mood/affect, oriented x 3 Skin: warm/dry, no rash, + jaundice Laboratory Results Last 24 Hours Test 08/16/16 05:15 White Blood Count 10.99 K/uL Red Blood Count 2.61 M/uL Hemoglobin 9.5 g/dL Hematocrit 25.7 % Mean Corpuscular Volume 98.5 fL Mean Corpuscular Hemoglobin 36.4 pg Mean Corpuscular Hemoglobin Concent 37.0 g/dl Platelet Count 48 K/uL Mean Platelet Volume 10.5 fL RDW Standard Deviation 69.0 fL RDW Coefficient of Variation 19.1 % Neutrophils % (Manual) 69.3 % Lymphocytes % (Manual) 22.8 % Monocytes % (Manual) 6.1 % Eosinophils % (Manual) 0.9 % Metamyelocytes % 0.9 % Neutrophils # (Manual) 7.62 K/uL Total Absolute Neutrophils 7.62 K/uL Lymphocytes # (Manual) 2.51 K/uL Total Absolute Lymphocytes 2.51 K/uL Monocytes # (Manual) 0.67 K/uL Eosinophils # (Manual) 0.10 K/uL Metamyelocytes # 0.10 K/uL Acanthocytes 1+ Sodium Level 135 mmol/L Potassium Level 3.6 mmol/L Chloride Level 93 mmol/L Carbon Dioxide Level 32 mmol/L Anion Gap 10.0 mmol/L Blood Urea Nitrogen 29 mg/dl Creatinine 1.40 mg/dl Est Creatinine Clear Calc Drug Dose 53.9 ml/min Estimated GFR () 66.0 Estimated GFR (Non- 57.0 BUN/Creatinine Ratio 20.4 Random Glucose 116 mg/dl Calcium Level 8.6 mg/dl Total Bilirubin 16.4 mg/dl Aspartate Amino Transf (AST/SGOT) 124 U/L Alanine Aminotransferase (ALT/SGPT) 86 U/L Alkaline Phosphatase 103 U/L Total Protein 5.3 gm/dl Albumin 3.4 gm/dl Globulin 1.9 gm/dl Albumin/Globulin Ratio 1.8 Assessment and Plan Mr. 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 He reports that he is feeling much worse since Tuesday. He is feeling extremely weak and hopeless. His bilirubin has increased to 16 since Tuesday. Paracentesis today 25 gm 25% albumin before, 25 gm 25% albumin after US for eval of choledocholithiasis after paracentesis SBP - continue Rocephin 2g daily - will discuss need for preventative therapy with daily cipro 500 mg Aldactone 25mg - watch K and titrate this dose up as tolerated Lasix 20mg BID fluid/Na+/K restricted diet continue lactulose - can increase to 30 gm TID if patient will take xifaxin 550 BID Attg addendum: I interviweed and examined. Pt is s/p tap, and appears improved. His abd remains distended, and he still has pedal edema. Will request doppler of liver.
[2016-08-16] MEDS ORDERED: ALBUMIN HUMAN 25% 12.5 GM/50 ML VIAL IV SCH (11:00)
--- NOTE | 2016-08-16 13:27 | Psychiatric Progress Notes ---
Progress Note Date of Service Aug 16, 2016. Interval History 55-year-old white male with a history of alcohol and heroin abuse, hepatitis C, and cirrhosis who was admitted medically for edema and ascites. Psychiatry was consulted for depression. Chief Complaint "I'm just not in a good place right now". Data Vital Signs Last 24 Hrs: Date Time Temp Pulse Resp B/P Pulse Ox O2 Delivery O2 Flow Rate FiO2 08/16/16 08:00 Room Air 08/16/16 07:55 36.9 98 20 106/73 100 Room Air 08/16/16 00:00 Room Air 08/15/16 23:22 36.9 89 20 108/73 95 Room Air 08/15/16 16:30 96 Room Air 08/15/16 14:55 36.9 78 18 114/73 96 Meds Administered Last 24 Hrs: Meds Administered (Past 24Hrs) Medications (Trade) Dose Ordered Sig/Perla Route Start Time Stop Time Status Last Admin Dose Admin Ciprofloxacin (Cipro Tab) 500 mg DAILY PO 08/15/16 08:00 08/25/16 07:59 08/16/16 07:34 500 MG Potassium Chloride (Klor-Con M10) 40 meq 1345 ONCE PO 08/15/16 13:45 08/15/16 13:46 DC 08/15/16 14:25 40 MEQ Lab Results Last 24 Hrs: Last 24 Hours Test 08/16/16 05:15 White Blood Count 10.99 K/uL Red Blood Count 2.61 M/uL Hemoglobin 9.5 g/dL Hematocrit 25.7 % Mean Corpuscular Volume 98.5 fL Mean Corpuscular Hemoglobin 36.4 pg Mean Corpuscular Hemoglobin Concent 37.0 g/dl Platelet Count 48 K/uL Mean Platelet Volume 10.5 fL RDW Standard Deviation 69.0 fL RDW Coefficient of Variation 19.1 % Neutrophils % (Manual) 69.3 % Lymphocytes % (Manual) 22.8 % Monocytes % (Manual) 6.1 % Eosinophils % (Manual) 0.9 % Metamyelocytes % 0.9 % Neutrophils # (Manual) 7.62 K/uL Total Absolute Neutrophils 7.62 K/uL Lymphocytes # (Manual) 2.51 K/uL Total Absolute Lymphocytes 2.51 K/uL Monocytes # (Manual) 0.67 K/uL Eosinophils # (Manual) 0.10 K/uL Metamyelocytes # 0.10 K/uL Acanthocytes 1+ Sodium Level 135 mmol/L Potassium Level 3.6 mmol/L Chloride Level 93 mmol/L Carbon Dioxide Level 32 mmol/L Anion Gap 10.0 mmol/L Blood Urea Nitrogen 29 mg/dl Creatinine 1.40 mg/dl Est Creatinine Clear Calc Drug Dose 53.9 ml/min Estimated GFR () 66.0 Estimated GFR (Non- 57.0 BUN/Creatinine Ratio 20.4 Random Glucose 116 mg/dl Calcium Level 8.6 mg/dl Total Bilirubin 16.4 mg/dl Aspartate Amino Transf (AST/SGOT) 124 U/L Alanine Aminotransferase (ALT/SGPT) 86 U/L Alkaline Phosphatase 103 U/L Total Protein 5.3 gm/dl Albumin 3.4 gm/dl Globulin 1.9 gm/dl Albumin/Globulin Ratio 1.8
--- NOTE | 2016-08-16 13:28 | Psychiatric Consultation ---
Consultation Identifying Data 55-year-old white male with a history of alcohol and heroin abuse, hepatitis C, and cirrhosis who was admitted medically for edema and ascites. Psychiatry was consulted for depression. Chief Complaint "I'm just not in a good place right now". History of Present Illness Patient was seen & assessed and records reviewed. The patient is known to me from a previous psychiatric consultation on 07/07/2016, also for depression, during which he denied symptoms of clinical depression and did not want any mental health treatment. He was discharged 07/10/2016, but was readmitted one month later after he presented with anasarca and ascites. He is being followed by gastroenterology and nephrology, and per the GI note from this morning, tearful and stated he was scared, leading to the psychiatric consult. In my assessment, the patient states that he is not interested in mental health treatment, and is not sure why he agreed to a psychiatric consultation. He says that he has brief periods of low mood that last 5-10 minutes and occur when he is feeling stressed about his medical condition. He denies feeling consistently depressed, denies anhedonia, problems with sleep, concentration, and irritability. He reports he has good support from his and son, is hopeful that things will improve for him, and feels able to use positive thinking to improve his mood when he is feeling down. He denies thoughts of suicide or any concerns that he would harm himself. He is dismissive of attempts to involve them in a discussion of pursuing outpatient counseling, saying "I'm a strong david, I got this." He denies symptoms of helene, psychosis, and anxiety disorders. Past Psychiatric History Current OP Treatment: no current treatment Prior OP Treatment: no prior treatment No psychiatric history or treatment. No history of suicide attempts or hospitalizations. Past Medical/Surgical History Problem List: (1) GERD (gastroesophageal reflux disease) (2) Intermittent asthma (3) Thrombocytopenia (4) Chronic pain syndrome (5) Portal hypertension (6) Hepatitis C, chronic (7) Liver failure (8) Anemia (9) Ascites (10) Hyponatremia (11) Decompensated hepatic cirrhosis Allergies Allergies: Coded Allergies: Morphine (Verified Adverse Reaction, Unknown, INABILITY TO URINATE, ) Home Medications Scheduled Ascorbic Acid (Vitamin C Gummie 120 mg), 240 MG PO DAILY Furosemide (Lasix), 20 MG PO BID Lactulose (Chronulac), 30 GM PO BID Methylprednisolone (Methylprednisolone), 32 MG PO QAM Multiple Vitamin (Multivitamin), 1 TAB PO QAM Nadolol (Corgard), 20 MG PO DAILY Nystatin (Nystatin Suspension), 5 ML PO QID Pantoprazole (Pantoprazole Sodium), 40 MG PO DAILY Valacyclovir (Valtrex), 500 MG PO DAILY [Dilaudid Pain Pump], 1 DOSE INJ UD Scheduled PRN Albuterol Sulfate (Proair Respiclick), 2 PUFFS INH Q4H PRN for SOB/Wheezing Cyclobenzaprine HCl (Cyclobenzaprine HCl), 10 MG PO DAILY PRN for Muscle Spasm Hydromorphone Hcl (Dilaudid), 4 MG PO Q6H PRN for Pain Oxycodone/Acetaminophen 10MG/325MG (Percocet 10MG/325MG), 1 TAB PO UD PRN for Pain Family History Unobtainable family history due to adoption Alcohol Use Alcohol Use In Past 12 Months: No Remote history of alcohol abuse Substance History Remote history of IV heroin use, clean for over 20 years Personal History Children: 13 y/o son Additional Comments: Originally from [facility], but came here over 20 years ago to work at the [employer]. Now unemployed and on disability. Lives in [place] with his long-term girlfriend whom he refers to as his and his 13-year-old son. Review of Systems Denies symptoms of PTSD, panic, OCD, hallucinations, paranoia, homicidal thoughts Examination Vital Signs Vital Signs Past 12 Hours Date Time Temp Pulse Resp B/P Pulse Ox O2 Delivery O2 Flow Rate FiO2 08/16/16 08:00 Room Air 08/16/16 07:55 36.9 98 20 106/73 100 Room Air Laboratory Results Last 24 Hours Test 08/16/16 05:15 White Blood Count 10.99 K/uL Red Blood Count 2.61 M/uL Hemoglobin 9.5 g/dL Hematocrit 25.7 % Mean Corpuscular Volume 98.5 fL Mean Corpuscular Hemoglobin 36.4 pg Mean Corpuscular Hemoglobin Concent 37.0 g/dl Platelet Count 48 K/uL Mean Platelet Volume 10.5 fL RDW Standard Deviation 69.0 fL RDW Coefficient of Variation 19.1 % Neutrophils % (Manual) 69.3 % Lymphocytes % (Manual) 22.8 % Monocytes % (Manual) 6.1 % Eosinophils % (Manual) 0.9 % Metamyelocytes % 0.9 % Neutrophils # (Manual) 7.62 K/uL Total Absolute Neutrophils 7.62 K/uL Lymphocytes # (Manual) 2.51 K/uL Total Absolute Lymphocytes 2.51 K/uL Monocytes # (Manual) 0.67 K/uL Eosinophils # (Manual) 0.10 K/uL Metamyelocytes # 0.10 K/uL Acanthocytes 1+ Sodium Level 135 mmol/L Potassium Level 3.6 mmol/L Chloride Level 93 mmol/L Carbon Dioxide Level 32 mmol/L Anion Gap 10.0 mmol/L Blood Urea Nitrogen 29 mg/dl Creatinine 1.40 mg/dl Est Creatinine Clear Calc Drug Dose 53.9 ml/min Estimated GFR () 66.0 Estimated GFR (Non- 57.0 BUN/Creatinine Ratio 20.4 Random Glucose 116 mg/dl Calcium Level 8.6 mg/dl Total Bilirubin 16.4 mg/dl Aspartate Amino Transf (AST/SGOT) 124 U/L Alanine Aminotransferase (ALT/SGPT) 86 U/L Alkaline Phosphatase 103 U/L Total Protein 5.3 gm/dl Albumin 3.4 gm/dl Globulin 1.9 gm/dl Albumin/Globulin Ratio 1.8 Mental Examination During interview pt is: alert and oriented, other (partially cooperative, superficial) Appearance: other (thin and ill appearing, jaundiced) Eye contact is: poor (watching TV throughout the interview) Motor behavior is: no abnormal motor movements Speech: normal in rate, rhythm & volume Affect: other (stable and appropriate) Mood is: other ("not in a good place, but I'm not depressed") Thought process: goal directed Thought content: reality based without delusions Suicidal thought are: denied Homicidal thoughts are: denied Hallucinations: denies auditory, denies visual Cognition: memory grossly intact, attention grossly intact, language grossly intact Intelligence estimated to be: average Insight: fair Judgement: fair Impression / Recommendations Impression 55-year-old male with a remote history of IV drug use, now with cirrhosis, who is admitted to the medical service with ascites. He denies symptoms of clinical depression, stating that his mood is briefly low due to frustration with his medical condition, and has repeatedly stated he does not want to pursue outpatient mental health treatment. He was just seen 1 month ago under similar circumstances, and also declined offers for outpatient treatment at that time. We again reviewed signs and symptoms of depression, and options for outpatient treatment should he change his mind. Recommendations Patient does not meet full criteria for clinical depression, and is not interested in medications nor therapy. 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 He is willing to seek outpatient care if his symptoms worsen. He has no history of suicide attempts, mental illness, psychiatric hospitalization, or self injury, and does not meet criteria for psychiatric hospitalization or involuntary commitment. The patient has been counseled on 2 occasions in the past month about the options for outpatient mental health treatment, including antidepressant medications, medication management with a psychiatrist, and psychotherapy. He has repeatedly declined these recommendations. We will sign off, but please contact the liaison nurse if he changes his mind and would like outpatient referrals.
[2016-08-16] MEDS: ALBUMIN HUMAN 25% 12.5 GM/50 ML VIAL IV SCH ×2 (14:05→14:35)
--- NOTE | 2016-08-16 15:03 | Progress Note ---
Internal Med Progress Note Date of Service: Aug 16, 2016. Provider Documentation: SUBJECTIVE: Patient is seen and examined at bedside. States had no BM today and has abd discomfort. Also reports that his abdomen and leg swelling is worsening. Offers no other complaints. OBJECTIVE: Vital Signs-as noted below Physical Exam: General Appearance:Thin, chronically ill appearing, no apparent distress Head: normocephalic, Atraumatic Eyes: normal inspection, EOMI, PERRLA, + icteric Neck: supple, no JVD, Trachea midline Respiratory/Chest: Normal breath sounds, CTA, No accessory muscle use Cardiovascular: S1, S2, No murmur Abdomen/GI:Bowel sounds present, distended. Pain Infusion pump palpable. Extremities/Musculoskelatal:normal inspection, 2+ edema Neurologic/Psych:AAOX3, grossly no focal neurological deficits Skin: normal color, warm Lab data as noted below. ASSESSMENT & PLAN: Decompensated Cirrhosis and SBP: H/O HCV and ETOH use Volume Overload Has not been able to see hepatology in [place] to discuss TIPS/liver transplant issues due to recurrent hospitalizations S/P Abdominal paracentesis on 08/10/16 Recurrent hospitalizations secondary to decompensation Completed Ceftriaxone 2g Q8H for 5 days No alcohol use since 6 months: ETOH levels:Negative Continue Lasix 40mg BID, Spironolactone 25mg Daily per Nephrology recommendations (Target Lasix 80mg daily and 50 mg Aldactone) Appreciate nephrology and GI help ETOH Hepatitis: bilirubin improved initially with prednisolone and later worsened again. D/C steroids per Dr. Patirck as this does not appear to be ETOH Hepatitis Continue 1200 cc fluid restriction/ 2g low sodium diet continue lactulose 30g BID >>> Can increase to TID if necessary per GI. ( Patient prefers BID for now) Rifaximin 550 BID added as ammonia levels increasing Ammonia levels:60 on continue Nadolol 20mg daily Continue sodium/fluid restriction Cultures-Blood/Ascitic fluid: Negative to date Started on preventative SBP therapy with daily cipro 500 mg 08/15/16 S/P IV albumin completed on 08/13/16 Needs close monitoring of electrolytes Total bilirubin increased to 14.1 Will defer need for paracentesis to GI Hypokalemia: Secondary to diuretics Will replace and monitor Chronic anemia: hemoglobin at baseline Thrombocytopenia: Secondary to chronic liver disease Platelets decreased from 60K to 30K S/P one unit platelets transfused: 08/10/16 59K after platelet transfusion >> decreased to 47K Monitor Platelets Severe Protein Calorie Malnutrition: Secondary to comorbidities 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 CODE STATUS: Full code. DISPOSITION: Needs for follow up GI as outpatient Vital Signs: Date Time Temp Pulse Resp B/P Pulse Ox O2 Delivery O2 Flow Rate FiO2 08/16/16 16:53 36.7 79 16 122/78 99 Room Air 08/16/16 14:55 36.9 83 16 124/84 08/16/16 14:34 36.9 83 16 122/83 08/16/16 14:04 36.9 86 16 126/82 08/16/16 08:00 Room Air 08/16/16 07:55 36.9 98 20 106/73 100 Room Air 08/16/16 00:00 Room Air 08/15/16 23:22 36.9 89 20 108/73 95 Room Air Lab Results: Results Past 24 Hours Test 08/16/16 00:00 08/16/16 05:15 Range/Units Peritoneal Fluid Total Protein 0.9 g/dl Peritoneal Fluid Albumin 0.6 g/dl White Blood Count 10.99 4.8-10.8 K/uL Red Blood Count 2.61 4.7-6.1 M/uL Hemoglobin 9.5 14.0-18.0 g/dL Hematocrit 25.7 42-52 % Mean Corpuscular Volume 98.5 80-100 fL Mean Corpuscular Hemoglobin 36.4 25-34 pg Mean Corpuscular Hemoglobin Concent 37.0 32-36 g/dl Platelet Count 48 130-400 K/uL Mean Platelet Volume 10.5 7.4-10.4 fL RDW Standard Deviation 69.0 36.4-46.3 fL RDW Coefficient of Variation 19.1 11.5-14.5 % Neutrophils % (Manual) 69.3 % Lymphocytes % (Manual) 22.8 % Monocytes % (Manual) 6.1 % Eosinophils % (Manual) 0.9 % Metamyelocytes % 0.9 % Neutrophils # (Manual) 7.62 1.4-6.5 K/uL Total Absolute Neutrophils 7.62 1.4-6.5 K/uL Lymphocytes # (Manual) 2.51 1.2-3.4 K/uL Total Absolute Lymphocytes 2.51 1.2-3.4 K/uL Monocytes # (Manual) 0.67 0.11-0.59 K/uL Eosinophils # (Manual) 0.10 0-0.5 K/uL Metamyelocytes # 0.10 0-0 K/uL Acanthocytes 1+ Sodium Level 135 136-145 mmol/L Potassium Level 3.6 3.5-5.1 mmol/L Chloride Level 93 98-107 mmol/L Carbon Dioxide Level 32 21-32 mmol/L Anion Gap 10.0 3-11 mmol/L Blood Urea Nitrogen 29 7-18 mg/dl Creatinine 1.40 0.60-1.40 mg/dl Est Creatinine Clear Calc Drug Dose 53.9 ml/min Estimated GFR () 66.0 Estimated GFR (Non- 57.0 BUN/Creatinine Ratio 20.4 10-20 Random Glucose 116 70-99 mg/dl Calcium Level 8.6 8.5-10.1 mg/dl Total Bilirubin 16.4 0.2-1 mg/dl Aspartate Amino Transf (AST/SGOT) 124 15-37 U/L Alanine Aminotransferase (ALT/SGPT) 86 12-78 U/L Alkaline Phosphatase 103 45-117 U/L Total Protein 5.3 6.4-8.2 gm/dl Albumin 3.4 3.4-5.0 gm/dl Globulin 1.9 2.5-4.0 gm/dl Albumin/Globulin Ratio 1.8 0.9-2 Microbiology Results 08/16/16 Acid Fast Stain, Received Pending 08/16/16 Mycobacterial Culture, Received Pending 08/16/16 Gram Stain, Received Pending 08/16/16 Bacterial Culture, Received Pending
--- NOTE | 2016-08-16 15:40 | DIAGNOSTIC IMAGING REPORT ---
BILIARY ULTRASOUND CLINICAL HISTORY: Elevated bilirubin. COMPARISON STUDY: 07/01/2016 FINDINGS: The liver demonstrates coarsened echotexture and a nodular surface consistent with cirrhosis. No focal hepatic masses are visualized. The gallbladder contains calculi and sludge. There is gallbladder wall thickening ((9 mm.). This is a nonspecific finding is gallbladder wall thickening can be seen in hepatocellular disease. The pancreas appears unremarkable as visualized. There is mild common bile duct dilatation (7.5 mm). No common bile duct calculi are visualized. There is no pancreatic ductal dilatation. There is no right-sided hydronephrosis. There is moderate ascites. IMPRESSION: 1. Cirrhotic hepatic morphology 2. Gallstones, sludge in the gallbladder, and gallbladder wall thickening/edema 3. Mildly dilated common bile duct measuring 7.5 mm Electronically signed by: Storm Chavez M.D. 08/16/2016 3:38 PM Dictated Date/Time: 08/16/2016 3:35 PM
--- NOTE | 2016-08-16 16:54 | Progress Note ---
Internal Med Progress Note Date of Service: Aug 16, 2016. Provider Documentation: SUBJECTIVE: Patient is seen and examined at bedside. He just returned from paracentesis. Abd discomfort is better. He was tearful this morning as he was worried about his condition. Denies suicidal thoughts. Currently feels better. Offers no other complaints. OBJECTIVE: Vital Signs-as noted below Physical Exam: General Appearance:Thin, chronically ill appearing, no apparent distress Head: normocephalic, Atraumatic Eyes: normal inspection, EOMI, PERRLA, + icteric Neck: supple, no JVD, Trachea midline Respiratory/Chest: Normal breath sounds, CTA, No accessory muscle use Cardiovascular: S1, S2, No murmur Abdomen/GI:Bowel sounds present, distended. Pain Infusion pump palpable. Paracentesis site in bandage. Extremities/Musculoskelatal:normal inspection, 2+ edema Neurologic/Psych:AAOX3, grossly no focal neurological deficits Skin: normal color, warm Lab data as noted below. ASSESSMENT & PLAN: Decompensated Cirrhosis and SBP: H/O HCV and ETOH use Volume Overload Has not been able to see hepatology in [place] to discuss TIPS/liver transplant issues due to recurrent hospitalizations S/P Abdominal paracentesis on 08/10/16 Recurrent hospitalizations secondary to decompensation Completed Ceftriaxone 2g daily for 5 days No alcohol use since 6 months: ETOH levels:Negative Continue Lasix 40mg BID, Spironolactone 25mg Daily per Nephrology recommendations (Target Lasix 80mg daily and 50 mg Aldactone) Appreciate nephrology and GI help ETOH Hepatitis: bilirubin improved initially with prednisolone and later worsened again. D/C steroids per Dr. Patrick as this does not appear to be ETOH Hepatitis Continue 1200 cc fluid restriction/ 2g low sodium diet continue lactulose 30g BID >>> Can increase to TID if necessary per GI. ( Patient prefers BID for now) Rifaximin 550 BID added as ammonia levels increasing Ammonia levels:60 on continue Nadolol 20mg daily Cultures-Blood/Ascitic fluid: Negative to date Started on preventative SBP therapy with daily cipro 500 mg 08/15/16 S/P IV albumin completed on 08/13/16 Needs close monitoring of electrolytes Total bilirubin increased to 16.4 Had repeat Paracentesis today. 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 CODE STATUS: Full code. DISPOSITION: Needs for follow up GI as outpatient Has an appointment in [place] to discuss for possible TIPS/liver transplant Vital Signs: Date Time Temp Pulse Resp B/P Pulse Ox O2 Delivery O2 Flow Rate FiO2 08/16/16 14:55 36.9 83 16 124/84 08/16/16 14:34 36.9 83 16 122/83 08/16/16 14:04 36.9 86 16 126/82 08/16/16 08:00 Room Air 08/16/16 07:55 36.9 98 20 106/73 100 Room Air 08/16/16 00:00 Room Air 08/15/16 23:22 36.9 89 20 108/73 95 Room Air Lab Results: Results Past 24 Hours Test 08/16/16 00:00 08/16/16 05:15 Range/Units White Blood Count 10.99 4.8-10.8 K/uL Red Blood Count 2.61 4.7-6.1 M/uL Hemoglobin 9.5 14.0-18.0 g/dL Hematocrit 25.7 42-52 % Mean Corpuscular Volume 98.5 80-100 fL Mean Corpuscular Hemoglobin 36.4 25-34 pg Mean Corpuscular Hemoglobin Concent 37.0 32-36 g/dl Platelet Count 48 130-400 K/uL Mean Platelet Volume 10.5 7.4-10.4 fL RDW Standard Deviation 69.0 36.4-46.3 fL RDW Coefficient of Variation 19.1 11.5-14.5 % Neutrophils % (Manual) 69.3 % Lymphocytes % (Manual) 22.8 % Monocytes % (Manual) 6.1 % Eosinophils % (Manual) 0.9 % Metamyelocytes % 0.9 % Neutrophils # (Manual) 7.62 1.4-6.5 K/uL Total Absolute Neutrophils 7.62 1.4-6.5 K/uL Lymphocytes # (Manual) 2.51 1.2-3.4 K/uL Total Absolute Lymphocytes 2.51 1.2-3.4 K/uL Monocytes # (Manual) 0.67 0.11-0.59 K/uL Eosinophils # (Manual) 0.10 0-0.5 K/uL Metamyelocytes # 0.10 0-0 K/uL Acanthocytes 1+ Sodium Level 135 136-145 mmol/L Potassium Level 3.6 3.5-5.1 mmol/L Chloride Level 93 98-107 mmol/L Carbon Dioxide Level 32 21-32 mmol/L Anion Gap 10.0 3-11 mmol/L Blood Urea Nitrogen 29 7-18 mg/dl Creatinine 1.40 0.60-1.40 mg/dl Est Creatinine Clear Calc Drug Dose 53.9 ml/min Estimated GFR () 66.0 Estimated GFR (Non- 57.0 BUN/Creatinine Ratio 20.4 10-20 Random Glucose 116 70-99 mg/dl Calcium Level 8.6 8.5-10.1 mg/dl Total Bilirubin 16.4 0.2-1 mg/dl Aspartate Amino Transf (AST/SGOT) 124 15-37 U/L Alanine Aminotransferase (ALT/SGPT) 86 12-78 U/L Alkaline Phosphatase 103 45-117 U/L Total Protein 5.3 6.4-8.2 gm/dl Albumin 3.4 3.4-5.0 gm/dl Globulin 1.9 2.5-4.0 gm/dl Albumin/Globulin Ratio 1.8 0.9-2 Microbiology Results 08/16/16 Acid Fast Stain, Received Pending 08/16/16 Mycobacterial Culture, Received Pending 08/16/16 Gram Stain, Received Pending 08/16/16 Bacterial Culture, Received Pending
--- NOTE | 2016-08-16 16:58 | DIAGNOSTIC IMAGING REPORT ---
ULTRASOUND-GUIDED THERAPEUTIC and diagnostic PARACENTESIS: HISTORY: Ascites. Cirrhosis. Procedure: The procedure and its risks, benefits and alternatives were discussed with the patient and written informed consent was obtained. Preliminary ultrasound of the abdomen was performed to determine a safe needle entry site. The right lower quadrant was prepped and draped in the usual sterile fashion. 1% Lidocaine was used for local anesthesia. A paracentesis needle-sheath was inserted into the peritoneal space using ultrasound guidance. The needle was removed and the sheath was connected to tubing and a vacuum suction device. A total of 4.4 liters of serosanguineous ascites was aspirated. The sheath was removed and a sterile dressing applied. 1 L was sent to the laboratory for diagnostic testing. The patient tolerated the procedure well and there were no immediate complications. IMPRESSION: Ultrasound-guided therapeutic and diagnostic paracentesis with aspiration of 4.4 liters of ascites. Electronically signed by: Dangelo Morales M.D. 08/16/2016 4:57 PM Dictated Date/Time: 08/16/2016 4:56 PM
[2016-08-16] MEDS: OXYCODONE HCL IR 5 MG TAB (IMMEDIATE RELEASE) PO PRN (17:11)
[2016-08-16] MEDS: DOCUSATE SODIUM 100 MG CAP PO PRN (17:11)
[2016-08-16 17:32] LABS: PERIT FL WBC 359 /uL (0-300); PERITONEAL FLUID RBC < 3000 /uL
[2016-08-16] MEDS ORDERED: NURSING DECISION MEDICATION ORDER SCH (19:00)
[2016-08-16] MEDS ORDERED: SODIUM CHLORIDE 0.65% NA SOLN 45 ML (OCEAN) PRN (19:15)
[2016-08-17 05:42] LABS: HEMATOCRIT 21.5 % (42-52); MEAN CELL VOLUME 97.7 fL (80-100); MEAN CORPUSCULAR HEMOGLOBIN 36.4 pg (25-34); MEAN CORPUSCULAR HGB CONC 37.2 g/dl (32-36); WHITE BLOOD COUNT 8.63 K/uL (4.8-10.8)
[2016-08-17 05:43] LABS: MEAN PLATELET VOLUME 10.8 fL (7.4-10.4); PLATELET COUNT 37 K/uL (130-400)
[2016-08-17 06:19] LABS: ACANTHOCYTES 2+; COMPLETE YES; EOS % 2.4 %; IG% 0.9 %; LYMPH % 28.2 %; LYMPH ABS # 2.43 K/uL (1.2-3.4); MONO % 10.3 %; NEUT % 58.2 %; TARGET CELLS 1+
[2016-08-17 06:22] LABS: ALB/GLOB RATIO 2.1 (0.9-2); BUN/CREATININE RATIO 21.3 (10-20); CALCIUM 8.3 mg/dl (8.5-10.1); CREATININE 1.3 mg/dl (0.60-1.40); POTASSIUM 3.3 mmol/L (3.5-5.1)
--- NOTE | 2016-08-17 07:07 | Nephrology Progress Note ---
Nephrology Progress Note Date of Service: Aug 17, 2016. Subjective 55 yo male with cirrhosis with weekly paracentesis and on antibiotics for sbp. has edema in legs. had paracentesis yesterday with albumin. pts main complaint today is the urge to defecate but unable to do so. last bm about a day ago. Objective Date Time Temp Pulse Resp B/P Pulse Ox O2 Delivery O2 Flow Rate FiO2 08/16/16 23:39 37.0 93 16 124/79 95 Room Air 08/16/16 23:15 Room Air 08/16/16 16:53 36.7 79 16 122/78 99 Room Air 08/16/16 16:00 99 Room Air 08/16/16 14:55 36.9 83 16 124/84 08/16/16 14:34 36.9 83 16 122/83 08/16/16 14:04 36.9 86 16 126/82 08/16/16 08:00 Room Air 08/16/16 07:55 36.9 98 20 106/73 100 Room Air Physical Exam: General-aaox3, jaundice Eyes-+scleral icterus ENT-mmm Neck-supple Lungs-cta Heart-rrr Abdomen-bs+/soft-paracentesis yesterday Extremities-+2 edema mostly in feet Neuro-nonfocal Current Inpatient Medications Medications (Trade) Dose Ordered Sig/Perla Route Start Time Stop Time Status Last Admin Dose Admin Hydromorphone HCl (Dilaudid Tab) 4 mg Q6H PRN PO 08/10/16 01:15 08/24/16 01:14 Lactulose (Chronulac Syrup) 30 gm BID PO 08/10/16 09:00 09/09/16 08:59 08/16/16 20:17 30 GM Multivitamins (Multivitamin Tab) 1 tab QAM PO 08/10/16 09:00 09/09/16 08:59 08/16/16 07:34 1 TAB Nadolol (Corgard Tab) 20 mg DAILY PO 08/10/16 09:00 09/09/16 08:59 08/16/16 07:32 20 MG Nystatin (Mycostatin Susp) 5 ml QID PO 08/10/16 09:00 08/20/16 08:59 08/16/16 20:17 5 ML Pantoprazole Sodium (Protonix Tab) 40 mg DAILY PO 08/10/16 09:00 09/09/16 08:59 08/16/16 07:32 40 MG Albuterol/ Ipratropium (Duoneb) 3 ml Q2H PRN INH 08/10/16 01:15 09/09/16 01:14 Nicotine (Nicoderm Cq 14MG Patch) 1 patch QAM TD 08/11/16 09:00 09/10/16 08:59 08/16/16 07:35 1 PATCH Miscellaneous (Remove Nicoderm Patch) 1 ea HS N/A 08/10/16 21:00 09/09/16 20:59 Acetaminophen (Tylenol Tab) 325 mg Q6H PRN PO 08/10/16 01:15 09/09/16 01:14 Oxycodone HCl (Roxicodone Immediate Rel Tab) 5 mg Q6H PRN PO 08/10/16 01:15 08/24/16 01:14 08/16/16 17:11 5 MG Hydromorphone HCl (Dilaudid Inj) 0.5 mg Q6H PRN IV 08/10/16 01:15 08/24/16 01:14 08/13/16 20:44 0.5 MG Ondansetron HCl (Zofran Inj) 4 mg Q6H PRN IV 08/10/16 01:15 09/09/16 01:14 Spironolactone (Aldactone Tab) 25 mg QAM PO 08/11/16 10:45 09/10/16 10:44 08/16/16 07:33 25 MG Docusate Sodium (coLACE CAP) 100 mg BID PRN PO 08/11/16 18:00 09/10/16 17:59 08/16/16 17:11 100 MG Furosemide (Lasix Tab) 40 mg BIDM PO 08/12/16 17:00 09/11/16 16:59 08/16/16 17:03 40 MG Rifaximin (Xifaxan Tab) 550 mg BID PO 08/13/16 20:00 09/12/16 20:59 08/16/16 20:17 550 MG Ciprofloxacin (Cipro Tab) 500 mg DAILY PO 08/15/16 08:00 08/25/16 07:59 08/16/16 07:34 500 MG Polyethylene (Miralax Powder Packet) 17 gm BID PRN PO 08/15/16 13:45 09/14/16 13:44 Sodium Chloride ([place] Nasal [place]) 1 sprays PRN PRN NA 08/16/16 19:15 09/15/16 19:14 Last 24 Hours Test 08/17/16 05:13 White Blood Count 8.63 K/uL Red Blood Count 2.20 M/uL Hemoglobin 8.0 g/dL Hematocrit 21.5 % Mean Corpuscular Volume 97.7 fL Mean Corpuscular Hemoglobin 36.4 pg Mean Corpuscular Hemoglobin Concent 37.2 g/dl Platelet Count 37 K/uL Mean Platelet Volume 10.8 fL Neutrophils (%) (Auto) 58.2 % Lymphocytes (%) (Auto) 28.2 % Monocytes (%) (Auto) 10.3 % Eosinophils (%) (Auto) 2.4 % Basophils (%) (Auto) 0.0 % Neutrophils # (Auto) 5.02 K/uL Lymphocytes # (Auto) 2.43 K/uL Monocytes # (Auto) 0.89 K/uL Eosinophils # (Auto) 0.21 K/uL Basophils # (Auto) 0.00 K/uL RDW Standard Deviation 65.6 fL RDW Coefficient of Variation 18.5 % Immature Granulocyte % (Auto) 0.9 % Immature Granulocyte # (Auto) 0.08 K/uL Target Cells 1+ Acanthocytes 2+ Sodium Level 133 mmol/L Potassium Level 3.3 mmol/L Chloride Level 92 mmol/L Carbon Dioxide Level 32 mmol/L Anion Gap 9.0 mmol/L Blood Urea Nitrogen 28 mg/dl Creatinine 1.30 mg/dl Est Creatinine Clear Calc Drug Dose 58.0 ml/min Estimated GFR () 72.2 Estimated GFR (Non- 62.3 BUN/Creatinine Ratio 21.3 Random Glucose 98 mg/dl Calcium Level 8.3 mg/dl Total Bilirubin 12.8 mg/dl Aspartate Amino Transf (AST/SGOT) 98 U/L Alanine Aminotransferase (ALT/SGPT) 67 U/L Alkaline Phosphatase 101 U/L Total Protein 4.9 gm/dl Albumin 3.3 gm/dl Globulin 1.6 gm/dl Albumin/Globulin Ratio 2.1 Assessment & Plan Cirrhosis with volume overload-pt currently on lasix 40 bid and spironolactone 25mg a day. k is low and would like to increase spironolactone to 50mg a day and repeat bmp in a week. Constipation-pt has colace and miralax as prn orders and on lactulose. does have good bs+, abdomen soft, nontender. will discuss with nurse about giving the prn medications. k is low but would hold on k replacement and increase the spironolactone instead. check mag levels to make sure they are stable.
[2016-08-17 07:23] VITALS: BP 116/74; PULSE 85; TEMP 36.9; O2SAT 95
[2016-08-17] MEDS: MULTIVITAMIN TAB PO SCH ×2 (08:00→09:38)
[2016-08-17] MEDS ORDERED: SPIRONOLACTONE 25 MG TAB PO SCH (08:00)
--- NOTE | 2016-08-17 08:47 | DIAGNOSTIC IMAGING REPORT ---
VENOUS DUPLEX ULTRASOUND THE PORTAL AND HEPATIC VEINS. CLINICAL HISTORY: Hepatic cirrhosis. Elevated bilirubin. COMPARISON STUDY: No previous studies for comparison. FINDINGS: The liver has a cirrhotic morphology. There is ascites. The hepatic veins are patent with normal directional flow. The portal veins are patent with normal directional flow. Portal vein velocities are somewhat diminished. IMPRESSION: 1. Cirrhotic liver morphology with ascites. 2. The hepatic and portal veins are patent with normal directional flow. Electronically signed by: Storm Chavez M.D. 08/17/2016 8:45 AM Dictated Date/Time: 08/17/2016 8:43 AM
[2016-08-17] MEDS ORDERED: POTASSIUM CHLORIDE 20 MEQ TABCR PO ONE (09:00)
--- NOTE | 2016-08-17 09:15 | Gastroenterology Progress Note ---
Progress Note Date of Service: Aug 17, 2016 Subjective Pt evaluation today including: conversation w/ patient, physical exam, chart review, lab review Patient reports he feels bloated and constipated. No BM since x 2 days, + gas. No other complaints. He was provided with an UTD medication list with dosing and indications for each medication. He is set to follow up with hepatology on Tuesday GI will be in contact for a weekly follow up Review of Systems Constitutional: No chills, No fever Respiratory: No cough, No shortness of breath Cardiac: No chest pain Abdomen: + constipation, No GI bleeding, No diarrhea, No nausea, No pain, No vomiting Skin: + jaundice Medications Current Inpatient Medications Medications (Trade) Dose Ordered Sig/Perla Route Start Time Stop Time Status Last Admin Dose Admin Hydromorphone HCl (Dilaudid Tab) 4 mg Q6H PRN PO 08/10/16 01:15 08/24/16 01:14 Lactulose (Chronulac Syrup) 30 gm BID PO 08/10/16 09:00 09/09/16 08:59 08/16/16 20:17 30 GM Multivitamins (Multivitamin Tab) 1 tab QAM PO 08/10/16 09:00 09/09/16 08:59 08/16/16 07:34 1 TAB Nadolol (Corgard Tab) 20 mg DAILY PO 08/10/16 09:00 09/09/16 08:59 08/16/16 07:32 20 MG Nystatin (Mycostatin Susp) 5 ml QID PO 08/10/16 09:00 08/20/16 08:59 08/16/16 20:17 5 ML Pantoprazole Sodium (Protonix Tab) 40 mg DAILY PO 08/10/16 09:00 09/09/16 08:59 08/16/16 07:32 40 MG Albuterol/ Ipratropium (Duoneb) 3 ml Q2H PRN INH 08/10/16 01:15 09/09/16 01:14 Nicotine (Nicoderm Cq 14MG Patch) 1 patch QAM TD 08/11/16 09:00 09/10/16 08:59 08/16/16 07:35 1 PATCH Miscellaneous (Remove Nicoderm Patch) 1 ea HS N/A 08/10/16 21:00 09/09/16 20:59 Acetaminophen (Tylenol Tab) 325 mg Q6H PRN PO 08/10/16 01:15 09/09/16 01:14 Oxycodone HCl (Roxicodone Immediate Rel Tab) 5 mg Q6H PRN PO 08/10/16 01:15 08/24/16 01:14 08/16/16 17:11 5 MG Hydromorphone HCl (Dilaudid Inj) 0.5 mg Q6H PRN IV 08/10/16 01:15 08/24/16 01:14 08/13/16 20:44 0.5 MG Ondansetron HCl (Zofran Inj) 4 mg Q6H PRN IV 08/10/16 01:15 09/09/16 01:14 Docusate Sodium (coLACE CAP) 100 mg BID PRN PO 08/11/16 18:00 09/10/16 17:59 08/16/16 17:11 100 MG Furosemide (Lasix Tab) 40 mg BIDM PO 08/12/16 17:00 09/11/16 16:59 08/16/16 17:03 40 MG Rifaximin (Xifaxan Tab) 550 mg BID PO 08/13/16 20:00 09/12/16 20:59 08/16/16 20:17 550 MG Ciprofloxacin (Cipro Tab) 500 mg DAILY PO 08/15/16 08:00 08/25/16 07:59 08/16/16 07:34 500 MG Polyethylene (Miralax Powder Packet) 17 gm BID PRN PO 08/15/16 13:45 09/14/16 13:44 Sodium Chloride ([place] Nasal [place]) 1 sprays PRN PRN NA 08/16/16 19:15 09/15/16 19:14 Spironolactone 50 mg 50 mg QAM PO 08/17/16 08:00 09/16/16 07:59 Magnesium Sulfate/ Prmx (Magnesium Sulfate/Premixed D5W) 100 ml @ 100 mls/hr 0930 ONCE IV 08/17/16 09:30 08/17/16 10:29 Potassium Chloride (Klor-Con M10) 20 meq 0930 ONCE PO 08/17/16 09:30 08/17/16 09:31 Objective Vital Signs Date Time Temp Pulse Resp B/P Pulse Ox O2 Delivery O2 Flow Rate FiO2 08/17/16 07:23 36.9 85 12 116/74 95 Room Air 08/16/16 23:39 37.0 93 16 124/79 95 Room Air 08/16/16 23:15 Room Air 08/16/16 16:53 36.7 79 16 122/78 99 Room Air 08/16/16 16:00 99 Room Air 08/16/16 14:55 36.9 83 16 124/84 08/16/16 14:34 36.9 83 16 122/83 08/16/16 14:04 36.9 86 16 126/82 Physical Exam General Appearance: no apparent distress Eyes: PERRL ENT: hearing grossly normal Neck: supple, trachea midline Respiratory/Chest: lungs clear, normal breath sounds, no respiratory distress, no accessory muscle use Cardiovascular: regular rate, rhythm, no gallop, no JVD, no murmur Abdomen: normal bowel sounds, soft, no organomegaly, no pulsatile mass Neurologic/Psych: alert, normal mood/affect, oriented x 3 Skin: warm/dry, no rash, + jaundice Laboratory Results Last 24 Hours Test 08/17/16 05:13 White Blood Count 8.63 K/uL Red Blood Count 2.20 M/uL Hemoglobin 8.0 g/dL Hematocrit 21.5 % Mean Corpuscular Volume 97.7 fL Mean Corpuscular Hemoglobin 36.4 pg Mean Corpuscular Hemoglobin Concent 37.2 g/dl Platelet Count 37 K/uL Mean Platelet Volume 10.8 fL Neutrophils (%) (Auto) 58.2 % Lymphocytes (%) (Auto) 28.2 % Monocytes (%) (Auto) 10.3 % Eosinophils (%) (Auto) 2.4 % Basophils (%) (Auto) 0.0 % Neutrophils # (Auto) 5.02 K/uL Lymphocytes # (Auto) 2.43 K/uL Monocytes # (Auto) 0.89 K/uL Eosinophils # (Auto) 0.21 K/uL Basophils # (Auto) 0.00 K/uL RDW Standard Deviation 65.6 fL RDW Coefficient of Variation 18.5 % Immature Granulocyte % (Auto) 0.9 % Immature Granulocyte # (Auto) 0.08 K/uL Target Cells 1+ Acanthocytes 2+ Sodium Level 133 mmol/L Potassium Level 3.3 mmol/L Chloride Level 92 mmol/L Carbon Dioxide Level 32 mmol/L Anion Gap 9.0 mmol/L Blood Urea Nitrogen 28 mg/dl Creatinine 1.30 mg/dl Est Creatinine Clear Calc Drug Dose 58.0 ml/min Estimated GFR () 72.2 Estimated GFR (Non- 62.3 BUN/Creatinine Ratio 21.3 Random Glucose 98 mg/dl Calcium Level 8.3 mg/dl Magnesium Level 1.6 mg/dl Total Bilirubin 12.8 mg/dl Aspartate Amino Transf (AST/SGOT) 98 U/L Alanine Aminotransferase (ALT/SGPT) 67 U/L Alkaline Phosphatase 101 U/L Total Protein 4.9 gm/dl Albumin 3.3 gm/dl Globulin 1.6 gm/dl Albumin/Globulin Ratio 2.1 Assessment and Plan Mr. 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 He reports that he is feeling much better since having his paracentesis yesterday. He is set to be discharged today. KUB SBP preventative therapy with daily cipro 500 mg Aldactone 50 mg daily - watch K and titrate this dose up as tolerated Lasix 40 mg BID fluid/Na+/K restricted diet continue lactulose - can increase to 30 gm TID if patient will take xifaxin 550 BID nadolol 20 mg daily GI ok for discharge if unremarkable KUB. Will need BMP and liver profile within a week
[2016-08-17] MEDS ORDERED: MAGNESIUM SULFATE 1GM / D5W 1 GM in PREMIXED IN D5W 100 ML IV ONE (09:30)
[2016-08-17] MEDS ORDERED: POTASSIUM CHLORIDE 10 MEQ TABCR PO ONE (09:30)
[2016-08-17] MEDS: CIPROFLOXACIN 500 MG TAB PO SCH (09:34)
[2016-08-17] MEDS: LACTULOSE SYRUP 30 GM/45 ML UDP PO SCH (09:34)
[2016-08-17] MEDS: FUROSEMIDE 20 MG TAB PO SCH (09:34)
[2016-08-17] MEDS: NADOLOL 40 MG TAB PO SCH (09:34)
[2016-08-17] MEDS: NYSTATIN SUSP 500,000 U/5 ML UDC PO SCH ×2 (09:35→12:03)
[2016-08-17] MEDS: PANTOprazole SOD 40 MG TAB PO SCH (09:35)
[2016-08-17] MEDS: RIFAXIMIN TAB 550 MG TAB PO SCH (09:35)
[2016-08-17] MEDS: NICOTINE 14 MG/24 HR TDSY TD SCH ×2 (09:36→09:42)
--- NOTE | 2016-08-17 10:02 | Progress Note ---
Internal Med Progress Note Date of Service: Aug 17, 2016. Provider Documentation: SUBJECTIVE: Patient is seen and examined at bedside. States feeling bloated and constipated. + flatus. Denies any chest pain, SOB. No other complaints. OBJECTIVE: Vital Signs-as noted below Physical Exam: General Appearance:Thin, chronically ill appearing, no apparent distress Head: normocephalic, Atraumatic Eyes: normal inspection, EOMI, PERRLA, + icteric Neck: supple, no JVD, Trachea midline Respiratory/Chest: Normal breath sounds, CTA, No accessory muscle use Cardiovascular: S1, S2, No murmur Abdomen/GI:Bowel sounds present, distended. Pain Infusion pump palpable. Paracentesis site in bandage. Extremities/Musculoskelatal:normal inspection, 2+ edema Neurologic/Psych:AAOX3, grossly no focal neurological deficits Skin: normal color, warm Lab data as noted below. ASSESSMENT & PLAN: Decompensated Cirrhosis and SBP: H/O HCV and ETOH use Volume Overload Has not been able to see hepatology in [place] to discuss TIPS/liver transplant issues due to recurrent hospitalizations S/P Abdominal paracentesis on 08/10/16 Recurrent hospitalizations secondary to decompensation Completed Ceftriaxone 2g daily for 5 days No alcohol use since 6 months: ETOH levels:Negative Continue Lasix 40mg BID, Spironolactone 50mg Daily per Nephrology recommendations (Target Lasix 80mg daily and 50 mg Aldactone) Appreciate nephrology and GI help ETOH Hepatitis: bilirubin improved initially with prednisolone and later worsened again. D/C steroids per Dr. Patrick as this does not appear to be ETOH Hepatitis Continue 1500 cc fluid restriction/ 2g low sodium diet continue lactulose 30g BID >>> Can increase to TID if necessary per GI. ( Patient prefers BID for now) Continue Rifaximin 550 BID Ammonia levels:60 on continue Nadolol 20mg daily Cultures-Blood/Ascitic fluid: Negative to date Continue preventative SBP therapy with daily cipro 500 mg S/P IV albumin completed on 08/13/16 Needs close monitoring of electrolytes Total bilirubin increased to 16.4>>> 12.8 Had repeat Paracentesis on 08/16/16 Follow up repeat Ascitic fluid studies:pending Hypokalemia/Hypomagnesemia: Secondary to diuretics Will replace and monitor Chronic anemia: hemoglobin at baseline Thrombocytopenia: Secondary to chronic liver disease Platelets decreased from 60K to 30K S/P one unit platelets transfused: 08/10/16 59K after platelet transfusion >> decreased to 37K Severe Protein Calorie Malnutrition: Secondary to comorbidities Tobacco abuse disorder: Building [employer] to quit smoking H/O Alcoholic hepatitis Discontinued prednisone by GI as likely not alcoholic hepatitis Oral thrush: likely secondary to to home steroid treatment some improvement w/ topical rx Continue nystatin swish/swallow QID Improved DVT Px: SCDs: Secondary to chronic thrombocytopenia. CODE STATUS: Full code. DISPOSITION: Plan to discharge home today if KUB normal and after completion of magnesium replacement Follow up with on 08/24/16 at 12:40pm Follow up with your can reconditioner on 08/23/16 as advised Follow up with Ms. Mir GRANGER in 1 week with CMP PROCEDURES: Liver USD: 1. Cirrhotic liver morphology with ascites. 2. The hepatic and portal veins are patent with normal directional flow. Vital Signs: Date Time Temp Pulse Resp B/P Pulse Ox O2 Delivery O2 Flow Rate FiO2 08/17/16 09:00 Room Air 08/17/16 07:23 36.9 85 12 116/74 95 Room Air 08/16/16 23:39 37.0 93 16 124/79 95 Room Air 08/16/16 23:15 Room Air 08/16/16 16:53 36.7 79 16 122/78 99 Room Air 08/16/16 16:00 99 Room Air 08/16/16 14:55 36.9 83 16 124/84 08/16/16 14:34 36.9 83 16 122/83 08/16/16 14:04 36.9 86 16 126/82 Lab Results: Results Past 24 Hours Test 08/17/16 05:13 Range/Units White Blood Count 8.63 4.8-10.8 K/uL Red Blood Count 2.20 4.7-6.1 M/uL Hemoglobin 8.0 14.0-18.0 g/dL Hematocrit 21.5 42-52 % Mean Corpuscular Volume 97.7 80-100 fL Mean Corpuscular Hemoglobin 36.4 25-34 pg Mean Corpuscular Hemoglobin Concent 37.2 32-36 g/dl Platelet Count 37 130-400 K/uL Mean Platelet Volume 10.8 7.4-10.4 fL Neutrophils (%) (Auto) 58.2 % Lymphocytes (%) (Auto) 28.2 % Monocytes (%) (Auto) 10.3 % Eosinophils (%) (Auto) 2.4 % Basophils (%) (Auto) 0.0 % Neutrophils # (Auto) 5.02 1.4-6.5 K/uL Lymphocytes # (Auto) 2.43 1.2-3.4 K/uL Monocytes # (Auto) 0.89 0.11-0.59 K/uL Eosinophils # (Auto) 0.21 0-0.5 K/uL Basophils # (Auto) 0.00 0-0.2 K/uL RDW Standard Deviation 65.6 36.4-46.3 fL RDW Coefficient of Variation 18.5 11.5-14.5 % Immature Granulocyte % (Auto) 0.9 % Immature Granulocyte # (Auto) 0.08 0.00-0.02 K/uL Target Cells 1+ Acanthocytes 2+ Sodium Level 133 136-145 mmol/L Potassium Level 3.3 3.5-5.1 mmol/L Chloride Level 92 98-107 mmol/L Carbon Dioxide Level 32 21-32 mmol/L Anion Gap 9.0 3-11 mmol/L Blood Urea Nitrogen 28 7-18 mg/dl Creatinine 1.30 0.60-1.40 mg/dl Est Creatinine Clear Calc Drug Dose 58.0 ml/min Estimated GFR () 72.2 Estimated GFR (Non- 62.3 BUN/Creatinine Ratio 21.3 10-20 Random Glucose 98 70-99 mg/dl Calcium Level 8.3 8.5-10.1 mg/dl Magnesium Level 1.6 1.8-2.4 mg/dl Total Bilirubin 12.8 0.2-1 mg/dl Aspartate Amino Transf (AST/SGOT) 98 15-37 U/L Alanine Aminotransferase (ALT/SGPT) 67 12-78 U/L Alkaline Phosphatase 101 45-117 U/L Total Protein 4.9 6.4-8.2 gm/dl Albumin 3.3 3.4-5.0 gm/dl Globulin 1.6 2.5-4.0 gm/dl Albumin/Globulin Ratio 2.1 0.9-2
[2016-08-17] MEDS ORDERED: MRLP17X PO (10:23)
[2016-08-17] MEDS ORDERED: XFX550 PO (10:23)
[2016-08-17] MEDS ORDERED: LSX20 PO (10:23)
[2016-08-17] MEDS ORDERED: CPR500 PO (10:23)
[2016-08-17] MEDS ORDERED: SPR25 PO (10:23)
--- NOTE | 2016-08-17 10:29 | Discharge Summary ---
Discharge Summary Admission Date: Aug 10, 2016 at 01:00 Discharge Date: Aug 17, 2016 Discharge Disposition: Home Principal Diagnosis: Decompensated Hepatic Cirrhosis and Spontaneous bacterial peritonitis Procedures: Paracentesis X 2 Liver USD: 1. Cirrhotic liver morphology with ascites. 2. The hepatic and portal veins are patent with normal directional flow. Gall bladder USD: 1. Cirrhotic hepatic morphology 2. Gallstones, sludge in the gallbladder, and gallbladder wall thickening/edema 3. Mildly dilated common bile duct measuring 7.5 mm Venous Doppler: No DVT within the right or left lower extremity. Consultations: GI Pending Studies/Follow-Up: Follow up with on 08/24/16 at 12:40pm Follow up with your lending manager on 08/23/16 as advised Follow up with Ms. Mir GRANGER in 1 week with CMP Medication Reconciliation New Medications: Ciprofloxacin (Ciprofloxacin HCl) 500 Mg Tab 500 MG PO DAILY for 30 Days, #30 TAB Furosemide (Furosemide) 20 Mg Tab 40 MG PO BIDM for 30 Days, #120 TAB Polyethylene (Miralax) 17 Gm Pow 17 GM PO BID PRN for Constipation for 30 Days, #30 Rifaximin (Xifaxan) 550 Mg Tab 550 MG PO BID for 30 Days, #60 TAB Spironolactone (Spironolactone) 25 Mg Tab 50 MG PO QAM for 30 Days, #60 TAB Continued Medications: Albuterol Sulfate (Proair Respiclick) 108 Mcg/Act Aer 2 PUFFS INH Q4H PRN for SOB/Wheezing Ascorbic Acid (Vitamin C Gummie 120 mg) 1 Chw Chw 240 MG PO DAILY Cyclobenzaprine HCl (Cyclobenzaprine HCl) 10 Mg Tab 10 MG PO DAILY PRN for Muscle Spasm Hydromorphone Hcl (Dilaudid) 4 Mg Tab 4 MG PO Q6H PRN for Pain Lactulose (Chronulac) 10 Gm/15 Ml Syrp 30 GM PO BID Multiple Vitamin (Multivitamin) 1 Tab Tab 1 TAB PO QAM Nadolol (Corgard) 20 Mg Tab 20 MG PO DAILY Nystatin (Nystatin Suspension) 1 Ml Susp 5 ML PO QID SWISH AND SWALLOW Oxycodone/Acetaminophen 10MG/325MG (Percocet 10MG/325MG) Tab 1 TAB PO UD PRN for Pain, TAB Pantoprazole (Pantoprazole Sodium) 40 Mg Tab 40 MG PO DAILY Valacyclovir (Valtrex) 500 Mg Tab 500 MG PO DAILY, TAB [Dilaudid Pain Pump] () 1 DOSE INJ UD Discontinued Medications: Furosemide (Lasix) 20 Mg Tab 20 MG PO BID, TAB Methylprednisolone (Methylprednisolone) 16 Mg Tab 32 MG PO QAM Admission Information HPI (per Admitting provider): CHIEF COMPLAINT: Abdominal distention and leg swelling. HISTORY OF PRESENT ILLNESS: Medical history significant for cirrhosis secondary to HCV, chronic anemia (baseline hemoglobin 9), ongoing tobacco abuse, chronic thrombocytopenia, alcohol abuse as per records, history of hepatorenal syndrome. Recent confinement June last month for decompensated cirrhosis, SBP. Patient seen at [facility] about 2 weeks ago for follow up for chronic liver disease. New ascites as per records. Patient started on prednisolone for alcoholic hepatitis; Lasix recommended daily, spironolactone held. Last week, the patient had a therapeutic outpx ultrasound-guided paracentesis. Four liters of ascitic fluid removed. A few days later, w days, patient developed oral thrush, sore throat symptoms. Nystatin prescribed, symptoms improving. The last few days, the patient noted increasing abdominal distention and achy abdominal pain oscar on walking. No fever, no chills, no chest pain, no shortness of breath. Bilateral leg swelling noted as well. Patient compliant with home meds. Denies black bloody stools. Denies alcohol intake. MEDICAL HISTORY: As above. EGD 2016 esophageal varices, portal hypertensive gastropathy. Physical Exam (per Admitting): PHYSICAL EXAMINATION: VITAL SIGNS: Blood pressure noted to be 112/54, pulse rate 68, RR 16, temperature 37 sats 98% on room air. GENERAL: Noted to be somewhat sleepy. No respiratory distress. SKIN : pallor, jaundice HEENT: Pale palp conjunctivae. Dry mucosa. NECK: No JVD. Supple. CHEST: Expiratory wheezes. HEART: Regular rate and rhythm. ABDOMEN: gen abd distention and tenderness on light palpation. EXTREMITIES: Bilateral lower extremity edema, no tenderness. NEUROLOGIC: No gross focality except for some sleepiness. Hospital Course Decompensated Cirrhosis and SBP: H/O HCV and ETOH use Volume Overload Has not been able to see hepatology in [place] to discuss TIPS/liver transplant issues due to recurrent hospitalizations S/P Abdominal paracentesis on 08/10/16 Recurrent hospitalizations secondary to decompensation Completed Ceftriaxone 2g daily for 5 days No alcohol use since 6 months: ETOH levels:Negative Continue Lasix 40mg BID, Spironolactone 50mg Daily per Nephrology recommendations (Target Lasix 80mg daily and 50 mg Aldactone) Appreciate nephrology and GI help ETOH Hepatitis: bilirubin improved initially with prednisolone and later worsened again. D/C steroids per Dr. Patrick as this does not appear to be ETOH Hepatitis Continue 1500 cc fluid restriction/ 2g low sodium diet continue lactulose 30g BID >>> Can increase to TID if necessary per GI. ( Patient prefers BID for now) Continue Rifaximin 550 BID Ammonia levels:60 on continue Nadolol 20mg daily Cultures-Blood/Ascitic fluid: Negative to date Continue preventative SBP therapy with daily cipro 500 mg S/P IV albumin completed on 08/13/16 Needs close monitoring of electrolytes Total bilirubin increased to 16.4>>> 12.8 Had repeat Paracentesis on 08/16/16 Follow up repeat Ascitic fluid studies:pending Hypokalemia/Hypomagnesemia: Secondary to diuretics Will replace and monitor Chronic anemia: hemoglobin at baseline Thrombocytopenia: Secondary to chronic liver disease Platelets decreased from 60K to 30K S/P one unit platelets transfused: 08/10/16 59K after platelet transfusion >> decreased to 37K Severe Protein Calorie Malnutrition: Secondary to comorbidities Tobacco 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 CODE STATUS: Full code. DISPOSITION: Plan to discharge home today if KUB normal and after completion of magnesium replacement Follow up with on 08/24/16 at 12:40pm Follow up with your lending manager on 08/23/16 as advised Follow up with Ms. Mir GRANGER in 1 week with CMP PROCEDURES: Liver USD: 1. Cirrhotic liver morphology with ascites. 2. The hepatic and portal veins are patent with normal directional flow. Total time spent on discharge = 45 minutes This includes examination of the patient, discharge planning, medication reconciliation, and communication with other providers. Discharge Instructions Discharge Instructions Admission Reason for Admission: Decompensated Hepatic Cirrhosis Discharge Discharge Diagnosis / Problem: Decompensated Hepatic Cirrhosis and Spontaneous bacterial peritonitis Discharge Goals Goal(s): Decrease discomfort, Improve function Activity Recommendations Activity Limitations: resume your previous activity Exercise/Sports Limitations: as tolerated Driving or Machine Use: No driving until cleared by your primar care physician . Instructions / Follow-Up Instructions / Follow-Up Follow up with on 08/24/16 at 12:40pm Follow up with your lending manager on 08/23/16 as advised Follow up with Ms. Mir GRANGER in 1 week with CMP Take medications as prescribed. Seek immediate medical attention if your symptoms worsen or reoccur Current Hospital Diet Patient's current hospital diet: Low Sodium Diet (2gm Na) Discharge Diet Recommended Diet: Low Sodium Diet (2gm Na) Fluid Restriction: 1500 ml (6 cups) Pending Studies Studies pending at discharge: yes List of pending studies: Ascitic fluid studies: Follow up with your PCP for results Medical Emergencies . Who to Call and When: Medical Emergencies: If at any time you feel your situation is an emergency, please call 911 immediately. . Non-Emergent Contact Non-Emergency issues call your: Primary Care Provider, Newspaper Photo Editor Call Non-Emergent contact if: you have a fever, your pain is not controlled, your pain is worsening, your pain is unusual for you, you have any medication questions . . "Provider Documentation" section prepared by Nickolas Hu. VTE Core Measure Inpt VTE Proph given/why not?: SCD's
--- NOTE | 2016-08-17 10:44 | DIAGNOSTIC IMAGING REPORT ---
KUB CLINICAL HISTORY: abdominal discomfort, constipation pain COMPARISON STUDY: 07/06/2016 FINDINGS: Nonobstructive bowel pattern. Infusion apparatus overlying left iliac wing. No secondary signs of free air. Epidural catheter in position. IMPRESSION: No acute process. Nonobstructive bowel pattern. Electronically signed by: Arthur Arellano M.D. 08/17/2016 10:43 AM Dictated Date/Time: 08/17/2016 10:42 AM
[2016-08-17 12:11] VITALS: BP 116/74; PULSE 85; TEMP 36.9; O2SAT 95
[2016-08-17] MEDS ORDERED: NURSING VERBAL MED ORDER ONE (12:15)
[2016-08-17] MEDS ORDERED: SOD PHOSPHATE/SOD BIPHOSPHATE ENEMA 132 ML BTL PR ONE (12:15)
== END 2016-08-17 13:15 | disposition home or self-care (01) | DRG 371 ==
LOC: ENRESERVTM → ENRESERVDT → C.EDB 19:22 → C.MED 08-10 01:00 → C.4E 08-13 13:26
PROVIDERS: ADMIT Internal Medicine; ATTEND Internal Medicine
DX: K65.2 Spontaneous bacterial peritonitis (principal); E43 Unspecified severe protein-calorie malnutrition; K76.6 Portal hypertension; B37.0 Candidal stomatitis; K21.9 Gastro-esophageal reflux disease without esophagitis; B18.2 Chronic viral hepatitis C; F17.210 Nicotine dependence, cigarettes, uncomplicated; K70.10 Alcoholic hepatitis without ascites; D69.59 Other secondary thrombocytopenia; F10.10 Alcohol abuse, uncomplicated; F32.9 Major depressive disorder, single episode, unspecified; K70.31 Alcoholic cirrhosis of liver with ascites; Z79.52 Long term (current) use of systemic steroids; E83.42 Hypomagnesemia; E87.6 Hypokalemia; T38.0X5A Adverse effect of glucocorticoids and synthetic analogues, initial encounter; Y92.009 Unspecified place in unspecified non-institutional (private) residence as the place of occurrence of the external cause; F11.10 Opioid abuse, uncomplicated

== ENCOUNTER 2017-03-28 11:30 | Emergency (ER) | payer OTHER ==
[~2017-03-28] VITALS: Ht 172.7 cm; Wt 56.4 kg
[~2017-03-28 11:30] MED LIST changes: +ALBU18002 INH; -ALBU1AER9 INH; +ASCO1CHW13 PO; +CPR500 PO; -LCTL45 PO; +LCTS240 PO; +MRLP17X PO; +NYSS/ PO; +SPR25 PO; +VALA500T60 PO; -VLT500 PO; +XFX550 PO
[2017-03-28 11:41] VITALS: TEMP 36.9; Ht 172.7 cm; Wt 56.4 kg
[2017-03-28] MEDS ORDERED: LEDI1TAB PO (12:10)
[2017-03-28] MEDS ORDERED: VALG1TAB PO (12:10)
[2017-03-28] MEDS ORDERED: RIBA200C13 PO (12:10)
[2017-03-28] MEDS ORDERED: OMEP20TA40 PO (12:10)
[2017-03-28] MEDS ORDERED: LIDOCAINE/EPINEPHRINE 1% 20 ML VIAL INFIL ONE (12:15)
[2017-03-28] MEDS ORDERED: CEPH500C PO (12:46)
[2017-03-28 13:04] VITALS: BP 138/93; PULSE 72; O2SAT 98
--- NOTE | 2017-03-28 20:30 | EMERGENCY ROOM VISIT NOTE ---
History First contact with patient: 12:12 Chief Complaint: LACERATION/CUT (SUT/DERMABOND) Stated Complaint: CUT ON LEG-RIGHT Nursing Triage Summary: Right lateral calf with skin flap. Bleeding secured. History of Present Illness The patient is a 56 year old male who presents to the Emergency Room with complaints of a leg laceration. The patient reports that he cut his leg on the corner of a door while trying to get out of his girlfriend's vehicle. The patient denies any significant bleeding, and rates his discomfort a 7 out of 10. Tetanus immunization is up-to-date. The patient is hep C positive. Review of Systems 10 system review was performed and was negative except for pertinent positives and negatives as indicated in history of present illness Past Medical/Surgical History Medical Problems: (1) ANJEL (acute kidney injury) (2) Anemia (3) Ascites (4) Chronic pain syndrome (5) Cirrhosis of liver (6) Decompensated hepatic cirrhosis (7) GERD (gastroesophageal reflux disease) (8) Hepatitis C, chronic (9) Hyponatremia (10) Intermittent asthma (11) Portal hypertension (12) Thrombocytopenia Surgical Problems: (1) History of tonsillectomy (2) S/P cervical spinal fusion (3) Status post insertion of intrathecal pump Family History Unobtainable family history due to adoption Social History Smoking Status: Current Every Day Smoker Alcohol Use: none Drug Use: heroin, marijuana, other Marital Status: in relationship Housing Status: lives with significant other Occupation Status: unemployed Current/Historical Medications Scheduled Cephalexin Monohydrate (Keflex), 500 MG PO TID Ledipasvir-Sofosbuvir (Harvoni 90-400 mg), 1 TAB PO DAILY Omeprazole ([facility] Omeprazole), 20 MG PO DAILY Ribavirin (Hepatitis C) (Ribavirin), 200 MG PO DAILY Valganciclovir HCl (Valganciclovir), 450 MG PO DAILY Scheduled PRN Valacyclovir (Valtrex), 500 MG PO DAILY PRN for . Physical Exam Vital Signs Date Time Temp Pulse Resp B/P (MAP) Pulse Ox O2 Delivery O2 Flow Rate FiO2 03/28/17 13:04 72 20 138/93 98 03/28/17 11:41 36.9 92 16 133/82 98 Room Air Physical Exam CONSTITUTIONAL: Healthy and well nourished. Alert and oriented X 3 with positive affect. HEENT: Normocephalic, atraumatic. Pupils equal, round and reactive. NECK: Full active range of motion without discomfort. MUSCULOSKELETAL: Examination of the right lateral and proximal calf shows a 4.5 cm V-shaped laceration without active bleeding. The wound does not appear to be contaminated. Distal pulses are intact. INTEGUMENTARY: No rash or other significant dermatologic conditions noted. NEUROLOGIC: Right lower extremity is sensory intact. Medical Decision & Procedures Procedure Laceration repair was performed under local anesthesia after receiving verbal consent from the patient. Using buffered 1% lidocaine without epinephrine, good local anesthesia was administered. The peripheral tissue was then cleansed with iodine, then the wound was copiously pressure irrigated with normal saline. Exploration of the wound does not show any underlying foreign debris or palpable bony structures. The wound was then approximated using 4-0 nylon simple interrupted sutures 7. A bacitracin dressing was applied. ED Course Patient history and physical exam were performed. Nurse's notes were reviewed. Vital signs were reviewed and were normal. Laceration repair was performed under local anesthesia. The patient was provided additional verbal and written wound care instructions. He was encouraged to intermittently apply ice for swelling. Ibuprofen or Tylenol as needed for pain. Suture removal in 12-14 days, or seek reevaluation sooner for any signs of wound infection. The patient reports a significant medical history, and is requesting an antibiotic to minimize risk for infection. He was provided a prescription for Keflex 500 mg 3 times a day 5 days. The patient was happy with plan of care, voiced understanding of all discharge instructions, and rated his discomfort a 3 out of 10 at the conclusion of my exam. Medical Decision Medication Reconcilliation Current Medication List: was personally reviewed by me Blood Pressure Screening Patient's blood pressure: Normal blood pressure Impression Primary Impression: Laceration of right lower leg Departure Information Dispostion Home / Self-Care Prescriptions Cephalexin Monohydrate (Keflex) 500 Mg Cap 500 MG PO TID for 5 Days, #15 CAP Prov: Real Pérez PA 03/28/17 Forms HOME CARE DOCUMENTATION FORM, IMPORTANT VISIT INFORMATION Patient Instructions [facility] Additional Instructions Keep wound clean and dry. Do not allow any crusting or dried blood to accumulate on sutures. If this occurs, use a 1:1 solution of hydrogen peroxide/ water on a Q-tip to clean the wound. Use an antibiotic ointment for 3-4 days, then let wound dry. Suture removal in 12-14 days. Return sooner for any signs of infection (increasing redness, swelling, drainage). Ice and elevate for swelling and pain. Ibuprofen 600 mg and/or Tylenol 1000 mg every 6 hrs as needed for pain. Complete all Keflex antibiotics as prescribed. Problem Qualifiers Primary Impression: Laceration of right lower leg Encounter type: initial encounter Qualified Codes: S81.811A - Laceration without foreign body, right lower leg, initial encounter
== END 2017-03-28 13:06 | disposition home or self-care (01) ==
LOC: C.EDB 11:31 → C.EDD 13:06
DX: S81.811A Laceration without foreign body, right lower leg, initial encounter (principal); W45.8XXA Other foreign body or object entering through skin, initial encounter; G89.4 Chronic pain syndrome; K74.60 Unspecified cirrhosis of liver; K21.9 Gastro-esophageal reflux disease without esophagitis; E87.1 Hypo-osmolality and hyponatremia; J45.20 Mild intermittent asthma, uncomplicated; K76.6 Portal hypertension; Z98.1 Arthrodesis status; B18.2 Chronic viral hepatitis C; F17.210 Nicotine dependence, cigarettes, uncomplicated; Z79.899 Other long term (current) drug therapy

== ENCOUNTER 2017-04-09 15:53 | Emergency (ER) | payer OTHER ==
[~2017-04-09] VITALS: Ht 172.7 cm; Wt 58.8 kg
[2017-04-09] VITALS (8 sets, daily range): BP systolic 122–143; BP diastolic 71–82; PULSE 65–73; TEMP 36.6; O2SAT 99–100; Ht 172.7 cm; Wt 58.8 kg
[~2017-04-09 15:53] MED LIST changes: -ALBU18002 INH; -ASCO1CHW13 PO; -CPR500 PO; -CRG/20 PO; -CYCL10TA7 PO; -Dilaudid Pain Pump INJ; -HYDR4TAB2 PO; -LCTS240 PO; +LEDI1TAB PO; -LSX20 PO; -MRLP17X PO; -MULTTAB58 PO; -NYSS/ PO; +OMEP20TA40 PO; -OXYC-106 PO; -PRT/40 PO; +RIBA200C13 PO; -SPR25 PO; +VALG1TAB PO; -XFX550 PO
[2017-04-09] MEDS ORDERED: SODIUM CHLORIDE 0.9% 1000ML 1,000 ML IV STA (16:10)
--- NOTE | 2017-04-09 16:44 | DIAGNOSTIC IMAGING REPORT ---
SINGLE VIEW CHEST CLINICAL HISTORY: GI bleed. FINDINGS: 2 AP, portable, upright chest radiographs are compared to study dated 08/09/2016. The examination is mildly degraded by portable technique and patient rotation. The cardiomediastinal silhouette is unremarkable. Emphysema and chronic interstitial thickening are similar to previous. No airspace consolidation, large pleural effusion, or pneumothorax is seen. The bony thorax is grossly intact. There is mild thoracic scoliosis. Fusion hardware is partially visualized in the lower cervical spine. An intrathecal catheter is questioned in the upper thoracic region. IMPRESSION: Emphysema with no acute cardiopulmonary abnormality. Electronically signed by: Gary Rodrigues M.D. 04/09/2017 4:43 PM Dictated Date/Time: 04/09/2017 4:41 PM
--- NOTE | 2017-04-09 16:52 | EMERGENCY ROOM VISIT NOTE ---
History Report prepared by Harman: Hunter Anderson Under the Supervision of: Dr. Michele Beasley D.O. First contact with patient: 15:59 Chief Complaint: OTHER COMPLAINT Stated Complaint: HEMOGLOBIN AT 5 History of Present Illness The patient is a 56 year old male who presents to the Emergency Room with complaints of a hemoglobin of 5.5. Records show his last hemoglobin was 12.5. The patient states he was sent here by Dr. Monterroso. He reports he has never had a low hemoglobin before, and he is not on blood thinners. The patient notes he started Ribavirin about 10-12 days ago. He states he was prescribed the medication by his GI doctor because of his history of Hepatitis C. The patient reports he thinks he got Hep-C from using when he was younger. He notes he had a liver transplant about 6 months ago because he had cirrhosis secondary to his Hep-C. The patient states he had to wait six months before starting new medication. He reports he did not take Ribavirin prior to the liver transplant. The patient notes he follows up with Jamie. He states for the past week he has been experienced weakness, fatigue, intermittent headaches, short of breath with exertion, abdominal pain at night, vomiting in the mornings, and harder bowels. The patient reports his abdominal pain starts after he takes his medication at night, and he knows he will vomit when he wakes up. He notes he has no know varices. The patient states he has had a pain pump for the past four years. He reports he has never had a prostate exam. Pt denies change in vision, fevers, chest pain, nausea, diarrhea, pain with urination, melena, alcohol use, coughing up blood, urinating blood, and coughing. Source of History: patient Onset: prior to arrival Position: other (global) Quality: other (hemoglobin of 5.5) Timing: constant Associated Symptoms: + headache, + SOB (with exertion), + vomiting (in the morning secondary to medication), + abdominal pain (at night secondary to medication), + fatigue, + weakness, No fevers, No cough, No chest pain, No nausea, No diarrhea Note: Denies: change in vision, pain with urination, melena, alcohol use, coughing up blood, and urinating blood Review of Systems See HPI for pertinent positives & negatives. A total of 10 systems reviewed and were otherwise negative. Past Medical & Surgical Medical Problems: (1) ANJEL (acute kidney injury) (2) Anemia (3) Ascites (4) Chronic pain syndrome (5) Cirrhosis of liver (6) Decompensated hepatic cirrhosis (7) GERD (gastroesophageal reflux disease) (8) Hepatitis C, chronic (9) Hyponatremia (10) Intermittent asthma (11) Portal hypertension (12) Thrombocytopenia Surgical Problems: (1) History of tonsillectomy (2) S/P cervical spinal fusion (3) Status post insertion of intrathecal pump Family History Unobtainable family history due to adoption Social History Smoking Status: Current Some Day Smoker Alcohol Use: none Drug Use: heroin, marijuana, other Marital Status: in relationship Housing Status: lives with significant other Occupation Status: unemployed Current/Historical Medications Scheduled Aspirin (Aspirin Ec), 81 MG PO DAILY Calcium Carbonate (Tums), 1-2 MG PO PRN Mycophenolate Mofetil (Cellcept), 2 CAP PO BID Nystatin/Triamcinolone (Nystatin/Triamcinolone 529020-7.1 Unit/gm-%), 1 APPLN TOP BID Omeprazole (Cvs Omeprazole), 20 MG PO DAILY Oxycodone Hcl (Oxycodone Hcl), 20 MG PO UD Ribavirin (Hepatitis C) (Ribavirin), 200 MG PO DAILY Tacrolimus (Prograf), 4 MG PO QAM Tacrolimus (Prograf), 3 MG PO QPM Valganciclovir HCl (Valganciclovir), 450 MG PO DAILY Scheduled PRN Ledipasvir-Sofosbuvir (Harvoni 90-400 mg), 1 TAB PO DAILY PRN for ACID REFLUX Allergies Coded Allergies: Morphine (Verified Adverse Reaction, Unknown, INABILITY TO URINATE, ) Physical Exam Vital Signs Date Time Temp Pulse Resp B/P (MAP) Pulse Ox O2 Delivery O2 Flow Rate FiO2 04/09/17 20:02 68 18 141/72 100 04/09/17 20:01 68 18 141/72 100 04/09/17 19:30 72 18 131/71 99 04/09/17 19:10 68 18 100 04/09/17 19:05 68 14 100 04/09/17 19:00 68 14 128/78 100 04/09/17 18:30 73 16 128/78 100 04/09/17 18:30 128/78 04/09/17 18:23 73 13 100 04/09/17 18:15 65 16 122/71 100 04/09/17 18:15 122/71 04/09/17 18:01 127/79 04/09/17 18:00 36.6 66 16 127/79 100 04/09/17 18:00 88/74 04/09/17 17:53 66 18 100 04/09/17 17:51 36.6 66 18 143/82 100 04/09/17 17:51 143/82 04/09/17 17:30 136/86 04/09/17 17:23 70 13 100 04/09/17 17:09 121/72 04/09/17 17:07 79 20 121/72 100 Room Air 04/09/17 17:02 74 04/09/17 16:45 100 Room Air 04/09/17 15:57 36.7 78 20 118/50 100 Room Air Physical Exam GENERAL: Sitting up in bed, pale and ill appearing. EYE EXAM: normal conjunctiva OROPHARYNX: no exudate, no erythema, lips, buccal mucosa, and tongue normal and mucous membranes are moist NECK: supple, no nuchal rigidity, no adenopathy, non-tender LUNGS: Clear to auscultation. Normal chest wall mechanics HEART: no murmurs, S1 normal and S2 normal ABDOMEN: abdomen soft, non-tender, with multiple old incisions. Pain pump in the left lower quadrant. Normo-active bowel sounds, no masses, no rebound or guarding. RECTAL: Heme negative BACK: Back is symmetrical on inspection and there is no deformity, no midline tenderness, no CVA tenderness. SKIN: no rashes and no bruising UPPER EXTREMITIES: upper extremities are grossly normal. LOWER EXTREMITIES: No pitting edema. NEURO EXAM: Normal sensorium, cranial nerves II-XII grossly intact, normal speech, no gross weakness of arms, no gross weakness of legs. Medical Decision & Procedures ER Provider Diagnostic Interpretation: Radiology results as stated below per my review and the radiologist's interpretation: SINGLE VIEW CHEST CLINICAL HISTORY: GI bleed. FINDINGS: 2 AP, portable, upright chest radiographs are compared to study dated 08/09/2016. The examination is mildly degraded by portable technique and patient rotation. The cardiomediastinal silhouette is unremarkable. Emphysema and chronic interstitial thickening are similar to previous. No airspace consolidation, large pleural effusion, or pneumothorax is seen. The bony thorax is grossly intact. There is mild thoracic scoliosis. Fusion hardware is partially visualized in the lower cervical spine. An intrathecal catheter is questioned in the upper thoracic region. IMPRESSION: Emphysema with no acute cardiopulmonary abnormality. Electronically signed by: Gary Rodrigues M.D. 04/09/2017 4:43 PM Dictated Date/Time: 04/09/2017 4:41 PM Laboratory Results 04/09/17 16:37 Red Blood Count 2.01, Mean Corpuscular Volume 92.0, Mean Corpuscular Hemoglobin 29.9, Mean Corpuscular Hemoglobin Concent 32.4, Mean Platelet Volume 10.0 04/09/17 16:37 Test 04/09/17 16:37 04/09/17 17:01 White Blood Count 2.92 K/uL (4.8-10.8) Red Blood Count 2.01 M/uL (4.7-6.1) Hemoglobin 6.0 g/dL (14.0-18.0) Hematocrit 18.5 % (42-52) Mean Corpuscular Volume 92.0 fL (80-100) Mean Corpuscular Hemoglobin 29.9 pg (25-34) Mean Corpuscular Hemoglobin Concent 32.4 g/dl (32-36) Platelet Count 138 K/uL (130-400) Mean Platelet Volume 10.0 fL (7.4-10.4) RDW Standard Deviation 46.7 fL (36.4-46.3) RDW Coefficient of Variation 14.6 % (11.5-14.5) Neutrophils % (Manual) 49.5 % Lymphocytes % (Manual) 47.0 % Monocytes % (Manual) 2.6 % Basophils % (Manual) 0.9 % (0-2) Neutrophils # (Manual) 1.45 K/uL (1.4-6.5) Total Absolute Neutrophils 1.45 K/uL (1.4-6.5) Lymphocytes # (Manual) 1.37 K/uL (1.2-3.4) Total Absolute Lymphocytes 1.37 K/uL (1.2-3.4) Monocytes # (Manual) 0.08 K/uL (0.11-0.59) Basophils # (Manual) 0.03 K/uL (0-0.2) Anisocytosis PRESENT Prothrombin Time 11.4 SECONDS (9.0-12.0) Prothromb Time International Ratio 1.1 (0.9-1.1) Activated Partial Thromboplast Time 28.2 SECONDS (21.0-31.0) Partial Thromboplastin Ratio 1.1 Anion Gap 5.0 mmol/L (3-11) Est Creatinine Clear Calc Drug Dose 43.9 ml/min Estimated GFR () 55.8 Estimated GFR (Non- 48.1 BUN/Creatinine Ratio 21.9 (10-20) Calcium Level 8.8 mg/dl (8.5-10.1) Total Bilirubin 1.5 mg/dl (0.2-1) Direct Bilirubin 0.4 mg/dl (0-0.2) Aspartate Amino Transf (AST/SGOT) 15 U/L (15-37) Alanine Aminotransferase (ALT/SGPT) 16 U/L (12-78) Alkaline Phosphatase 96 U/L (45-117) Total Protein 5.6 gm/dl (6.4-8.2) Albumin 3.4 gm/dl (3.4-5.0) Lipase 90 U/L (73-393) Urine Color YELLOW Urine Appearance CLEAR (CLEAR) Urine pH 5.0 (4.5-7.5) Urine Specific [place] 1.022 (1.000-1.030) Urine Protein NEG (NEG) Urine Glucose (UA) NEG (NEG) Urine Ketones NEG (NEG) Urine Occult Blood NEG (NEG) Urine Nitrite NEG (NEG) Urine Bilirubin NEG (NEG) Urine Urobilinogen NEG (NEG) Urine Leukocyte Esterase NEG (NEG) Laboratory results per my review. Medications Administered Medications (Trade) Dose Ordered Sig/Perla Route Start Time Stop Time Status Last Admin Dose Admin Sodium Chloride 1,000 ml @ 999 mls/hr Q1H1M STAT IV 04/09/17 16:10 04/09/17 17:10 DC 04/09/17 17:05 999 MLS/HR ECG Indication: SOB/dyspnea Rate (beats per minute): 66 Rhythm: sinus rhythm Findings: no ectopy, other (normal axis) ED Course ED COURSE: Vital signs were reviewed and showed normotensive. The patients medical record was reviewed The above diagnostic studies were performed and reviewed. ED treatments and interventions as stated above. 1604: The patient was evaluated in room B07. A complete history and physical examination was performed. 1610: Ordered Sodium Chloride 1000 ml @ 999 mls/hr IV 1729: I reevaluated the patient. I discussed the risks and benefits of a blood transfusion. He understands them and has consented for blood. The patient reports he does not want to stay in the hospital. 173: I discussed the patient's case with Dr. Monterroso, [facility]. He spoke with the patient. The patient is finally agreeable to staying for at least three hours. 190: I reevaluated the patient. He agrees with staying, but he is annoyed he does not have a definite time to leave. 2003: Upon reevaluation, the patient does not want to stay. He wants his IV out and to be discharged. He received one unit of blood. He is cursing at the nursing staff and will be discharged AMA.. I discussed my findings with the patient and he understands and agrees with the treatment plan. Based on the patients age, coexisting illnesses, exam and lab findings the decision to treat as an outpatient was made. The patient remained stable while under my care. The patient appeared well at the time of discharge. Medical Decision Differential Diagnosis includes but is not limited to dehydration, stroke, anemia, hypoglycemia, hyponatremia, hypernatremia, urinary tract infection, pneumonia, bronchitis, sepsis, gastroenteritis, additional abdominal pathology, metabolic abnormalities and infections. Patient is a 56-year-old male who presents to ER referred in by his GI doctor. He has a history of hepatitis C and a liver transplant back in August. His hemoglobin was found to be 5.5. He recently just started Ribavirin 10-12 days ago. Patient denies any dark tarry stools. He does have a liver transplant. He admits to shortness of breath and diffuse weakness with exertion. Previous transfusion was over 6 months ago. Labs were obtained and hemoglobin was 6. Creatinine is elevated at 1.6. Recommended admission but patient declined. I recommended 2 units of PRBCs. He initially declined transfusion and eventually was agreeable want to have him talk with his GI physician. Rectal was heme- negative. Favor anemia secondary to Ribavirin. Following completion of 1 unit he became extremely agitated. He requests to be discharged. He notes he had to get home as his son was home alone at the age of 13. Explained risk and benefits. He was discharged following informed refusal of care. He will stop Ribavirin. The patient requested to leave. I considered this to be leaving against medical advice. I personally discussed the following with them. They currently had a medical condition of: anemia and I am concerned that they have demand ischemia or other serious pathology. My proposed course of evaluation and treatment and that of any consultants is: admission and transfusion. Benefits would include: possible diagnosis or excluding of GI bleeding or an alternative serious condition, which if identified early would lead to appropriate intervention in a timely manner lessing the burden of disability and . Risks of leaving before this had been completed include: misdiagnosis, worsening illness leading up to and including prolonged or permanent disability or . Specific risks pertinent, but not all inclusive, of their current medical condition include but are not limited to: and disability. I also discussed alternatives including: transfusion in ER two units of PRBCs. Despite this they stated they wanted to leave due to following on unit as son in home alone and refused further evaluation, treatment, or admission at this time. They appear clinically sober, to be mentating appropriately, free from distracting injury, have controlled pain, appear to have intact insight, judgment, and reason and in my opinion have the capacity to make this decision. Specifically, they were able to verbally state back in a coherent manner their current medical condition/ current diagnosis, the proposes course of treatment, and the risks, benefits, and alternatives of treatment versus leaving against medical advice. They understand that they may return to seek medical attention here at whatever time they want. I highly advised them to return to the Emergency Department immediately if they experienced any: Shortness of breath, syncope or chest pain , reconsidered treatment a/o admission, or had any other concerns. This would be without any repercussions. I recommended they follow-up with PCP and GI within 24 hours for further evaluation and treatment. They were discharged against medical advice Medication Reconcilliation Current Medication List: was personally reviewed by me Blood Pressure Screening Patient's blood pressure: Normal blood pressure Blood pressure disposition: Did not require urgent referral Consults Time Called: 1734 Consulting Physician: [facility] Returned Call: [phone] I discussed the patient's case with [facility]. He spoke with the patient. The patient is finally agreeable to staying for at least three hours Impression Primary Impression: Symptomatic anemia Additional Impression: ANJEL (acute kidney injury) Scribe Attestation The scribe's documentation has been prepared under my direction and personally reviewed by me in its entirety. I confirm that the note above accurately reflects all work, treatment, procedures, and medical decision making performed by me. Departure Information Dispostion Against Medical Advice Referrals Yazan Ayala M.D. (PCP) Shannen Hernandez M.D. Forms HOME CARE DOCUMENTATION FORM, IMPORTANT VISIT INFORMATION, WORK / SCHOOL INSTRUCTIONS Patient Instructions ED Anemia Type Not Specified, My [facility] [address] Additional Instructions Please follow up with your primary care doctor or GI with in the next 24 hours. You need repeat blood work and will need additional blood/pack red blood cells. Any worsening of your symptoms, please return to the ED immediately. This includes any fevers greater than 100.4, worsening pain, chest pain, shortness breath, persistent nausea, vomiting, unable to eat or drink, blood in her stool, dark tarry stools, passing out, or any other concerning signs or symptoms from your standpoint. Again please stop Ribavirin and follow up with your primary care doctor first thing tomorrow morning and GI as she should have received 2 units of PRBCs but declined a second unit. Problem Qualifiers
[2017-04-09 16:58] LABS: INR 1.1 (0.9-1.1); PARTIAL THROMBOPLASTIN RATIO 1.1; PROTHROMBIN TIME (PATIENT) 11.4 SECONDS (9.0-12.0)
[2017-04-09 17:08] LABS: BUN/CREATININE RATIO 21.9 (10-20); CALCIUM 8.8 mg/dl (8.5-10.1); CREATININE 1.6 mg/dl (0.60-1.40); POTASSIUM 4.2 mmol/L (3.5-5.1)
[2017-04-09 17:11] LABS: HEMATOCRIT 18.5 % (42-52); MEAN CORPUSCULAR HEMOGLOBIN 29.9 pg (25-34); MEAN CORPUSCULAR HGB CONC 32.4 g/dl (32-36); PLATELET COUNT 138 K/uL (130-400); RED BLOOD COUNT 2.01 M/uL (4.7-6.1); WHITE BLOOD COUNT 2.92 K/uL (4.8-10.8)
[2017-04-09] MEDS ORDERED: MYCO15 TOP (17:11)
[2017-04-09] MEDS ORDERED: MYCO250C26 PO (17:11)
[2017-04-09] MEDS ORDERED: TACR1CAP PO (17:11)
[2017-04-09] MEDS ORDERED: TACR1CAP5 PO (17:11)
[2017-04-09] MEDS ORDERED: ASPI81TA28 PO (17:11)
[2017-04-09] MEDS ORDERED: OXYC20TA32 PO (17:12)
[2017-04-09] MEDS ORDERED: CALC500C3 PO (17:14)
[2017-04-09 17:16] LABS: ANISOCYTOSIS PRESENT; BASO ABS # 0.03 K/uL (0-0.2); BASOPHIL % 0.9 % (0-2); COMPLETE YES; LYMPH ABS # 1.37 K/uL (1.2-3.4); NEUTROPHILS % 49.5 %
[2017-04-09 17:18] LABS: URINE APPEARANCE CLEAR (CLEAR); URINE BILIRUBIN NEG (NEG); URINE COLOR YELLOW; URINE NITRITE NEG (NEG); URINE SPECIFIC GRAVITY 1.022 (1.000-1.030); UROBILINOGEN NEG (NEG)
[2017-04-09 17:21] LABS: MANUAL MICROSCOPIC REQUIRED? NO; REVIEW REQ? NO
== END 2017-04-09 20:28 | disposition home or self-care (01) ==
LOC: C.EDB 15:55
DX: D64.9 Anemia, unspecified (principal); N17.9 Acute kidney failure, unspecified; G89.4 Chronic pain syndrome; K21.9 Gastro-esophageal reflux disease without esophagitis; B19.20 Unspecified viral hepatitis C without hepatic coma; E87.1 Hypo-osmolality and hyponatremia; D69.6 Thrombocytopenia, unspecified; F17.200 Nicotine dependence, unspecified, uncomplicated; F11.90 Opioid use, unspecified, uncomplicated; F12.90 Cannabis use, unspecified, uncomplicated; Z94.4 Liver transplant status; Z97.8 Presence of other specified devices; Z79.82 Long term (current) use of aspirin

== ENCOUNTER 2017-07-04 12:32 | Day surgery (SDC) | payer OTHER ==
[2017-06-24 11:05] VITALS: BMI 19.0
--- NOTE | 2017-06-24 11:39 | PAT Medication Instructions ---
Service Date Jun 24, 2017. Current Home Medication List Albuterol Hfa (Ventolin Hfa), 2 PUFFS INH Q6H PRN for PRN Mycophenolate Mofetil (Cellcept), 500 MG PO BID Oxycodone Hcl (Oxycodone Hcl), 20 MG PO PRN Tacrolimus (Prograf), 4 MG PO QAM Tacrolimus (Prograf), 3 MG PO QPM Medication Instructions For Your Scheduled Surgery - Take the following medications the morning of surgery with a sip of water: Tacrolimus (Prograf), 4 MG PO QAM Mycophenolate Mofetil (Cellcept), 500 MG PO BID Oxycodone Hcl (Oxycodone Hcl), 20 MG PO PRN (may take if needed up to 4 hours prior to surgery) Albuterol Hfa (Ventolin Hfa), 2 PUFFS INH Q6H PRN for PRN (use if needed; BRING TO HOSPITAL) - Take the following medications as scheduled the night before surgery: Tacrolimus (Prograf), 3 MG PO QPM Mycophenolate Mofetil (Cellcept), 500 MG PO BID Albuterol Hfa (Ventolin Hfa), 2 PUFFS INH Q6H PRN for PRN If you have any questions please call us at [phone] or [phone] or [phone]
[2017-06-24 12:49] LABS: BASO % 0.4 %; BASO ABS # 0.02 K/uL (0-0.2); EOS % 3.1 %; EOS ABS # 0.14 K/uL (0-0.5); HEMOGLOBIN 12.2 g/dL (14.0-18.0); IG# 0.01 K/uL (0.00-0.02); LYMPH % 31.4 %; LYMPH ABS # 1.43 K/uL (1.2-3.4); MEAN CELL VOLUME 96.6 fL (80-100); MEAN CORPUSCULAR HEMOGLOBIN 31.9 pg (25-34); MEAN PLATELET VOLUME 11.1 fL (7.4-10.4); MONO % 6.6 %; NEUT % 58.3 %; NEUT ABS # 2.65 K/uL (1.4-6.5); PLATELET COUNT 150 K/uL (130-400); RED CELL DISTRIBUTION WIDTH SD 49.6 fL (36.4-46.3); WHITE BLOOD COUNT 4.55 K/uL (4.8-10.8)
[2017-06-24 13:03] LABS: CALCIUM 9.2 mg/dl (8.5-10.1); CREATININE 0.89 mg/dl (0.60-1.40); POTASSIUM 4.5 mmol/L (3.5-5.1)
[~2017-07-04] VITALS: Ht 172.7 cm; Wt 57.7 kg
[~2017-07-04 12:32] MED LIST changes: +CEFAZOLIN 2000MG IV PUSH 10 ML IV SCH; +LACTATED RINGER'S 1000ML 1,000 ML IV SCH; -LEDI1TAB PO; +MYCO500T4 PO; -OMEP20TA40 PO; +OXYC20TA32 PO; -RIBA200C13 PO; +TACR1CAP PO; +TACR1CAP5 PO; -VALA500T60 PO; -VALG1TAB PO; +VNTHFA/IN INH
[2017-07-04 12:47] VITALS: BP 127/83; PULSE 75; TEMP 37; O2SAT 97; Ht 172.7 cm; Wt 57.7 kg
[2017-07-04] MEDS ORDERED: MIDAZOLAM HCL 1 MG/ML 2ML VIAL ONE (12:47)
[2017-07-04] MEDS ORDERED: LIDOCAINE HCL 2% 2 ML VIAL (20MG/ML) ONE (12:48)
[2017-07-04] MEDS ORDERED: ONDANSETRON INJ 2 MG/ML 2 ML VIAL ONE (12:48)
[2017-07-04] MEDS ORDERED: PROPOFOL IV EMULSION 10 MG/ML 20 ML VIAL IV ONE (12:48)
[2017-07-04] MEDS ORDERED: FENTANYL CITRATE INJ 50 MCG/1 ML 2 ML VIAL ONE ×2 (12:48→14:21)
[2017-07-04] MEDS ORDERED: BUPIVACAINE 0.5 % 5 MG/1 ML MPF 30ML VIAL ONE (12:51)
[2017-07-04] MEDS ORDERED: BACITRACIN OINT 15 GM TUBE ONE (12:51)
[2017-07-04] MEDS ORDERED: NURSING VERBAL MED ORDER ONE ×2 (13:15→13:30)
[2017-07-04] MEDS ORDERED: EpHEDrine SULFATE INJ 50 MG/ML AMP IV PRN (13:30)
[2017-07-04] MEDS ORDERED: FENTANYL CITRATE INJ 50 MCG/1 ML 2 ML VIAL IV PRN (13:30)
[2017-07-04] MEDS ORDERED: NICOTINE 14 MG/24 HR TDSY TD ONE (13:30)
[2017-07-04] MEDS ORDERED: ATROPINE SULFATE 0.1 MG/ML 5ML SYR IV PRN (13:30)
[2017-07-04] MEDS ORDERED: ONDANSETRON INJ 2 MG/ML 2 ML VIAL IV PRN (13:30)
--- NOTE | 2017-07-04 13:47 | History & Physical Bridge Note ---
H&P Re-Evaluation Bridge Note: I have examined the patient, reviewed the History & Physical and in the interval since the performance of the History & Physical I have noted the following changes of clinical significance: No changes noted
[2017-07-04] MEDS ORDERED: SULF800T23 PO (14:06)
[2017-07-04] MEDS ORDERED: OXYC1TAB3 PO (14:06)
--- NOTE | 2017-07-04 14:08 | Discharge Instructions ---
Discharge Instructions Date of Service Jul 04, 2017. Admission Reason for Admission: Left Hydrocele, Spermatocele Discharge Discharge Diagnosis / Problem: Left Spermatocele Discharge Goals Goal(s): Decrease discomfort, Improve function Activity Recommendations Activity Limitations: resume your previous activity Lifting Limitations: no more than 10 pounds, until after follow-up appointment Exercise/Sports Limitations: rest today, gradually increase as tolerated, until after follow-up appointment Shower/Bathe: tomorrow None . Instructions / Follow-Up Instructions / Follow-Up Okay to use ice packs 20 mins on and 20 mins off. Elevated scrotum when sitting or laying. Support with underwear when ambulating. Monitor for fevers or chills. Call if any issues. Current Hospital Diet Patient's current hospital diet: Discharge Diet Recommended Diet: Regular Diet Procedures Procedures Performed: Spermatocelectomy Left Pending Studies Studies pending at discharge: no Medical Emergencies . Who to Call and When: Medical Emergencies: If at any time you feel your situation is an emergency, please call 911 immediately. . Non-Emergent Contact Non-Emergency issues call your: Primary Care Provider, Urologist Call Non-Emergent contact if: you have a fever, temperature is above 101, temperature is above 101.5, your pain is worsening, your pain is unusual for you , wound has increased drainage, wound has increased redness, wound has increased pain . . "Provider Documentation" section prepared by Dipak Mckeon,. . VTE Core Measure Inpt VTE Proph given/why not?: SCD's
[2017-07-04] MEDS ORDERED: KETAMINE HCL INJ 50 MG/ML 10 ML VIAL ONE (14:19)
--- NOTE | 2017-07-04 15:30 | [facility] Operative Report ---
Operative Report Operative Date Jul 04, 2017. Pre-Operative Diagnosis Left Testicular Swelling Post-Operative Diagnosis Left Testicular swelling Procedure(s) Performed Left Hydrocelectomy, Spermatocelectomy Surgeon Dr. Dipak Mckeon Histology Supervisor Surgeon(s) None Estimated Blood Loss 30 mL Findings Large hydrocele with multiple small epididymal cysts. Specimens Permanent specimens A: Left Hydrocele Sac Drains Jovanny Drain in dependant scrotum Anesthesia General Complication(s) None Disposition Recovery Room / PACU Indications Large symptomatic swelling/hydrocele of left testicle. Description of Procedure Patient was consented and brought back to the operating room. Patient was placed under anesthesia in the supine position. Patient was prepped and draped in the regular sterile fashion. A time out was completed. With the time out completed and the patient prepped, the median raphe was marked and local injected into the subcutaneous tissues. An incision was made with a scalpel and the deep tissues were dissected with bovie electrocautery. The testicle was delivered and found to have a large hydrocele. All important structures and landmarks were identified and the sac open avoiding any areas of concern. Excess tissue was dissected and sent for analysis. The entire testicle and epididymis were examined. Multiple small spermatoceles were noted on the epididymal head. These were dissected and sent with the specimen. All bleeding was controlled. The scrotum was irrigated and all bleeding controlled. The edges of the hydrocele sac were then oversewn behind the testicle. A cord block was completed with additional local anesthetic. The entire area was examined. Due to the large size (Approx 8 cm), it was decided to place a Jovanny drain in the dependant portion of the scrotum to drain the hemiscrotum. The drain was placed and suture with a nylon. The testicle appeared viable without lesions or other areas of concern. The Testicle was placed into the hemiscrotum in anatomic position without any torsion of the cord. The deep and subcutaneous tissues were closed with a running 3-0 vicryl suture. A 4-0 monocryl suture was then used to close the skin in a running fashion. The area was cleaned. Adhesive placed. A scrotal support was placed with dressings. The patient was cleaned, aroused from anesthesia, and transferred to the pacu in stable condition having tolerated the procedure well with no complications. I was present and participated in all aspects of the procedure. I attest to the content of the Intraoperative Record and any orders documented therein. Any exceptions are noted below.
[2017-07-04] MEDS ORDERED: OXYCODONE HCL 10 MG TABCR (OXYCONTIN) PO SCH (16:00)
[2017-07-04 16:32] VITALS: BP 163/91; PULSE 65; TEMP 36.4; O2SAT 96
--- NOTE | 2017-07-04 16:32 | Anesthesiology Progress Note ---
Anesthesia Post Op Note Date & Time Jul 04, 2017 at 16:29 Vital Signs Pain Intensity: 0 Vital Signs Past 12 Hours Date Time Temp Pulse Resp B/P (MAP) Pulse Ox O2 Delivery O2 Flow Rate FiO2 07/04/17 16:25 67 16 180/97 98 Room Air 07/04/17 16:15 71 16 186/102 98 Room Air 07/04/17 16:05 65 16 177/101 98 Room Air 07/04/17 15:55 65 16 179/106 100 Room Air 07/04/17 15:45 36.1 69 16 160/90 100 Room Air 07/04/17 15:35 54 16 160/93 100 Oxymask 3 07/04/17 15:25 54 16 146/85 100 Oxymask 3 07/04/17 15:19 36.1 54 16 143/83 100 Oxymask 3 07/04/17 12:47 37 75 20 127/83 (98) 97 Room Air Notes Mental Status: alert / awake / arousable, participated in evaluation Pt Amnestic to Procedure: Yes Nausea / Vomiting: adequately controlled Pain: adequately controlled Airway Patency, RR, SpO2: stable & adequate BP & HR: stable & adequate, see Notes Hydration State: stable & adequate Anesthetic Complications: no major complications apparent Anesthetic Complications: patient was hypertensive in PACU after waking up. No prior history of HTN and does not take medications for HTN. Patient denies pain and is asymptomatic from the HTN. Patient with some improvement after urinating. Patient does not want treatment with IV anti-hypertensive. Will follow patient in phase II recovery and ensure BP continues to decrease once he is able to ambulate and urinate more.
[2017-07-04 16:45] VITALS: BP 163/91; PULSE 65; TEMP 36.4; O2SAT 96
[2017-07-04 17:02] VITALS: BP 152/91; PULSE 60; TEMP 36.3; O2SAT 96
== END 2017-07-04 17:07 | disposition home or self-care (01) ==
LOC: C.ACU 12:32
PROVIDERS: ATTEND Urology
DX: N50.89 Other specified disorders of the male genital organs (principal); Z88.5 Allergy status to narcotic agent; J45.909 Unspecified asthma, uncomplicated; Z79.899 Other long term (current) drug therapy; F17.200 Nicotine dependence, unspecified, uncomplicated

== ENCOUNTER 2022-02-16 09:57 | Observation (INO) ==
[2022-02-16] MEDS ORDERED: LORazepam 2 MG/1 ML VIAL IV STA (10:29)
[2022-02-16] MEDS ORDERED: SODIUM CHLORIDE 0.9% 1000ML 1,000 ML IV STA (10:29)
[2022-02-16] MEDS ORDERED: ONDANSETRON INJ 2 MG/ML 2 ML VIAL IV STA (10:29)
--- NOTE | 2022-02-16 10:41 | Emergency Department Note ---
Impression & Plan Right sided abdominal pain, Vomiting, Weight loss, Hypomagnesemia, History of liver transplant ED Provider Note NAME: MATHEW HECK AGE: 61 SEX: M : 1960 ARRIVES VIA: Walk-In INFORMANT: [Patient] ED PROVIDER(S): [Gary Fine MD] CHIEF COMPLAINT: Abdominal pain HISTORY OF PRESENT ILLNESS: Patient is a 61-year-old male with a history of liver transplant. He has a chronic pain syndrome diagnosis. He presents to the ER with a 10 to 12 pound weight loss in the last 3 weeks. He just has not felt well in general. This morning, he became nauseated and started to dry heave. He began developing some right upper quadrant and right-sided abdominal pain that is a 6 or 7 on a scale 1-10. The patient has not had fever. He is moving his bowels, no diarrhea. He has not had urinary complaints. The patient states that he just feels awful, he cannot say for sure why he feels so badly. The abdominal pain was the new complaint today that brought him to [facility] ED. REVIEW OF SYSTEMS: See HPI for pertinent positives and negatives. A total of ten systems were reviewed and were otherwise negative. PMHx/PSHx: See Below SOCIAL HISTORY: See Below. PHYSICAL EXAM: GENERAL: Patient is in mild distress, anxious HEENT: No acute trauma, normocephalic atraumatic, mucous membranes moist, no nasal congestion, no scleral icterus. NECK: No stridor, no adenopathy, no meningismus, trachea is midline. LUNGS: Clear to auscultation bilaterally, no wheeze, no rhonchi, breath sounds equal. HEART: Without murmurs gallops or rubs, regular rate and rhythm. ABDOMEN: Soft, mildly tender in the right upper quadrant and right abdomen, no peritonitis. There is a stimulator in the left lower quadrant. EXTREMITIES: No cyanosis or edema, full range of motion of all the joints without pain or difficulty, no signs for acute trauma. NEUROLOGIC: Oriented x 3, no acute motor or sensory deficits, no focal weakness. SKIN: No rash, no jaundice, no diaphoresis. DIFFERENTIAL DIAGNOSIS: Appendicitis, testicular torsion, diverticulitis, UTI, transplant rejection, obstruction, mesenteric ischemia, aortic pathology, inflammatory bowel disease, renal colic, PUD, pancreatitis, biliary pathology, hernia, volvulus, constipation, as well as other pathologies. EMERGENCY DEPARTMENT COURSE/PROCEDURES: ECG: Indication was abdominal pain. The ECG shows a sinus rhythm with a PVC. The rate is 73. There is no ST elevation. QTc is 407. Continuous Cardiac Monitoring: An order was placed for continuous cardiac monitoring. The monitor shows a rate of 97 with normal sinus rhythm. MEDICAL DECISION MAKING: There is no leukocytosis or concerning anemia. There is a normal platelet count. No coagulopathy. No renal failure. Magnesium was low at 1.6. No concerning liver enzyme elevation. TSH was slightly elevated however, the T4 was normal. No evidence for pancreatitis by our testing. ECG shows a sinus rhythm, no obvious ischemia. Cardiac enzyme testing x1 is not consistent with acute cardiac injury. Urinalysis does not show infection. COVID test returned negative. Chest x-ray shows some COPD, no pneumonia or free air. Abdominal and pelvis CT shows some chronic findings, no bowel obstruction, no acute infectious process or acute surgical process by CT imaging. The patient was uncomfortable on my exam, he complained of weight loss, abdominal pain, nausea and vomiting, he was quite fatigued. Patient received IV saline, 1 L. He was given IV Phenergan, a second dose of IV Phenergan was given. He received IV Zofran. He was given IV magnesium and IV Ativan. He was given IV labetalol for his elevated blood pressure. The patient received IV Dilaudid for pain control. The patient feels a bit better but is still hypertensive, he still feels quite nauseated despite the numerous nausea meds administered. He still is complaining of abdominal pain. At this point, the cause for his presentation is unclear. I suppose a viral illness is possible. Further care in the hospital, further work-up is warranted. I spoke with the patient, I talked to the director of casework department. The on-call hospitalist was consulted. Past Med/Surg History Medical History (Updated 02/16/22 @ 14:23 by Gary Fine MD) Chronic pain syndrome "cervical spine" Cirrhosis of liver GERD (gastroesophageal reflux disease) Hepatitis C, chronic Intermittent asthma Portal hypertension "esophageal varices noted on EGD Feb 2016" Thrombocytopenia Surgical History (Updated 02/16/22 @ 14:23 by Gary Fine MD) History of tonsillectomy Liver transplant recipient S/P cervical spinal fusion "2004 and 2007" Status post insertion of intrathecal pump "[facility] hydromorphone" Social History Smoking Status: Current every day smoker Tobacco Type: Cigarettes Hx Substance Use: Yes Preferred Language: Upper Sorbian current occupational status: disabled Feels Safe at Home: Yes Allergies Allergies Allergy/AdvReac Type Severity Reaction Status Date / Time morphine AdvReac Unknown INABILITY Verified 06/01/20 21:41 TO URINATE Home Meds Home Medications Medication Instructions Recorded Confirmed albuterol sulfate 90 mcg/actuation 2 puff inhalation Q6H PRN Wheezing 10/14/18 06/01/20 aerosol inhaler (Ventolin HFA) mycophenolate mofetil 250 mg 500 mg PO Q12 10/14/18 06/01/20 capsule oxycodone 20 mg tablet 20 mg PO Q6H PRN Pain 10/14/18 06/01/20 tacrolimus 1 mg capsule, 3 mg PO Q12 10/14/18 06/01/20 immediate-release Previous Rx's Medication Instructions Recorded trazodone 50 mg tablet 50 mg PO HS PRN sleep #30 tabs 01/29/22 Results & Data (ED) Vital Signs Vital Signs - 24 hr 02/16/22 10:05 02/16/22 12:08 02/16/22 13:00 Temperature 37.1 C Temperature Source Temporal Artery Scan Pulse Rate 97 H Pulse Rate [Apical] 75 92 H Pulse Rhythm [Apical] Regular Regular Pulse Strength [Apical] Normal Normal Respiratory Rate 18 16 18 Respiratory Effort / Characteristics Non-Labored Spontaneous Non-Labored Spontaneous Non-Labored Spontaneous Respiratory Depth Normal Normal Normal Respiratory Pattern Regular Blood Pressure 184/116 H Blood Pressure [Right Arm] 172/115 H 162/110 H Blood Pressure Mean 138 Blood Pressure Mean [Right Arm] 134 127 Blood Pressure Position Lying Blood Pressure Position [Right Arm] Lying Lying Pulse Oximetry 100 98 96 Oxygen Delivery Method Room Air Room Air Room Air Sepsis Recent Fever Within 48 Hours No Sepsis New/Unexplained Change in Mental Status No Sepsis Action Taken by Nursing No Action Required Home Medications Current Medication List: was personally reviewed by me Laboratory Data Attestation: I reviewed the patient's lab results. Result diagrams: 02/16/22 11:00 02/16/22 11:00 Lab Results 02/16/22 02/16/22 02/16/22 Range/Units 11:00 11:00 11:00 WBC 8.01 (4.8-10.8) K/ul RBC 4.74 (4.63-6.08) M/uL Hgb 14.2 (14.0-18.0) g/dl Hct 41.9 (40.1-51.0) % MCV 88.4 (80.0-100.0) fL MCH 30.0 (25.0-34.0) pg MCHC 33.9 (32.0-36.0) g/dL RDW Std Deviation 44.2 (36.4-46.3) fL RDW Coeff of Sharee 13.5 (11.5-14.5) % Plt Count 205 (130-400) K/uL MPV 10.8 (9.4-12.4) fL Immature Gran % (Auto) 0.4 % Neut % (Auto) 80.8 % Lymph % (Auto) 12.7 % Swift % (Auto) 5.5 % Eos % (Auto) 0.2 % Baso % (Auto) 0.4 % Neut # (Auto) 6.47 (1.4-6.5) K/uL Lymph # (Auto) 1.02 L (1.2-3.4) K/uL Swift # (Auto) 0.44 (0.24-0.82) K/uL Eos # (Auto) 0.02 (0-0.50) K/uL Baso # (Auto) 0.03 (0-0.2) K/uL Immature Gran # (Auto) 0.03 H (0.00-0.02) K/uL PT 10.4 (9.0-12.0) Seconds INR 1.0 (0.9-1.1) APTT 25.5 (21.0-31.0) Seconds PTT Ratio 0.9 Sodium 136 (136-145) mmol/L Potassium 3.6 (3.5-5.1) mmol/L Chloride 101 (98-107) mmol/L Carbon Dioxide 28 (21-32) mmol/L Anion Gap 7 (3-11) BUN 15 (6-23) mg/dl Creatinine 1.01 (0.6-1.4) mg/dl Est Cr Clr Drug Dosing Not Reportable Est GFR ( Amer) 93.9 ml/min Est GFR (Non-Af Amer) 81.0 ml/min BUN/Creatinine Ratio 14.9 (10-20) Glucose 120 H (70-99(Fasting)) mg/dl Calcium 9.5 (8.5-10.1) mg/dl Magnesium 1.6 L (1.7-2.4) mg/dl Total Bilirubin 1.0 (0.2-1.0) mg/dl AST 13 (13-39) U/L ALT 10 (7-52) U/L Alkaline Phosphatase 74 (34-104) U/L Troponin I High Sens 11.1 (0-20) pg/ml Total Protein 6.7 (6.0-8.3) gm/dl Albumin 4.3 (3.4-5.0) gm/dl Globulin 2.4 L (2.5-4.0) gm/dl Albumin/Globulin Ratio 1.8 (0.9-2) Lipase 18 (11-82) U/L TSH (0.300-4.500) uIu/ml Free T4 (0.61-1.60) ng/dl Urine Color Urine Appearance (Clear) Urine pH (4.5-7.5) Ur Specific [place] (1.000-1.030) Urine Protein (Negative) Urine Glucose (UA) (Negative) Urine Ketones (Negative) Urine Blood (Negative) Urine Nitrite (Negative) Urine Bilirubin (Negative) Urine Urobilinogen (Negative) Ur Leukocyte Esterase (Negative) SARS-CoV-2, RNA, NAAT (NEGATIVE) 02/16/22 02/16/22 02/16/22 Range/Units 11:00 11:00 11:05 WBC (4.8-10.8) K/ul RBC (4.63-6.08) M/uL Hgb (14.0-18.0) g/dl Hct (40.1-51.0) % MCV (80.0-100.0) fL MCH (25.0-34.0) pg MCHC (32.0-36.0) g/dL RDW Std Deviation (36.4-46.3) fL RDW Coeff of Sharee (11.5-14.5) % Plt Count (130-400) K/uL MPV (9.4-12.4) fL Immature Gran % (Auto) % Neut % (Auto) % Lymph % (Auto) % Swift % (Auto) % Eos % (Auto) % Baso % (Auto) % Neut # (Auto) (1.4-6.5) K/uL Lymph # (Auto) (1.2-3.4) K/uL Swift # (Auto) (0.24-0.82) K/uL Eos # (Auto) (0-0.50) K/uL Baso # (Auto) (0-0.2) K/uL Immature Gran # (Auto) (0.00-0.02) K/uL PT (9.0-12.0) Seconds INR (0.9-1.1) APTT (21.0-31.0) Seconds PTT Ratio Sodium (136-145) mmol/L Potassium (3.5-5.1) mmol/L Chloride (98-107) mmol/L Carbon Dioxide (21-32) mmol/L Anion Gap (3-11) BUN (6-23) mg/dl Creatinine (0.6-1.4) mg/dl Est Cr Clr Drug Dosing Est GFR ( Amer) ml/min Est GFR (Non-Af Amer) ml/min BUN/Creatinine Ratio (10-20) Glucose (70-99(Fasting)) mg/dl Calcium (8.5-10.1) mg/dl Magnesium (1.7-2.4) mg/dl Total Bilirubin (0.2-1.0) mg/dl AST (13-39) U/L ALT (7-52) U/L Alkaline Phosphatase (34-104) U/L Troponin I High Sens (0-20) pg/ml Total Protein (6.0-8.3) gm/dl Albumin (3.4-5.0) gm/dl Globulin (2.5-4.0) gm/dl Albumin/Globulin Ratio (0.9-2) Lipase (11-82) U/L TSH 5.718 H (0.300-4.500) uIu/ml Free T4 1.04 (0.61-1.60) ng/dl Urine Color Yellow Urine Appearance Clear (Clear) Urine pH 6.5 (4.5-7.5) Ur Specific [place] 1.015 (1.000-1.030) Urine Protein Negative (Negative) Urine Glucose (UA) Negative (Negative) Urine Ketones Negative (Negative) Urine Blood Negative (Negative) Urine Nitrite Negative (Negative) Urine Bilirubin Negative (Negative) Urine Urobilinogen Negative (Negative) Ur Leukocyte Esterase Negative (Negative) SARS-CoV-2, RNA, NAAT NEGATIVE (NEGATIVE) Administered Medications Hydromorphone HCl (Hydromorphone Inj 0.5 Mg/0.5 Ml Syr) 0.5 mg IV Q15M PRN PRN Reason: Pain Stop: 03/02/22 10:28 Last Admin: 02/16/22 11:52 Dose: 0.5 mg Documented By: MANJEET Discontinued Medications Sodium Chloride (Nss 1000ml) 1,000 mls @ 999 mls/hr IV .Q1H1M STA Stop: 02/16/22 11:29 Last Infusion: 02/16/22 13:03 Dose: 0 mls/hr Documented By: Admin: 02/16/22 11:52 Dose: 999 mls/hr Documented By: MANJEET Magnesium Sulfate/Dextrose (Magnesium Sulfate / D5w) 1 gm in 100 mls @ 100 mls/hr IV NOW STA Stop: 02/16/22 13:22 Last Admin: 02/16/22 13:03 Dose: 100 mls/hr Documented By: LACI Promethazine HCl (Phenergan) 6.25 mg in 50.25 mls @ 201 mls/hr IV NOW STA Stop: 02/16/22 13:40 Last Admin: 02/16/22 13:47 Dose: 201 mls/hr Documented By: RUPERTO Ioversol (Optiray 300 500ml) 90 ml IV ONCE ONE Stop: 02/16/22 12:22 Last Admin: 02/16/22 12:23 Dose: 90 ml Documented By: LALITA Labetalol HCl (Labetalol Hcl Iv 5 Mg/Ml 20ml) 10 mg IV NOW STA Stop: 02/16/22 12:24 Last Admin: 02/16/22 13:02 Dose: 10 mg Documented By: LACI Co-signed By: RUPERTO Lorazepam (Lorazepam 2 Mg/1 Ml Vial) 0.5 mg IV NOW STA; Protocol Stop: 02/16/22 10:30 Last Admin: 02/16/22 11:52 Dose: 0.5 mg Documented By: MANJEET Ondansetron HCl (Ondansetron Inj 2 Mg/Ml 2 Ml Vial) 4 mg IV NOW STA Stop: 02/16/22 10:30 Last Admin: 02/16/22 11:55 Dose: 4 mg Documented By: MANJEET Imaging Data Radiologist's Impression: Abdomen/Pelvis CT 02/16/22 10:29 CT abd pelvis IV con only CLINICAL HISTORY: ruq pain, nv TECHNIQUE: Helical axial images of the abdomen and pelvis were obtained and displayed. Automated dose lowering techniques and/or adjustment according to patient size were utilized for this exam. This exam was performed with intravenous contrast. CT DOSE: 353.95 mGy.cm COMPARISON: Comparison is made to CT abdomen pelvis 01/22/2022 FINDINGS: Lower chest: No acute abnormality Liver: Unremarkable. No focal lesions are seen. Gallbladder and biliary tree: Patient is status post cholecystectomy. Prominent enlargement of the common bile duct is again seen, the duct measures approximately 13 mm in diameter. It appears to smoothly taper to the level of the papilla. No radiodense stones are seen. Pancreas: Unremarkable, no focal lesions. The pancreatic duct is at the upper limit of normal, measuring approximately 3 mm at the level of the body. Spleen: Unremarkable. Adrenals: Unremarkable. Kidneys and ureters: Unremarkable. Bladder: Unremarkable. Reproductive organs: Mild prostatomegaly is noted. Partial visualization of bilateral hydroceles. Bowel: Unremarkable appearance of the bowel. The appendix is normal. Lymph nodes Retroperitoneal: Unremarkable. Pelvic: Unremarkable. Mesenteric: Unremarkable. Peritoneum: Normal. Vessels: Atherosclerotic calcifications are seen. Abdominal wall: A spinal stimulator is noted in satisfactory position. Bones: Degenerative changes in the visualized spine. 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 IMPRESSION: 1. No acute abnormalities are seen. There is stable prominence of the biliary ducts in this patient status post cholecystectomy without evidence of choledocholithiasis. 2. Bilateral hydroceles. 3. Additional findings as above. ACT 112: Negative or not required by law. Electronically signed by: Triston Reid M.D. 02/16/2022 12:46 PM Chest X-Ray 02/16/22 10:30 XR chest 1V portable CLINICAL HISTORY: abd pain TECHNIQUE: Single frontal radiograph of the chest was obtained. Comparison: Comparison is made to chest radiograph 06/01/2020 FINDINGS: No lines and tubes are seen. The cardiomediastinal silhouette is normal. The lungs are clear. No evidence of pleural effusion or pneumothorax. No evidence of pneumoperitoneum. IMPRESSION: No acute chest disease. No evidence of pneumoperitoneum is seen. ACT 112: Negative or not required by law. Electronically signed by: Triston Reid M.D. 02/16/2022 11:26 AM Discharge Plan Visit Data Chief Complaint: Abdominal Pain Stated Complaint: R SIDE ABDOM PAIN ED Provider: Gary Fine Discharge Problem: Right sided abdominal pain, Vomiting, Weight loss, Hypomagnesemia, History of liver transplant Patient Disposition: Admitted As Inpatient Condition: Fair Forms Stand Alone Forms: [employer] Prescriptions Prescriptions: No Action mycophenolate mofetil 250 mg capsule 500 mg PO Q12 Label Comments: patient unsure of strength. found in external med history. albuterol sulfate [Ventolin HFA] 90 mcg/actuation Hfa Aerosol Inhaler 2 puff INHALATION Q6H PRN (Reason: Wheezing) tacrolimus 1 mg capsule 3 mg PO Q12 Label Comments: unknown daily dose oxycodone 20 mg tablet 20 mg PO Q6H PRN (Reason: Pain) trazodone 50 mg tablet 50 mg PO HS PRN (Reason: sleep) Qty: 30 0RF Referrals Referrals: Yazan Ayala MD [Primary Care Provider] - : Vomiting Qualifiers: Vomiting type: unspecified Nausea presence: with nausea Qualified Code(s): R11.2 - Nausea with vomiting, unspecified
[2022-02-16 11:13] LABS: Basophils # (auto) 0.03 K/uL (0-0.2); Basophils % (auto) 0.4 %; Eosinophils # (auto) 0.02 K/uL (0-0.50); Eosinophils % (auto) 0.2 %; Hematocrit (blood only) 41.9 % (40.1-51.0); Hemoglobin 14.2 g/dl (14.0-18.0); Immature Granulocytes # (auto) 0.03 K/uL (0.00-0.02); Immature Granulocytes % (auto) 0.4 %; Lymphocytes # (auto) 1.02 K/uL (1.2-3.4); Lymphocytes % (auto) 12.7 %; Mean Corpuscular Hgb Conc 33.9 g/dL (32.0-36.0); Mean Corpuscular Volume 88.4 fL (80.0-100.0); Mean Platelet Volume 10.8 fL (9.4-12.4); Monocytes # (auto) 0.44 K/uL (0.24-0.82); Monocytes % (auto) 5.5 %; Neutrophils # (auto) 6.47 K/uL (1.4-6.5); Neutrophils % (auto) 80.8 %; Platelet Count 205 K/uL (130-400); RDW Coefficient of Variation 13.5 % (11.5-14.5); RDW Standard Deviation 44.2 fL (36.4-46.3); Red Blood Count 4.74 M/uL (4.63-6.08); White Blood Count 8.01 K/ul (4.8-10.8)
[2022-02-16 11:15] LABS: Appearance Urine Clear (Clear); Bilirubin Urine Negative (Negative); Blood Urine Negative (Negative); Color Urine Yellow; Glucose Urine UA Negative (Negative); Ketones Urine Negative (Negative); Leukocyte Esterase Urine Negative (Negative); Nitrite Urine Negative (Negative); Protein Urine Negative (Negative); Specific Gravity Urine 1.015 (1.000-1.030); Urobilinogen Urine Negative (Negative); pH Urine 6.5 (4.5-7.5)
--- NOTE | 2022-02-16 11:28 | XRay Report ---
XR chest 1V portable CLINICAL HISTORY: abd pain TECHNIQUE: Single frontal radiograph of the chest was obtained. Comparison: Comparison is made to chest radiograph 06/01/2020 FINDINGS: No lines and tubes are seen. The cardiomediastinal silhouette is normal. The lungs are clear. No evid ence of pleural effusion or pneumothorax. No evidence of pneumoperitoneum. IMPRESSION: No acute chest disease. No evidence of pneumoperitoneum is seen. ACT 112: Negative or not required by law. Electronically signed by: Triston Reid M.D. 02/16/2022 11:26 AM
[2022-02-16 11:33] LABS: Partial Thromboplastin Ratio 0.9; Partial Thromboplastin Time 25.5 Seconds (21.0-31.0); Prothrombin Time 10.4 Seconds (9.0-12.0)
[2022-02-16 11:40] LABS: Troponin I High Sensitivity 11.1 pg/ml (0-20)
[2022-02-16 11:43] LABS: Alanine Aminotransferase 10 U/L (7-52); Albumin Globulin Ratio 1.8 (0.9-2); Albumin Level 4.3 gm/dl (3.4-5.0); Alkaline Phosphatase 74 U/L (34-104); Anion Gap 7 (3-11); Aspartate Aminotransferase 13 U/L (13-39); BUN Creatinine Ratio 14.9 (10-20); Blood Urea Nitrogen 15 mg/dl (6-23); Calcium 9.5 mg/dl (8.5-10.1); Carbon Dioxide 28 mmol/L (21-32); Chloride 101 mmol/L (98-107); Est GFR (African American) 93.9 ml/min; Globulin 2.4 gm/dl (2.5-4.0); Glucose 120 mg/dl (70-99(Fasting)); Lipase 18 U/L (11-82); Magnesium 1.6 mg/dl (1.7-2.4); Potassium 3.6 mmol/L (3.5-5.1); Sodium 136 mmol/L (136-145); Total Protein 6.7 gm/dl (6.0-8.3)
[2022-02-16 11:49] LABS: Thyroid Stimulating Hormone 5.718 uIu/ml (0.300-4.500)
[2022-02-16] MEDS: HYDROmorphone INJ 0.5 MG/0.5 ML SYR IV PRN ×2 (11:52→16:16)
--- NOTE | 2022-02-16 11:53 | Electrocardiogram Report ---
Test Reason : Blood Pressure : / mmHG Vent. Rate : 073 BPM Atrial Rate : 073 BPM P-R Int : 202 ms QRS Dur : 090 ms QT Int : 370 ms P-R-T Axes : 077 084 076 degrees QTc Int : 407 ms Sinus rhythm with Premature supraventricular complexes Left atrial enlargement Incomplete right bundle branch block Borderline ECG When compared with ECG of 14-OCT-2018 07:53, Premature ventricular complexes are no longer Present Premature supraventricular complexes are now Present Confirmed by Alek Ramirez ([id number]) on 02/16/2022 11:52:33 AM Referred By: REFERRED SELF Confirmed By:Alek Ramirez
[2022-02-16] MEDS ORDERED: OPTIRAY 300 500mL IV ONE (12:21)
[2022-02-16] MEDS ORDERED: LABETALOL HCL IV 5 MG/ML 20ML IV STA ×2 (12:23→13:26)
[2022-02-16] MEDS ORDERED: MAGNESIUM SULFATE / D5W 1 GM/100 ML BAG IV STA (12:23)
[2022-02-16 12:27] LABS: T4 Free Thyroxine 1.04 ng/dl (0.61-1.60)
--- NOTE | 2022-02-16 12:48 | CT Scan Report ---
CT abd pelvis IV con only CLINICAL HISTORY: ruq pain, nv TECHNIQUE: Helical axial images of the abdomen and pelvis were obtained and displayed. Automated dose lowering techniques and/or adjustment according to patient size were utilized for this exam. This e xam was performed with intravenous contrast. CT DOSE: 353.95 mGy.cm COMPARISON: Comparison is made to CT abdomen pelvis 01/22/2022 FINDINGS: Lower chest: No acute abnormality Liver: Unremarkable. No focal lesions are seen. Gallbladder and biliary tree: Patient is status post cholecystectomy. Prominent enlargement of the co mmon bile duct is again seen, the duct measures approximately 13 mm in diameter. It appears to smooth ly taper to the level of the papilla. No radiodense stones are seen. Pancreas: Unremarkable, no focal lesions. The pancreatic duct is at the upper limit of normal, measur ing approximately 3 mm at the level of the body. Spleen: Unremarkable. Adrenals: Unremarkable. Kidneys and ureters: Unremarkable. Bladder: Unremarkable. Reproductive organs: Mild prostatomegaly is noted. Partial visualization of bilateral hydroceles. Bowel: Unremarkable appearance of the bowel. The appendix is normal. Lymph nodes Retroperitoneal: Unremarkable. Pelvic: Unremarkable. Mesenteric: Unremarkable. Peritoneum: Normal. Vessels: Atherosclerotic calcifications are seen. Abdominal wall: A spinal stimulator is noted in satisfactory position. Bones: Degenerative changes in the visualized spine. Avascular necrosis in the bilateral femoral head s, unchanged. IMPRESSION: 1. No acute abnormalities are seen. There is stable prominence of the biliary ducts in this patient status post cholecystectomy without evidence of choledocholithiasis. 2. Bilateral hydroceles. 3. Additional findings as above. ACT 112: Negative or not required by law. Electronically signed by: Triston Reid M.D. 02/16/2022 12:46 PM
[2022-02-16] MEDS ORDERED: PROMETHAZINE 6.25 MG/50.25 ML BAG IV STA (13:26)
--- NOTE | 2022-02-16 16:00 | History & Physical Report ---
Date of Service February 16, 2022 Assessment & Plan (1) Right sided abdominal pain: (2) Vomiting: (3) Chronic pain syndrome: (4) Status post insertion of intrathecal pump: Plan: This is a 61yo M with a PMH of hepatitis C cirrhosis [place] [facility] [place], chronic pain syndrome, cervical spine pain 2/2 fusion with intrathecal Dilaudid pain pump, daily marijuana use, asthma, persistent insomnia and other medical problems listed below who presents with worsening right upper abdominal pain starting this morning. Initially hypertensive and tachycardic despite IV Labetalol x 2 (no h/o HTN) Nausea and vomiting resolved with Zofran, Phenergan Possible withdrawal component given elevated BP, N, V. Has intrathecal Dilaudid pain pump, almost due for refill at [facility] per patient, down to last 2 oxycodone Smokes marijuana daily, states he has decreased use over past week due to feeling poorly Given additional 0.5mg IV Dilaudid in ED Work up: afebrile, no leukocytosis, renal function at baseline, UA normal, lipase normal, LFTs wnl, covid screen negative CXR normal, CT abd/pelvis with no acute abnormalities. Stable prominence of biliary ducts s/p cholecystectomy. No evidence of choledocholithiasis UDS pending No acute changes on abdominal imaging. Consider GI consult if pain does not improve Weight unclear - reporting 10 lb weight loss in past month. Per chart review, appears to have gained weight since 01/29 - repeat standing weight for more accuracy Pain mgmt consult given pain pump Continue home oxycodone for breakthrough pain, will add PRN Toradol, Tylenol Antiemetics PRN (5) Hypomagnesemia: Plan: Replaced. Repeat Mg in AM (6) History of liver transplant: Plan: [place] [facility] [place] continue mycophenolate, tacrolimus (7) Intermittent asthma: Plan: Stable. Albuterol inhaler as needed (8) Insomnia: Plan: Trazodone DVT Ppx: SQ Lovenox Code status: FULL PCP: Jamie Dispo: Observation med tele Patient seen in collaboration with Dr. Carney. Please see addendum. History of Present Illness Chief Complaint: Pain, N/V Primary Care Provider: Yazan Ayala MD This is a 61yo M with a PMH of hepatitis C cirrhosis status [place] [facility] [place], chronic pain syndrome, cervical spine pain 2/2 fusion with intrathecal Dilaudid pain pump, daily marijuana use, asthma, persistent insomnia and other medical problems listed below who presents with worsening right upper abdominal pain starting this morning. Patient woke up feeling poorly with sharp, constant pain in right upper quadrant associated with nausea and vomiting x2. Denies any melena or hematochezia. No fever or chills. No difficulty with urinating. Has been taking antirejection meds regularly, per patient. Follows with GI. Patient with history of multiple ER admissions for abdominal pain, nausea and vomiting in the past with negative work-up besides some ductal dilatation of CBD. States he started feeling poorly 3 weeks ago with abdominal pain nausea and vomiting and endorses a 10-12 pound weight loss . Upon further outpatient chart review, patient had reportedly smoked an unknown substance felt was poisoned prior to reporting to ED. Pain, nausea and vomiting resolved with discontinuation of unknown substance he was vaping. Follows with [facility] for pain pump management located in left lower abdomen. Also has oxycodone that he uses as needed for breakthrough pain. States he is due to see [facility] soon. Did also start trazodone for insomnia earlier this month which is reportedly helped sleep somewhat. Allergies Allergy/AdvReac Type Severity Reaction Status Date / Time morphine AdvReac Unknown INABILITY Verified 06/01/20 21:41 TO URINATE Home Medications Medication Instructions Recorded Confirmed Type albuterol sulfate 90 mcg/actuation 2 puff inhalation Q4 PRN Wheezing 10/14/18 02/16/22 History aerosol inhaler (Ventolin HFA) mycophenolate mofetil 250 mg 500 mg PO Q12 10/14/18 02/16/22 History capsule oxycodone 20 mg tablet 20 mg PO Q6H PRN Pain 10/14/18 02/16/22 History tacrolimus 1 mg capsule, 2 mg PO Q12 10/14/18 02/16/22 History immediate-release trazodone 50 mg tablet 50 mg PO HS PRN sleep #30 tabs 01/29/22 02/16/22 Rx cyclobenzaprine 10 mg tablet 10 mg PO Q8 PRN Muscle Spasm 02/16/22 02/16/22 History Past Med/Surg History Medical History (Updated 02/16/22 @ 16:35 by Linn Zayas PA-C) Chronic pain syndrome "cervical spine" Cirrhosis of liver GERD (gastroesophageal reflux disease) Hepatitis C, chronic Intermittent asthma Portal hypertension "esophageal varices noted on EGD Feb 2016" Thrombocytopenia Surgical History (Updated 02/16/22 @ 16:17 by Linn Zayas PA-C) History of tonsillectomy S/P cervical spinal fusion "2004 and 2007" Status post insertion of intrathecal pump "[facility] hydromorphone" Family History Other Family history not known due to adoption Social History Smoking Status: Current every day smoker Tobacco Type: Cigarettes Years Smoked: 37; Cigarettes Per Day: 10; Hx Alcohol Use: No Hx Substance Use: Yes (smokes marijuana daily) Prescribed Medications: Marijuana Preferred Language: Slovak current occupational status: disabled Feels Safe at Home: Yes Review of Systems Review of Systems: At least ten systems reviewed and negative except as noted in the HPI. Physical Exam Physical Exam: General Appearance: WD/WN, vitals as above, NAD, chronically ill appearing male, lethargic Head: normocephalic, atraumatic Eyes: normal inspection, PERRL, conjunctivae normal, anicteric sclerae ENT: external ear and nose normal, oropharynx normal Neck: normal visual inspection, trachea midline, no thyromegaly Respiratory: normal respiratory effort, lungs clear to auscultation, no wheeze, rales, rhonchi. No accessory muscle use Cardiovascular: regular rate, rhythm, no murmur, normal peripheral pulses, no BLE edema. Vessels: no JVD Chest: normal inspection of chest Abdomen/GI: normal bowel sounds, soft, TTP RUQ and RLQ, + pain pump palpated LLQ, no hepatosplenomegaly Extremities/Musculoskeletal: no cyanosis or clubbing, extremities motor strength 5/5 Neurologic: PERRL, EOMI, accommodation nl, no face palsy, no dysarthria, CN's II-XI intact bilaterally and moves all extremities Psychiatric: A+Ox3, euthymic affect Skin: no rashes, normal color, warm/dry Results & Data Results & Data ([facility]) Vital Signs (Past 12 Hours) Vital Signs Temp Pulse Pulse Resp BP BP Pulse Ox 02/16/22 14:19 92 H 18 167/108 H 95 02/16/22 13:00 92 H 18 162/110 H 96 02/16/22 12:08 75 16 172/115 H 98 02/16/22 10:05 37.1 C 97 H 18 184/116 H 100 O2 Del Method 02/16/22 14:19 Room Air 02/16/22 13:00 Room Air 02/16/22 12:08 Room Air 02/16/22 10:05 Room Air Laboratory Results Short CBC 02/16/22 Range/Units 11:00 WBC 8.01 (4.8-10.8) K/ul Hgb 14.2 (14.0-18.0) g/dl Hct 41.9 (40.1-51.0) % Plt Count 205 (130-400) K/uL BMP 02/16/22 11:00 Sodium 136 Potassium 3.6 Chloride 101 Carbon Dioxide 28 BUN 15 Creatinine 1.01 Glucose 120 H Calcium 9.5 Liver Function 02/16/22 Range/Units 11:00 Total Bilirubin 1.0 (0.2-1.0) mg/dl AST 13 (13-39) U/L ALT 10 (7-52) U/L Alkaline Phosphatase 74 (34-104) U/L Albumin 4.3 (3.4-5.0) gm/dl Urine 02/16/22 Range/Units 11:00 Urine Color Yellow Urine Appearance Clear (Clear) Urine pH 6.5 (4.5-7.5) Ur Specific [place] 1.015 (1.000-1.030) Urine Protein Negative (Negative) Urine Glucose (UA) Negative (Negative) Diagnostic Findings Abdomen/Pelvis CT 02/16/22 10:29 CT abd pelvis IV con only CLINICAL HISTORY: ruq pain, nv TECHNIQUE: Helical axial images of the abdomen and pelvis were obtained and displayed. Automated dose lowering techniques and/or adjustment according to patient size were utilized for this exam. This exam was performed with intravenous contrast. CT DOSE: 353.95 mGy.cm COMPARISON: Comparison is made to CT abdomen pelvis 01/22/2022 FINDINGS: Lower chest: No acute abnormality Liver: Unremarkable. No focal lesions are seen. Gallbladder and biliary tree: Patient is status post cholecystectomy. Prominent enlargement of the common bile duct is again seen, the duct measures approximately 13 mm in diameter. It appears to smoothly taper to the level of the papilla. No radiodense stones are seen. Pancreas: Unremarkable, no focal lesions. The pancreatic duct is at the upper limit of normal, measuring approximately 3 mm at the level of the body. Spleen: Unremarkable. Adrenals: Unremarkable. Kidneys and ureters: Unremarkable. Bladder: Unremarkable. Reproductive organs: Mild prostatomegaly is noted. Partial visualization of bilateral hydroceles. Bowel: Unremarkable appearance of the bowel. The appendix is normal. Lymph nodes Retroperitoneal: Unremarkable. Pelvic: Unremarkable. Mesenteric: Unremarkable. Peritoneum: Normal. Vessels: Atherosclerotic calcifications are seen. Abdominal wall: A spinal stimulator is noted in satisfactory position. Bones: Degenerative changes in the visualized spine. 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 IMPRESSION: 1. No acute abnormalities are seen. There is stable prominence of the biliary ducts in this patient status post cholecystectomy without evidence of choledocholithiasis. 2. Bilateral hydroceles. 3. Additional findings as above. ACT 112: Negative or not required by law. Electronically signed by: Triston Reid M.D. 02/16/2022 12:46 PM Chest X-Ray 02/16/22 10:30 XR chest 1V portable CLINICAL HISTORY: abd pain TECHNIQUE: Single frontal radiograph of the chest was obtained. Comparison: Comparison is made to chest radiograph 06/01/2020 FINDINGS: No lines and tubes are seen. The cardiomediastinal silhouette is normal. The lungs are clear. No evidence of pleural effusion or pneumothorax. No evidence of pneumoperitoneum. IMPRESSION: No acute chest disease. No evidence of pneumoperitoneum is seen. ACT 112: Negative or not required by law. Electronically signed by: Triston Reid M.D. 02/16/2022 11:26 AM Code Status & VTE Plan VTE Prophylaxis Plan VTE Prophylaxis will be ordered: Yes Supervising Physician Co-Signing Physician Notes 61 yo M w/ PMH of hepatitic C related Cirrhosis [place] [facility] [place] chronic pain syndrome, cervical spine pain 2/2 fusion w/ intrathecal dilaudid pain pump, daily marijuana use presented to our ED 02/16 w/ c/o feeling sick a/w abdominal pain since AM today. Also he complains of weakness since few days. He denies fever, chills, acute changes in bowel or bladder habits. He reports nausea and vomiting in AM today. He reports his appetite is good but reports he has lost a lot of weight in the last 3 weeks. admitting labs and imaging reviewed, fairly wnl, Mg replaced. Utox pending. On exam no abdominal tenderness noted when performed while conversing w/ the patient. But patient continues to state ongoing severe abd pain. Pain Mx consult. C/w home pain meds regimen. On Exam: GENERAL: Alert and oriented x3. NAD, on RA. HEENT: No pallor, no icterus. Pupils equal, round and reactive to light. Oral mucosa moist. NECK: No JVD, no neck masses. HEART: S1 and S2 heard. Regular rate and rhythm. No murmur, no gallop. RESPIRATORY SYSTEM: Normal AP diameter. No accessory muscle use. No wheezing, no crackles. ABDOMEN: Soft, bowel sounds present, nontender, no distention. Healed surgical scar of liver transplant. Pain pump noted. CENTRAL NERVOUS SYSTEM: No facial droop. Speech is clear. Obeys simple commands. Moves extremities. EXTREMITIES: No edema, no erythema seen. I have seen and examined the patient and have discussed the case with the provider above. I agree with the assessment and plan as stated. (1) Vomiting Nausea presence: with nausea Vomiting type: unspecified Qualified Code(s): R11.2 - Nausea with vomiting, unspecified
[2022-02-16 16:40] LABS: Amphetamines+Metham, Urine Neg (Neg); Barbiturates, Urine Neg (Neg); Benzodiazepine, Urine Neg (Neg); Cocaine, Urine Neg (Neg); MDMA (Ecstacy), Urine Neg (Neg); Methadone, Urine Neg (Neg); Opiate, Urine Pos (Neg); Phencyclidine, Urine Neg (Neg)
[2022-02-16] MEDS ORDERED: ONDANSETRON INJ 2 MG/ML 2 ML VIAL IV PRN (18:24)
[2022-02-16] MEDS ORDERED: oxyCODONE HCL IR 5 MG TAB (IMMEDIATE RELEASE) PO PRN (18:24)
[2022-02-16] MEDS ORDERED: traZODone HCL 50 MG TAB PO PRN (18:24)
[2022-02-16] MEDS ORDERED: CYCLOBENZAPRINE HCL 10 MG TAB PO PRN (18:24)
[2022-02-16] MEDS ORDERED: ALBUTEROL HFA 8 GM INHALER INH PRN (18:24)
[2022-02-16] MEDS ORDERED: ACETAMINOPHEN 325 MG TAB PO PRN (18:24)
[2022-02-16] MEDS ORDERED: ENOXAPARIN INJ 40 MG/0.4 ML SYR SQ SCH (19:00)
[2022-02-16] MEDS ORDERED: ALUMINUM/MAGNESIUM/SIMETH (MAALOX MAX) 30 ML UDC PO PRN (20:41)
[2022-02-16] MEDS: MYCOPHENOLATE MOFETIL 250 MG CAP PO SCH (21:30)
[2022-02-16] MEDS: TACROLIMUS 1 MG CAP PO SCH (21:30)
[2022-02-16] MEDS ORDERED: HYDROmorphone INJ 0.5 MG/0.5 ML SYR IV PRN (23:22)
[2022-02-16] MEDS ORDERED: PROMETHAZINE HCL 12.5 MG in SODIUM CHLORIDE 0.9% 50 ML IV STA (23:22)
[2022-02-17 06:48] LABS: Hematocrit (blood only) 43.9 % (40.1-51.0); Hemoglobin 15.2 g/dl (14.0-18.0); Mean Corpuscular Hemoglobin 30.3 pg (25.0-34.0); Mean Corpuscular Hgb Conc 34.6 g/dL (32.0-36.0); Mean Corpuscular Volume 87.5 fL (80.0-100.0); Mean Platelet Volume 10.8 fL (9.4-12.4); Platelet Count 221 K/uL (130-400); RDW Coefficient of Variation 13.4 % (11.5-14.5); RDW Standard Deviation 42.9 fL (36.4-46.3); Red Blood Count 5.02 M/uL (4.63-6.08); White Blood Count 9.04 K/ul (4.8-10.8)
[2022-02-17 07:12] LABS: BUN Creatinine Ratio 13.9 (10-20); Calcium 9.1 mg/dl (8.5-10.1); Creatinine Clr Calc Pharmacy 67.6 ml/min; Est GFR (African American) 86.6 ml/min; Est GFR (Non-African American) 74.7 ml/min; Potassium 4.1 mmol/L (3.5-5.1)
[2022-02-17] MEDS: MYCOPHENOLATE MOFETIL 250 MG CAP PO SCH (08:29)
[2022-02-17] MEDS: TACROLIMUS 1 MG CAP PO SCH (08:29)
--- NOTE | 2022-02-17 08:34 | Pain Management Consultation ---
Date of Consultation February 17, 2022 Assessment & Plan (1) Insomnia: (2) Right sided abdominal pain: (3) Vomiting: Nausea presence: with nausea Vomiting type: unspecified Qualified Code(s): R11.2 - Nausea with vomiting, unspecified (4) Weight loss: (5) History of liver transplant: (6) S/P cervical spinal fusion: (7) Status post insertion of intrathecal pump: Plan Patient states that the abdominal pain has resolved. He is ready for discharge. He will resume his daily medications. He will not use the vaporizer in question. Please call with any questions or concerns. History of Present Illness Attending Physician: Nickolas Hu MD History of Present Illness This is a 61 year old male that was admitted to [facility] for right upper quadrant abdominal pain that started yesterday. He described a constant sharp pain. There was associated nausea and vomiting. He does have a significant history of hepatitis C cirrhosis [place] [facility] [place], chronic pain syndrome, cervical spine surgery x 2, implanted intrathecal Dilaudid pain pump, daily marijuana use. Patient thinks that his symptoms may be attributed to a vaporizer he tried yesterday. Patient states that his symptoms resolved since 4AM this morning. No nausea, vomiting, or abdominal pain. He is anticipating discharge to home. Allergies Allergy/AdvReac Type Severity Reaction Status Date / Time morphine AdvReac Unknown INABILITY Verified 06/01/20 21:41 TO URINATE Home Medications Medication Instructions Recorded Confirmed Type albuterol sulfate 90 mcg/actuation 2 puff inhalation Q4 PRN Wheezing 10/14/18 02/16/22 History aerosol inhaler (Ventolin HFA) mycophenolate mofetil 250 mg 500 mg PO Q12 10/14/18 02/16/22 History capsule oxycodone 20 mg tablet 20 mg PO Q6H PRN Pain 10/14/18 02/16/22 History tacrolimus 1 mg capsule, 2 mg PO Q12 10/14/18 02/16/22 History immediate-release trazodone 50 mg tablet 50 mg PO HS PRN sleep #30 tabs 01/29/22 02/16/22 Rx cyclobenzaprine 10 mg tablet 10 mg PO Q8 PRN Muscle Spasm 02/16/22 02/16/22 History Patient History Medical History Chronic pain syndrome "cervical spine" Cirrhosis of liver GERD (gastroesophageal reflux disease) Hepatitis C, chronic Intermittent asthma Portal hypertension "esophageal varices noted on EGD Feb 2016" Thrombocytopenia Surgical History (Updated 02/17/22 @ 08:51 by Tamela Galindo PA-C) History of liver transplant [facility] [place] History of tonsillectomy S/P cervical spinal fusion "2004 and 2007" Status post insertion of intrathecal pump "[facility] hydromorphone" Family History Other Family history not known due to adoption Social History Smoking Status: Current every day smoker Tobacco Type: Cigarettes Years Smoked: 37; Cigarettes Per Day: 10; Second Hand Exposure: Yes; Do You Dip or Chew Tobacco: No; Tobacco Cessation Education Requested by Patient: No Hx Alcohol Use: No Hx Substance Use: Yes Prescribed Medications: Marijuana Last Used Substance: Days (ago) Preferred Language: Chinese Communication Ability: Effective Sales Project Coordinator Required: No Beliefs That Will Affect Care: Hoahaoism Hoahaoism Beliefs: Patient states he is Sikhism Current Living Situation: Family Current Living Situation Comment: Patient lives with Son Everton Bailon current occupational status: disabled Feels Safe at Home: Yes Safety Concerns: Feels Safe At This Time Assistive Devices: Glasses Physical Exam 2 Physical Exam: GENERAL: This is a 61 year old male that does not appear in any acute distress. He is dressed in his street clothes sitting on the side of the hospital bed. HEAD/FACE: Normocephalic and atraumatic. EYES: No drainage or conjunctival injection. ENT: Nose without bleeding or discharge. Oral mucosa moist. NECK: Full ROM without apparent pain. No swelling or masses noted. RESPIRATORY: Patient with unlabored breathing. No signs of respiratory distress. CHEST/AXILLA: Chest movement symmetrical. No deformities noted. ABDOMEN/GI: No distension BACK: Moves without difficulty SKIN: [place], warm and dry. No rash noted. MS/EXTREMITY: No swelling, no deformities. Moving extremities appropriately. NEURO: Alert and appears oriented. Speech is fluent. Cranial Nerves are grossly intact. PSYCH: Alert, pleasant, affect is calm
--- NOTE | 2022-02-17 09:13 | Hospitalist Progress Note ---
Date of Service February 17, 2022 Assessment & Plan (1) Right sided abdominal pain: (2) Vomiting: (3) Chronic pain syndrome: (4) Status post insertion of intrathecal pump: Plan: Patient is a 61 yr male with H/O Hepatitis C cirrhosis status post liver transplant at [facility] [place], chronic pain syndrome, cervical spine pain 2/2 fusion with intrathecal Dilaudid pain pump, daily marijuana use, asthma, persistent insomnia and other medical problems listed below who presents with worsening right upper abdominal pain starting this morning. Abdominal pain Nausea Likely due to Substance abuse Situational hypertension Chronic Pain syndrome --CT ABD:No acute abnormalities are seen. There is stable prominence of the biliary ducts in this patient status post cholecystectomy without evidence of choledocholithiasis. Bilateral hydroceles. --CXR:No acute chest disease. No evidence of pneumoperitoneum is seen. Normal Lipase UDS: + for opiates, marijuana -- Nausea, abdominal pain resolved Tolerated regular diet Admits to using an unknown substance for recreation Advice to quit drug abuse Has intrathecal Dilaudid pain pump--- follows with [facility] pain management Needs further evaluation by PCP for weight loss as outpatient Pain management consulted (5) Hypomagnesemia: Plan: Replaced. Monitor (6) History of liver transplant: Plan: H/O Hep C Underwent liver transplant at [facility] [place] continue mycophenolate, tacrolimus (7) Intermittent asthma: Plan: Tobacco use disorder Stable. Albuterol inhaler as needed Advised to quit smoking (8) Insomnia: Plan: On Trazodone DVT Px: SQ Lovenox Code status: FULL CODE Admission and Anticipated Discharge Date Admission Date: February 16, 2022 Subjective Patient is seen and examined at bedside States feeling well today Nausea, abdominal pain resolved Tolerated regular diet Eager to get discharged Denies any chest pain, shortness of breath, dizziness Review of Systems Review of Systems: All systems reviewed & are unremarkable except as noted in Subjective Physical Exam Physical Exam: Physical Exam: Vitals signs as noted above General Appearance:Thin, moderately nourished, no apparent distress Head: normocephalic, Atraumatic Eyes: normal inspection, EOMI Neck: supple, Trachea midline Respiratory/Chest: Normal breath sounds, CTA, No accessory muscle use Cardiovascular: S1, S2, No murmur Abdomen/GI:Soft, Non tender, Bowel sounds present Extremities/Musculoskeletal:normal inspection, no edema Neurologic/Psych:AAOX3, grossly no focal neurological deficits Skin: normal color, warm, +Multiple Tattoos, +Well healed abd surgical scar Results & Data Results & Data ([facility]) Vital Signs (Past 12 Hours) Vital Signs Temp Pulse Pulse Resp BP Pulse Ox O2 Del Method 02/17/22 07:34 36.5 C 97 H 18 149/91 H 93 Room Air 02/17/22 06:42 98 H 02/17/22 03:40 37.0 C 101 H 18 163/106 H 94 Room Air 02/17/22 01:17 114 H 02/16/22 23:25 37.0 C 100 H 18 152/96 H 95 Room Air Laboratory Results Short CBC 02/16/22 02/17/22 Range/Units 11:00 06:18 WBC 8.01 9.04 (4.8-10.8) K/ul Hgb 14.2 15.2 (14.0-18.0) g/dl Hct 41.9 43.9 (40.1-51.0) % Plt Count 205 221 (130-400) K/uL BMP 02/16/22 02/17/22 11:00 06:18 Sodium 136 132 L Potassium 3.6 4.1 Chloride 101 100 Carbon Dioxide 28 25 BUN 15 15 Creatinine 1.01 1.08 Glucose 120 H 141 H Calcium 9.5 9.1 Liver Function 02/16/22 Range/Units 11:00 Total Bilirubin 1.0 (0.2-1.0) mg/dl AST 13 (13-39) U/L ALT 10 (7-52) U/L Alkaline Phosphatase 74 (34-104) U/L Albumin 4.3 (3.4-5.0) gm/dl Urine 02/16/22 Range/Units 11:00 Urine Color Yellow Urine Appearance Clear (Clear) Urine pH 6.5 (4.5-7.5) Ur Specific [place] 1.015 (1.000-1.030) Urine Protein Negative (Negative) Urine Glucose (UA) Negative (Negative) (1) Vomiting Nausea presence: with nausea Vomiting type: unspecified Qualified Code(s): R11.2 - Nausea with vomiting, unspecified
--- NOTE | 2022-02-17 09:27 | Discharge Summary ---
Date of Service February 17, 2022 Admission HPI Per Admitting Provider This is a 61yo M with a PMH of hepatitis C cirrhosis status post [place] [facility], chronic pain syndrome, cervical spine pain 2/2 fusion with intrathecal Dilaudid pain pump, daily marijuana use, asthma, persistent insomnia and other medical problems listed below who presents with worsening right upper abdominal pain starting this morning. Patient woke up feeling poorly with sharp, constant pain in right upper quadrant associated with nausea and vomiting x2. Denies any melena or hematochezia. No fever or chills. No difficulty with urinating. Has been taking antirejection meds regularly, per p atient. Follows with GI. Patient with history of multiple ER admissions for abdominal pain, nausea and vomiting in the past with negative work-up besides some ductal dilatation of CBD. States he started feeling poorly 3 weeks ago with abdominal pain nausea and vomiting and endorses a 10-12 pound weight loss . Upon further outpatient chart review, patient had reportedly smoked an unknown substance felt was poisoned prior to reporting to ED. Pain, nausea and vomiting resolved with discontinuation of unknown substance he was vaping. Follows with [facility] for pain pump management located in left lower abdomen. Also has oxycodone that he uses as needed for breakthrough pain. States he is due to see [facility] soon. Did also start trazodone for insomnia earlier this month which is reportedly helped sleep somewhat. Admission Exam Per Admitting Provider Physical Exam Physical Exam: General Appearance:WD/WN, vitals as above, NAD, chronically ill appearing male, lethargic Head: normocephalic, atraumatic Eyes:normal inspection, PERRL, conjunctivae normal, anicteric sclerae ENT: external ear and nose normal, oropharynx normal Neck: normal visual inspection, trachea midline, no thyromegaly Respiratory:normal respiratory effort, lungs clear to auscultation, no wheeze, rales, rhonchi. No accessory muscle use Cardiovascular: regular rate, rhythm, no murmur, normal peripheral pulses, no BLE edema. Vessels: no JVD Chest: normal inspection of chest Abdomen/GI: normal bowel sounds, soft, TTP RUQ and RLQ, + pain pump palpated LLQ, no hepatosplenomegaly Extremities/Musculoskeletal: no cyanosis or clubbing, extremities motor strength 5/5 Neurologic: PERRL, EOMI, accommodation nl, no face palsy, no dysarthria, CN's II-XI intact bilaterally and moves all extremities Psychiatric:A+Ox3, euthymic affect Skin: no rashes, normal color, warm/dry Principal Diagnosis Abdominal Pain--Resolved Drug abuse Hypomagnesemia Discharge Data Allergies Allergy/AdvReac Type Severity Reaction Status Date / Time morphine AdvReac Unknown INABILITY Verified 06/01/20 21:41 TO URINATE Consultations 02/16/22 13:40 ED Decision to Admit Stat 02/16/22 15:49 Consult Pain Management Routine Procedures Performed CT ABD FINDINGS: Lower chest: No acute abnormality Liver: Unremarkable. No focal lesions are seen. Gallbladder and biliary tree: Patient is status post cholecystectomy. Prominent enlargement of the common bile duct is again seen, the duct measures approximately 13 mm in diameter. It appears to smoothly taper to the level of the papilla. No radiodense stones are seen. Pancreas: Unremarkable, no focal lesions. The pancreatic duct is at the upper limit of normal, measuring approximately 3 mm at the level of the body. Spleen: Unremarkable. Adrenals: Unremarkable. Kidneys and ureters: Unremarkable. Bladder: Unremarkable. Reproductive organs: Mild prostatomegaly is noted. Partial visualization of bilateral hydroceles. Bowel: Unremarkable appearance of the bowel. The appendix is normal. Lymph nodes Retroperitoneal: Unremarkable. Pelvic: Unremarkable. Mesenteric: Unremarkable. Peritoneum: Normal. Vessels: Atherosclerotic calcifications are seen. Abdominal wall: A spinal stimulator is noted in satisfactory position. Bones: Degenerative changes in the visualized spine. 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 IMPRESSION: 1. No acute abnormalities are seen. There is stable prominence of the biliary ducts in this patient status post cholecystectomy without evidence of choledocholithiasis. 2. Bilateral hydroceles. 3. Additional findings as above. Ordered Studies 02/16/22 10:29 CT abd pelvis IV con only Stat Hospital Course (1) Right sided abdominal pain: (2) Vomiting: (3) Chronic pain syndrome: (4) Status post insertion of intrathecal pump: Patient is a 61 yr male with H/O Hepatitis C cirrhosis status post liver [place] [facility], chronic pain syndrome, cervical spine pain 2/2 fusion with intrathecal Dilaudid pain pump, daily marijuana use, asthma, persistent insomnia and other medical problems listed below who presents with worsening right upper abdominal pain starting this morning. Abdominal pain Nausea Likely due to Substance abuse Situational hypertension Chronic Pain syndrome --CT ABD:No acute abnormalities are seen. There is stable prominence of the biliary ducts in this patient status post cholecystectomy without evidence of choledocholithiasis. Bilateral hydroceles. --CXR:No acute chest disease. No evidence of pneumoperitoneum is seen. Normal Lipase UDS: + for opiates, marijuana -- Nausea, abdominal pain resolved Tolerated regular diet Admits to using an unknown substance for recreation Advice to quit drug abuse Has intrathecal Dilaudid pain pump--- follows with [facility] pain management Needs further evaluation by PCP for weight loss as outpatient Pain management consulted (5) Hypomagnesemia: Replaced. Monitor (6) History of liver transplant: H/O Hep C Under[place] liver transplant [place] [facility] continue mycophenolate, tacrolimus (7) Intermittent asthma: Tobacco use disorder Stable. Albuterol inhaler as needed Advised to quit smoking (8) Insomnia: On Trazodone DVT Px: SQ Lovenox Code status: FULL CODE Total Time Total Time Spent Total Time Spent (In Minutes): 40 minutes Discharge Plan Discharge Items Patient Disposition: Home - Self-Care Reason For Visit: N/V, ABDOMINAL PAIN Discharge Diagnosis: Abdominal Pain--Resolved Drug abuse Hypomagnesemia Condition on Discharge: Fair Activity: Per Instructions section Exercise/Sports: Gradually increase as tolerated Non-emergency contact: Primary Care Provider Call non-emergency contact if: you have any medication questions, your symptoms worsen and you have a fever Follow-up/Referrals: Yazan Ayala MD [Primary Care Provider] - (Date & Time 02/23/2022 11:00 AM Provider [facility]ON[facility] Osborne Department Family Practice [facility] ) Diet: Regular Addtl Attending Provider Instructions: Follow-up with your primary care physician in 1 week Seek immediate medical attention if your symptoms reoccur or worsen Please take all medications as instructed on discharge list below. Please call if you have any questions or problems. You can reach a [facility] hospitalist on duty at [facility] 24 hours a day by calling [phone] Pending Studies at Discharge: No Stand-Alone Forms: My [facility], Smoking Cessation Medications and DC Order Prescriptions: Continued mycophenolate mofetil 250 mg capsule 500 mg PO Q12 Label Comments: patient unsure of strength. found in external med history. albuterol sulfate [Ventolin HFA] 90 mcg/actuation Hfa Aerosol Inhaler 2 puff INHALATION Q4 PRN (Reason: Wheezing) tacrolimus 1 mg capsule 2 mg PO Q12 oxycodone 20 mg tablet 20 mg PO Q6H PRN (Reason: Pain) cyclobenzaprine 10 mg tablet 10 mg PO Q8 PRN (Reason: Muscle Spasm) trazodone 50 mg tablet 50 mg PO HS PRN (Reason: sleep) Qty: 30 0RF Discharge Orders: Discharge Order (Routine); Ordered 02/17/22 Ordered By: Nickolas Hu Admission Data Admit Date/Time: 02/16/22 15:44 Attending Provider: Nickolas Hu Admit Provider: Travon Carney Primary Care Provider: Yazan Ayala Other Providers: Doni Retana ; Travon Carney
[2022-02-19 10:56] LABS: Codeine Urine NEGATIVE ng/mL (<50); Hydrocodone Urine NEGATIVE ng/mL (<50); Hydromor Urine 414 ng/mL (<50); Marijuana Quant, GCMS Urine 393 ng/mL (<5); Morphine Urine NEGATIVE ng/mL (<50); Norhydrocodone Conf Ur NEGATIVE ng/mL (<50); Noroxycodone Urine NEGATIVE ng/mL (<50); Oxycodone Urine NEGATIVE ng/mL (<50); Oxymorph Urine NEGATIVE ng/mL (<50)
== END 2022-02-17 10:00 | disposition home or self-care (01) ==
LOC: ED 09:57 → 2N 09:57 → SUATTDRO 15:44 → 2N 17:23